=== PATIENT | female | born 1945 | race Caucasian/White ===

== ENCOUNTER 2016-11-16 21:21 | Inpatient (IN) | payer MEDICARE, OTHER ==
[~2016-11-16] VITALS: Ht 162.6 cm; Wt 51.0 kg
[~2016-11-16 21:21] MED LIST: ASPI-676 PO; CLON-379 PO; FLUO10CA17; HUMULIN; HYDR-3671 PO; INSU100C5; LAS20; LEVO100C PO; LOSA25TA2 PO; METO5TAB2 PO; MIN25 PO; NEBI5TAB9 PO; NIFE90TA4 PO; PANT40TA4 PO; SEVE800T10 PO; ZOLP10TA PO
[2016-11-16 21:37] VITALS: Ht 162.6 cm; Wt 51.0 kg
--- NOTE | 2016-11-16 22:25 | ERA ---
ER Documentation Chief Complaint Date/Time DATE: 11/16/16 TIME: 22:23 Chief Complaint BIB BLS EMS FROM SNF C/O GENERALIZED PAIN MAINLY ON THE NECK AND CHEST WALL HPI 71-year-old female who is brought in from the long term complaining of diffuse upper chest pain. Unfortunately she is a very difficult historian. She cannot describe the chest pain. She does not know when the chest pain started. She does not know what causes it to feel better or causes it to feel worse. She says that she thinks she is a little short of breath and that may be the oxygen helps her. She does not think she has been running a fever and she denies a cough. The remainder of the systems are limited. ROS All systems reviewed and are negative except as per history of present illness. Medications Home Meds Reported Medications Sucralfate* (Carafate*) 1 Gm Tab, 2 GM PO BID WITH MEALS, TAB MON,WED,FRI 11/16/16 Sucralfate* (Carafate*) 1 Gm Tab, 1 GM PO AC MEALS AND BEDTIME, TAB SUN,TUE,[place],SAT, 11/16/16 Sennosides* (Senna Lax*) 8.6 Mg Tablet, 1 TAB PO Q12H Y for CONSTIPATION, TAB 11/16/16 Guaifenesin-Dextromethorphan* (Robitussin* DM) 100MG/10MG/5ML Syrup, 10 ML PO Q6H Y for COUGH, ML 11/16/16 Metoclopramide* (Reglan*) 10 Mg Tablet, 10 MG PO Q12 Y for NAUSEA AND/OR VOMITING, TAB 11/16/16 Insulin Aspart* (Novolog Insulin Pen*) 100 Unit/Ml Soln, 0 SC .SLIDING SCALE AC , EA 11/16/16 Hydrocodone/Acetaminophen ([place] 5-325 Tablet) 1 Each Tablet, 1 EACH PO Q12 Y for MODERATE PAIN LEVEL 4-6, TAB 11/16/16 Nifedipine* (Nifedipine ER*) 30 Mg Tablet.sa, 30 MG PO DAILY, TAB.SA 11/16/16 Vit B Complex & C No.13/Fa/D3 (NEPHROCAPS QT TABLET) 1 Each Tab.rapdis, 1 EACH PO DAILY 11/16/16 Minoxidil* (Lonitin*) 10 Mg Tab, 10 MG PO BID, TAB 11/16/16 Sitagliptin* (Januvia*) 50 Mg Tablet, 50 MG PO BID, #30 TAB 11/16/16 Ipratropium-Albuterol (Ipratropium-Albuterol) 0.5-3 Mg/3 Ml Ampul.neb, 3 ML INHALATION Q4 Y for SHORTNESS OF BREATH, #30 VIAL 11/16/16 Dextrose (Glucose Gel) 38 Gm Gel..gram., 38 GM PO PRN 11/16/16 Glucagon,Human Recombinant (Glucagon Emergency Kit) 1 Mg Kit, 1 MG IJ PRN, KIT 11/16/16 Bisacodyl (Dulcolax) 10 Mg Supp.rect, 10 MG RC DAILY Y for CONSTIPATION, SUPP.RECT 11/16/16 Docusate Sodium* (Dok*) 250 Mg Capsule, 250 MG PO DAILY Y for CONSTIPATION, #30 CAP 11/16/16 Duloxetine Hcl* (Cymbalta*) 60 Mg Capsule.dr, 60 MG PO DAILY, CAP 11/16/16 Clonidine Patch (CATAPRES PATCH) 0.3 Mg/24 Hr Patch, 1 EACH TD Q7D, #4 PATCH.WK 11/16/16 Diphenhydramine Hcl* (Diphenhydramine Hcl*) 25 Mg Capsule, 25 MG PO Q8 Y for ITCHING, CAP 11/16/16 Polyvinyl Alcohol (Tears Again) 15 Ml Drops, 1 DRP BOTH EYES Q6, BOTTLE 11/16/16 Acetaminophen* (Acetaminophen*) 650 Mg Tablet, 650 MG PO Q6H Y for PAIN AND OR ELEVATED TEMP, #30 TAB 11/16/16 Hydralazine Hcl* (Apresoline*) 25 Mg Tab, PO QID 07/02/12 Levothyroxine Sodium (Tirosint) 100 Mcg Capsule, PO DAILY 07/02/12 Insulin Glargine,Hum.rec.anlog (Lantus) 100 U/Ml Cartridge 07/02/12 Pantoprazole* (Pantoprazole*) 40 Mg Tablet.dr, PO DAILY 07/02/12 Clonidine Hcl* (Clonidine Hcl*) 0.1 Mg Tab, PO PRN 07/02/12 Clonidine Hcl* (Clonidine Hcl*) 0.1 Mg Tab, 0.2 MG PO TID 07/02/12 Zolpidem Tartrate* (Ambien*) 10 Mg Tablet, PO HS 07/02/12 Discontinued Reported Medications Furosemide (Lasix) 20 Mg Tab, DAILY 10/30/12 Sevelamer Hcl* (Renagel*) 800 Mg Tablet, PO TID 07/02/12 [Humulin] No Conflict Check 07/02/12 Aspirin (Olamide Child) 81 Mg Chew, PO DAILY 07/02/12 Fluoxetine Hcl* (Fluoxetine Hcl*) 10 Mg Capsule, DAILY, 0 Refills 07/02/12 Nifedipine (Nifediac Cc) 90 Mg Tablet.sa, PO BID 07/02/12 Losartan Potassium* (Cozaar*) 25 Mg Tablet, 50 MG PO BID 07/02/12 Minoxidil* (Lonitin*) 2.5 Mg Tab, 4 TAB PO DAILY, 0 Refills 07/02/12 Nebivolol* (Bystolic*) 5 Mg Tab, PO BID, 0 Refills 07/02/12 Metoclopramide Hcl (Reglan) 5 Mg Tab, PO TID, 0 Refills 07/02/12 Allergies Allergies: Coded Allergies: latex (Verified Allergy, Unknown, 11/16/16) PMhx/Soc History of Surgery: Yes (CHOLECYST, HYSTERECT, DISKECT, RUE FISTULA) Anesthesia Reaction: No Hx Neurological Disorder: Yes (cva 3 years ago) Hx Respiratory Disorders: Yes ( c/o sob at times) Hx Cardiac Disorders: Yes (htn,high cholesyerol) Hx Psychiatric Problems: No Hx Miscellaneous Medical Probl: Yes (CKD ON HD, HTN, DM, CVA, HYPERLIPID, HYPOTHYROID) Hx Alcohol Use: No Hx Substance Use: No Hx Tobacco Use: No Physical Exam Vitals Vital Signs Date Time Temp Pulse Resp B/P Pulse Ox O2 Delivery O2 Flow Rate FiO2 11/17/16 00:04 94 24 184/77 97 Nasal Cannula 3.0 11/16/16 23:06 Nasal Cannula 2 11/16/16 21:37 98.9 88 20 130/76 92 Physical Exam Const: [] Well-developed well-nourished -German female sitting on the bed in no acute distress Head: Atraumatic normocephalic Eyes: Normal Conjunctiva ENT: Normal External Ears, Nose and Mouth. Neck: Full range of motion..~ No meningismus. Resp: Clear to auscultation bilaterally Cardio: Regular rate and rhythm, both a systolic and diastolic murmur auscultated across the entire precordium Abd: Soft, non tender, non distended. Normal bowel sounds Skin: No petechiae, patient has a scabbed rash noted on her left upper back which appears to possibly be shingles that is healing Back: No midline or flank tenderness Ext: No cyanosis, or edema Neur: Awake and alert, moves all extremities equally, nonfocal, follows simple commands Psych: Normal Mood and Affect Result Diagram: 11/16/16229911/16/162299 Results 24 hrs Laboratory Tests Test 11/16/16 23:00 White Blood Count 24.610^3/ul Red Blood Count 3.7110^6/ul Hemoglobin 9.2g/dl Hematocrit 30.6% Mean Corpuscular Volume 82.5fl Mean Corpuscular Hemoglobin 24.8pg Mean Corpuscular Hemoglobin Concent 30.1g/dl Red Cell Distribution Width 16.1% Platelet Count 05671^3/UL Mean Platelet Volume 9.7fl Neutrophils % 91.0% Band Neutrophils % 3.0% Lymphocytes % 1.0% Monocytes % 5.0% Neutrophils # 22.410^3/ul Lymphocytes # 0.210^3/ul Monocytes # 1.210^3/ul Platelet Estimate PLT APPEAR INCREASED Prothrombin Time 15.0Sec Prothrombin Time Ratio 1.2 INR International Normalized Ratio 1.17 Activated Partial Thromboplast Time 59.5Sec Sodium Level 133mmol/L Potassium Level 4.1mmol/L Chloride Level 89mmol/L Carbon Dioxide Level 30mmol/L Anion Gap 18 Blood Urea Nitrogen 23mg/dl Creatinine 2.88mg/dl Glucose Level 367mg/dl Calcium Level 9.2mg/dl Total Bilirubin 0.0mg/dl Direct Bilirubin 0.00mg/dl Indirect Bilirubin 0.0mg/dl Aspartate Amino Transf (AST/SGOT) 21IU/L Alanine Aminotransferase (ALT/SGPT) 14IU/L Alkaline Phosphatase 225IU/L Troponin I < 0.012ng/ml B-Type Natriuretic Peptide 397405YM/ML Total Protein 9.4g/dl Albumin 4.3g/dl Globulin 5.10g/dl Albumin/Globulin Ratio 0.84 Current Medications Medications (Trade) Dose Ordered Sig/Esteban Route PRN Reason Start Time Stop Time Status Last Admin Dose Admin Aspirin (Aspirin) 162 mg ONCE STAT PO 11/16/16 22:36 11/16/16 22:37 DC 11/16/16 23:04 Morphine Sulfate (morphine) 2 mg ONCE STAT IV 11/16/16 22:36 11/16/16 22:37 DC 11/16/16 23:04 Ondansetron HCl (Zofran Inj) 4 mg ONCE STAT IV 11/16/16 22:36 11/16/16 22:37 DC 11/16/16 23:04 Furosemide 80 mg 80 mg ONCE ONCE IV 11/17/16 00:30 11/17/16 00:31 DC 11/17/16 00:43 Ceftriaxone Sodium 50 ml @ 100 mls/hr ONCE ONCE IVPB 11/17/16 00:30 11/17/16 00:59 DC 11/17/16 00:41 Azithromycin (Zithromax 500mg/ NS (Pmx)) 250 ml @ 250 mls/hr ONCE ONCE IVPB 11/17/16 00:30 11/17/16 01:29 Morphine Sulfate (morphine) 1 mg ONCE ONCE IV 11/17/16 01:00 11/17/16 01:01 DC Procedures/MDM Differential includes but is not limited to chest pain, angina, chest wall pain , bronchitis, pneumonia EKG: Rate/Rhythm: Normal Sinus Rhythm at 90 beats per minutes with a nonspecific intraventricular block, no evidence for acute ischemia noted, poor R -wave progression across precordium, nonspecific ST-T wave changes, no old EKG available for comparison QRS, ST, T-waves: No changes consistent w/ acute ischemia Impression: No evidence of ischemia or arrhythmia Chest x-ray shows a right middle lobe and right lower lobe pneumonia with a parapneumonic effusion 0100: There has been no change in her exam at this time. I have consulted her primary care physician to admit her to the hospital for further treatment Departure Diagnosis: Primary Impression: Pneumonia Qualified Code: J18.1 - Pneumonia of right middle lobe due to infectious organism Additional Impressions: Pleural effusion Congestive heart failure Qualified Code: I50.9 - Acute congestive heart failure, unspecified congestive heart failure type Chest pain at rest Renal insufficiency Condition: LINDA Elder Nov 16, 2016 22:25
[2016-11-16] MEDS ORDERED: ASPIRIN 81 MG TAB PO STA (22:36)
[2016-11-16] MEDS ORDERED: morphine 2 MG INJ IV STA (22:36)
[2016-11-16] MEDS ORDERED: ONDANSETRON 4 MG INJ IV STA (22:36)
[2016-11-16] MEDS ORDERED: ACET-2047 PO (22:43)
[2016-11-16] MEDS ORDERED: POLY15DR25 BOTH EYES (22:44)
[2016-11-16] MEDS ORDERED: DIPH25CA6 PO (22:45)
[2016-11-16] MEDS ORDERED: DULO60CA6 PO (22:46)
[2016-11-16] MEDS ORDERED: CLON1PAT34 TD (22:46)
[2016-11-16] MEDS ORDERED: DOCU250C68 PO (22:47)
[2016-11-16] MEDS ORDERED: GLUC1KIT IJ (22:48)
[2016-11-16] MEDS ORDERED: BISA10SU55 RC (22:48)
[2016-11-16] MEDS ORDERED: DEXT38GE15 PO (22:49)
[2016-11-16] MEDS ORDERED: IPRA3AMP INHALATION (22:50)
[2016-11-16] MEDS ORDERED: SITA50TA2 PO (22:51)
[2016-11-16] MEDS ORDERED: MIN10 PO (22:52)
[2016-11-16] MEDS ORDERED: VIT1TAB.4 PO (22:53)
[2016-11-16] MEDS ORDERED: HYDR-906 PO (22:54)
[2016-11-16] MEDS ORDERED: NIFE30TA60 PO (22:54)
[2016-11-16] MEDS ORDERED: NOVO3I SC (22:55)
[2016-11-16] MEDS ORDERED: METO10TA92 PO (22:56)
[2016-11-16] MEDS ORDERED: UDROBDM PO (22:56)
[2016-11-16] MEDS ORDERED: SENN-53 PO (22:57)
[2016-11-16] MEDS ORDERED: SUCR1TAB56 PO ×2 (23:00)
[2016-11-16 23:08] LABS: ADD SCAN DIFF NO
[2016-11-16 23:10] LABS: ABNORMAL IP MESSAGE 1; HEMATOCRIT 30.6 % (37.0-47.0); HEMOGLOBIN 9.2 g/dl (12.0-16.0); MEAN CORPUSCULAR HEMOGLOBIN 24.8 pg (29.0-33.0); MEAN CORPUSCULAR HGB CONC 30.1 g/dl (32.0-37.0); MEAN CORPUSCULAR VOLUME 82.5 fl (82.0-101.0); MEAN PLATELET VOLUME 9.7 fl (7.4-10.4); PLATELET COUNT 457 10^3/UL (140-415); RED BLOOD COUNT 3.71 10^6/ul (4.20-5.40); RED CELL DISTRIBUTION WIDTH 16.1 % (11.5-14.5); WHITE BLOOD COUNT 24.6 10^3/ul (4.8-10.8)
--- NOTE | 2016-11-16 23:17 | RADRPT ---
PROCEDURE: XR Chest. CLINICAL INDICATION: Chest pain. TECHNIQUE: Portable AP upright view of the chest was obtained. COMPARISON: 10/10/2013 FINDINGS: The cardiomediastinal silhouette is mildly enlarged. Diffuse right middle and right lower lobe infi ltrate cannot exclude pneumonia with a parapneumonic effusion. The left lung is grossly clear. The re is no evidence of pneumothorax. Demineralization and thoracic spondylosis is again noted without acute osseous abnormality. Calcification of the aorta is visualized. Right upper arm surgical clips are again seen. RPTAT:HJJR IMPRESSION: 1. Right lower and middle lobe infiltrates concerning for pneumonia with a parapneumonic effusion. Correlation with cough, fever and leukocytosis is recommended. 2. Stable cardiac silhouette enlargement. An element of congestive heart failure is difficult to ex clude. 3. Aortic atherosclerosis is present. Physician Shelly Date Time Electronically viewed and signed by Physician Shelly on 11/16/2016 23:17 /
[2016-11-16 23:19] LABS: ALBUMIN 4.3 g/dl (3.3-4.9)
[2016-11-16 23:20] LABS: CHLORIDE 89 mmol/L (97-110); POTASSIUM 4.1 mmol/L (3.5-5.1); SODIUM 133 mmol/L (135-144)
[2016-11-16 23:21] LABS: INR 1.17; PT RATIO 1.2
[2016-11-16 23:22] LABS: CREATININE 2.88 mg/dl (0.44-1.00); PARTIAL THROMBOPLASTIN TIME 59.5 Sec (25.0-35.0)
[2016-11-16 23:23] LABS: ALANINE AMINOTRANSFERASE 14 IU/L (13-69); ALBUMIN/GLOBULIN RATIO 0.84; ALKALINE PHOSPHATASE 225 IU/L (42-121); ANION GAP 18 (8-16); ASPARTATE AMINO TRANSFERASE 21 IU/L (15-46); BLOOD UREA NITROGEN 23 mg/dl (7-20); CALCIUM 9.2 mg/dl (8.4-10.2); CARBON DIOXIDE 30 mmol/L (21-31); GLUCOSE 367 mg/dl (70-220); TOTAL PROTEIN 9.4 g/dl (6.1-8.1)
[2016-11-16 23:52] LABS: B-TYPE NATRIURETIC PEPTIDE 150000 PG/ML (0-125); TROPONIN-I < 0.012 ng/ml (0.00-0.12)
[2016-11-17] VITALS (12 sets, daily range): BP systolic 122–163; BP diastolic 56–67; PULSE 82–91; RESP 16–24
[2016-11-17 00:27] LABS: LYMPHOCYTES # 0.2 10^3/ul (0.8-2.9); MONOCYTE # 1.2 10^3/ul (0.3-0.9); NEUTROPHIL # 22.4 10^3/ul (1.6-7.5); PLATELET ESTIMATE PLT APPEAR INCREASED
[2016-11-17] MEDS ORDERED: AZITHROMYCIN 500MG/NS (PMX) 250 ML IVPB ONE (00:30)
[2016-11-17] MEDS ORDERED: CEFTRIAXONE 1 GM/50 ML (PMX) 50 ML IVPB ONE (00:30)
[2016-11-17] MEDS ORDERED: FUROSEMIDE 40 MG INJ IV ONE (00:30)
[2016-11-17] MEDS ORDERED: morphine 2 MG INJ IV ONE ×2 (01:00→04:10)
[2016-11-17] MEDS ORDERED: ACETAMINOPHEN 325 MG TAB PO PRN (01:30)
[2016-11-17] MEDS ORDERED: ONDANSETRON 4 MG INJ IV PRN (01:30)
[2016-11-17] MEDS ORDERED: morphine 10 MG INJ IM ONE (04:00)
[2016-11-17 08:35] LABS: CK-MB 0.82 ng/ml (0.0-2.4)
[2016-11-17 08:38] LABS: TROPONIN-I 0.017 ng/ml (0.00-0.12)
[2016-11-17] MEDS ORDERED: HYDROCODONE/APAP (5/325) TAB PO PRN (09:00)
[2016-11-17] MEDS ORDERED: BISACODYL 10 MG SUPP PR PRN (09:00)
[2016-11-17] MEDS ORDERED: METOCLOPRAMIDE 10 MG TAB PO PRN (09:00)
[2016-11-17] MEDS ORDERED: GUAIFENESIN/DM 5ML CUP PO PRN (09:00)
[2016-11-17] MEDS ORDERED: DOCUSATE SODIUM 250 MG CAP PO PRN (09:00)
[2016-11-17] MEDS ORDERED: DIPHENHYDRAMINE 25 MG CAP PO PRN (09:00)
[2016-11-17] MEDS ORDERED: GLUCOSE GEL 15 GRAM TUBE PO SCH (09:00)
[2016-11-17] MEDS ORDERED: SENNA TAB PO PRN (09:00)
[2016-11-17] MEDS ORDERED: LEVOTHYROXINE 100 MCG TAB PO ONE (09:42)
[2016-11-17] MEDS ORDERED: CLONIDINE 0.3 MG/24 HR PATCH TRANSDERM SCH (10:00)
[2016-11-17] MEDS ORDERED: DEXTROSE 50% 50 ML SYRINGE IV PRN (10:00)
[2016-11-17] MEDS ORDERED: GLUCOSE GEL 15 GRAM TUBE PO PRN ×2 (10:00)
[2016-11-17] MEDS ORDERED: GLUCAGON 1 MG INJ IM PRN (10:00)
--- NOTE | 2016-11-17 10:09 | HP ---
Date/Time of Note Date/Time of Note DATE: 11/17/16 TIME: 08:47 Assessment/Plan Lines/Catheters IV Catheter Type (from Nrsg): Saline Lock Assessment/Plan Assessment/Plan -Chest pain at rest- on/off at times - Cardiology consult- Dr Magana notified - Tele monitoring - 12 - Leas EKG- fu - 2-D Echo ordered - Troponin x 3- fu - Low Cholesterol diet, renal diet - Lipid panel - Rash- upper back- possibly healing Shingles - ID consult- Dr Mello notified - Contact isolation - Acyclovoer 800 mg po TID - Neurontin 100 mg po TID - Post Herpatic Neuralgia - Andrews for pain -Pneumonia of right middle lobe due to infectious organism - Pulmonary consult- Dr Whitley notified -Pleural effusion -Congestive heart failure -Renal insufficiency-CKD ON HD - Nephrolgy consult- Dr Vita Marsh notified - HD am - SP RUE FISTULA for HD - Hypertension- Clonidine - Diabetes Mellitus- Glycemic control - Novolog insulin- mild algorithm, at meals, Lantus - Endocrinology consult- Dr Mensah notified - log chain worker consult - Hoop Bending Machine Operator consult - Hx CVA- no acute issues - HYPERLIPIDEMIAS- Atorvastatin 10 mg po QHs - HYPOTHYROID- On Synthroid 100mcg po daily, TSH- - Hx CHOLECYSTECTOMY - SCD svenous thrombosis prophylaxis - Protonix for peptic ulcer disease prophylaxis. Further recommendations based on clinical course. Total patient care time spent is 40 mins. Plan of care discussed with Dr. Porter/ staff. HPI/ROS Admit Date/Time Admit Date/Time Nov 17, 2016 at 01:09 Hx of Present Illness Chief Complaint BIB BLS EMS FROM SNF C/O GENERALIZED PAIN MAINLY ON THE NECK AND CHEST WALL HPI 71-year-old female, w/o CKD, HTN, SNF resident who is brought in from the care home complaining of diffuse upper chest pain. Patient is not able to describe the chest pain, neck pain, rashes. Denies any nausea/vomitting.The remainder of the systems are limited. Patient is admitted under Dr Garsia with differential diagnoses of chest pain , angina, chest wall pain, bronchitis, pneumonia ROS All systems reviewed and are negative except as per history of present illness. Medications Home Meds Reported Medications Sucralfate* (Carafate*) 1 Gm Tab, 2 GM PO BID WITH MEALS, TAB MON,WED,FRI 11/16/16 Sucralfate* (Carafate*) 1 Gm Tab, 1 GM PO AC MEALS AND BEDTIME, TAB SUN,TUE,[place],SAT, 11/16/16 Sennosides* (Senna Lax*) 8.6 Mg Tablet, 1 TAB PO Q12H Y for CONSTIPATION, TAB 11/16/16 Guaifenesin-Dextromethorphan* (Robitussin* DM) 100MG/10MG/5ML Syrup, 10 ML PO Q6H Y for COUGH, ML 11/16/16 Metoclopramide* (Reglan*) 10 Mg Tablet, 10 MG PO Q12 Y for NAUSEA AND/OR VOMITING, TAB 11/16/16 Insulin Aspart* (Novolog Insulin Pen*) 100 Unit/Ml Soln, 0 SC .SLIDING SCALE AC , EA 11/16/16 Hydrocodone/Acetaminophen ([place] 5-325 Tablet) 1 Each Tablet, 1 EACH PO Q12 Y for MODERATE PAIN LEVEL 4-6, TAB 11/16/16 Nifedipine* (Nifedipine ER*) 30 Mg Tablet.sa, 30 MG PO DAILY, TAB.SA 11/16/16 Vit B Complex & C No.13/Fa/D3 (NEPHROCAPS QT TABLET) 1 Each Tab.rapdis, 1 EACH PO DAILY 11/16/16 Minoxidil* (Lonitin*) 10 Mg Tab, 10 MG PO BID, TAB 11/16/16 Sitagliptin* (Januvia*) 50 Mg Tablet, 50 MG PO BID, #30 TAB 11/16/16 Ipratropium-Albuterol (Ipratropium-Albuterol) 0.5-3 Mg/3 Ml Ampul.neb, 3 ML INHALATION Q4 Y for SHORTNESS OF BREATH, #30 VIAL 11/16/16 Dextrose (Glucose Gel) 38 Gm Gel..gram., 38 GM PO PRN 11/16/16 Glucagon,Human Recombinant (Glucagon Emergency Kit) 1 Mg Kit, 1 MG IJ PRN, KIT 11/16/16 Bisacodyl (Dulcolax) 10 Mg Supp.rect, 10 MG RC DAILY Y for CONSTIPATION, SUPP.RECT 11/16/16 Docusate Sodium* (Dok*) 250 Mg Capsule, 250 MG PO DAILY Y for CONSTIPATION, #30 CAP 11/16/16 Duloxetine Hcl* (Cymbalta*) 60 Mg Capsule.dr, 60 MG PO DAILY, CAP 11/16/16 Clonidine Patch (CATAPRES PATCH) 0.3 Mg/24 Hr Patch, 1 EACH TD Q7D, #4 PATCH.WK 11/16/16 Diphenhydramine Hcl* (Diphenhydramine Hcl*) 25 Mg Capsule, 25 MG PO Q8 Y for ITCHING, CAP 11/16/16 Polyvinyl Alcohol (Tears Again) 15 Ml Drops, 1 DRP BOTH EYES Q6, BOTTLE 11/16/16 Acetaminophen* (Acetaminophen*) 650 Mg Tablet, 650 MG PO Q6H Y for PAIN AND OR ELEVATED TEMP, #30 TAB 11/16/16 Hydralazine Hcl* (Apresoline*) 25 Mg Tab, PO QID 07/02/12 Levothyroxine Sodium (Tirosint) 100 Mcg Capsule, PO DAILY 07/02/12 Insulin Glargine,Hum.rec.anlog (Lantus) 100 U/Ml Cartridge 07/02/12 Pantoprazole* (Pantoprazole*) 40 Mg Tablet.dr, PO DAILY 07/02/12 Clonidine Hcl* (Clonidine Hcl*) 0.1 Mg Tab, PO PRN 07/02/12 Clonidine Hcl* (Clonidine Hcl*) 0.1 Mg Tab, 0.2 MG PO TID 07/02/12 Zolpidem Tartrate* (Ambien*) 10 Mg Tablet, PO HS 07/02/12 Discontinued Reported Medications Furosemide (Lasix) 20 Mg Tab, DAILY 10/30/12 Sevelamer Hcl* (Renagel*) 800 Mg Tablet, PO TID 07/02/12 [Humulin] No Conflict Check 07/02/12 Aspirin (Olamide Child) 81 Mg Chew, PO DAILY 07/02/12 Fluoxetine Hcl* (Fluoxetine Hcl*) 10 Mg Capsule, DAILY, 0 Refills 07/02/12 Nifedipine (Nifediac Cc) 90 Mg Tablet.sa, PO BID 07/02/12 Losartan Potassium* (Cozaar*) 25 Mg Tablet, 50 MG PO BID 07/02/12 Minoxidil* (Lonitin*) 2.5 Mg Tab, 4 TAB PO DAILY, 0 Refills 07/02/12 Nebivolol* (Bystolic*) 5 Mg Tab, PO BID, 0 Refills 07/02/12 Metoclopramide Hcl (Reglan) 5 Mg Tab, PO TID, 0 Refills 07/02/12 Allergies Allergies: Coded Allergies: latex (Verified Allergy, Unknown, 11/16/16) PMH/Family/Social Past Medical History PMhx/Soc History of Surgery: Yes (CHOLECYST, HYSTERECT, DISKECT, RUE FISTULA) Anesthesia Reaction: No Hx Neurological Disorder: Yes (cva 3 years ago) Hx Respiratory Disorders: Yes ( c/o sob at times) Hx Cardiac Disorders: Yes (htn,high cholesyerol) Hx Psychiatric Problems: No Hx Miscellaneous Medical Probl: Yes (CKD ON HD, HTN, DM, CVA, HYPERLIPID, HYPOTHYROID) Hx Alcohol Use: No Hx Substance Use: No Hx Tobacco Use: No Social History Alcohol Use: none Smoking Status: Never smoker Drug Use: none Exam/Review of Systems Vital Signs Vitals Vital Signs Date Time Temp Pulse Resp B/P Pulse Ox O2 Delivery O2 Flow Rate FiO2 11/17/16 08:38 84 11/17/16 08:24 98.0 18 151/67 98 11/17/16 03:00 Nasal Cannula 2.0 Exam Constitutional: alert, well developed Psych: no complaints Eyes: EOMI, PERRL, nl sclera ENMT: nl external ears & nose Neck: non-tender Respiratory: clear to auscultation Cardiovascular: nl pulses Gastrointestinal: non-tender, soft Musculoskeletal: nl extremities to inspection Extremities: normal pulses Neurological: nl speech Skin: rash or lesions (No petechiae, patient has a scabbed rash noted on her left upper back which appears to possibly be shingles that is healing) Labs Result Diagram: 11/16/16 2300 11/16/16 2300 Procedures Procedures 1. EKG: Rate/Rhythm: Normal Sinus Rhythm at 90 beats per minutes with a nonspecific intraventricular block, no evidence for acute ischemia noted, poor R-wave progression across precordium, nonspecific ST-T wave changes, no old EKG available for comparison QRS, ST, T-waves: No changes consistent w/ acute ischemia Impression: No evidence of ischemia or arrhythmia 2.Chest x-ray shows a right middle lobe and right lower lobe pneumonia with a parapneumonic effusion CANDELARIA TURCIOS Nov 17, 2016 08:59
[2016-11-17 10:29] LABS: CHOL/HDL RATIO 1.5 RATIO; PHOSPHORUS 3.7 mg/dl (2.5-4.9)
[2016-11-17] MEDS ORDERED: INSULIN GLARGINE [LANtus] 3 ML PEN SC SCH ×2 (11:00→20:00)
[2016-11-17] MEDS: INSULIN ASPART [NOVOLOG] 3 ML PEN SC SCH ×5 (11:21→21:00)
[2016-11-17] MEDS: MULTIVIT/CA CARB/B CMPLX/FA TAB PO SCH (11:32)
[2016-11-17] MEDS: DULOXETINE 30 MG CAP DR PO SCH (11:32)
[2016-11-17] MEDS: PANTOPRAZOLE (EC) 40 MG TAB PO SCH (11:32)
[2016-11-17] MEDS: SUCRALFATE 1 GM TAB PO SCH ×4 (11:35→22:20)
[2016-11-17] MEDS: MINOXIDIL 10 MG TAB PO SCH ×2 (11:36→21:00)
[2016-11-17] MEDS: ARTIFICIAL TEARS 15 ML OPH BOTH EYES SCH ×3 (11:41→22:20)
[2016-11-17] MEDS: NIFEdipine (XL) 30 MG TAB PO SCH (11:44)
[2016-11-17] MEDS ORDERED: VANCOMYCIN IV PER PHARMACY XX SCH (12:00)
[2016-11-17] MEDS ORDERED: INSULIN ASPART [NOVOLOG] 3 ML PEN SC ONE (12:00)
--- NOTE | 2016-11-17 12:05 | CONS ---
Date/Time of Note Date/Time of Note DATE: 11/17/16 TIME: 12:00 Assessment/Plan Assessment/Plan Additional Assessment/Plan Chest x-ray was reviewed from yesterday which is showing bilateral pneumonia as well as mild congestive heart failure pattern. Assessment recommendations; 1. Patient admitted with bilateral pneumonia with significant leukocytosis. 2. End-stage renal disease on hemodialysis. 3. CHF. 4. Diabetes. 5. Hypertension. 6. History of prior cholecystectomy, neuropathy, hypothyroidism. 7. Chronic pain. Continue current treatment. Add vancomycin to be adjusted by pharmacy. Continue Zithromax and cefepime. Obtain follow-up chest x-ray in 48 hours. Consultation Date/Type/Reason Admit Date/Time Nov 17, 2016 at 01:09 Date of Consultation: Nov 17, 2016 Type of Consultation: Pulmonary Reason for Consultation Pulmonary consultation requested for evaluation of pneumonia and CHF. History presenting; patient is a 71-year-old lady who came into the emergency room yesterday with history of chest pain which were described as dull. Patient is a care home resident. Upon evaluation here further workup was done including a chest x-ray which is showing bilateral pneumonia as well as changes of congestive heart failure. Patient has a significant leukocytosis. She denies any further chest pain. According to her shortness of breath is still there but is improved. Denies any recent nausea vomiting. Any fever or chills. Patient is a fair historian however detailed history was obtained from medical records. By the time I saw the patient the patient is completely awake alert and did not appear to be in any distress. Past medical history; 1. Patient with a history of end-stage renal disease on hemodialysis. 2. Hypothyroidism. 3. Hypertension. 4. Neuropathy. 5. Diabetes. 6. Status post cholecystectomy. 7. History of right cataract surgery Medications; were reviewed. Allergies; are to latex. Social history; patient never smoked. No swelling or drug abuse. Family history; she is single she has 2 children. Various family members have hypertension diabetes coronary artery disease. Occupational history; patient currently on disability. 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 Review of systems; denies any headache, visual changes. Sinus symptoms. Post nasal drip. Any hearing loss. Any seizures. Denies any further chest pain. Any nausea, vomiting. Any abdominal pain. Planes of mild orthopnea. Denies any skin changes any weight change. Has a fair appetite. General exam; elderly lady, currently in no distress awake and alert. Psychological: no complaints Social History Alcohol Use: none Smoking Status: Never smoker Drug Use: none Exam/Review of Systems Vital Signs Vitals Vital Signs Date Time Temp Pulse Resp B/P Pulse Ox O2 Delivery O2 Flow Rate FiO2 11/17/16 08:38 84 11/17/16 08:24 98.0 18 151/67 98 11/17/16 03:00 Nasal Cannula 2.0 Exam HEENT exam is; supple neck, positive JVD. No lymphadenopathy. Midline trachea. No thyromegaly. Pharynx is clear. Patient does have multiple carious teeth. There is a left intraocular lens implant. Chest examination; diminished but clear breath sounds. S1-S2 audible, no murmurs. Regular rhythm. Abdomen examination; soft, nontender. No organomegaly. Bowel sounds audible. Extremity exam is; no peripheral edema. Pulses 1+ bilaterally. There is no clubbing. WET TRIMMER examination; cranial nerves are intact. No focal motor deficit. Results Result Diagram: 11/16/16 2300 11/17/16 0716 Results 24 hrs Laboratory Tests Test 11/16/16 23:00 11/17/16 07:16 11/17/16 08:20 11/17/16 11:09 White Blood Count 24.6 H Red Blood Count 3.71 L Hemoglobin 9.2 L Hematocrit 30.6 L Mean Corpuscular Volume 82.5 Mean Corpuscular Hemoglobin 24.8 L Mean Corpuscular Hemoglobin Concent 30.1 L Red Cell Distribution Width 16.1 H Platelet Count 457 H Mean Platelet Volume 9.7 Neutrophils % 91.0 H Band Neutrophils % 3.0 Lymphocytes % 1.0 L Monocytes % 5.0 Neutrophils # 22.4 H Lymphocytes # 0.2 L Monocytes # 1.2 H Platelet Estimate PLT APPEAR INCREASED Prothrombin Time 15.0 H Prothrombin Time Ratio 1.2 INR International Normalized Ratio 1.17 Activated Partial Thromboplast Time 59.5 H Sodium Level 133 L Potassium Level 4.1 Chloride Level 89 L Carbon Dioxide Level 30 Anion Gap 18 H Blood Urea Nitrogen 23 H Creatinine 2.88 H Glucose Level 367 H 467 *H Calcium Level 9.2 Total Bilirubin 0.0 L Direct Bilirubin 0.00 Indirect Bilirubin 0.0 Aspartate Amino Transf (AST/SGOT) 21 Alanine Aminotransferase (ALT/SGPT) 14 Alkaline Phosphatase 225 H Troponin I < 0.012 0.017 B-Type Natriuretic Peptide 998162 H Total Protein 9.4 H Albumin 4.3 Globulin 5.10 H Albumin/Globulin Ratio 0.84 Phosphorus Level 3.7 Creatine Kinase 28 Creatine Kinase Index 2.9 Creatinine Kinase MB (Mass) 0.82 Triglycerides Level 85 Cholesterol Level 155 LDL Cholesterol, Calculated 41 HDL Cholesterol 97 H Cholesterol/HDL Ratio 1.5 Bedside Glucose 420 *H 401 *H Medications Medications Current Medications Acetaminophen (Tylenol Tab) 650 mg Q6H PRN PO PAIN AND OR ELEVATED TEMP; Start 11/17/16 at 09:00 Bisacodyl (Dulcolax Supp) 10 mg DAILY PRN [place] CONSTIPATION; Start 11/17/16 at 09 :00 Clonidine (Catapres) 1 mg PRN PO ; Start 11/17/16 at 09:00; Status UNV Clonidine (Catapres) 0.2 mg TID PO Last administered on 11/17/16 11:31; Admin Dose 0.2 MG; Start 11/17/16 at 09:00 Clonidine HCl (Catapres-Tts 3 Patch) 0.3 patch Q7D TRANSDERM Last administered on 11/17/16 11:36; Admin Dose 0.3 PATCH; Start 11/17/16 at 10:00 Glucose (Glutose) 38 gm PRN PO ; Start 11/17/16 at 09:00 Diphenhydramine HCl (Benadryl) 25 mg Q8 PRN PO ITCHING; Start 11/17/16 at 09:00 Docusate Sodium (Colace) 250 mg DAILY PRN PO CONSTIPATION; Start 11/17/16 at 09 :00 Duloxetine HCl (Cymbalta) 60 mg DAILY PO Last administered on 11/17/16 11:32; Admin Dose 60 MG; Start 11/17/16 at 09:00 Guaifenesin/ Dextromethorphan (Robitussin Dm Liquid Cup) 10 ml Q6H PRN PO COUGH ; Start 11/17/16 at 09:00 Hydralazine HCl (Apresoline) 25 mg QID PO Last administered on 11/17/16 11:35 ; Admin Dose 25 MG; Start 11/17/16 at 09:00 Acetaminophen/ Hydrocodone Bitart ([place] (5/325)) 1 tab Q12 PRN PO MODERATE PAIN LEVEL 4-6; Start 11/17/16 at 09:00 Metoclopramide HCl (Reglan) 10 mg Q12 PRN PO NAUSEA AND/OR VOMITING; Start at 09:00 Minoxidil (Loniten) 10 mg BID PO Last administered on 11/17/16 11:36; Admin Dose 10 MG; Start 11/17/16 at 10:30 Nifedipine (Procardia Xl) 30 mg DAILY PO Last administered on 11/17/16 11:44; Admin Dose 30 MG; Start 11/17/16 at 10:00 Pantoprazole (Protonix Tab) 20 mg DAILY PO Last administered on 11/17/16 11:32 ; Admin Dose 20 MG; Start 11/17/16 at 09:00 Eye Lubricant (Artificial Tears Oph) 1 drop Q6 BOTH EYES Last administered on 11:41; Admin Dose 1 DROP; Start 11/17/16 at 12:00 Senna (Senokot) 1 tab Q12H PRN PO CONSTIPATION; Start 11/17/16 at 09:00 Zolpidem Tartrate (Ambien) 1 mg HS PO ; Start 11/17/16 at 21:00 Multivit/Ca Carb/ B Cmplx/FA/Prenat (Peyton-Ludwin) 1 tab DAILY PO Last administered on 11/17/16 11:32; Admin Dose 1 TAB; Start 11/17/16 at 09:00 Diagnostic Test (Pha) (Accu-Chek) 1 ea 02 XX ; Start 11/18/16 at 02:00 Acyclovir (Zovirax) 800 mg TID PO Last administered on 11/17/16 11:41; Admin Dose 800 MG; Start 11/17/16 at 13:00 Gabapentin (Neurontin) 100 mg TID PO ; Start 11/17/16 at 13:00 Miscellaneous Information 1 ea NOTE XX ; Start 11/17/16 at 10:00 Glucose (Glutose) 15 gm Q15M PRN PO DECREASED GLUCOSE; Start 11/17/16 at 10:00 Glucose (Glutose) 22.5 gm Q15M PRN PO DECREASED GLUCOSE; Start 11/17/16 at 10: 00 Dextrose (D50w Syringe) 25 ml Q15M PRN IV DECREASED GLUCOSE; Start 11/17/16 at 10:00 Dextrose (D50w Syringe) 50 ml Q15M PRN IV DECREASED GLUCOSE; Start 11/17/16 at 10:00 Glucagon (Glucagen) 1 mg Q15M PRN IM DECREASED GLUCOSE; Start 11/17/16 at 10:00 Glucose (Glutose) 15 gm Q15M PRN BUCCAL DECREASED GLUCOSE; Start 11/17/16 at 10 :00 Atorvastatin Calcium (Lipitor) 10 mg HS PO ; Start 11/17/16 at 21:00 Insulin Glargine (Lantus) 15 unit AM SC Last administered on 11/17/16t 11:22; Admin Dose 15 UNIT; Start 11/17/16 at 11:00 Insulin Aspart 10 unit 10 unit ONCE ONCE SC ; Start 11/17/16 at 12:00; Stop at 12:01 Sodium Chloride (1/2 NS) 1,000 ml @ 30 mls/hr Q24H IV ; Start 11/17/16 at 12:00 URIEL CURIEL Nov 17, 2016 12:05
[2016-11-17] MEDS: ALBUTEROL/IPRATROPIUM (NEB) 3 ML AMP NEB PRN (12:09)
[2016-11-17 12:50] LABS: CREATINE KINASE 27 IU/L (23-200)
[2016-11-17 12:59] LABS: CK-MB 0.71 ng/ml (0.0-2.4)
[2016-11-17] MEDS ORDERED: ACYCLOVIR 800 MG TAB PO SCH (13:00)
[2016-11-17 13:02] LABS: TROPONIN-I < 0.012 ng/ml (0.00-0.12)
[2016-11-17] MEDS: SOD CHLORIDE 0.45% 1,000 ML IV SCH (14:11)
[2016-11-17] MEDS: GABAPENTIN 100 MG CAP PO SCH ×2 (14:11→22:20)
[2016-11-17] MEDS: HEPARIN 5,000 UNIT/0.5 ML VIAL SC SCH ×2 (14:14→22:27)
[2016-11-17] MEDS ORDERED: VANCOMYCIN 1.75 GM in NS 500 ML IVPB SCH (15:00)
[2016-11-17] MEDS ORDERED: VANCOMYCIN 1.25 GM in SOD CHLORIDE 0.9% 250 ML IVPB SCH (15:00)
[2016-11-17] MEDS ORDERED: CEFTRIAXONE 1 GM/50 ML (PMX) 50 ML IVPB SCH (15:00)
[2016-11-17] MEDS: AZITHROMYCIN 500MG/NS (PMX) 250 ML IVPB SCH (15:54)
--- NOTE | 2016-11-17 16:01 | RADRPT ---
Vent Rate: 81 bpm RR Interval: 0 msec TN Interval: 154 msec QRS Duration: 146 msec QT Interval: 422 msec QTC Interval: 490 msec P-R-T Stendal: 39 - -84 - 93 degrees Normal sinus rhythm Left axis deviation Left bundle branch block Abnormal ECG Electronically Signed By: Omer Macias [id number]
[2016-11-17] MEDS ORDERED: NITROGLYCERIN (SL) 0.4 MG TAB SL PRN (18:30)
[2016-11-17] MEDS: HYDROCODONE/APAP (5/325) TAB PO PRN (18:39)
--- NOTE | 2016-11-17 19:00 | CONS ---
DATE OF ADMISSION: 11/17/2016 DATE OF CONSULTATION: 11/17/2016 REASON FOR CONSULTATION: Chest pain, assess for acute coronary syndrome. REQUESTING PHYSICIAN: Shilo Izaguirre MD HISTORY OF PRESENT ILLNESS: Ms. Elias is a 71-year-old female with a history of recent rash to the back, thought to be due to zoster shingles, diabetes mellitus, hypertension, dyslipidemia, hypothyr oidism, prior cholecystectomy, who initially presented with chest pain radiating up to her throat an d left arm, poorly describes at rest, ongoing for approximately 1 day. Upon arrival, temperature 98 .9, blood pressure 130/76, pulse 88, respiratory 20, saturating 92%. The patient's labs revealed wh ite blood count 24.6, hemoglobin 9.2, platelet count 457. Sodium 133, potassium 4.1, creatinine 2.8 8, BUN 23, AST 21, ALT of 14. Troponin negative. BNP of 150,000. LDL 41, HDL 97. INR of 1.1. patient underwent a chest x-ray revealing right lower and middle lobe infiltrates concerning for p neumonia and parapneumonic effusion. The patient's electrocardiogram revealed normal sinus rhythm, rate of 91 with a nonspecific IVCD and secondary repolarization abnormalities. The patient was subs equently admitted to the floor and since admit to the floor, continued to have chest pain and has cartwright d a negative troponin x2. Patient at this time continues to complain of chest pain. PAST MEDICAL HISTORY: As above in HPI. MEDICATIONS CURRENTLY IN HOSPITAL: 1. Lantus. 2. Ambien 3. Lipitor 10 mg at bedtime. 4. Acyclovir 800 mg p.o. b.i.d. 5. Sulfate 2 grams b.i.d. 6. Brandon. 7. Morphine. 8. Ceftriaxone. 9. Azithromycin. 10. Gabapentin. 11. Heparin 5000 subq b.i.d. 12. Insulin. 13. Vancomycin. 14. Minoxidil 10 mg p.o. b.i.d. 15. Clonidine patch 0.3 q. week. 16. Procardia 30 mg daily. 17. Tylenol p.r.n. 18. Clonidine p.r.n. 19. Hydralazine 25 mg p.o. t.i.d. 20. Reglan p.r.n. 21. Protonix 20 mg daily. 22. Senna 23. Renavite. ALLERGIES: LATEX. SOCIAL HISTORY: No tobacco, ETOH or illicit drug use. FAMILY HISTORY: No history of sudden cardiac or early CAD. REVIEW OF SYSTEMS: As above in HPI. CONSTITUTIONAL: No fevers, chills. PULMONARY: Shortness of breath. CARDIOVASCULAR: Chest pain. GASTROINTESTINAL: No vomiting. GENITOURINARY: No hematuria. MUSCULOSKELETAL: Degenerative joint disease. PSYCHIATRIC: No documented psych history. NEUROLOGIC: No documented history of CVA. ENDOCRINE: Diabetes mellitus. PHYSICAL EXAMINATION: VITAL SIGNS: Temperature of 97, blood pressure 130/63, pulse 98, respiratory rate 18, saturating 98 %. GENERAL: The patient is alert, awake, complaining of chest pain radiating to her throat and shoulde r and arm. NECK: JVP approximately 9 cm of water. CHEST: Fair air movement throughout. HEART: Regular rate and rhythm. Normal S1, S2, I/ systolic murmur, nondisplaced PMI. ABDOMEN: Positive bowel sounds, soft. EXTREMITIES: No pitting edema, 1+ pulses bilaterally posterior tibial. LABORATORIES: As above in HPI, with most recent LDL from today LDL 47, HDL 97. Troponin negative x 3. Glucose of 401. IMAGING STUDIES: As above in HPI. No further imaging studies for my review at this time. ECG: As above in HPI. No further electrocardiograms for my review at this time. IMPRESSION: 1. Chest pain, assess for acute coronary syndrome with negative troponins x3, but ongoing complaint s of chest pain. 2. Abnormal electrocardiogram with intraventricular conduction delay. Assess for acute coronary sy ndrome. 3. Hypertension. 4. Diabetes mellitus. 5. Possible zoster infection. 6. Dyslipidemia. 7. Pneumonia with parapneumonic effusion. 8. Renal failure. 9. Anemia. 10. Leukocytosis. RECOMMENDATIONS: 1. At this time, would maintain the patient on telemetry monitoring to follow rhythm and rate close ly. 2. Continue the patient's current antihypertensives with clonidine, clonidine patch, Procardia-XL a nd Minoxidil. 3. We will continue patient's antibiotics and follow up all culture data. 4. We will check a 2D echocardiogram to further assess the patient's ejection fraction, wall motion and any major valve abnormalities. 5. Will start the patient on oral nitrates and follow symptomatology. 6. We will place the patient in for a Lexiscan stress test to take place first thing in the morning to assess for the possibility of significant obstructive coronary artery disease based on her sympt oms of subsequent chest pain and admit to the hospital. Thank you for allowing me to take part in the care of this patient. I will continue to follow along very closely with you. Further recommendations will be made as the patient progresses through her inpatient hospital clinical course. Dictated By: MANUELA DIXON/JEANINE Conf#: [id number] DID#: [id number] CC: SHILO IZAGUIRRE MD;*EndCC*
[2016-11-17] MEDS: morphine 2 MG INJ IV PRN (19:42)
--- NOTE | 2016-11-17 20:14 | CONS ---
Date/Time of Note Date/Time of Note DATE: 11/17/16 TIME: 19:57 Assessment/Plan Assessment/Plan Chief Complaint/Hosp Course - sepsis due to pneumonia/bronchitis - pneumonia/bronchitis with possible parapneumonic effusion - pleuritic chest pain/myalgia of the chest - productive cough - poor dentition - scaly rash, possible VZV infection - CHF - ESRD, on HD - DM - h/o CVA - s/p CCY - hypothyroidism recommendations - for pneumonia, I ordered: procalcitonin, nasopharyngeal swab for influenza and respiratory virus PCR panel, (send out to [facility]) sputum culture (if Pt can expectorate), mycoplasma pneumoniae NAAT, legionella antibody, cocci serology, Q TB gold - I ordered ultrasound of the chest to evaluate the size of R sided pleural effusion. If sufficient, I recommend diagnostic thoracentesis - I recommend coverage for healthcare associated pathogens, oropharyngeal mary (because Pt has poor dentition) and atypical pathogens: IV vancomycin, azithromycin, pip/tazo (to enhance anaerobic coverage). - for skin lesions: I instructed Pt's RN to swab the skin lesion for varicella zoster virus PCR test. While the result is pending, place Pt on airborne precautions per CDC recommendations. - continue empiric renally dosed acyclovir until varicella is ruled out management d/w Pt, her RN and charge nurse Problems: Consultation Date/Type/Reason Admit Date/Time Nov 17, 2016 at 01:09 Date of Consultation: Nov 17, 2016 Type of Consultation: ID Reason for Consultation pneumonia Referring Provider: CANDELARIA TURCIOS Hx of Present Illness This is a 71 yo female with CAD, ESRD on HD, h/o CVA who was transferred from SNF today due to chest pain. Troponin was negative. Her initial workup is significant for maximal temp 99.7F, leukocytosis, CXR showing R sided pneumonia with possible parapneumonic effusion. She was started on empiric antibacterial treatment. She was also found out to have scaly skin lesions on L scapula. Pt was started on empiric acyclovir for this. Pt c/o congested cough (but cannot expectorate), chest pain upon deep inspiration. GROUP SALES COORDINATOR Kandis requested ID consultation on this Pt. Constitutional: other (not feeling well), No chills, No febrile Eyes: No no complaints ENT: No no complaints Respiratory: cough, pleuritic pain, sputum Cardiovascular: no complaints Gastrointestinal: no complaints Genitourinary: other (on HD) Musculoskeletal: no complaints Skin: skin lesions (L scapula) Neurologic: no complaints Lymphatic: no complaints Psychological: no complaints Past Medical History Medical History: congestive heart failure, coronary artery disease, diabetes, gallstones, high cholesterol, hypertension, hypothyroid, renal disease, other ( CVA) Past Surgical History Past Surgical Hx: cholecystectomy Social History Alcohol Use: none Smoking Status: Never smoker Drug Use: none Exam/Review of Systems Vital Signs Vitals Vital Signs Date Time Temp Pulse Resp B/P Pulse Ox O2 Delivery O2 Flow Rate FiO2 11/17/16 17:10 97.0 98 18 130/63 98 11/17/16 12:09 Nasal Cannula 2.0 Exam Constitutional: frail Psych: nl mood/affect, no complaints Head: atraumatic, normocephalic Eyes: nl conjunctiva, nl lids ENMT: mucosa pink and moist, nl external ears & nose, other (poor dentition, broken teeth) Neck: supple Respiratory: diminished breath sounds Cardiovascular: nl pulses, regular rate and rhythm Gastrointestinal: non-tender, soft, No distended, No tender Musculoskeletal: other (muscular atrophy) Neurological: nl mental status Skin: rash or lesions (scaly lesions on L scapula, non-TTP) Results Result Diagram: 11/16/16 2300 11/17/16 0716 Results 24 hrs Laboratory Tests Test 11/16/16 23:00 11/17/16 07:16 11/17/16 08:20 11/17/16 11:09 White Blood Count 24.6 H Red Blood Count 3.71 L Hemoglobin 9.2 L Hematocrit 30.6 L Mean Corpuscular Volume 82.5 Mean Corpuscular Hemoglobin 24.8 L Mean Corpuscular Hemoglobin Concent 30.1 L Red Cell Distribution Width 16.1 H Platelet Count 457 H Mean Platelet Volume 9.7 Neutrophils % 91.0 H Band Neutrophils % 3.0 Lymphocytes % 1.0 L Monocytes % 5.0 Neutrophils # 22.4 H Lymphocytes # 0.2 L Monocytes # 1.2 H Platelet Estimate PLT APPEAR INCREASED Prothrombin Time 15.0 H Prothrombin Time Ratio 1.2 INR International Normalized Ratio 1.17 Activated Partial Thromboplast Time 59.5 H Sodium Level 133 L Potassium Level 4.1 Chloride Level 89 L Carbon Dioxide Level 30 Anion Gap 18 H Blood Urea Nitrogen 23 H Creatinine 2.88 H Glucose Level 367 H 467 *H Calcium Level 9.2 Total Bilirubin 0.0 L Direct Bilirubin 0.00 Indirect Bilirubin 0.0 Aspartate Amino Transf (AST/SGOT) 21 Alanine Aminotransferase (ALT/SGPT) 14 Alkaline Phosphatase 225 H Troponin I < 0.012 0.017 B-Type Natriuretic Peptide 762132 H Total Protein 9.4 H Albumin 4.3 Globulin 5.10 H Albumin/Globulin Ratio 0.84 Phosphorus Level 3.7 Creatine Kinase 28 Creatine Kinase Index 2.9 Creatinine Kinase MB (Mass) 0.82 Triglycerides Level 85 Cholesterol Level 155 LDL Cholesterol, Calculated 41 HDL Cholesterol 97 H Cholesterol/HDL Ratio 1.5 Bedside Glucose 420 *H 401 *H Test 11/17/16 12:20 11/17/16 16:55 Hemoglobin A1c 7.8 H Creatine Kinase 27 Creatine Kinase Index 2.6 Creatinine Kinase MB (Mass) 0.71 Troponin I < 0.012 Bedside Glucose 270 H Medications Medications Current Medications Acetaminophen (Tylenol Tab) 650 mg Q6H PRN PO PAIN AND OR ELEVATED TEMP; Start 11/17/16 at 09:00 Bisacodyl (Dulcolax Supp) 10 mg DAILY PRN [place] CONSTIPATION; Start 11/17/16 at 09 :00 Clonidine (Catapres) 0.1 mg Q6H PRN PO ELEVATED BLOOD PRESSURE; Start 11/17/16 at 09:00 Clonidine (Catapres) 0.2 mg TID PO Last administered on 11/17/16 11:31; Admin Dose 0.2 MG; Start 11/17/16 at 09:00 Clonidine HCl (Catapres-Tts 3 Patch) 0.3 patch Q7D TRANSDERM Last administered on 11/17/16 11:36; Admin Dose 0.3 PATCH; Start 11/17/16 at 10:00 Glucose (Glutose) 38 gm PRN PO ; Start 11/17/16 at 09:00 Diphenhydramine HCl (Benadryl) 25 mg Q8 PRN PO ITCHING; Start 11/17/16 at 09:00 Docusate Sodium (Colace) 250 mg DAILY PRN PO CONSTIPATION; Start 11/17/16 at 09 :00 Duloxetine HCl (Cymbalta) 60 mg DAILY PO Last administered on 11/17/16 11:32; Admin Dose 60 MG; Start 11/17/16 at 09:00 Guaifenesin/ Dextromethorphan (Robitussin Dm Liquid Cup) 10 ml Q6H PRN PO COUGH ; Start 11/17/16 at 09:00 Hydralazine HCl (Apresoline) 25 mg QID PO Last administered on 11/17/16 18:19 ; Admin Dose 25 MG; Start 11/17/16 at 09:00 Metoclopramide HCl (Reglan) 10 mg Q12 PRN PO NAUSEA AND/OR VOMITING; Start at 09:00 Minoxidil (Loniten) 10 mg BID PO Last administered on 11/17/16 11:36; Admin Dose 10 MG; Start 11/17/16 at 10:30 Nifedipine (Procardia Xl) 30 mg DAILY PO Last administered on 11/17/16 11:44; Admin Dose 30 MG; Start 11/17/16 at 10:00 Pantoprazole (Protonix Tab) 20 mg DAILY PO Last administered on 11/17/16 11:32 ; Admin Dose 20 MG; Start 11/17/16 at 09:00 Eye Lubricant (Artificial Tears Oph) 1 drop Q6 BOTH EYES Last administered on 18:19; Admin Dose 1 DROP; Start 11/17/16 at 12:00 Senna (Senokot) 1 tab Q12H PRN PO CONSTIPATION; Start 11/17/16 at 09:00 Zolpidem Tartrate (Ambien) 1 mg HS PO ; Start 11/17/16 at 21:00 Multivit/Ca Carb/ B Cmplx/FA/Prenat (Peyton-Ludwin) 1 tab DAILY PO Last administered on 11/17/16 11:32; Admin Dose 1 TAB; Start 11/17/16 at 09:00 Diagnostic Test (Pha) (Accu-Chek) 1 ea 02 XX ; Start 11/18/16 at 02:00 Gabapentin (Neurontin) 100 mg TID PO Last administered on 11/17/16 14:11; Admin Dose 100 MG; Start 11/17/16 at 13:00 Miscellaneous Information 1 ea NOTE XX ; Start 11/17/16 at 10:00 Glucose (Glutose) 15 gm Q15M PRN PO DECREASED GLUCOSE; Start 11/17/16 at 10:00 Glucose (Glutose) 22.5 gm Q15M PRN PO DECREASED GLUCOSE; Start 11/17/16 at 10: 00 Dextrose (D50w Syringe) 25 ml Q15M PRN IV DECREASED GLUCOSE; Start 11/17/16 at 10:00 Dextrose (D50w Syringe) 50 ml Q15M PRN IV DECREASED GLUCOSE; Start 11/17/16 at 10:00 Glucagon (Glucagen) 1 mg Q15M PRN IM DECREASED GLUCOSE; Start 11/17/16 at 10:00 Glucose (Glutose) 15 gm Q15M PRN BUCCAL DECREASED GLUCOSE; Start 11/17/16 at 10 :00 Atorvastatin Calcium 10 mg 10 mg HS PO ; Start 11/17/16 at 21:00 Sodium Chloride 1,000 ml @ 30 mls/hr Q24H IV Last administered on 11/17/16 14 :11; Admin Dose 30 MLS/HR; Start 11/17/16 at 12:00 Ceftriaxone Sodium 50 ml @ 100 mls/hr Q24H IVPB ; Start 11/17/16 at 15:00 Azithromycin (Zithromax 500mg/ NS (Pmx)) 250 ml @ 250 mls/hr Q24H IVPB Last administered on 11/17/16 15:54; Admin Dose 250 MLS/HR; Start 11/17/16 at 15:00 Heparin Sodium (Porcine) (Heparin (5000 Units/0.5 ml)) 5,000 unit BID SC Last administered on 11/17/16 14:14; Admin Dose 5,000 UNIT; Start 11/17/16 at 13:00 Insulin Glargine 30 unit 30 unit AM SC ; Start 11/18/16 at 09:00 Vancomycin HCl/ Sodium Chloride (Vancocin/NS) 250 ml @ 83.333 mls/ hr ONCE IVPB ; Start 11/17/16 at 15:00; Stop 11/17/16 at 23:59 Acyclovir (Zovirax) 800 mg BID PO ; Start 11/17/16 at 21:00 Acetaminophen/ Hydrocodone Bitart ([place] (5/325)) 1 tab Q6 PRN PO MODERATE PAIN LEVEL 4-6 Last administered on 11/17/16 18:39; Admin Dose 1 TAB; Start at 18:00 Morphine Sulfate (morphine) 2 mg Q4H PRN IV PAIN LEVEL 6-10 Last administered on 11/17/16t 19:42; Admin Dose 2 MG; Start 11/17/16 at 17:30 Isosorbide Dinitrate (Isordil) 10 mg TID PO ; Start 11/17/16 at 21:00 Nitroglycerin (Nitroglycerin (Sl Tab) 0.4 Mg) 1 tab Q5M PRN SL ANGINA; Start at 18:30 VITALY WADDELL M.D. Nov 17, 2016 20:13
[2016-11-17] MEDS: ISOSORBIDE DINITRATE 10 MG TAB PO SCH (21:00)
--- NOTE | 2016-11-17 21:42 | RADRPT ---
Echocardiogram Report Patient Name: YANG MAGALLANES Gender: Female Date: 1945 Study Date: 17-Nov-2016 Radiology Assistant: DANO [facility] Location: 5550 Ref. Physician: CANDELARIA TURCIOS Quality: Adequate Procedures: Transthoracic echocardiogram with complete 2D, M-Mode, and doppler examination. Indications: Chest Pain. 2D/M Mode Doppler Measurement Value Normal Ranges Measurement Value Normal Ranges LVIDd 2D 4.1 3.5 - 5.6 cm AV Peak Edgardo 1.5 m/sec LVIDs 2D 3.1 2.1 - 4.1 cm AV Peak PG 10.0 mmHg FS 2D 25.4 % LVOT Peak Edgardo 1.0 m/sec LVPWd 2D 1.0 0.6 - 1.1 cm LVOT Peak PG 4.0 mmHg IVSd 2D 1.2 0.6 - 1.1 cm MV E Peak Edgardo 0.9 m/sec IVS/LVPW 2D 1.2 MV A Peak Edgardo 1.0 m/sec AoR Diam 2D 2.2 2.0 - 3.7 cm MV E/A 0.9 LA/Ao 2D 2 0 - 1 MV Decel Time 218 msec EDV 2D 71.0 cm3 MV E/A 0.9 ESV 2D 29.5 cm3 MR Peak PG 67.0 mmHg LA Dimen 2D 4.6 2.3 - 4.0 cm MR Peak Edgardo 4.1 m/sec TR Peak Edgardo 2.9 m/sec TR Peak PG 33.0 mmHg Findings Left Ventricle: Lower limits of normal systolic function. Reduced left ventricular cavity size. Ejection fraction is visually estimated at 50 %. Tissue Doppler/Mitral Doppler indices are consistent with impaired relaxation (Stage I diastolic dysfunction). Right Ventricle: Normal right ventricular size. Normal right ventricular systolic function. Left Atrium: There is mild enlargement of left atrium. Right Atrium: The right atrium is normal in size. Mitral Valve: Mild mitral leaflet calcification. Mild mitral annular calcification. Mild mitral valve regurgitation. Aortic Valve: Trileaflet aortic valve. Tricuspid Valve: Normal appearance of the tricuspid valve. Estimated peak PA systolic pressure 58 mmHg. There is moderate tricuspid regurgitation. Pulmonic Valve: There is trace to mild pulmonic regurgitation. Pericardium: Trivial pericardial effusion. Right pleural effusion seen. Aorta: Normal aortic root. IVC: Dilated inferior vena cava with poor inspiratory collapse consistent with elevated right atrial pressures. Conclusions Lower limits of normal systolic function. Reduced left ventricular cavity size. Ejection fraction is visually estimated at 50 %. Tissue Doppler/Mitral Doppler indices are consistent with impaired relaxation (Stage I diastolic dysfunction). There is mild enlargement of left atrium. Mild mitral valve regurgitation. Estimated peak PA systolic pressure 58 mmHg. There is moderate tricuspid regurgitation. There is trace to mild pulmonic regurgitation. Electronically Signed By: Raul Magana 17-Nov-2016 21:41:56 -0700 Patient Name: YANG MAGALLANES Study Date: 17-Nov-2016 [id number]
[2016-11-17] MEDS: ACYCLOVIR 800 MG TAB PO SCH (22:21)
[2016-11-17] MEDS: ATORVASTATIN 10 MG TAB PO SCH (22:21)
[2016-11-17] MEDS: ZOLPIDEM 5 MG TAB PO SCH (22:22)
[2016-11-17] MEDS: PIPER-TAZO 2.25 GM (PMX) 50 ML IVPB SCH (23:00)
[2016-11-18] VITALS (20 sets, daily range): BP systolic 98–141; BP diastolic 49–64; PULSE 65–83; RESP 16–20
[2016-11-18] MEDS: ACCU-CHEK XX SCH (02:51)
--- NOTE | 2016-11-18 03:27 | CONS ---
DATE OF ADMISSION: 11/17/2016 DATE OF CONSULTATION: Dear Gonzalo and Dr. Porter, Thank you for asking me to participate in the care of this unfortunate 71-year- old female who has been known to me for several years. Please note that the patient has been known to have diabetes, hypertension, chronic renal failure, mild dementia, and arteriosclerotic congestive heart failure. She has been stable on hemodialysis 3 times a week. Please refer to the dialysis treatment records for further details. In summary, the patient has been maintained on multiple medications includin. Sucralfate. 2. Reglan. 3. Hydrocodone. 4. Nifedipine. 5. Minoxidil. 6. Sitagliptin. 7. Albuterol. 8. Hydralazine. 9. Insulin. 10. Clonidine. 11. Ambien. 12. Lasix. 13. Renagel. [facility] complaining of pain in the neck and chest wall. There was some question of a rash also complained o by the nursing staff from the SNF. Workup in the emergency showed white count is 24.6, hematocrit 30.6. The patient had a BUN and creatinine not much elevated because she was dialyzed yesterday. Sugar is high at 367. The patient has already been seen by the ID physician. Refer to the consultation record for further detail. The possibility of pneumonia is being considered. Several studies have been recommended. Empirical antibiotic therapy with acyclovir and ceftriaxone has been instituted. The patient is also getting IV at 30 mL an hour and vancomycin along with respiratory therapy. PAST MEDICAL HISTORY: The rest of the past history includes multiple admissions elsewhere. PERSONAL HISTORY: She is and has been living in the nursing facility. SOCIAL HISTORY: She does not smoke or drink. ALLERGIES: HAS NO KNOWN ALLERGIES. REVIEW OF SYSTEMS: The patient has not had any acute gout, joint pain, seizures , syncope, or other metabolic problem. PHYSICAL EXAMINATION: GENERAL: The patient to be elderly female who looks chronically ill and not 100 % communicative. VITAL SIGNS: Blood pressure is 130/60, heart rate is 90, temperature 98.4, respiration is 16. HEAD, EAR, NOSE, AND THROAT: Unremarkable. EYES: Pale conjunctivae. Sclerae are anicteric. NOSE: Normal mucosa. THROAT: Tongue is pale. No pharyngeal congestion. NECK: Supple. No jugular venous distention. CHEST: Symmetrical. LUNGS: Clear. HEART: Regular rhythm, S1, S2 unremarkable. ABDOMEN: Flat, soft, no masses. GENITALIA: Not examined. EXTREMITIES: Left arm AV fistula bruit is present. SKIN: Shows changes of chronic illness. IMPRESSION: 1. History of diabetes, hypertension, end-stage kidney disease on HD. 2. Episode of chest pain and neck pain, ? cardiac etiology. 3. Anemia, chronic in nature. PLAN: The patient has already been seen by cardiology. Please refer to the respective notes. Acute coronary syndrome cannot be ruled out. Serial enzymes are being ordered. A 2-D echocardiogram has been done. She has also been started on nitrate, and Lexiscan is pending. Her hemodialysis is scheduled for tomorrow. I will follow clinical course closely and awaiat further cardio plans. Please note she is also on Fibrogen Study & takes epogen for Anemia assoc with renal dis. Dictated By: BEVERLEY LUI/JEANINE Conf#: [id number] DID#: [id number] MTDD
[2016-11-18] MEDS: ARTIFICIAL TEARS 15 ML OPH BOTH EYES SCH ×3 (05:45→17:21)
[2016-11-18] MEDS: morphine 2 MG INJ IV PRN (05:45)
--- NOTE | 2016-11-18 07:02 | CONS ---
Date/Time of Note Date/Time of Note DATE: 11/18/16 TIME: 07:00 Assessment/Plan Assessment/Plan Additional Assessment/Plan Assessment recommendations; 1. Patient admitted with bilateral pneumonia more pronounced in the right lower lobe. Currently on appropriate antibiotic regimen. 2. Possibly herpes zoster involving the left shoulder. 3. History of end-stage renal disease, on hemodialysis. 4. History of hypertension, diabetes, chronic pain syndrome. Continue current treatment. Obtain a follow-up chest x-ray tomorrow morning. Consultation Date/Type/Reason Admit Date/Time Nov 17, 2016 at 01:09 Initial Consult Date 11/17/16 Type of Consultation: Pulmonary Referring Provider: CANDELARIA TURCIOS 24 HR Interval Summary Free Text/Dictation Patient condition is stable. Patient reports decreased chest pain on the right side associated with deep breathing. Denies any wheezing, sputum production fever chills. General examination; elderly lady, currently in no distress. Awake and alert. Exam/Review of Systems Vital Signs Vitals Vital Signs Date Time Temp Pulse Resp B/P Pulse Ox O2 Delivery O2 Flow Rate FiO2 11/18/16 04:30 77 11/18/16 04:00 99.0 16 133/63 98 11/18/16 01:17 2.0 11/18/16 00:00 Nasal Cannula Intake and Output 11/17/16 11/17/16 11/18/16 15:00 23:00 07:00 Intake Total 800 ml Balance 800 ml Exam HEENT exam is; supple neck, no JVD. No lymphadenopathy. Midline trachea. No thyromegaly. Pupils are small bilaterally. No neck masses. Chest examination; diminished breath sounds right upper lobe. S1-S2 audible, no murmurs. Regular rhythm. Abdomen examination; soft, nontender. No organomegaly. Bowel sounds. Extremity exam is; no peripheral edema. There is a faint rash involving the left shoulder. ANESTHESIOLOGY PHYSICIAN ASSISTANT examination; no focal deficit. Results Result Diagram: 11/16/16 2300 11/17/16 0716 Results 24 hrs Laboratory Tests Test 11/17/16 07:16 11/17/16 08:20 11/17/16 11:09 11/17/16 12:20 Glucose Level 467 *H Phosphorus Level 3.7 Creatine Kinase 28 27 Creatine Kinase Index 2.9 2.6 Creatinine Kinase MB (Mass) 0.82 0.71 Troponin I 0.017 < 0.012 Triglycerides Level 85 Cholesterol Level 155 LDL Cholesterol, Calculated 41 HDL Cholesterol 97 H Cholesterol/HDL Ratio 1.5 Bedside Glucose 420 *H 401 *H Hemoglobin A1c 7.8 H Test 11/17/16 16:55 11/17/16 22:32 11/17/16 23:04 11/18/16 02:34 Bedside Glucose 270 H 56 L 83 84 Medications Medications Current Medications Acetaminophen (Tylenol Tab) 650 mg Q6H PRN PO PAIN AND OR ELEVATED TEMP; Start 11/17/16 at 09:00 Bisacodyl (Dulcolax Supp) 10 mg DAILY PRN [place] CONSTIPATION; Start 11/17/16 at 09 :00 Clonidine (Catapres) 0.1 mg Q6H PRN PO ELEVATED BLOOD PRESSURE; Start 11/17/16 at 09:00 Clonidine (Catapres) 0.2 mg TID PO Last administered on 11/17/16 22:22; Admin Dose 0.2 MG; Start 11/17/16 at 09:00 Clonidine HCl (Catapres-Tts 3 Patch) 0.3 patch Q7D TRANSDERM Last administered on 11/17/16 11:36; Admin Dose 0.3 PATCH; Start 11/17/16 at 10:00 Glucose (Glutose) 38 gm PRN PO Last administered on 11/17/16 22:36; Admin Dose 38 GM; Start 11/17/16 at 09:00 Diphenhydramine HCl (Benadryl) 25 mg Q8 PRN PO ITCHING; Start 11/17/16 at 09:00 Docusate Sodium (Colace) 250 mg DAILY PRN PO CONSTIPATION; Start 11/17/16 at 09 :00 Duloxetine HCl (Cymbalta) 60 mg DAILY PO Last administered on 11/17/16 11:32; Admin Dose 60 MG; Start 11/17/16 at 09:00 Guaifenesin/ Dextromethorphan (Robitussin Dm Liquid Cup) 10 ml Q6H PRN PO COUGH ; Start 11/17/16 at 09:00 Hydralazine HCl (Apresoline) 25 mg QID PO Last administered on 11/17/16 22:21 ; Admin Dose 25 MG; Start 11/17/16 at 09:00 Metoclopramide HCl (Reglan) 10 mg Q12 PRN PO NAUSEA AND/OR VOMITING; Start at 09:00 Minoxidil (Loniten) 10 mg BID PO Last administered on 11/17/16 11:36; Admin Dose 10 MG; Start 11/17/16 at 10:30 Nifedipine (Procardia Xl) 30 mg DAILY PO Last administered on 11/17/16 11:44; Admin Dose 30 MG; Start 11/17/16 at 10:00 Pantoprazole (Protonix Tab) 20 mg DAILY PO Last administered on 11/17/16 11:32 ; Admin Dose 20 MG; Start 11/17/16 at 09:00 Eye Lubricant (Artificial Tears Oph) 1 drop Q6 BOTH EYES Last administered on 05:45; Admin Dose 1 DROP; Start 11/17/16 at 12:00 Senna (Senokot) 1 tab Q12H PRN PO CONSTIPATION; Start 11/17/16 at 09:00 Zolpidem Tartrate (Ambien) 1 mg HS PO Last administered on 11/17/16 22:22; Admin Dose 1 MG; Start 11/17/16 at 21:00 Multivit/Ca Carb/ B Cmplx/FA/Prenat (Peyton-Ludwin) 1 tab DAILY PO Last administered on 11/17/16 11:32; Admin Dose 1 TAB; Start 11/17/16 at 09:00 Diagnostic Test (Pha) (Accu-Chek) 1 ea 02 XX Last administered on 11/18/16 02: 51; Admin Dose 1 EA; Start 11/18/16 at 02:00 Gabapentin (Neurontin) 100 mg TID PO Last administered on 11/17/16 22:20; Admin Dose 100 MG; Start 11/17/16 at 13:00 Miscellaneous Information 1 ea NOTE XX ; Start 11/17/16 at 10:00 Glucose (Glutose) 15 gm Q15M PRN PO DECREASED GLUCOSE; Start 11/17/16 at 10:00 Glucose (Glutose) 22.5 gm Q15M PRN PO DECREASED GLUCOSE; Start 11/17/16 at 10: 00 Dextrose (D50w Syringe) 25 ml Q15M PRN IV DECREASED GLUCOSE; Start 11/17/16 at 10:00 Dextrose (D50w Syringe) 50 ml Q15M PRN IV DECREASED GLUCOSE; Start 11/17/16 at 10:00 Glucagon (Glucagen) 1 mg Q15M PRN IM DECREASED GLUCOSE; Start 11/17/16 at 10:00 Glucose (Glutose) 15 gm Q15M PRN BUCCAL DECREASED GLUCOSE; Start 11/17/16 at 10 :00 Atorvastatin Calcium 10 mg 10 mg HS PO Last administered on 11/17/16 22:21; Admin Dose 10 MG; Start 11/17/16 at 21:00 Sodium Chloride 1,000 ml @ 30 mls/hr Q24H IV Last administered on 11/17/16 14 :11; Admin Dose 30 MLS/HR; Start 11/17/16 at 12:00 Azithromycin (Zithromax 500mg/ NS (Pmx)) 250 ml @ 250 mls/hr Q24H IVPB Last administered on 11/17/16 15:54; Admin Dose 250 MLS/HR; Start 11/17/16 at 15:00 Heparin Sodium (Porcine) (Heparin (5000 Units/0.5 ml)) 5,000 unit BID SC Last administered on 11/17/16 22:27; Admin Dose 5,000 UNIT; Start 11/17/16 at 13:00 Insulin Glargine (Lantus) 30 unit AM SC ; Start 11/18/16 at 09:00 Acyclovir (Zovirax) 800 mg BID PO Last administered on 11/17/16 22:21; Admin Dose 800 MG; Start 11/17/16 at 21:00 Acetaminophen/ Hydrocodone Bitart ([place] (5/325)) 1 tab Q6 PRN PO MODERATE PAIN LEVEL 4-6 Last administered on 11/17/16 18:39; Admin Dose 1 TAB; Start at 18:00 Morphine Sulfate (morphine) 2 mg Q4H PRN IV PAIN LEVEL 6-10 Last administered on 11/18/16 05:45; Admin Dose 2 MG; Start 11/17/16 at 17:30 Isosorbide Dinitrate (Isordil) 10 mg TID PO Last administered on 11/17/16 21: 00; Admin Dose 10 MG; Start 11/17/16 at 21:00 Nitroglycerin 1 tab 1 tab Q5M PRN SL ANGINA; Start 11/17/16 at 18:30 Piperacillin Sod/ Tazobactam Sod (Zosyn 2.25gm/ 50ml (Pmx)) 50 ml @ 100 mls/hr Q12 IVPB Last administered on 11/17/16t 23:00; Admin Dose 100 MLS/HR; Start at 21:00 URIEL CURIEL Nov 18, 2016 07:02
[2016-11-18 07:20] LABS: ADD SCAN DIFF NO
[2016-11-18 07:23] LABS: ABNORMAL IP MESSAGE 1; BASOPHIL # 0.1 10^3/ul (0.0-0.1); BASOPHILS % 0.3 % (0.0-2.0); EOSINOPHILS % 0.2 % (0.0-7.0); HEMATOCRIT 26.8 % (37.0-47.0); LYMPHOCYTES % 6.5 % (15.0-51.0); MEAN CORPUSCULAR HEMOGLOBIN 24.6 pg (29.0-33.0); MEAN CORPUSCULAR HGB CONC 29.9 g/dl (32.0-37.0); MEAN CORPUSCULAR VOLUME 82.5 fl (82.0-101.0); MEAN PLATELET VOLUME 10.4 fl (7.4-10.4); MONOCYTE # 1.7 10^3/ul (0.3-0.9); MONOCYTES % 10.4 % (0.0-11.0); NEUTROPHIL # 13.2 10^3/ul (1.6-7.5); NEUTROPHILS % 81.9 % (39.0-77.0); PLATELET COUNT 335 10^3/UL (140-415); RED BLOOD COUNT 3.25 10^6/ul (4.20-5.40); RED CELL DISTRIBUTION WIDTH 16.1 % (11.5-14.5); WHITE BLOOD COUNT 16.1 10^3/ul (4.8-10.8)
[2016-11-18 07:37] LABS: POTASSIUM 5.3 mmol/L (3.5-5.1)
[2016-11-18 07:39] LABS: CREATININE 4.88 mg/dl (0.44-1.00)
[2016-11-18] MEDS: SUCRALFATE 1 GM TAB PO SCH ×3 (07:39→17:20)
[2016-11-18 07:40] LABS: CALCIUM 8.9 mg/dl (8.4-10.2); MAGNESIUM 2.5 mg/dl (1.7-2.5)
--- NOTE | 2016-11-18 07:43 | RADRPT ---
PROCEDURE: US right chest. CLINICAL INDICATION: Pleural effusion TECHNIQUE: Multiple real-time images were acquired of the patient's chest utilizing a high resolut ion transducer. COMPARISON: Recent x-ray FINDINGS: There is a [id number] right pleural effusion with atelectasis of the lung parenchyma. IMPRESSION: Moderate to large right pleural effusion. RPTAT: AA Physician Markos Date Time Electronically viewed and signed by Ruy Aragon Physician on 11/18/2016 07:43 /
[2016-11-18] MEDS: INSULIN ASPART [NOVOLOG] 3 ML PEN SC SCH ×7 (08:00→22:01)
[2016-11-18] MEDS ORDERED: INSULIN GLARGINE [LANtus] 3 ML PEN SC SCH (09:00)
--- NOTE | 2016-11-18 09:52 | CONS ---
Date/Time of Note Date/Time of Note DATE: 11/18/16 TIME: 09:47 Assessment/Plan Assessment/Plan Additional Assessment/Plan 71 Female with 1) PNA 2) Pleural Effusion 3) ESRD on HD 4) Hyperkalemia 5) Anemia, Chronic Disease 6) Mineral bone disease, ESRD 7) DM with Renal Complication 8) Chronic HTN HD ordered for today will order ED with HD Oral Iron Only, ordered bid Colace for constipation Dose Abx Rx to ESRD HD MWF schedule Consultation Date/Type/Reason Admit Date/Time Nov 17, 2016 at 01:09 Initial Consult Date 11/17/16 Type of Consultation: Renal Reason for Consultation ESRD Referring Provider: CANDELARIA TURCIOS 24 HR Interval Summary Free Text/Dictation Pt states SOB improved, NO new complaints. Awaiting HD Exam/Review of Systems Vital Signs Vitals Vital Signs Date Time Temp Pulse Resp B/P Pulse Ox O2 Delivery O2 Flow Rate FiO2 11/18/16 08:41 72 11/18/16 08:00 98.7 17 134/61 99 11/18/16 01:17 2.0 11/18/16 00:00 Nasal Cannula Intake and Output 11/17/16 11/17/16 11/18/16 14:59 22:59 06:59 Intake Total 800 ml Balance 800 ml Exam Constitutional: No distress ENMT: mucosa pink and moist Neck: No jvd Respiratory: crackles/rales, No diminished breath sounds, No labored breathing Cardiovascular: regular rate and rhythm, No edema Gastrointestinal: non-tender, soft, No rebound or guarding Extremities: No pitting pedal edema Neurological: lethargic Skin: No diaphoresis Results Result Diagram: 11/18/16 0650 11/18/16 0650 Results 24 hrs Laboratory Tests Test 11/17/16 11:09 11/17/16 12:20 11/17/16 16:55 11/17/16 22:32 Bedside Glucose 401 *H 270 H 56 L Hemoglobin A1c 7.8 H Creatine Kinase 27 Creatine Kinase Index 2.6 Creatinine Kinase MB (Mass) 0.71 Troponin I < 0.012 Test 11/17/16 23:04 11/18/16 02:34 11/18/16 06:50 11/18/16 07:56 Bedside Glucose 83 84 127 White Blood Count 16.1 #H Red Blood Count 3.25 L Hemoglobin 8.0 L Hematocrit 26.8 L Mean Corpuscular Volume 82.5 Mean Corpuscular Hemoglobin 24.6 L Mean Corpuscular Hemoglobin Concent 29.9 L Red Cell Distribution Width 16.1 H Platelet Count 335 # Mean Platelet Volume 10.4 Neutrophils % 81.9 H Lymphocytes % 6.5 L Monocytes % 10.4 Eosinophils % 0.2 Basophils % 0.3 Nucleated Red Blood Cells % 0.0 Neutrophils # 13.2 H Lymphocytes # 1.0 Monocytes # 1.7 H Eosinophils # 0.0 Basophils # 0.1 Nucleated Red Blood Cells # 0.0 Sodium Level 132 L Potassium Level 5.3 H Chloride Level 90 L Carbon Dioxide Level 29 Anion Gap 18 H Blood Urea Nitrogen 50 H Creatinine 4.88 #H Glucose Level 115 # Hemoglobin A1c 7.6 H Calcium Level 8.9 Magnesium Level 2.5 Thyroid Stimulating Hormone (TSH) 2.910 Free Thyroxine 1.86 Medications Medications Current Medications Acetaminophen (Tylenol Tab) 650 mg Q6H PRN PO PAIN AND OR ELEVATED TEMP; Start 11/17/16 at 09:00 Bisacodyl (Dulcolax Supp) 10 mg DAILY PRN [place] CONSTIPATION; Start 11/17/16 at 09 :00 Clonidine (Catapres) 0.1 mg Q6H PRN PO ELEVATED BLOOD PRESSURE; Start 11/17/16 at 09:00 Clonidine (Catapres) 0.2 mg TID PO Last administered on 11/17/16 22:22; Admin Dose 0.2 MG; Start 11/17/16 at 09:00 Clonidine HCl (Catapres-Tts 3 Patch) 0.3 patch Q7D TRANSDERM Last administered on 11/17/16 11:36; Admin Dose 0.3 PATCH; Start 11/17/16 at 10:00 Glucose (Glutose) 38 gm PRN PO Last administered on 11/17/16 22:36; Admin Dose 38 GM; Start 11/17/16 at 09:00 Diphenhydramine HCl (Benadryl) 25 mg Q8 PRN PO ITCHING; Start 11/17/16 at 09:00 Docusate Sodium (Colace) 250 mg DAILY PRN PO CONSTIPATION; Start 11/17/16 at 09 :00 Duloxetine HCl (Cymbalta) 60 mg DAILY PO Last administered on 11/17/16 11:32; Admin Dose 60 MG; Start 11/17/16 at 09:00 Guaifenesin/ Dextromethorphan (Robitussin Dm Liquid Cup) 10 ml Q6H PRN PO COUGH ; Start 11/17/16 at 09:00 Hydralazine HCl (Apresoline) 25 mg QID PO Last administered on 11/17/16 22:21 ; Admin Dose 25 MG; Start 11/17/16 at 09:00 Metoclopramide HCl (Reglan) 10 mg Q12 PRN PO NAUSEA AND/OR VOMITING; Start at 09:00 Minoxidil (Loniten) 10 mg BID PO Last administered on 11/17/16 11:36; Admin Dose 10 MG; Start 11/17/16 at 10:30 Nifedipine (Procardia Xl) 30 mg DAILY PO Last administered on 11/17/16 11:44; Admin Dose 30 MG; Start 11/17/16 at 10:00 Pantoprazole (Protonix Tab) 20 mg DAILY PO Last administered on 11/17/16 11:32 ; Admin Dose 20 MG; Start 11/17/16 at 09:00 Eye Lubricant (Artificial Tears Oph) 1 drop Q6 BOTH EYES Last administered on 05:45; Admin Dose 1 DROP; Start 11/17/16 at 12:00 Senna (Senokot) 1 tab Q12H PRN PO CONSTIPATION; Start 11/17/16 at 09:00 Zolpidem Tartrate (Ambien) 1 mg HS PO Last administered on 11/17/16 22:22; Admin Dose 1 MG; Start 11/17/16 at 21:00 Multivit/Ca Carb/ B Cmplx/FA/Prenat (Peyton-Ludwin) 1 tab DAILY PO Last administered on 11/17/16 11:32; Admin Dose 1 TAB; Start 11/17/16 at 09:00 Diagnostic Test (Pha) (Accu-Chek) 1 ea 02 XX Last administered on 11/18/16 02: 51; Admin Dose 1 EA; Start 11/18/16 at 02:00 Gabapentin (Neurontin) 100 mg TID PO Last administered on 11/17/16 22:20; Admin Dose 100 MG; Start 11/17/16 at 13:00 Miscellaneous Information 1 ea NOTE XX ; Start 11/17/16 at 10:00 Glucose (Glutose) 15 gm Q15M PRN PO DECREASED GLUCOSE; Start 11/17/16 at 10:00 Glucose (Glutose) 22.5 gm Q15M PRN PO DECREASED GLUCOSE; Start 11/17/16 at 10: 00 Dextrose (D50w Syringe) 25 ml Q15M PRN IV DECREASED GLUCOSE; Start 11/17/16 at 10:00 Dextrose (D50w Syringe) 50 ml Q15M PRN IV DECREASED GLUCOSE; Start 11/17/16 at 10:00 Glucagon (Glucagen) 1 mg Q15M PRN IM DECREASED GLUCOSE; Start 11/17/16 at 10:00 Glucose (Glutose) 15 gm Q15M PRN BUCCAL DECREASED GLUCOSE; Start 11/17/16 at 10 :00 Atorvastatin Calcium 10 mg 10 mg HS PO Last administered on 11/17/16 22:21; Admin Dose 10 MG; Start 11/17/16 at 21:00 Sodium Chloride 1,000 ml @ 30 mls/hr Q24H IV Last administered on 11/17/16 14 :11; Admin Dose 30 MLS/HR; Start 11/17/16 at 12:00 Azithromycin (Zithromax 500mg/ NS (Pmx)) 250 ml @ 250 mls/hr Q24H IVPB Last administered on 11/17/16 15:54; Admin Dose 250 MLS/HR; Start 11/17/16 at 15:00 Heparin Sodium (Porcine) (Heparin (5000 Units/0.5 ml)) 5,000 unit BID SC Last administered on 11/17/16 22:27; Admin Dose 5,000 UNIT; Start 11/17/16 at 13:00 Insulin Glargine (Lantus) 30 unit AM SC ; Start 11/18/16 at 09:00 Acyclovir (Zovirax) 800 mg BID PO Last administered on 11/17/16 22:21; Admin Dose 800 MG; Start 11/17/16 at 21:00 Acetaminophen/ Hydrocodone Bitart ([place] (5/325)) 1 tab Q6 PRN PO MODERATE PAIN LEVEL 4-6 Last administered on 11/17/16 18:39; Admin Dose 1 TAB; Start at 18:00 Morphine Sulfate (morphine) 2 mg Q4H PRN IV PAIN LEVEL 6-10 Last administered on 11/18/16 05:45; Admin Dose 2 MG; Start 11/17/16 at 17:30 Isosorbide Dinitrate (Isordil) 10 mg TID PO Last administered on 11/17/16 21: 00; Admin Dose 10 MG; Start 11/17/16 at 21:00 Nitroglycerin 1 tab 1 tab Q5M PRN SL ANGINA; Start 11/17/16 at 18:30 Piperacillin Sod/ Tazobactam Sod (Zosyn 2.25gm/ 50ml (Pmx)) 50 ml @ 100 mls/hr Q12 IVPB Last administered on 11/17/16 23:00; Admin Dose 100 MLS/HR; Start at 21:00 Procedures Procedures PROCEDURE: XR Chest. CLINICAL INDICATION: Chest pain. TECHNIQUE: Portable AP upright view of the chest was obtained. COMPARISON: 10/10/2013 FINDINGS: The cardiomediastinal silhouette is mildly enlarged. Diffuse right middle and right lower lobe infiltrate cannot exclude pneumonia with a parapneumonic effusion. The left lung is grossly clear. There is no evidence of pneumothorax. Demineralization and thoracic spondylosis is again noted without acute osseous abnormality. Calcification of the aorta is visualized. Right upper arm surgical clips are again seen. RPTAT:HJJR IMPRESSION: 1. Right lower and middle lobe infiltrates concerning for pneumonia with a parapneumonic effusion. Correlation with cough, fever and leukocytosis is recommended. 2. Stable cardiac silhouette enlargement. An element of congestive heart failure is difficult to exclude. 3. Aortic atherosclerosis is present. Physician Shelly Date Time Electronically viewed and signed by Raghav Rubio Physician on 11/16/2016 23:17 LYNN SEBASTIAN MD Nov 18, 2016 09:52
[2016-11-18] MEDS ORDERED: DOCUSATE SODIUM 100 MG CAP PO PRN (10:00)
[2016-11-18] MEDS: PIPER-TAZO 2.25 GM (PMX) 50 ML IVPB SCH ×2 (10:18→21:12)
[2016-11-18] MEDS: DULOXETINE 30 MG CAP DR PO SCH (10:19)
[2016-11-18] MEDS: NIFEdipine (XL) 30 MG TAB PO SCH (10:19)
[2016-11-18] MEDS: MINOXIDIL 10 MG TAB PO SCH ×2 (10:20→21:15)
[2016-11-18] MEDS: MULTIVIT/CA CARB/B CMPLX/FA TAB PO SCH (10:20)
[2016-11-18] MEDS: ISOSORBIDE DINITRATE 10 MG TAB PO SCH ×3 (10:20→21:00)
[2016-11-18] MEDS: GABAPENTIN 100 MG CAP PO SCH ×3 (10:21→21:15)
[2016-11-18] MEDS: ACYCLOVIR 800 MG TAB PO SCH ×2 (10:21→21:15)
[2016-11-18] MEDS: PANTOPRAZOLE (EC) 40 MG TAB PO SCH (10:21)
[2016-11-18] MEDS: HEPARIN 5,000 UNIT/0.5 ML VIAL SC SCH ×2 (10:22→22:05)
[2016-11-18] MEDS: SOD CHLORIDE 0.45% 1,000 ML IV SCH (12:00)
--- NOTE | 2016-11-18 13:11 | CONS ---
Date/Time of Note Date/Time of Note DATE: 11/18/16 TIME: 13:06 Assessment/Plan Assessment/Plan Chief Complaint/Hosp Course - sepsis due to pneumonia/bronchitis - pneumonia/bronchitis with possible parapneumonic effusion - pleuritic chest pain/myalgia of the chest - productive cough - moderate-large R sided pleural effusion - poor dentition - scaly rash, possible VZV infection - CHF - ESRD, on HD - DM - h/o CVA - s/p CCY - hypothyroidism recommendations - pending: procalcitonin, nasopharyngeal swab for influenza and respiratory virus PCR panel, (send out to [facility]), mycoplasma pneumoniae NAAT, legionella antibody, cocci serology, Q TB gold, skin swab for varicella zoster virus PCR - I recommend diagnostic thoracentesis of R sided effusion - continue IV vancomycin, azithromycin, pip/tazo (11/17/2016-) test. While the result is pending, place Pt on airborne precautions per CDC recommendations. - continue empiric renally dosed acyclovir (11/17/2016-) until varicella is ruled out - airborne precautions until varicella is ruled out (test was performed on 2016), and droplet precautions until respiratory viruses are ruled out (tests were performed on 11/17/2016) management d/w Pt Problems: Consultation Date/Type/Reason Admit Date/Time Nov 17, 2016 at 01:09 Initial Consult Date 11/17/16 Type of Consultation: ID Referring Provider: CANDELARIA TURCIOS 24 HR Interval Summary Constitutional: other (c/d pain in the chest) Detailed Summary ENT: no complaints Respiratory: pleuritic pain, No cough, No shortness of breath, No sputum Cardiovascular: no complaints Gastrointestinal: no complaints Genitourinary: other (HD) Skin: other (pain in L scapula (where the rash is)) Exam/Review of Systems Vital Signs Vitals Vital Signs Date Time Temp Pulse Resp B/P Pulse Ox O2 Delivery O2 Flow Rate FiO2 11/18/16 12:27 98.7 73 16 128/62 97 11/18/16 08:00 4.0 11/18/16 00:00 Nasal Cannula Intake and Output 11/17/16 11/17/16 11/18/16 15:00 23:00 07:00 Intake Total 800 ml Balance 800 ml Exam Constitutional: frail Psych: no complaints Head: normocephalic Eyes: nl conjunctiva, nl lids ENMT: nl external ears & nose, nl nasal mucosa & septum Neck: supple Respiratory: diminished breath sounds Cardiovascular: nl pulses, regular rate and rhythm Gastrointestinal: soft Extremities: No edema Skin: other (Pt refused to turn to show the skin lesions on L scapula) Results Result Diagram: 11/18/16 0650 11/18/16 0650 Results 24 hrs Laboratory Tests Test 11/17/16 16:55 11/17/16 22:32 11/17/16 23:04 11/18/16 02:34 Bedside Glucose 270 H 56 L 83 84 Test 11/18/16 06:50 11/18/16 07:56 11/18/16 10:16 11/18/16 12:12 White Blood Count 16.1 #H Red Blood Count 3.25 L Hemoglobin 8.0 L Hematocrit 26.8 L Mean Corpuscular Volume 82.5 Mean Corpuscular Hemoglobin 24.6 L Mean Corpuscular Hemoglobin Concent 29.9 L Red Cell Distribution Width 16.1 H Platelet Count 335 # Mean Platelet Volume 10.4 Neutrophils % 81.9 H Lymphocytes % 6.5 L Monocytes % 10.4 Eosinophils % 0.2 Basophils % 0.3 Nucleated Red Blood Cells % 0.0 Neutrophils # 13.2 H Lymphocytes # 1.0 Monocytes # 1.7 H Eosinophils # 0.0 Basophils # 0.1 Nucleated Red Blood Cells # 0.0 Sodium Level 132 L Potassium Level 5.3 H Chloride Level 90 L Carbon Dioxide Level 29 Anion Gap 18 H Blood Urea Nitrogen 50 H Creatinine 4.88 #H Glucose Level 115 # Hemoglobin A1c 7.6 H Calcium Level 8.9 Magnesium Level 2.5 Thyroid Stimulating Hormone (TSH) 2.910 Free Thyroxine 1.86 Bedside Glucose 127 142 230 H Medications Medications Current Medications Acetaminophen (Tylenol Tab) 650 mg Q6H PRN PO PAIN AND OR ELEVATED TEMP; Start 11/17/16 at 09:00 Bisacodyl (Dulcolax Supp) 10 mg DAILY PRN DC CONSTIPATION; Start 11/17/16 at 09 :00 Clonidine (Catapres) 0.1 mg Q6H PRN PO ELEVATED BLOOD PRESSURE; Start 11/17/16 at 09:00 Clonidine (Catapres) 0.2 mg TID PO Last administered on 11/18/16t 10:19; Admin Dose 0.2 MG; Start 11/17/16 at 09:00 Clonidine HCl (Catapres-Tts 3 Patch) 0.3 patch Q7D TRANSDERM Last administered on 11/17/16 11:36; Admin Dose 0.3 PATCH; Start 11/17/16 at 10:00 Glucose (Glutose) 38 gm PRN PO Last administered on 11/17/16 22:36; Admin Dose 38 GM; Start 11/17/16 at 09:00 Diphenhydramine HCl (Benadryl) 25 mg Q8 PRN PO ITCHING; Start 11/17/16 at 09:00 Docusate Sodium (Colace) 250 mg DAILY PRN PO CONSTIPATION; Start 11/17/16 at 09 :00 Duloxetine HCl (Cymbalta) 60 mg DAILY PO Last administered on 11/18/16 10:19; Admin Dose 60 MG; Start 11/17/16 at 09:00 Guaifenesin/ Dextromethorphan (Robitussin Dm Liquid Cup) 10 ml Q6H PRN PO COUGH ; Start 11/17/16 at 09:00 Hydralazine HCl (Apresoline) 25 mg QID PO Last administered on 11/18/16 10:20 ; Admin Dose 25 MG; Start 11/17/16 at 09:00 Metoclopramide HCl (Reglan) 10 mg Q12 PRN PO NAUSEA AND/OR VOMITING; Start at 09:00 Minoxidil (Loniten) 10 mg BID PO Last administered on 11/18/16 10:20; Admin Dose 10 MG; Start 11/17/16 at 10:30 Nifedipine (Procardia Xl) 30 mg DAILY PO Last administered on 11/18/16 10:19; Admin Dose 30 MG; Start 11/17/16 at 10:00 Pantoprazole (Protonix Tab) 20 mg DAILY PO Last administered on 11/18/16 10:21 ; Admin Dose 20 MG; Start 11/17/16 at 09:00 Eye Lubricant (Artificial Tears Oph) 1 drop Q6 BOTH EYES Last administered on 12:22; Admin Dose 1 DROP; Start 11/17/16 at 12:00 Senna (Senokot) 1 tab Q12H PRN PO CONSTIPATION; Start 11/17/16 at 09:00 Zolpidem Tartrate (Ambien) 1 mg HS PO Last administered on 11/17/16 22:22; Admin Dose 1 MG; Start 11/17/16 at 21:00 Multivit/Ca Carb/ B Cmplx/FA/Prenat (Peyton-Ludwin) 1 tab DAILY PO Last administered on 11/18/16 10:20; Admin Dose 1 TAB; Start 11/17/16 at 09:00 Diagnostic Test (Pha) (Accu-Chek) 1 ea 02 XX Last administered on 11/18/16 02: 51; Admin Dose 1 EA; Start 11/18/16 at 02:00 Gabapentin (Neurontin) 100 mg TID PO Last administered on 11/18/16 10:21; Admin Dose 100 MG; Start 11/17/16 at 13:00 Miscellaneous Information 1 ea NOTE XX ; Start 11/17/16 at 10:00 Glucose (Glutose) 15 gm Q15M PRN PO DECREASED GLUCOSE; Start 11/17/16 at 10:00 Glucose (Glutose) 22.5 gm Q15M PRN PO DECREASED GLUCOSE; Start 11/17/16 at 10: 00 Dextrose (D50w Syringe) 25 ml Q15M PRN IV DECREASED GLUCOSE; Start 11/17/16 at 10:00 Dextrose (D50w Syringe) 50 ml Q15M PRN IV DECREASED GLUCOSE; Start 11/17/16 at 10:00 Glucagon (Glucagen) 1 mg Q15M PRN IM DECREASED GLUCOSE; Start 11/17/16 at 10:00 Glucose (Glutose) 15 gm Q15M PRN BUCCAL DECREASED GLUCOSE; Start 11/17/16 at 10 :00 Atorvastatin Calcium 10 mg 10 mg HS PO Last administered on 11/17/16 22:21; Admin Dose 10 MG; Start 11/17/16 at 21:00 Sodium Chloride 1,000 ml @ 30 mls/hr Q24H IV Last administered on 11/17/16 14 :11; Admin Dose 30 MLS/HR; Start 11/17/16 at 12:00 Azithromycin (Zithromax 500mg/ NS (Pmx)) 250 ml @ 250 mls/hr Q24H IVPB Last administered on 11/17/16 15:54; Admin Dose 250 MLS/HR; Start 11/17/16 at 15:00 Heparin Sodium (Porcine) (Heparin (5000 Units/0.5 ml)) 5,000 unit BID SC Last administered on 11/18/16 10:22; Admin Dose 5,000 UNIT; Start 11/17/16 at 13:00 Acyclovir (Zovirax) 800 mg BID PO Last administered on 11/18/16 10:21; Admin Dose 800 MG; Start 11/17/16 at 21:00 Acetaminophen/ Hydrocodone Bitart ([place] (5/325)) 1 tab Q6 PRN PO MODERATE PAIN LEVEL 4-6 Last administered on 11/17/16 18:39; Admin Dose 1 TAB; Start at 18:00 Morphine Sulfate (morphine) 2 mg Q4H PRN IV PAIN LEVEL 6-10 Last administered on 11/18/16 05:45; Admin Dose 2 MG; Start 11/17/16 at 17:30 Isosorbide Dinitrate (Isordil) 10 mg TID PO Last administered on 11/18/16 10: 20; Admin Dose 10 MG; Start 11/17/16 at 21:00 Nitroglycerin 1 tab 1 tab Q5M PRN SL ANGINA; Start 11/17/16 at 18:30 Piperacillin Sod/ Tazobactam Sod (Zosyn 2.25gm/ 50ml (Pmx)) 50 ml @ 100 mls/hr Q12 IVPB Last administered on 11/18/16 10:18; Admin Dose 100 MLS/HR; Start at 21:00 Epoetin Luis (Epogen (Esrd)) 6,000 units MoWeFr@17 IV ; Start 11/18/16 at 17:00 Ferrous Sulfate (Ferrous Sulfate (Ec)) 325 mg BID PO ; Start 11/18/16 at 21:00 Docusate Sodium (Colace) 100 mg DAILY PRN PO CONSTIPATION; Start 11/18/16 at 10 :00 Insulin Glargine (Lantus) 10 unit AM SC ; Start 11/19/16 at 09:00 VITALY WADDELL M.D. Nov 18, 2016 13:11
--- NOTE | 2016-11-18 14:03 | RADRPT ---
Vent Rate: 73 bpm RR Interval: 0 msec PA Interval: 164 msec QRS Duration: 148 msec QT Interval: 428 msec QTC Interval: 471 msec P-R-T [place]: 35 - -78 - 71 degrees Normal sinus rhythm Left axis deviation Left bundle branch block Abnormal ECG Electronically Signed By: Omer Macias [id number]
[2016-11-18] MEDS: AZITHROMYCIN 500MG/NS (PMX) 250 ML IVPB SCH (15:25)
[2016-11-18] MEDS: LINAGLIPTIN 5 MG TABLET PO SCH (15:26)
--- NOTE | 2016-11-18 16:00 | PN ---
Date/Time of Note Date/Time of Note DATE: 11/18/16 TIME: 15:47 Assessment/Plan VTE Prophylaxis VTE Prophylaxis Intervention: SCD's Lines/Catheters IV Catheter Type (from [facility]): [facility]ine [facility] Assessment/Plan Chief Complaint/Hosp Course Assessment and plan: -Pneumonia with parapneumonic effusion, continue antibiotics. Dr. Leal is following from infectious disease standpoint. -Sepsis secondary to pneumonia. -End-stage renal disease hemodialysis dependent. Dr. Gorman is following in nephrology consultation -Posterior shoulder lesion, possible VZV infection. Continue acyclovir. -Chest pain on admission, rule out acute coronary syndrome. -CHF, continue to remove fluids with hemodialysis. -Hypertension. Dr. Magana is following in cardiology consultation. -Diabetes mellitus type 2. Dr[address] Freitas is following in endocrinology consultation. Continue Levemir and pre-meal NovoLog as well as NovoLog per mild algorithm sliding scale. Continue Tradjenta. -Hypothyroidism. Continue levothyroxine. -Anemia of chronic disease, continue Epogen. Further recommendations based on clinical course. Plan of care discussed with Dr. Porter. Problems: Subjective 24 Hr Interval Summary Free Text/Dictation Patient's is currently undergoing hemodialysis, no acute events, patient looks comfortable, denies any shortness of breath denies chest pain. Exam/Review of Systems Vital Signs Vitals Vital Signs Date Time Temp Pulse Resp B/P Pulse Ox O2 Delivery O2 Flow Rate FiO2 11/18/16 14:30 67 11/18/16 12:27 98.7 16 128/62 97 11/18/16 08:00 4.0 11/18/16 00:00 Nasal Cannula Intake and Output 11/17/16 11/17/16 11/18/16 15:00 23:00 07:00 Intake Total 800 ml Balance 800 ml Exam Constitutional: alert, well developed Psych: nl mood/affect, no complaints Head: atraumatic, normocephalic Eyes: nl conjunctiva ENMT: nl external ears & nose Neck: non-tender, supple Respiratory: clear to auscultation, normal air movement Cardiovascular: nl pulses, regular rate and rhythm Gastrointestinal: non-tender, soft Genitourinary - Female: nl adnexae Musculoskeletal: nl extremities to inspection Extremities: normal pulses Neurological: [employer] II-XII intact Skin: other (Posterior shoulder rash) Results Result Diagram: 11/18/16 0650 11/18/16 0650 Results 24 hrs Laboratory Tests Test 11/17/16 16:55 11/17/16 22:32 11/17/16 23:04 11/18/16 02:34 Bedside Glucose 270 H 56 L 83 84 Test 11/18/16 06:50 11/18/16 07:56 11/18/16 10:16 11/18/16 12:12 White Blood Count 16.1 #H Red Blood Count 3.25 L Hemoglobin 8.0 L Hematocrit 26.8 L Mean Corpuscular Volume 82.5 Mean Corpuscular Hemoglobin 24.6 L Mean Corpuscular Hemoglobin Concent 29.9 L Red Cell Distribution Width 16.1 H Platelet Count 335 # Mean Platelet Volume 10.4 Neutrophils % 81.9 H Lymphocytes % 6.5 L Monocytes % 10.4 Eosinophils % 0.2 Basophils % 0.3 Nucleated Red Blood Cells % 0.0 Neutrophils # 13.2 H Lymphocytes # 1.0 Monocytes # 1.7 H Eosinophils # 0.0 Basophils # 0.1 Nucleated Red Blood Cells # 0.0 Sodium Level 132 L Potassium Level 5.3 H Chloride Level 90 L Carbon Dioxide Level 29 Anion Gap 18 H Blood Urea Nitrogen 50 H Creatinine 4.88 #H Glucose Level 115 # Hemoglobin A1c 7.6 H Calcium Level 8.9 Magnesium Level 2.5 Thyroid Stimulating Hormone (TSH) 2.910 Free Thyroxine 1.86 Bedside Glucose 127 142 230 H Medications Medications Current Medications Acetaminophen (Tylenol Tab) 650 mg Q6H PRN PO PAIN AND OR ELEVATED TEMP; Start 11/17/16 at 09:00 Bisacodyl (Dulcolax Supp) 10 mg DAILY PRN DC CONSTIPATION; Start 11/17/16 at 09 :00 Clonidine (Catapres) 0.1 mg Q6H PRN PO ELEVATED BLOOD PRESSURE; Start 11/17/16 at 09:00 Clonidine (Catapres) 0.2 mg TID PO Last administered on 11/18/16 15:25; Admin Dose 0.2 MG; Start 11/17/16 at 09:00 Clonidine HCl (Catapres-Tts 3 Patch) 0.3 patch Q7D TRANSDERM Last administered on 11/17/16 11:36; Admin Dose 0.3 PATCH; Start 11/17/16 at 10:00 Glucose (Glutose) 38 gm PRN PO Last administered on 11/17/16 22:36; Admin Dose 38 GM; Start 11/17/16 at 09:00 Diphenhydramine HCl (Benadryl) 25 mg Q8 PRN PO ITCHING; Start 11/17/16 at 09:00 Docusate Sodium (Colace) 250 mg DAILY PRN PO CONSTIPATION; Start 11/17/16 at 09 :00 Duloxetine HCl (Cymbalta) 60 mg DAILY PO Last administered on 11/18/16 10:19; Admin Dose 60 MG; Start 11/17/16 at 09:00 Guaifenesin/ Dextromethorphan (Robitussin Dm Liquid Cup) 10 ml Q6H PRN PO COUGH ; Start 11/17/16 at 09:00 Hydralazine HCl (Apresoline) 25 mg QID PO Last administered on 11/18/16 15:25 ; Admin Dose 25 MG; Start 11/17/16 at 09:00 Metoclopramide HCl (Reglan) 10 mg Q12 PRN PO NAUSEA AND/OR VOMITING; Start at 09:00 Minoxidil (Loniten) 10 mg BID PO Last administered on 11/18/16 10:20; Admin Dose 10 MG; Start 11/17/16 at 10:30 Nifedipine (Procardia Xl) 30 mg DAILY PO Last administered on 11/18/16 10:19; Admin Dose 30 MG; Start 11/17/16 at 10:00 Pantoprazole (Protonix Tab) 20 mg DAILY PO Last administered on 11/18/16 10:21 ; Admin Dose 20 MG; Start 11/17/16 at 09:00 Eye Lubricant (Artificial Tears Oph) 1 drop Q6 BOTH EYES Last administered on 12:22; Admin Dose 1 DROP; Start 11/17/16 at 12:00 Senna (Senokot) 1 tab Q12H PRN PO CONSTIPATION; Start 11/17/16 at 09:00 Zolpidem Tartrate (Ambien) 1 mg HS PO Last administered on 11/17/16 22:22; Admin Dose 1 MG; Start 11/17/16 at 21:00 Multivit/Ca Carb/ B Cmplx/FA/Prenat (Peyton-Ludwin) 1 tab DAILY PO Last administered on 11/18/16 10:20; Admin Dose 1 TAB; Start 11/17/16 at 09:00 Diagnostic Test (Pha) (Accu-Chek) 1 ea 02 XX Last administered on 11/18/16 02: 51; Admin Dose 1 EA; Start 11/18/16 at 02:00 Gabapentin (Neurontin) 100 mg TID PO Last administered on 11/18/16 15:26; Admin Dose 100 MG; Start 11/17/16 at 13:00 Miscellaneous Information 1 ea NOTE XX ; Start 11/17/16 at 10:00 Glucose (Glutose) 15 gm Q15M PRN PO DECREASED GLUCOSE; Start 11/17/16 at 10:00 Glucose (Glutose) 22.5 gm Q15M PRN PO DECREASED GLUCOSE; Start 11/17/16 at 10: 00 Dextrose (D50w Syringe) 25 ml Q15M PRN IV DECREASED GLUCOSE; Start 11/17/16 at 10:00 Dextrose (D50w Syringe) 50 ml Q15M PRN IV DECREASED GLUCOSE; Start 11/17/16 at 10:00 Glucagon (Glucagen) 1 mg Q15M PRN IM DECREASED GLUCOSE; Start 11/17/16 at 10:00 Glucose (Glutose) 15 gm Q15M PRN BUCCAL DECREASED GLUCOSE; Start 11/17/16 at 10 :00 Atorvastatin Calcium 10 mg 10 mg HS PO Last administered on 11/17/16 22:21; Admin Dose 10 MG; Start 11/17/16 at 21:00 Sodium Chloride 1,000 ml @ 30 mls/hr Q24H IV Last administered on 11/17/16 14 :11; Admin Dose 30 MLS/HR; Start 11/17/16 at 12:00 Azithromycin (Zithromax 500mg/ NS (Pmx)) 250 ml @ 250 mls/hr Q24H IVPB Last administered on 11/18/16 15:25; Admin Dose 250 MLS/HR; Start 11/17/16 at 15:00 Heparin Sodium (Porcine) (Heparin (5000 Units/0.5 ml)) 5,000 unit BID SC Last administered on 11/18/16 10:22; Admin Dose 5,000 UNIT; Start 11/17/16 at 13:00 Acyclovir (Zovirax) 800 mg BID PO Last administered on 11/18/16 10:21; Admin Dose 800 MG; Start 11/17/16 at 21:00 Acetaminophen/ Hydrocodone Bitart ([place] (5/325)) 1 tab Q6 PRN PO MODERATE PAIN LEVEL 4-6 Last administered on 11/17/16 18:39; Admin Dose 1 TAB; Start at 18:00 Morphine Sulfate (morphine) 2 mg Q4H PRN IV PAIN LEVEL 6-10 Last administered on 11/18/16 05:45; Admin Dose 2 MG; Start 11/17/16 at 17:30 Isosorbide Dinitrate (Isordil) 10 mg TID PO Last administered on 11/18/16 10: 20; Admin Dose 10 MG; Start 11/17/16 at 21:00 Nitroglycerin 1 tab 1 tab Q5M PRN SL ANGINA; Start 11/17/16 at 18:30 Piperacillin Sod/ Tazobactam Sod (Zosyn 2.25gm/ 50ml (Pmx)) 50 ml @ 100 mls/hr Q12 IVPB Last administered on 11/18/16 10:18; Admin Dose 100 MLS/HR; Start at 21:00 Epoetin Luis (Epogen (Esrd)) 6,000 units MoWeFr@17 IV ; Start 11/18/16 at 17:00 Ferrous Sulfate (Ferrous Sulfate (Ec)) 325 mg BID PO ; Start 11/18/16 at 21:00 Docusate Sodium (Colace) 100 mg DAILY PRN PO CONSTIPATION; Start 11/18/16 at 10 :00 Linagliptin (Tradjenta) 5 mg DAILY PO Last administered on 11/18/16 15:26; Admin Dose 5 MG; Start 11/18/16 at 14:00 Insulin Detemir (Levemir) 10 unit DAILY@20 SC ; Start 11/18/16 at 20:00 Miscellaneous Information (*Rx Drug Level Order Reminder*) VANCO RANDOM LEVEL... ONCE ONCE XX ; Start 11/19/16 at 05:00; Stop 11/19/16 at 05:01 LINDA SCHWARTZ Nov 18, 2016 15:58
[2016-11-18] MEDS: EPOETIN 3000 UNITS/1 ML INJ (ESRD) IV SCH (17:00)
[2016-11-18] MEDS ORDERED: EPOETIN 3000 UNITS/1 ML INJ (ESRD) SC ONE (18:00)
[2016-11-18 18:13] LABS: POTASSIUM 3.2 mmol/L (3.5-5.1)
[2016-11-18 18:15] LABS: CREATININE 2.79 mg/dl (0.44-1.00)
[2016-11-18 18:16] LABS: CALCIUM 8.4 mg/dl (8.4-10.2)
--- NOTE | 2016-11-18 18:35 | CONS ---
Date/Time of Note Date/Time of Note DATE: 11/18/16 TIME: 18:28 Assessment/Plan Assessment/Plan Chief Complaint/Hosp Course IMPRESSION: 1. Chest pain, assess for acute coronary syndrome with negative troponins x3, but ongoing complaints of chest pain. EF 50% by echo this admit 2. Abnormal electrocardiogram with intraventricular conduction delay. Assess for acute coronary syndrome. 3. Hypertension. 4. Diabetes mellitus. 5. Possible zoster infection. 6. Dyslipidemia. 7. Pneumonia with parapneumonic effusion. 8. Renal failure. 9. Anemia. 10. Leukocytosis. Recc: -Tele -serial ecg's -Continue current anti-hypertensives minoxidil/isordil/conidine TTS/procardia -Continue acyclovir -Continue statin -Lexiscan when off resp precautions -Continue abx's and f/u cx data Problems: Consultation Date/Type/Reason Admit Date/Time Nov 17, 2016 at 01:09 Initial Consult Date 11/17/16 Type of Consultation: Cardiology Reason for Consultation Chest pain Referring Provider: CANDELARIA TURCIOS Exam/Review of Systems Vital Signs Vitals Vital Signs Date Time Temp Pulse Resp B/P Pulse Ox O2 Delivery O2 Flow Rate FiO2 11/18/16 17:11 76 11/18/16 15:54 98.4 16 131/59 95 11/18/16 08:00 4.0 11/18/16 00:00 Nasal Cannula Intake and Output 11/17/16 11/17/16 11/18/16 15:00 23:00 07:00 Intake Total 800 ml Balance 800 ml Exam Review of Systems: CONSTITUTIONAL: No fevers, chills. PULMONARY: No sob CARDIOVASCULAR: No chest pain/palpitations GASTROINTESTINAL: No nausea/vomiting. GENITOURINARY: No hematuria/dysuria. MUSCULOSKELETAL: No myagias/arthalgias. PSYCHIATRIC: The patient denies depression. NEUROLOGIC: No weakness Constitutional: alert Psych: no complaints Head: normocephalic ENMT: mucosa pink and moist Neck: jvd, supple Respiratory: diminished breath sounds (at bases/B) Cardiovascular: regular rate and rhythm Gastrointestinal: non-tender, soft Musculoskeletal: muscle tone (normal) Extremities: edema (none) Neurological: other (No focal deficits) Results Result Diagram: 11/18/16 0650 11/18/16 4444 Results 24 hrs Laboratory Tests Test 11/17/16 22:32 11/17/16 23:04 11/18/16 02:34 11/18/16 06:50 Bedside Glucose 56 L 83 84 White Blood Count 16.1 #H Red Blood Count 3.25 L Hemoglobin 8.0 L Hematocrit 26.8 L Mean Corpuscular Volume 82.5 Mean Corpuscular Hemoglobin 24.6 L Mean Corpuscular Hemoglobin Concent 29.9 L Red Cell Distribution Width 16.1 H Platelet Count 335 # Mean Platelet Volume 10.4 Neutrophils % 81.9 H Lymphocytes % 6.5 L Monocytes % 10.4 Eosinophils % 0.2 Basophils % 0.3 Nucleated Red Blood Cells % 0.0 Neutrophils # 13.2 H Lymphocytes # 1.0 Monocytes # 1.7 H Eosinophils # 0.0 Basophils # 0.1 Nucleated Red Blood Cells # 0.0 Sodium Level 132 L Potassium Level 5.3 H Chloride Level 90 L Carbon Dioxide Level 29 Anion Gap 18 H Blood Urea Nitrogen 50 H Creatinine 4.88 #H Glucose Level 115 # Hemoglobin A1c 7.6 H Calcium Level 8.9 Magnesium Level 2.5 Thyroid Stimulating Hormone (TSH) 2.910 Free Thyroxine 1.86 Test 11/18/16 07:56 11/18/16 10:16 11/18/16 12:12 11/18/16 17:17 Bedside Glucose 127 142 230 H 275 H Test 11/18/16 17:35 Sodium Level 132 L Potassium Level 3.2 #L Chloride Level 91 L Carbon Dioxide Level 29 Anion Gap 15 Blood Urea Nitrogen 22 #H Creatinine 2.79 #H Glucose Level 291 #H Calcium Level 8.4 Medications Medications Current Medications Acetaminophen (Tylenol Tab) 650 mg Q6H PRN PO PAIN AND OR ELEVATED TEMP; Start 11/17/16 at 09:00 Bisacodyl (Dulcolax Supp) 10 mg DAILY PRN [place] CONSTIPATION; Start 11/17/16 at 09 :00 Clonidine (Catapres) 0.1 mg Q6H PRN PO ELEVATED BLOOD PRESSURE; Start 11/17/16 at 09:00 Clonidine (Catapres) 0.2 mg TID PO Last administered on 11/18/16t 15:25; Admin Dose 0.2 MG; Start 11/17/16 at 09:00 Clonidine HCl (Catapres-Tts 3 Patch) 0.3 patch Q7D TRANSDERM Last administered on 11/17/16 11:36; Admin Dose 0.3 PATCH; Start 11/17/16 at 10:00 Glucose (Glutose) 38 gm PRN PO Last administered on 11/17/16 22:36; Admin Dose 38 GM; Start 11/17/16 at 09:00 Diphenhydramine HCl (Benadryl) 25 mg Q8 PRN PO ITCHING; Start 11/17/16 at 09:00 Docusate Sodium (Colace) 250 mg DAILY PRN PO CONSTIPATION; Start 11/17/16 at 09 :00 Duloxetine HCl (Cymbalta) 60 mg DAILY PO Last administered on 11/18/16 10:19; Admin Dose 60 MG; Start 11/17/16 at 09:00 Guaifenesin/ Dextromethorphan (Robitussin Dm Liquid Cup) 10 ml Q6H PRN PO COUGH ; Start 11/17/16 at 09:00 Hydralazine HCl (Apresoline) 25 mg QID PO Last administered on 11/18/16 17:21 ; Admin Dose 25 MG; Start 11/17/16 at 09:00 Metoclopramide HCl (Reglan) 10 mg Q12 PRN PO NAUSEA AND/OR VOMITING; Start at 09:00 Minoxidil (Loniten) 10 mg BID PO Last administered on 11/18/16 10:20; Admin Dose 10 MG; Start 11/17/16 at 10:30 Nifedipine (Procardia Xl) 30 mg DAILY PO Last administered on 11/18/16 10:19; Admin Dose 30 MG; Start 11/17/16 at 10:00 Pantoprazole (Protonix Tab) 20 mg DAILY PO Last administered on 11/18/16 10:21 ; Admin Dose 20 MG; Start 11/17/16 at 09:00 Eye Lubricant (Artificial Tears Oph) 1 drop Q6 BOTH EYES Last administered on 17:21; Admin Dose 1 DROP; Start 11/17/16 at 12:00 Senna (Senokot) 1 tab Q12H PRN PO CONSTIPATION; Start 11/17/16 at 09:00 Zolpidem Tartrate (Ambien) 1 mg HS PO Last administered on 11/17/16 22:22; Admin Dose 1 MG; Start 11/17/16 at 21:00 Multivit/Ca Carb/ B Cmplx/FA/Prenat (Peyton-Ludwin) 1 tab DAILY PO Last administered on 11/18/16 10:20; Admin Dose 1 TAB; Start 11/17/16 at 09:00 Diagnostic Test (Pha) (Accu-Chek) 1 ea 02 XX Last administered on 11/18/16 02: 51; Admin Dose 1 EA; Start 11/18/16 at 02:00 Gabapentin (Neurontin) 100 mg TID PO Last administered on 11/18/16 15:26; Admin Dose 100 MG; Start 11/17/16 at 13:00 Miscellaneous Information 1 ea NOTE XX ; Start 11/17/16 at 10:00 Glucose (Glutose) 15 gm Q15M PRN PO DECREASED GLUCOSE; Start 11/17/16 at 10:00 Glucose (Glutose) 22.5 gm Q15M PRN PO DECREASED GLUCOSE; Start 11/17/16 at 10: 00 Dextrose (D50w Syringe) 25 ml Q15M PRN IV DECREASED GLUCOSE; Start 11/17/16 at 10:00 Dextrose (D50w Syringe) 50 ml Q15M PRN IV DECREASED GLUCOSE; Start 11/17/16 at 10:00 Glucagon (Glucagen) 1 mg Q15M PRN IM DECREASED GLUCOSE; Start 11/17/16 at 10:00 Glucose (Glutose) 15 gm Q15M PRN BUCCAL DECREASED GLUCOSE; Start 11/17/16 at 10 :00 Atorvastatin Calcium 10 mg 10 mg HS PO Last administered on 11/17/16 22:21; Admin Dose 10 MG; Start 11/17/16 at 21:00 Sodium Chloride 1,000 ml @ 30 mls/hr Q24H IV Last administered on 11/17/16 14 :11; Admin Dose 30 MLS/HR; Start 11/17/16 at 12:00 Azithromycin (Zithromax 500mg/ NS (Pmx)) 250 ml @ 250 mls/hr Q24H IVPB Last administered on 11/18/16 15:25; Admin Dose 250 MLS/HR; Start 11/17/16 at 15:00 Heparin Sodium (Porcine) (Heparin (5000 Units/0.5 ml)) 5,000 unit BID SC Last administered on 11/18/16 10:22; Admin Dose 5,000 UNIT; Start 11/17/16 at 13:00 Acyclovir (Zovirax) 800 mg BID PO Last administered on 11/18/16 10:21; Admin Dose 800 MG; Start 11/17/16 at 21:00 Acetaminophen/ Hydrocodone Bitart (Cl[place] (5/325)) 1 tab Q6 PRN PO MODERATE PAIN LEVEL 4-6 Last administered on 11/17/16 18:39; Admin Dose 1 TAB; Start at 18:00 Morphine Sulfate (morphine) 2 mg Q4H PRN IV PAIN LEVEL 6-10 Last administered on 11/18/16 05:45; Admin Dose 2 MG; Start 11/17/16 at 17:30 Isosorbide Dinitrate (Isordil) 10 mg TID PO Last administered on 11/18/16 10: 20; Admin Dose 10 MG; Start 11/17/16 at 21:00 Nitroglycerin 1 tab 1 tab Q5M PRN SL ANGINA; Start 11/17/16 at 18:30 Piperacillin Sod/ Tazobactam Sod (Zosyn 2.25gm/ 50ml (Pmx)) 50 ml @ 100 mls/hr Q12 IVPB Last administered on 11/18/16 10:18; Admin Dose 100 MLS/HR; Start at 21:00 Epoetin Luis (Epogen (Esrd)) 6,000 units MoWeFr@17 IV ; Start 11/18/16 at 17:00 Ferrous Sulfate (Ferrous Sulfate (Ec)) 325 mg BID PO ; Start 11/18/16 at 21:00 Docusate Sodium (Colace) 100 mg DAILY PRN PO CONSTIPATION; Start 11/18/16 at 10 :00 Linagliptin (Tradjenta) 5 mg DAILY PO Last administered on 11/18/16 15:26; Admin Dose 5 MG; Start 11/18/16 at 14:00 Insulin Detemir (Levemir) 10 unit DAILY@20 SC ; Start 11/18/16 at 20:00 Miscellaneous Information (*Rx Drug Level Order Reminder*) VANCO RANDOM LEVEL... ONCE ONCE XX ; Start 11/19/16 at 05:00; Stop 11/19/16 at 05:01 MANUELA SHARMA Nov 18, 2016 18:35
[2016-11-18] MEDS ORDERED: INSULIN DETEMIR [LEVEMIR] 3ML CART SC SCH (20:00)
--- NOTE | 2016-11-18 20:18 | CONS ---
Date/Time of Note Date/Time of Note DATE: 11/18/16 TIME: 20:12 Assessment/Plan Assessment/Plan Problems: (1) Type 2 diabetes mellitus with hyperglycemia Status: Acute Comment: Last night pt. hypoglycemic and today received no insulin. BG has been increasing. Will resume basal insulin tonight w/ levemir 10 units. Will also start tradjenta 5 mg/d. Cont. Novolog 5 units qac plus ISS. Hopefully this will correct hyperglycemia which is detrimental to this pt. improving from her pneumonia. Consultation Date/Type/Reason Admit Date/Time Nov 17, 2016 at 01:09 Initial Consult Date 11/17/16 Type of Consultation: Endocrinology Reason for Consultation [id number] Referring Provider: CANDELARIA TURCIOS 24 HR Interval Summary Constitutional: other (weak), requiring O2 Detailed Summary Respiratory: pain, shortness of breath Cardiovascular: no complaints Gastrointestinal: no complaints Genitourinary: no complaints Musculoskeletal: no complaints Neurologic: no complaints Exam/Review of Systems Vital Signs Vitals VS - Last 72 Hours, by Label Date Time Temp Pulse Resp B/P Pulse Ox O2 Delivery O2 Flow Rate FiO2 11/18/16 19:57 98.5 67 20 106/53 98 11/18/16 17:11 76 11/18/16 15:54 98.4 71 16 131/59 95 11/18/16 14:30 67 11/18/16 14:15 72 11/18/16 13:45 72 11/18/16 13:15 68 11/18/16 12:45 68 11/18/16 12:27 98.7 73 16 128/62 97 11/18/16 12:24 71 11/18/16 12:15 70 11/18/16 11:45 70 11/18/16 11:15 65 14 11/18/16 11:15 67 11/18/16 08:41 72 11/18/16 08:00 98.7 73 17 134/61 99 11/18/16 08:00 4.0 11/18/16 04:30 77 11/18/16 04:00 99.0 78 16 133/63 98 11/18/16 01:17 2.0 11/18/16 00:46 83 11/18/16 00:00 99.1 84 16 141/64 96 11/18/16 00:00 Nasal Cannula 3.5 11/17/16 20:27 2.0 11/17/16 20:21 98.4 90 16 122/56 90 11/17/16 20:15 87 11/17/16 17:10 97.0 98 18 130/63 98 11/17/16 16:24 89 11/17/16 12:25 98.0 73 18 163/66 98 11/17/16 12:21 82 11/17/16 12:09 84 24 98 Nasal Cannula 2.0 11/17/16 08:38 84 11/17/16 08:24 98.0 85 18 151/67 98 11/17/16 05:00 99.7 92 18 141/67 94 11/17/16 04:38 87 11/17/16 03:00 Nasal Cannula 2.0 11/17/16 02:03 99.7 91 24 130/62 93 Nasal Cannula 4.0 11/17/16 02:02 91 11/17/16 01:20 90 25 179/51 96 Nasal Cannula 3.0 11/17/16 00:04 94 24 184/77 97 Nasal Cannula 3.0 11/16/16 23:06 Nasal Cannula 2 11/16/16 21:37 98.9 88 20 130/76 92 Vital Signs Date Time Temp Pulse Resp B/P Pulse Ox O2 Delivery O2 Flow Rate FiO2 11/18/16 19:57 98.5 67 20 106/53 98 11/18/16 08:00 4.0 11/18/16 00:00 Nasal Cannula Intake and Output 11/17/16 11/17/16 11/18/16 15:00 23:00 07:00 Intake Total 800 ml Balance 800 ml Exam Constitutional: alert, frail Respiratory: clear to auscultation, normal air movement Cardiovascular: regular rate and rhythm, systolic murmur, No edema, No rub Gastrointestinal: bowel sounds, nl liver, spleen, non-tender, soft, No mass, No rebound or guarding Musculoskeletal: nl extremities to inspection Extremities: normal pulses, No clubbing, No cyanosis, No edema Neurological: MATCHER II-XII intact, nl mental status, nl speech, nl strength Additional Comments Bedside Glucose - 72 Hours Test 11/17/16 08:20 11/17/16 11:09 11/17/16 16:55 11/17/16 22:32 Bedside Glucose 420mg/dL (70-220) *H 401mg/dL (70-220) *H 270mg/dL (70-220) H 56mg/dL (70-220) L Test 11/17/16 23:04 11/18/16 02:34 11/18/16 07:56 11/18/16 10:16 Bedside Glucose 83mg/dL (70-220) 84mg/dL (70-220) 127mg/dL (70-220) 142mg/dL (70-220) Test 11/18/16 12:12 11/18/16 17:17 Bedside Glucose 230mg/dL (70-220) H 275mg/dL (70-220) H Results Result Diagram: 11/18/16 0650 11/18/16 1735 Results 24 hrs Laboratory Tests Test 11/17/16 22:32 11/17/16 23:04 11/18/16 02:34 11/18/16 06:50 Bedside Glucose 56 L 83 84 White Blood Count 16.1 #H Red Blood Count 3.25 L Hemoglobin 8.0 L Hematocrit 26.8 L Mean Corpuscular Volume 82.5 Mean Corpuscular Hemoglobin 24.6 L Mean Corpuscular Hemoglobin Concent 29.9 L Red Cell Distribution Width 16.1 H Platelet Count 335 # Mean Platelet Volume 10.4 Neutrophils % 81.9 H Lymphocytes % 6.5 L Monocytes % 10.4 Eosinophils % 0.2 Basophils % 0.3 Nucleated Red Blood Cells % 0.0 Neutrophils # 13.2 H Lymphocytes # 1.0 Monocytes # 1.7 H Eosinophils # 0.0 Basophils # 0.1 Nucleated Red Blood Cells # 0.0 Sodium Level 132 L Potassium Level 5.3 H Chloride Level 90 L Carbon Dioxide Level 29 Anion Gap 18 H Blood Urea Nitrogen 50 H Creatinine 4.88 #H Glucose Level 115 # Hemoglobin A1c 7.6 H Calcium Level 8.9 Magnesium Level 2.5 Thyroid Stimulating Hormone (TSH) 2.910 Free Thyroxine 1.86 Test 11/18/16 07:56 11/18/16 10:16 11/18/16 12:12 11/18/16 17:17 Bedside Glucose 127 142 230 H 275 H Test 11/18/16 17:35 Sodium Level 132 L Potassium Level 3.2 #L Chloride Level 91 L Carbon Dioxide Level 29 Anion Gap 15 Blood Urea Nitrogen 22 #H Creatinine 2.79 #H Glucose Level 291 #H Calcium Level 8.4 Medications Medications Current Medications Acetaminophen (Tylenol Tab) 650 mg Q6H PRN PO PAIN AND OR ELEVATED TEMP; Start 11/17/16 at 09:00 Bisacodyl (Dulcolax Supp) 10 mg DAILY PRN [place] CONSTIPATION; Start 11/17/16 at 09 :00 Clonidine (Catapres) 0.1 mg Q6H PRN PO ELEVATED BLOOD PRESSURE; Start 11/17/16 at 09:00 Clonidine (Catapres) 0.2 mg TID PO Last administered on 11/18/16 15:25; Admin Dose 0.2 MG; Start 11/17/16 at 09:00 Clonidine HCl (Catapres-Tts 3 Patch) 0.3 patch Q7D TRANSDERM Last administered on 11/17/16 11:36; Admin Dose 0.3 PATCH; Start 11/17/16 at 10:00 Glucose (Glutose) 38 gm PRN PO Last administered on 11/17/16 22:36; Admin Dose 38 GM; Start 11/17/16 at 09:00 Diphenhydramine HCl (Benadryl) 25 mg Q8 PRN PO ITCHING; Start 11/17/16 at 09:00 Docusate Sodium (Colace) 250 mg DAILY PRN PO CONSTIPATION; Start 11/17/16 at 09 :00 Duloxetine HCl (Cymbalta) 60 mg DAILY PO Last administered on 11/18/16 10:19; Admin Dose 60 MG; Start 11/17/16 at 09:00 Guaifenesin/ Dextromethorphan (Robitussin Dm Liquid Cup) 10 ml Q6H PRN PO COUGH ; Start 11/17/16 at 09:00 Hydralazine HCl (Apresoline) 25 mg QID PO Last administered on 11/18/16 17:21 ; Admin Dose 25 MG; Start 11/17/16 at 09:00 Metoclopramide HCl (Reglan) 10 mg Q12 PRN PO NAUSEA AND/OR VOMITING; Start at 09:00 Minoxidil (Loniten) 10 mg BID PO Last administered on 11/18/16 10:20; Admin Dose 10 MG; Start 11/17/16 at 10:30 Nifedipine (Procardia Xl) 30 mg DAILY PO Last administered on 11/18/16 10:19; Admin Dose 30 MG; Start 11/17/16 at 10:00 Pantoprazole (Protonix Tab) 20 mg DAILY PO Last administered on 11/18/16 10:21 ; Admin Dose 20 MG; Start 11/17/16 at 09:00 Eye Lubricant (Artificial Tears Oph) 1 drop Q6 BOTH EYES Last administered on 17:21; Admin Dose 1 DROP; Start 11/17/16 at 12:00 Senna (Senokot) 1 tab Q12H PRN PO CONSTIPATION; Start 11/17/16 at 09:00 Zolpidem Tartrate (Ambien) 1 mg HS PO Last administered on 11/17/16 22:22; Admin Dose 1 MG; Start 11/17/16 at 21:00 Multivit/Ca Carb/ B Cmplx/FA/Prenat (Peyton-Ludwin) 1 tab DAILY PO Last administered on 11/18/16 10:20; Admin Dose 1 TAB; Start 11/17/16 at 09:00 Diagnostic Test (Pha) (Accu-Chek) 1 ea 02 XX Last administered on 11/18/16 02: 51; Admin Dose 1 EA; Start 11/18/16 at 02:00 Gabapentin (Neurontin) 100 mg TID PO Last administered on 11/18/16 15:26; Admin Dose 100 MG; Start 11/17/16 at 13:00 Miscellaneous Information 1 ea NOTE XX ; Start 11/17/16 at 10:00 Glucose (Glutose) 15 gm Q15M PRN PO DECREASED GLUCOSE; Start 11/17/16 at 10:00 Glucose (Glutose) 22.5 gm Q15M PRN PO DECREASED GLUCOSE; Start 11/17/16 at 10: 00 Dextrose (D50w Syringe) 25 ml Q15M PRN IV DECREASED GLUCOSE; Start 11/17/16 at 10:00 Dextrose (D50w Syringe) 50 ml Q15M PRN IV DECREASED GLUCOSE; Start 11/17/16 at 10:00 Glucagon (Glucagen) 1 mg Q15M PRN IM DECREASED GLUCOSE; Start 11/17/16 at 10:00 Glucose (Glutose) 15 gm Q15M PRN BUCCAL DECREASED GLUCOSE; Start 11/17/16 at 10 :00 Atorvastatin Calcium 10 mg 10 mg HS PO Last administered on 11/17/16 22:21; Admin Dose 10 MG; Start 11/17/16 at 21:00 Sodium Chloride 1,000 ml @ 30 mls/hr Q24H IV Last administered on 11/17/16 14 :11; Admin Dose 30 MLS/HR; Start 11/17/16 at 12:00 Azithromycin (Zithromax 500mg/ NS (Pmx)) 250 ml @ 250 mls/hr Q24H IVPB Last administered on 11/18/16 15:25; Admin Dose 250 MLS/HR; Start 11/17/16 at 15:00 Heparin Sodium (Porcine) (Heparin (5000 Units/0.5 ml)) 5,000 unit BID SC Last administered on 11/18/16 10:22; Admin Dose 5,000 UNIT; Start 11/17/16 at 13:00 Acyclovir (Zovirax) 800 mg BID PO Last administered on 11/18/16 10:21; Admin Dose 800 MG; Start 11/17/16 at 21:00 Acetaminophen/ Hydrocodone Bitart ([place] (5/325)) 1 tab Q6 PRN PO MODERATE PAIN LEVEL 4-6 Last administered on 11/17/16 18:39; Admin Dose 1 TAB; Start at 18:00 Morphine Sulfate (morphine) 2 mg Q4H PRN IV PAIN LEVEL 6-10 Last administered on 11/18/16 05:45; Admin Dose 2 MG; Start 11/17/16 at 17:30 Isosorbide Dinitrate (Isordil) 10 mg TID PO Last administered on 11/18/16 10: 20; Admin Dose 10 MG; Start 11/17/16 at 21:00 Nitroglycerin 1 tab 1 tab Q5M PRN SL ANGINA; Start 11/17/16 at 18:30 Piperacillin Sod/ Tazobactam Sod (Zosyn 2.25gm/ 50ml (Pmx)) 50 ml @ 100 mls/hr Q12 IVPB Last administered on 11/18/16 10:18; Admin Dose 100 MLS/HR; Start at 21:00 Epoetin Luis (Epogen (Esrd)) 6,000 units MoWeFr@17 IV ; Start 11/18/16 at 17:00 Ferrous Sulfate (Ferrous Sulfate (Ec)) 325 mg BID PO ; Start 11/18/16 at 21:00 Docusate Sodium (Colace) 100 mg DAILY PRN PO CONSTIPATION; Start 11/18/16 at 10 :00 Linagliptin (Tradjenta) 5 mg DAILY PO Last administered on 11/18/16t 15:26; Admin Dose 5 MG; Start 11/18/16 at 14:00 Insulin Detemir (Levemir) 10 unit DAILY@20 SC ; Start 11/18/16 at 20:00 Miscellaneous Information (*Rx Drug Level Order Reminder*) VANCO RANDOM LEVEL... ONCE ONCE XX ; Start 11/19/16 at 05:00; Stop 11/19/16 at 05:01 SOL BOSCH MD Nov 18, 2016 20:17
[2016-11-18] MEDS: ZOLPIDEM 5 MG TAB PO SCH (21:00)
[2016-11-18] MEDS: FERROUS SULFATE (EC) 325 MG TAB PO SCH (21:15)
[2016-11-18] MEDS: ATORVASTATIN 10 MG TAB PO SCH (21:15)
--- NOTE | 2016-11-18 23:59 | CONS ---
Date/Time of Note Date/Time of Note DATE: 11/18/16 TIME: 23:36 Assessment/Plan Assessment/Plan Problems: (1) Type 2 diabetes mellitus with diabetic chronic kidney disease Status: Chronic (2) Type 2 diabetes mellitus with hyperglycemia Status: Acute (3) Pneumonia Status: Acute Qualifiers: Qualified Code: J18.1 - Pneumonia of right middle lobe due to infectious organism (4) Renal insufficiency Status: Acute Additional Assessment/Plan Patient with Diabetes Mellitus Type 2 with suboptimal glycemic control and evidence of acute on chronic kidney involvement. Glucose readings in the 400 range. HbA1c pending. So far patient has received 15 units glargine for basal plus 17 units aspart insulin correction plus 5 units aspart for prandial dose. Will increase basal insulin from 15 to 30 units daily. Continue current prandial and correction scale. Will hold Tradjenta at this time given renal function, and make further adjustments with insulin to obtain glycemic target of 100-180 mg/dl. Thank you for asking me to participate in this patients care. 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 She was diagnosed with bilateral lobe pneumonia. During admission she was noted to have elevated blood glucose readings. Constitutional: other (weak), requiring O2 Eyes: No no complaints ENT: no complaints Respiratory: pain (bilateral shoulders, back and throat), shortness of breath Cardiovascular: no complaints Gastrointestinal: no complaints Genitourinary: no complaints Musculoskeletal: no complaints Skin: other (pain in L scapula (where the rash is)) Neurologic: no complaints Lymphatic: no complaints Psychological: no complaints Past Medical History Medical History: congestive heart failure, coronary artery disease, diabetes, gallstones, high cholesterol, hypertension, hypothyroid, renal disease, other ( CVA) Past Surgical History Past Surgical Hx: cholecystectomy Social History Alcohol Use: none Smoking Status: Never smoker Drug Use: none Exam/Review of Systems Vital Signs Vitals Vital Signs Date Time Temp Pulse Resp B/P Pulse Ox O2 Delivery O2 Flow Rate FiO2 11/18/16 20:15 70 11/18/16 19:57 98.5 20 106/53 98 11/18/16 08:00 4.0 11/18/16 00:00 Nasal Cannula Intake and Output 11/17/16 11/17/16 11/18/16 15:00 23:00 07:00 Intake Total 800 ml Balance 800 ml Exam Constitutional: alert, frail, oriented, other (thin) Head: normocephalic Eyes: EOMI, PERRL, nl conjunctiva ENMT: mucosa pink and moist, other (poor dentition) Neck: non-tender, supple, thyromegaly (no) Respiratory: crackles/rales (bilaterally and throughout lung figueroa) Cardiovascular: nl pulses, regular rate and rhythm Gastrointestinal: soft Musculoskeletal: nl extremities to inspection Extremities: edema (none), normal pulses Results POC glucose and labs reviewed Result Diagram: 11/18/16 0650 11/18/16 1735 Results 24 hrs Laboratory Tests Test 11/18/16 02:34 11/18/16 06:50 11/18/16 07:56 11/18/16 10:16 Bedside Glucose 84 127 142 White Blood Count 16.1 #H Red Blood Count 3.25 L Hemoglobin 8.0 L Hematocrit 26.8 L Mean Corpuscular Volume 82.5 Mean Corpuscular Hemoglobin 24.6 L Mean Corpuscular Hemoglobin Concent 29.9 L Red Cell Distribution Width 16.1 H Platelet Count 335 # Mean Platelet Volume 10.4 Neutrophils % 81.9 H Lymphocytes % 6.5 L Monocytes % 10.4 Eosinophils % 0.2 Basophils % 0.3 Nucleated Red Blood Cells % 0.0 Neutrophils # 13.2 H Lymphocytes # 1.0 Monocytes # 1.7 H Eosinophils # 0.0 Basophils # 0.1 Nucleated Red Blood Cells # 0.0 Sodium Level 132 L Potassium Level 5.3 H Chloride Level 90 L Carbon Dioxide Level 29 Anion Gap 18 H Blood Urea Nitrogen 50 H Creatinine 4.88 #H Glucose Level 115 # Hemoglobin A1c 7.6 H Calcium Level 8.9 Magnesium Level 2.5 Thyroid Stimulating Hormone (TSH) 2.910 Free Thyroxine 1.86 Test 11/18/16 12:12 11/18/16 17:17 11/18/16 17:35 11/18/16 20:15 Bedside Glucose 230 H 275 H 216 Sodium Level 132 L Potassium Level 3.2 #L Chloride Level 91 L Carbon Dioxide Level 29 Anion Gap 15 Blood Urea Nitrogen 22 #H Creatinine 2.79 #H Glucose Level 291 #H Calcium Level 8.4 Medications Medications Current Medications Acetaminophen (Tylenol Tab) 650 mg Q6H PRN PO PAIN AND OR ELEVATED TEMP; Start 11/17/16 at 09:00 Bisacodyl (Dulcolax Supp) 10 mg DAILY PRN [place] CONSTIPATION; Start 11/17/16 at 09 :00 Clonidine (Catapres) 0.1 mg Q6H PRN PO ELEVATED BLOOD PRESSURE; Start 11/17/16 at 09:00 Clonidine (Catapres) 0.2 mg TID PO Last administered on 11/18/16 15:25; Admin Dose 0.2 MG; Start 11/17/16 at 09:00 Clonidine HCl (Catapres-Tts 3 Patch) 0.3 patch Q7D TRANSDERM Last administered on 11/17/16 11:36; Admin Dose 0.3 PATCH; Start 11/17/16 at 10:00 Glucose (Glutose) 38 gm PRN PO Last administered on 11/17/16 22:36; Admin Dose 38 GM; Start 11/17/16 at 09:00 Diphenhydramine HCl (Benadryl) 25 mg Q8 PRN PO ITCHING; Start 11/17/16 at 09:00 Docusate Sodium (Colace) 250 mg DAILY PRN PO CONSTIPATION; Start 11/17/16 at 09 :00 Duloxetine HCl (Cymbalta) 60 mg DAILY PO Last administered on 11/18/16 10:19; Admin Dose 60 MG; Start 11/17/16 at 09:00 Guaifenesin/ Dextromethorphan (Robitussin Dm Liquid Cup) 10 ml Q6H PRN PO COUGH ; Start 11/17/16 at 09:00 Hydralazine HCl (Apresoline) 25 mg QID PO Last administered on 11/18/16 17:21 ; Admin Dose 25 MG; Start 11/17/16 at 09:00 Metoclopramide HCl (Reglan) 10 mg Q12 PRN PO NAUSEA AND/OR VOMITING; Start at 09:00 Minoxidil (Loniten) 10 mg BID PO Last administered on 11/18/16 21:15; Admin Dose 10 MG; Start 3/30/17 at 10:30 Nifedipine (Procardia Xl) 30 mg DAILY PO Last administered on 11/18/16 10:19; Admin Dose 30 MG; Start 11/17/16 at 10:00 Pantoprazole (Protonix Tab) 20 mg DAILY PO Last administered on 11/18/16 10:21 ; Admin Dose 20 MG; Start 11/17/16 at 09:00 Eye Lubricant (Artificial Tears Oph) 1 drop Q6 BOTH EYES Last administered on 17:21; Admin Dose 1 DROP; Start 11/17/16 at 12:00 Senna (Senokot) 1 tab Q12H PRN PO CONSTIPATION; Start 11/17/16 at 09:00 Zolpidem Tartrate (Ambien) 1 mg HS PO Last administered on 11/17/16 22:22; Admin Dose 1 MG; Start 11/17/16 at 21:00 Multivit/Ca Carb/ B Cmplx/FA/Prenat (Peyton-Ludwin) 1 tab DAILY PO Last administered on 11/18/16 10:20; Admin Dose 1 TAB; Start 11/17/16 at 09:00 Diagnostic Test (Pha) (Accu-Chek) 1 ea 02 XX Last administered on 11/18/16 02: 51; Admin Dose 1 EA; Start 11/18/16 at 02:00 Gabapentin (Neurontin) 100 mg TID PO Last administered on 11/18/16 21:15; Admin Dose 100 MG; Start 11/17/16 at 13:00 Miscellaneous Information 1 ea NOTE XX ; Start 11/17/16 at 10:00 Glucose (Glutose) 15 gm Q15M PRN PO DECREASED GLUCOSE; Start 11/17/16 at 10:00 Glucose (Glutose) 22.5 gm Q15M PRN PO DECREASED GLUCOSE; Start 11/17/16 at 10: 00 Dextrose (D50w Syringe) 25 ml Q15M PRN IV DECREASED GLUCOSE; Start 11/17/16 at 10:00 Dextrose (D50w Syringe) 50 ml Q15M PRN IV DECREASED GLUCOSE; Start 11/17/16 at 10:00 Glucagon (Glucagen) 1 mg Q15M PRN IM DECREASED GLUCOSE; Start 11/17/16 at 10:00 Glucose (Glutose) 15 gm Q15M PRN BUCCAL DECREASED GLUCOSE; Start 11/17/16 at 10 :00 Atorvastatin Calcium 10 mg 10 mg HS PO Last administered on 11/18/16 21:15; Admin Dose 10 MG; Start 11/17/16 at 21:00 Sodium Chloride 1,000 ml @ 30 mls/hr Q24H IV Last administered on 11/17/16 14 :11; Admin Dose 30 MLS/HR; Start 11/17/16 at 12:00 Azithromycin (Zithromax 500mg/ NS (Pmx)) 250 ml @ 250 mls/hr Q24H IVPB Last administered on 11/18/16 15:25; Admin Dose 250 MLS/HR; Start 11/17/16 at 15:00 Heparin Sodium (Porcine) (Heparin (5000 Units/0.5 ml)) 5,000 unit BID SC Last administered on 11/18/16 22:05; Admin Dose 5,000 UNIT; Start 11/17/16 at 13:00 Acyclovir (Zovirax) 800 mg BID PO Last administered on 11/18/16 21:15; Admin Dose 800 MG; Start 11/17/16 at 21:00 Acetaminophen/ Hydrocodone Bitart ([place] (5/325)) 1 tab Q6 PRN PO MODERATE PAIN LEVEL 4-6 Last administered on 11/17/16 18:39; Admin Dose 1 TAB; Start at 18:00 Morphine Sulfate (morphine) 2 mg Q4H PRN IV PAIN LEVEL 6-10 Last administered on 11/18/16 05:45; Admin Dose 2 MG; Start 11/17/16 at 17:30 Isosorbide Dinitrate (Isordil) 10 mg TID PO Last administered on 11/18/16 10: 20; Admin Dose 10 MG; Start 11/17/16 at 21:00 Nitroglycerin 1 tab 1 tab Q5M PRN SL ANGINA; Start 11/17/16 at 18:30 Piperacillin Sod/ Tazobactam Sod (Zosyn 2.25gm/ 50ml (Pmx)) 50 ml @ 100 mls/hr Q12 IVPB Last administered on 11/18/16 21:12; Admin Dose 100 MLS/HR; Start at 21:00 Epoetin Luis (Epogen (Esrd)) 6,000 units MoWeFr@17 IV ; Start 11/18/16 at 17:00 Ferrous Sulfate (Ferrous Sulfate (Ec)) 325 mg BID PO Last administered on 21:15; Admin Dose 325 MG; Start 11/18/16 at 21:00 Docusate Sodium (Colace) 100 mg DAILY PRN PO CONSTIPATION; Start 11/18/16 at 10 :00 Linagliptin (Tradjenta) 5 mg DAILY PO Last administered on 11/18/16 15:26; Admin Dose 5 MG; Start 11/18/16 at 14:00 Insulin Detemir (Levemir) 10 unit DAILY@20 SC Last administered on 11/18/16 22 :02; Admin Dose 10 UNIT; Start 11/18/16 at 20:00 Miscellaneous Information (*Rx Drug Level Order Reminder*) VANCO RANDOM LEVEL... ONCE ONCE XX ; Start 11/19/16 at 05:00; Stop 11/19/16 at 05:01 CAITLYN PÉREZ MD Nov 18, 2016 23:49
[2016-11-19] VITALS (12 sets, daily range): BP systolic 103–163; BP diastolic 51–65; PULSE 64–66; RESP 16–20
[2016-11-19] MEDS: ACCU-CHEK XX SCH (02:00)
[2016-11-19] MEDS: ARTIFICIAL TEARS 15 ML OPH BOTH EYES SCH ×4 (06:31→17:19)
[2016-11-19 07:38] LABS: ADD SCAN DIFF NO
[2016-11-19 07:42] LABS: ABNORMAL IP MESSAGE 1; BASOPHILS % 0.3 % (0.0-2.0); EOSINOPHILS # 0.2 10^3/ul (0.0-0.5); EOSINOPHILS % 1.6 % (0.0-7.0); HEMOGLOBIN 7.8 g/dl (12.0-16.0); LYMPHOCYTES % 9.3 % (15.0-51.0); MEAN CORPUSCULAR HEMOGLOBIN 24.1 pg (29.0-33.0); MEAN CORPUSCULAR HGB CONC 28.9 g/dl (32.0-37.0); MEAN CORPUSCULAR VOLUME 83.3 fl (82.0-101.0); MEAN PLATELET VOLUME 10.6 fl (7.4-10.4); MONOCYTE # 1.3 10^3/ul (0.3-0.9); MONOCYTES % 12.4 % (0.0-11.0); NEUTROPHIL # 8.1 10^3/ul (1.6-7.5); NEUTROPHILS % 76.1 % (39.0-77.0); PLATELET COUNT 393 10^3/UL (140-415); RED BLOOD COUNT 3.24 10^6/ul (4.20-5.40); RED CELL DISTRIBUTION WIDTH 16.1 % (11.5-14.5); WHITE BLOOD COUNT 10.6 10^3/ul (4.8-10.8)
[2016-11-19] MEDS: INSULIN ASPART [NOVOLOG] 3 ML PEN SC SCH ×7 (08:00→21:00)
[2016-11-19] MEDS: GLUCOSE GEL 15 GRAM TUBE BUCCAL PRN ×2 (08:24→08:58)
[2016-11-19] MEDS: SUCRALFATE 1 GM TAB PO SCH ×2 (08:25→17:18)
[2016-11-19] MEDS: PIPER-TAZO 2.25 GM (PMX) 50 ML IVPB SCH ×2 (08:26→20:36)
[2016-11-19] MEDS: DULOXETINE 30 MG CAP DR PO SCH (08:29)
[2016-11-19] MEDS: FERROUS SULFATE (EC) 325 MG TAB PO SCH ×2 (08:29→21:25)
[2016-11-19] MEDS: MINOXIDIL 10 MG TAB PO SCH ×2 (08:30→21:26)
[2016-11-19] MEDS: ISOSORBIDE DINITRATE 10 MG TAB PO SCH ×3 (08:30→21:25)
[2016-11-19] MEDS: PANTOPRAZOLE (EC) 40 MG TAB PO SCH (08:31)
[2016-11-19] MEDS: GABAPENTIN 100 MG CAP PO SCH ×3 (08:31→21:26)
[2016-11-19] MEDS: MULTIVIT/CA CARB/B CMPLX/FA TAB PO SCH (08:31)
[2016-11-19] MEDS: NIFEdipine (XL) 30 MG TAB PO SCH (08:31)
[2016-11-19] MEDS: ACYCLOVIR 800 MG TAB PO SCH ×2 (08:31→21:26)
[2016-11-19] MEDS: HEPARIN 5,000 UNIT/0.5 ML VIAL SC SCH ×2 (08:42→21:28)
[2016-11-19] MEDS ORDERED: INSULIN GLARGINE [LANtus] 3 ML PEN SC SCH (09:00)
[2016-11-19] MEDS: LINAGLIPTIN 5 MG TABLET PO SCH (09:00)
--- NOTE | 2016-11-19 11:04 | RADRPT ---
PROCEDURE: XR Chest. CLINICAL INDICATION: CHF TECHNIQUE: Single frontal chest x-ray. COMPARISON: 11/16/2016 FINDINGS: Bibasilar pulmonary opacities are again noted, mildly increased. There is no pneumothorax. Cardiom ediastinal silhouette is grossly stable. Aortic atherosclerotic calcification is noted. The osseou s structures are unremarkable. IMPRESSION: 1. Bibasilar pulmonary opacities are mildly increased, suggestive of worsening bibasilar atelectasi s and/or moderate to large pleural effusions. 2. Cardiomediastinal silhouette is grossly stable. RPTAT: QQ .Davi Echavarria MD, MD Date Time Electronically viewed and signed by .Davi Echavarria MD, on 11/19/2016 11:03 .R/
[2016-11-19] MEDS: SOD CHLORIDE 0.45% 1,000 ML IV SCH (11:55)
[2016-11-19] MEDS ORDERED: VANCOMYCIN 1 GM in NS 250 ML IVPB SCH (12:00)
--- NOTE | 2016-11-19 12:54 | CONS ---
Date/Time of Note Date/Time of Note DATE: 11/19/16 TIME: 12:48 Assessment/Plan Assessment/Plan Additional Assessment/Plan Atypical chest pain Acute exacerbation of congestive heart failure Pulmonary Hypertension Tricuspid Regurgitation Hypertension Diabetes Dyslipidemia. Pneumonia with parapneumonic effusion. Renal failure. Anemia. Zoster Patient has been ruled out for ACS with serial negative troponin's Heart failure is clinically compensated BP controlled Continue Nifedipine Continue Minoxidil Continue acyclovir Continue Insulin Continue Lipitor Continue antibiotics Avoid Over diuresis Consultation Date/Type/Reason Admit Date/Time Nov 17, 2016 at 01:09 Constitutional: other (weak), requiring O2 Eyes: No no complaints ENT: no complaints Respiratory: pain (bilateral shoulders, back and throat), shortness of breath Cardiovascular: no complaints Gastrointestinal: no complaints Genitourinary: no complaints Musculoskeletal: no complaints Skin: other (pain in L scapula (where the rash is)) Neurologic: no complaints Lymphatic: no complaints Psychological: no complaints Past Medical History Medical History: congestive heart failure, coronary artery disease, diabetes, gallstones, high cholesterol, hypertension, hypothyroid, renal disease, other ( CVA) Past Surgical History Past Surgical Hx: cholecystectomy Social History Alcohol Use: none Smoking Status: Never smoker Drug Use: none Exam/Review of Systems Vital Signs Vitals Vital Signs Date Time Temp Pulse Resp B/P Pulse Ox O2 Delivery O2 Flow Rate FiO2 11/19/16 12:29 98.4 65 20 122/60 99 11/19/16 08:27 Nasal Cannula 2.0 Intake and Output 11/18/16 11/18/16 11/19/16 15:00 23:00 07:00 Intake Total 500 ml 200 ml Output Total 2000 ml Balance -1500 ml 200 ml Exam Head: atraumatic, normocephalic Neck: non-tender, supple Respiratory: clear to auscultation Cardiovascular: regular rate and rhythm Gastrointestinal: nl liver, spleen, non-tender, soft Extremities: normal pulses Results Result Diagram: 11/19/16 0600 11/18/16 1735 Results 24 hrs Laboratory Tests Test 11/18/16 17:17 11/18/16 17:35 11/18/16 20:15 11/19/16 03:38 Bedside Glucose 275 H 216 108 Sodium Level 132 L Potassium Level 3.2 #L Chloride Level 91 L Carbon Dioxide Level 29 Anion Gap 15 Blood Urea Nitrogen 22 #H Creatinine 2.79 #H Glucose Level 291 #H Calcium Level 8.4 Test 11/19/16 06:00 11/19/16 07:45 11/19/16 08:09 11/19/16 08:47 White Blood Count 10.6 # Red Blood Count 3.24 L Hemoglobin 7.8 L Hematocrit 27.0 L Mean Corpuscular Volume 83.3 Mean Corpuscular Hemoglobin 24.1 L Mean Corpuscular Hemoglobin Concent 28.9 L Red Cell Distribution Width 16.1 H Platelet Count 393 Mean Platelet Volume 10.6 H Neutrophils % 76.1 Lymphocytes % 9.3 L Monocytes % 12.4 H Eosinophils % 1.6 Basophils % 0.3 Nucleated Red Blood Cells % 0.0 Neutrophils # 8.1 H Lymphocytes # 1.0 Monocytes # 1.3 H Eosinophils # 0.2 Basophils # 0.0 Nucleated Red Blood Cells # 0.0 Random Vancomycin Level 10.2 Bedside Glucose 57 L 56 L 69 L Test 11/19/16 09:38 11/19/16 11:53 Bedside Glucose 142 253 H Medications Medications Current Medications Acetaminophen (Tylenol Tab) 650 mg Q6H PRN PO PAIN AND OR ELEVATED TEMP; Start 11/17/16 at 09:00 Bisacodyl (Dulcolax Supp) 10 mg DAILY PRN [place] CONSTIPATION; Start 11/17/16 at 09 :00 Clonidine (Catapres) 0.1 mg Q6H PRN PO ELEVATED BLOOD PRESSURE; Start 11/17/16 at 09:00 Clonidine (Catapres) 0.2 mg TID PO Last administered on 11/19/16 08:29; Admin Dose 0.2 MG; Start 11/17/16 at 09:00 Clonidine HCl (Catapres-Tts 3 Patch) 0.3 patch Q7D TRANSDERM Last administered on 11/17/16 11:36; Admin Dose 0.3 PATCH; Start 11/17/16 at 10:00 Glucose (Glutose) 38 gm PRN PO Last administered on 11/17/16 22:36; Admin Dose 38 GM; Start 11/17/16 at 09:00 Diphenhydramine HCl (Benadryl) 25 mg Q8 PRN PO ITCHING; Start 11/17/16 at 09:00 Docusate Sodium (Colace) 250 mg DAILY PRN PO CONSTIPATION; Start 11/17/16 at 09 :00 Duloxetine HCl (Cymbalta) 60 mg DAILY PO Last administered on 11/19/16 08:29; Admin Dose 60 MG; Start 11/17/16 at 09:00 Guaifenesin/ Dextromethorphan (Robitussin Dm Liquid Cup) 10 ml Q6H PRN PO COUGH ; Start 11/17/16 at 09:00 Hydralazine HCl (Apresoline) 25 mg QID PO Last administered on 11/19/16 08:27; Admin Dose 25 MG; Start 11/17/16 at 09:00 Metoclopramide HCl (Reglan) 10 mg Q12 PRN PO NAUSEA AND/OR VOMITING; Start at 09:00 Minoxidil (Loniten) 10 mg BID PO Last administered on 11/19/16 08:30; Admin Dose 10 MG; Start 11/17/16 at 10:30 Nifedipine (Procardia Xl) 30 mg DAILY PO Last administered on 11/19/16 08:31; Admin Dose 30 MG; Start 11/17/16 at 10:00 Pantoprazole (Protonix Tab) 20 mg DAILY PO Last administered on 11/19/16 08:31 ; Admin Dose 20 MG; Start 11/17/16 at 09:00 Eye Lubricant (Artificial Tears Oph) 1 drop Q6 BOTH EYES Last administered on 12:15; Admin Dose 1 DROP; Start 11/17/16 at 12:00 Senna (Senokot) 1 tab Q12H PRN PO CONSTIPATION; Start 11/17/16 at 09:00 Zolpidem Tartrate (Ambien) 1 mg HS PO Last administered on 11/17/16 22:22; Admin Dose 1 MG; Start 11/17/16 at 21:00 Multivit/Ca Carb/ B Cmplx/FA/Prenat (Pey[place]-Ludwin) 1 tab DAILY PO Last administered on 11/19/16 08:31; Admin Dose 1 TAB; Start 11/17/16 at 09:00 Diagnostic Test (Pha) (Accu-Chek) 1 ea 02 XX Last administered on 11/19/16 02: 00; Admin Dose 1 EA; Start 11/18/16 at 02:00 Gabapentin (Neurontin) 100 mg TID PO Last administered on 11/19/16 08:31; Admin Dose 100 MG; Start 11/17/16 at 13:00 Miscellaneous Information 1 ea NOTE XX ; Start 11/17/16 at 10:00 Glucose (Glutose) 15 gm Q15M PRN PO DECREASED GLUCOSE; Start 11/17/16 at 10:00 Glucose (Glutose) 22.5 gm Q15M PRN PO DECREASED GLUCOSE; Start 11/17/16 at 10: 00 Dextrose (D50w Syringe) 25 ml Q15M PRN IV DECREASED GLUCOSE; Start 11/17/16 at 10:00 Dextrose (D50w Syringe) 50 ml Q15M PRN IV DECREASED GLUCOSE; Start 11/17/16 at 10:00 Glucagon (Glucagen) 1 mg Q15M PRN IM DECREASED GLUCOSE; Start 11/17/16 at 10:00 Glucose (Glutose) 15 gm Q15M PRN BUCCAL DECREASED GLUCOSE Last administered on 11/19/16 08:58; Admin Dose 15 GM; Start 11/17/16 at 10:00 Atorvastatin Calcium 10 mg 10 mg HS PO Last administered on 11/18/16 21:15; Admin Dose 10 MG; Start 11/17/16 at 21:00 Sodium Chloride 1,000 ml @ 30 mls/hr Q24H IV Last administered on 11/17/16 14 :11; Admin Dose 30 MLS/HR; Start 11/17/16 at 12:00 Azithromycin (Zithromax 500mg/ NS (Pmx)) 250 ml @ 250 mls/hr Q24H IVPB Last administered on 11/18/16 15:25; Admin Dose 250 MLS/HR; Start 11/17/16 at 15:00 Heparin Sodium (Porcine) (Heparin (5000 Units/0.5 ml)) 5,000 unit BID SC Last administered on 11/19/16 08:42; Admin Dose 5,000 UNIT; Start 11/17/16 at 13:00 Acyclovir (Zovirax) 800 mg BID PO Last administered on 11/19/16 08:31; Admin Dose 800 MG; Start 11/17/16 at 21:00 Acetaminophen/ Hydrocodone Bitart ([place] (5/325)) 1 tab Q6 PRN PO MODERATE PAIN LEVEL 4-6 Last administered on 11/17/16 18:39; Admin Dose 1 TAB; Start at 18:00 Morphine Sulfate (morphine) 2 mg Q4H PRN IV PAIN LEVEL 6-10 Last administered on 11/18/16 05:45; Admin Dose 2 MG; Start 11/17/16 at 17:30 Isosorbide Dinitrate (Isordil) 10 mg TID PO Last administered on 11/19/16 08:30 ; Admin Dose 10 MG; Start 11/17/16 at 21:00 Nitroglycerin 1 tab 1 tab Q5M PRN SL ANGINA; Start 11/17/16 at 18:30 Piperacillin Sod/ Tazobactam Sod (Zosyn 2.25gm/ 50ml (Pmx)) 50 ml @ 100 mls/hr Q12 IVPB Last administered on 11/19/16 08:26; Admin Dose 100 MLS/HR; Start at 21:00 Epoetin Luis (Epogen (Esrd)) 6,000 units MoWeFr@17 IV ; Start 11/18/16 at 17:00 Ferrous Sulfate (Ferrous Sulfate (Ec)) 325 mg BID PO Last administered on 08:29; Admin Dose 325 MG; Start 11/18/16 at 21:00 Docusate Sodium (Colace) 100 mg DAILY PRN PO CONSTIPATION; Start 11/18/16 at 10 :00 Linagliptin (Tradjenta) 5 mg DAILY PO Last administered on 11/18/16 15:26; Admin Dose 5 MG; Start 11/18/16 at 14:00 Insulin Detemir 10 unit 10 unit DAILY@20 SC Last administered on 11/18/16 22: 02; Admin Dose 10 UNIT; Start 11/18/16 at 20:00 Vancomycin HCl (Vancocin) 250 ml @ 125 mls/hr 12 IVPB Last administered on 11/19 11:56; Admin Dose 125 MLS/HR; Start 11/19/16 at 12:00; Stop 11/19/16 at 23: 00 HECTOR ROBLES M.D. Nov 19, 2016 12:54
[2016-11-19] MEDS: ACETAMINOPHEN 325 MG TAB PO PRN (13:10)
--- NOTE | 2016-11-19 13:18 | CONS ---
Date/Time of Note Date/Time of Note DATE: 11/19/16 TIME: 13:16 Assessment/Plan Assessment/Plan Problems: (1) Type 2 diabetes mellitus with hyperglycemia Status: Acute Comment: Patient somewhat sensitive to the actually insulin since on antibiotic therapy. Adjust medications to avoid hypoglycemia Qualifiers: Diabetes mellitus rn long term care insulin use: with half-way use Qualified Code : E11.65 - Type 2 diabetes mellitus with hyperglycemia, with long-term current use of insulin (2) Type 2 diabetes mellitus with diabetic chronic kidney disease Status: Chronic Comment: Baseline renal function demonstrates that were in the chart there is a serum creatinine of 2.8 from the year 2008. Patient is stable over the long- term Qualifiers: Diabetes mellitus half-way insulin use: with rn long term care use Chronic kidney disease stage: stage 3 (moderate) Qualified Code: E11.22 - Type 2 diabetes mellitus with stage 3 chronic kidney disease, with long-term current use of insulin (3) Pleural effusion Status: Acute Comment: As per primary team consider elective radiology ultrasound-guided thoracentesis Consultation Date/Type/Reason Admit Date/Time Nov 17, 2016 at 01:09 Initial Consult Date 11/17/16 Type of Consultation: Endocrine Referring Provider: BING IZAGUIRRE MD 24 HR Interval Summary Constitutional: no complaints Exam/Review of Systems Vital Signs Vitals Vital Signs Date Time Temp Pulse Resp B/P Pulse Ox O2 Delivery O2 Flow Rate FiO2 11/19/16 12:29 98.4 65 20 122/60 99 11/19/16 08:27 Nasal Cannula 2.0 Intake and Output 11/18/16 11/18/16 11/19/16 15:00 23:00 07:00 Intake Total 500 ml 200 ml Output Total 2000 ml Balance -1500 ml 200 ml Exam Constitutional: alert, oriented Neck: non-tender, supple Cardiovascular: nl pulses, regular rate and rhythm Gastrointestinal: nl liver, spleen, non-tender, soft Results Result Diagram: 11/19/16 0600 11/18/16 4505 Results 24 hrs Laboratory Tests Test 11/18/16 17:17 11/18/16 17:35 11/18/16 20:15 11/19/16 03:38 Bedside Glucose 275 H 216 108 Sodium Level 132 L Potassium Level 3.2 #L Chloride Level 91 L Carbon Dioxide Level 29 Anion Gap 15 Blood Urea Nitrogen 22 #H Creatinine 2.79 #H Glucose Level 291 #H Calcium Level 8.4 Test 11/19/16 06:00 11/19/16 07:45 11/19/16 08:09 11/19/16 08:47 White Blood Count 10.6 # Red Blood Count 3.24 L Hemoglobin 7.8 L Hematocrit 27.0 L Mean Corpuscular Volume 83.3 Mean Corpuscular Hemoglobin 24.1 L Mean Corpuscular Hemoglobin Concent 28.9 L Red Cell Distribution Width 16.1 H Platelet Count 393 Mean Platelet Volume 10.6 H Neutrophils % 76.1 Lymphocytes % 9.3 L Monocytes % 12.4 H Eosinophils % 1.6 Basophils % 0.3 Nucleated Red Blood Cells % 0.0 Neutrophils # 8.1 H Lymphocytes # 1.0 Monocytes # 1.3 H Eosinophils # 0.2 Basophils # 0.0 Nucleated Red Blood Cells # 0.0 Random Vancomycin Level 10.2 Bedside Glucose 57 L 56 L 69 L Test 11/19/16 09:38 11/19/16 11:53 Bedside Glucose 142 253 H Medications Medications Current Medications Acetaminophen (Tylenol Tab) 650 mg Q6H PRN PO PAIN AND OR ELEVATED TEMP Last administered on 11/19/16 13:10; Admin Dose 650 MG; Start 11/17/16 at 09:00 Bisacodyl (Dulcolax Supp) 10 mg DAILY PRN [place] CONSTIPATION; Start 11/17/16 at 09 :00 Clonidine (Catapres) 0.1 mg Q6H PRN PO ELEVATED BLOOD PRESSURE; Start 11/17/16 at 09:00 Clonidine (Catapres) 0.2 mg TID PO Last administered on 11/19/16 13:12; Admin Dose 0.2 MG; Start 11/17/16 at 09:00 Clonidine HCl (Catapres-Tts 3 Patch) 0.3 patch Q7D TRANSDERM Last administered on 11/17/16 11:36; Admin Dose 0.3 PATCH; Start 11/17/16 at 10:00 Glucose (Glutose) 38 gm PRN PO Last administered on 11/17/16 22:36; Admin Dose 38 GM; Start 11/17/16 at 09:00 Diphenhydramine HCl (Benadryl) 25 mg Q8 PRN PO ITCHING; Start 11/17/16 at 09:00 Docusate Sodium (Colace) 250 mg DAILY PRN PO CONSTIPATION; Start 11/17/16 at 09 :00 Duloxetine HCl (Cymbalta) 60 mg DAILY PO Last administered on 11/19/16 08:29; Admin Dose 60 MG; Start 11/17/16 at 09:00 Guaifenesin/ Dextromethorphan (Robitussin Dm Liquid Cup) 10 ml Q6H PRN PO COUGH ; Start 11/17/16 at 09:00 Hydralazine HCl (Apresoline) 25 mg QID PO Last administered on 11/19/16 13:12; Admin Dose 25 MG; Start 11/17/16 at 09:00 Metoclopramide HCl (Reglan) 10 mg Q12 PRN PO NAUSEA AND/OR VOMITING; Start at 09:00 Minoxidil (Loniten) 10 mg BID PO Last administered on 11/19/16 08:30; Admin Dose 10 MG; Start 11/17/16 at 10:30 Nifedipine (Procardia Xl) 30 mg DAILY PO Last administered on 11/19/16 08:31; Admin Dose 30 MG; Start 11/17/16 at 10:00 Pantoprazole (Protonix Tab) 20 mg DAILY PO Last administered on 11/19/16 08:31 ; Admin Dose 20 MG; Start 11/17/16 at 09:00 Eye Lubricant (Artificial Tears Oph) 1 drop Q6 BOTH EYES Last administered on 12:15; Admin Dose 1 DROP; Start 11/17/16 at 12:00 Senna (Senokot) 1 tab Q12H PRN PO CONSTIPATION; Start 11/17/16 at 09:00 Zolpidem Tartrate (Ambien) 1 mg HS PO Last administered on 11/17/16 22:22; Admin Dose 1 MG; Start 11/17/16 at 21:00 Multivit/Ca Carb/ B Cmplx/FA/Prenat (Peyton-Ludwin) 1 tab DAILY PO Last administered on 11/19/16 08:31; Admin Dose 1 TAB; Start 11/17/16 at 09:00 Diagnostic Test (Pha) (Accu-Chek) 1 ea 02 XX Last administered on 11/19/16 02: 00; Admin Dose 1 EA; Start 11/18/16 at 02:00 Gabapentin (Neurontin) 100 mg TID PO Last administered on 11/19/16 13:12; Admin Dose 100 MG; Start 11/17/16 at 13:00 Miscellaneous Information 1 ea NOTE XX ; Start 11/17/16 at 10:00 Glucose (Glutose) 15 gm Q15M PRN PO DECREASED GLUCOSE; Start 11/17/16 at 10:00 Glucose (Glutose) 22.5 gm Q15M PRN PO DECREASED GLUCOSE; Start 11/17/16 at 10: 00 Dextrose (D50w Syringe) 25 ml Q15M PRN IV DECREASED GLUCOSE; Start 11/17/16 at 10:00 Dextrose (D50w Syringe) 50 ml Q15M PRN IV DECREASED GLUCOSE; Start 11/17/16 at 10:00 Glucagon (Glucagen) 1 mg Q15M PRN IM DECREASED GLUCOSE; Start 11/17/16 at 10:00 Glucose (Glutose) 15 gm Q15M PRN BUCCAL DECREASED GLUCOSE Last administered on 11/19/16 08:58; Admin Dose 15 GM; Start 11/17/16 at 10:00 Atorvastatin Calcium 10 mg 10 mg HS PO Last administered on 11/18/16 21:15; Admin Dose 10 MG; Start 11/17/16 at 21:00 Sodium Chloride 1,000 ml @ 30 mls/hr Q24H IV Last administered on 11/17/16 14 :11; Admin Dose 30 MLS/HR; Start 11/17/16 at 12:00 Azithromycin (Zithromax 500mg/ NS (Pmx)) 250 ml @ 250 mls/hr Q24H IVPB Last administered on 11/18/16 15:25; Admin Dose 250 MLS/HR; Start 11/17/16 at 15:00 Heparin Sodium (Porcine) (Heparin (5000 Units/0.5 ml)) 5,000 unit BID SC Last administered on 11/19/16 08:42; Admin Dose 5,000 UNIT; Start 11/17/16 at 13:00 Acyclovir (Zovirax) 800 mg BID PO Last administered on 11/19/16 08:31; Admin Dose 800 MG; Start 11/17/16 at 21:00 Acetaminophen/ Hydrocodone Bitart ([place] (5/325)) 1 tab Q6 PRN PO MODERATE PAIN LEVEL 4-6 Last administered on 11/17/16 18:39; Admin Dose 1 TAB; Start at 18:00 Morphine Sulfate (morphine) 2 mg Q4H PRN IV PAIN LEVEL 6-10 Last administered on 11/18/16 05:45; Admin Dose 2 MG; Start 11/17/16 at 17:30 Isosorbide Dinitrate (Isordil) 10 mg TID PO Last administered on 11/19/16 13:11 ; Admin Dose 10 MG; Start 11/17/16 at 21:00 Nitroglycerin 1 tab 1 tab Q5M PRN SL ANGINA; Start 11/17/16 at 18:30 Piperacillin Sod/ Tazobactam Sod (Zosyn 2.25gm/ 50ml (Pmx)) 50 ml @ 100 mls/hr Q12 IVPB Last administered on 11/19/16 08:26; Admin Dose 100 MLS/HR; Start at 21:00 Epoetin Luis (Epogen (Esrd)) 6,000 units MoWeFr@17 IV ; Start 11/18/16 at 17:00 Ferrous Sulfate (Ferrous Sulfate (Ec)) 325 mg BID PO Last administered on 08:29; Admin Dose 325 MG; Start 11/18/16 at 21:00 Docusate Sodium (Colace) 100 mg DAILY PRN PO CONSTIPATION; Start 11/18/16 at 10 :00 Linagliptin (Tradjenta) 5 mg DAILY PO Last administered on 11/18/16 15:26; Admin Dose 5 MG; Start 11/18/16 at 14:00 Insulin Detemir 10 unit 10 unit DAILY@20 SC Last administered on 11/18/16 22: 02; Admin Dose 10 UNIT; Start 11/18/16 at 20:00 Vancomycin HCl (Vancocin) 250 ml @ 125 mls/hr 12 IVPB Last administered on 11/19 11:56; Admin Dose 125 MLS/HR; Start 11/19/16 at 12:00; Stop 11/19/16 at 23: 00 PARRISH MARIN MD Nov 19, 2016 13:18
--- NOTE | 2016-11-19 13:29 | PN ---
Date/Time of Note Date/Time of Note DATE: 11/19/16 TIME: 13:28 Assessment/Plan VTE Prophylaxis VTE Prophylaxis Intervention: other Lines/Catheters IV C[facility]ter Type [facility]from [facility] [place] [facility] Assessment/Plan Chief Complaint/Hosp Course -Pneumonia with parapneumonic effusion, continue antibiotics. Dr. Leal is following from infectious disease standpoint. -Sepsis secondary to pneumonia. -End-stage renal disease hemodialysis dependent. Dr. Gorman is following in nephrology consultation -Posterior shoulder lesion, possible VZV infection. Continue acyclovir. -Chest pain on admission, rule out acute coronary syndrome. -CHF, continue to remove fluids with hemodialysis. -Hypertension. Dr. Magana is following in cardiology consultation. -Diabetes mellitus type 2. Dr. Freitas is following in endocrinology consultation. Continue Levemir and pre-meal NovoLog as well as NovoLog per mild algorithm sliding scale. Continue Tradjenta. -Hypothyroidism. Continue levothyroxine. -Anemia of chronic disease, continue Epogen. Problems: Subjective 24 Hr Interval Summary Free Text/Dictation Patient has no complaints Exam/Review of Systems Vital Signs Vitals Vital Signs Date Time Temp Pulse Resp B/P Pulse Ox O2 Delivery O2 Flow Rate FiO2 11/19/16 12:29 98.4 65 20 122/60 99 11/19/16 08:27 Nasal Cannula 2.0 Intake and Output 11/18/16 11/18/16 11/19/16 15:00 23:00 07:00 Intake Total 500 ml 200 ml Output Total 2000 ml Balance -1500 ml 200 ml Exam Constitutional: well developed Head: atraumatic, normocephalic Neck: supple Respiratory: clear to auscultation Cardiovascular: regular rate and rhythm Gastrointestinal: non-tender, soft Extremities: normal pulses Results Result Diagram: 11/19/16 0600 11/18/16 1735 Results 24 hrs Laboratory Tests Test 11/18/16 17:17 11/18/16 17:35 11/18/16 20:15 11/19/16 03:38 Bedside Glucose 275 H 216 108 Sodium Level 132 L Potassium Level 3.2 #L Chloride Level 91 L Carbon Dioxide Level 29 Anion Gap 15 Blood Urea Nitrogen 22 #H Creatinine 2.79 #H Glucose Level 291 #H Calcium Level 8.4 Test 11/19/16 06:00 11/19/16 07:45 11/19/16 08:09 11/19/16 08:47 White Blood Count 10.6 # Red Blood Count 3.24 L Hemoglobin 7.8 L Hematocrit 27.0 L Mean Corpuscular Volume 83.3 Mean Corpuscular Hemoglobin 24.1 L Mean Corpuscular Hemoglobin Concent 28.9 L Red Cell Distribution Width 16.1 H Platelet Count 393 Mean Platelet Volume 10.6 H Neutrophils % 76.1 Lymphocytes % 9.3 L Monocytes % 12.4 H Eosinophils % 1.6 Basophils % 0.3 Nucleated Red Blood Cells % 0.0 Neutrophils # 8.1 H Lymphocytes # 1.0 Monocytes # 1.3 H Eosinophils # 0.2 Basophils # 0.0 Nucleated Red Blood Cells # 0.0 Random Vancomycin Level 10.2 Bedside Glucose 57 L 56 L 69 L Test 11/19/16 09:38 11/19/16 11:53 Bedside Glucose 142 253 H Medications Medications Current Medications Acetaminophen (Tylenol Tab) 650 mg Q6H PRN PO PAIN AND OR ELEVATED TEMP Last administered on 11/19/16 13:10; Admin Dose 650 MG; Start 11/17/16 at 09:00 Bisacodyl (Dulcolax Supp) 10 mg DAILY PRN [place] CONSTIPATION; Start 11/17/16 at 09 :00 Clonidine (Catapres) 0.1 mg Q6H PRN PO ELEVATED BLOOD PRESSURE; Start 11/17/16 at 09:00 Clonidine (Catapres) 0.2 mg TID PO Last administered on 11/19/16 13:12; Admin Dose 0.2 MG; Start 11/17/16 at 09:00 Clonidine HCl (Catapres-Tts 3 Patch) 0.3 patch Q7D TRANSDERM Last administered on 11/17/16 11:36; Admin Dose 0.3 PATCH; Start 11/17/16 at 10:00 Glucose (Glutose) 38 gm PRN PO Last administered on 11/17/16 22:36; Admin Dose 38 GM; Start 11/17/16 at 09:00 Diphenhydramine HCl (Benadryl) 25 mg Q8 PRN PO ITCHING; Start 11/17/16 at 09:00 Docusate Sodium (Colace) 250 mg DAILY PRN PO CONSTIPATION; Start 11/17/16 at 09 :00 Duloxetine HCl (Cymbalta) 60 mg DAILY PO Last administered on 11/19/16 08:29; Admin Dose 60 MG; Start 11/17/16 at 09:00 Guaifenesin/ Dextromethorphan (Robitussin Dm Liquid Cup) 10 ml Q6H PRN PO COUGH ; Start 11/17/16 at 09:00 Hydralazine HCl (Apresoline) 25 mg QID PO Last administered on 11/19/16 13:12; Admin Dose 25 MG; Start 11/17/16 at 09:00 Metoclopramide HCl (Reglan) 10 mg Q12 PRN PO NAUSEA AND/OR VOMITING; Start at 09:00 Minoxidil (Loniten) 10 mg BID PO Last administered on 11/19/16 08:30; Admin Dose 10 MG; Start 11/17/16 at 10:30 Nifedipine (Procardia Xl) 30 mg DAILY PO Last administered on 11/19/16 08:31; Admin Dose 30 MG; Start 11/17/16 at 10:00 Pantoprazole (Protonix Tab) 20 mg DAILY PO Last administered on 11/19/16 08:31 ; Admin Dose 20 MG; Start 11/17/16 at 09:00 Eye Lubricant (Artificial Tears Oph) 1 drop Q6 BOTH EYES Last administered on 12:15; Admin Dose 1 DROP; Start 11/17/16 at 12:00 Senna (Senokot) 1 tab Q12H PRN PO CONSTIPATION; Start 11/17/16 at 09:00 Zolpidem Tartrate (Ambien) 1 mg HS PO Last administered on 11/17/16 22:22; Admin Dose 1 MG; Start 11/17/16 at 21:00 Multivit/Ca Carb/ B Cmplx/FA/Prenat (Peyton-Ludwin) 1 tab DAILY PO Last administered on 11/19/16 08:31; Admin Dose 1 TAB; Start 11/17/16 at 09:00 Diagnostic Test (Pha) (Accu-Chek) 1 ea 02 XX Last administered on 11/19/16 02: 00; Admin Dose 1 EA; Start 11/18/16 at 02:00 Gabapentin (Neurontin) 100 mg TID PO Last administered on 11/19/16 13:12; Admin Dose 100 MG; Start 11/17/16 at 13:00 Miscellaneous Information 1 ea NOTE XX ; Start 11/17/16 at 10:00 Glucose (Glutose) 15 gm Q15M PRN PO DECREASED GLUCOSE; Start 11/17/16 at 10:00 Glucose (Glutose) 22.5 gm Q15M PRN PO DECREASED GLUCOSE; Start 11/17/16 at 10: 00 Dextrose (D50w Syringe) 25 ml Q15M PRN IV DECREASED GLUCOSE; Start 11/17/16 at 10:00 Dextrose (D50w Syringe) 50 ml Q15M PRN IV DECREASED GLUCOSE; Start 11/17/16 at 10:00 Glucagon (Glucagen) 1 mg Q15M PRN IM DECREASED GLUCOSE; Start 11/17/16 at 10:00 Glucose (Glutose) 15 gm Q15M PRN BUCCAL DECREASED GLUCOSE Last administered on 11/19/16 08:58; Admin Dose 15 GM; Start 11/17/16 at 10:00 Atorvastatin Calcium 10 mg 10 mg HS PO Last administered on 11/18/16 21:15; Admin Dose 10 MG; Start 11/17/16 at 21:00 Sodium Chloride 1,000 ml @ 30 mls/hr Q24H IV Last administered on 11/17/16 14 :11; Admin Dose 30 MLS/HR; Start 11/17/16 at 12:00 Azithromycin (Zithromax 500mg/ NS (Pmx)) 250 ml @ 250 mls/hr Q24H IVPB Last administered on 11/18/16 15:25; Admin Dose 250 MLS/HR; Start 11/17/16 at 15:00 Heparin Sodium (Porcine) (Heparin (5000 Units/0.5 ml)) 5,000 unit BID SC Last administered on 11/19/16 08:42; Admin Dose 5,000 UNIT; Start 11/17/16 at 13:00 Acyclovir (Zovirax) 800 mg BID PO Last administered on 11/19/16 08:31; Admin Dose 800 MG; Start 11/17/16 at 21:00 Acetaminophen/ Hydrocodone Bitart ([place] (5/325)) 1 tab Q6 PRN PO MODERATE PAIN LEVEL 4-6 Last administered on 11/17/16 18:39; Admin Dose 1 TAB; Start at 18:00 Morphine Sulfate (morphine) 2 mg Q4H PRN IV PAIN LEVEL 6-10 Last administered on 11/18/16 05:45; Admin Dose 2 MG; Start 11/17/16 at 17:30 Isosorbide Dinitrate (Isordil) 10 mg TID PO Last administered on 11/19/16 13:11 ; Admin Dose 10 MG; Start 11/17/16 at 21:00 Nitroglycerin 1 tab 1 tab Q5M PRN SL ANGINA; Start 11/17/16 at 18:30 Piperacillin Sod/ Tazobactam Sod (Zosyn 2.25gm/ 50ml (Pmx)) 50 ml @ 100 mls/hr Q12 IVPB Last administered on 11/19/16 08:26; Admin Dose 100 MLS/HR; Start at 21:00 Epoetin Luis (Epogen (Esrd)) 6,000 units MoWeFr@17 IV ; Start 11/18/16 at 17:00 Ferrous Sulfate (Ferrous Sulfate (Ec)) 325 mg BID PO Last administered on 08:29; Admin Dose 325 MG; Start 11/18/16 at 21:00 Docusate Sodium (Colace) 100 mg DAILY PRN PO CONSTIPATION; Start 11/18/16 at 10 :00 Linagliptin 5 mg 5 mg DAILY PO Last administered on 11/18/16 15:26; Admin Dose 5 MG; Start 11/18/16 at 14:00 Vancomycin HCl (Vancocin) 250 ml @ 125 mls/hr 12 IVPB Last administered on 11/19 11:56; Admin Dose 125 MLS/HR; Start 11/19/16 at 12:00; Stop 11/19/16 at 23: 00 Insulin Detemir (Levemir) 9 unit DAILY@20 SC ; Start 11/19/16 at 20:00 SANDRA SELLERS Nov 19, 2016 13:29
--- NOTE | 2016-11-19 14:13 | CONS ---
Date/Time of Note Date/Time of Note DATE: 11/19/16 TIME: 14:08 Assessment/Plan Assessment/Plan Additional Assessment/Plan 71 Female with 1) B/L PNA 2) Pleural Effusion 3) ESRD on HD 4) Hypokalemia 5) Anemia, Chronic Disease 6) Mineral bone disease, ESRD 7) DM with Renal Complication 8) Chronic HTN S/p HD yesterday with approx 1.5L UF Cont ED with HD Cont Oral Iron, ordered bid Colace for constipation Dose Abx Rx to ESRD HD MWF schedule Consultation Date/Type/Reason Admit Date/Time Nov 17, 2016 at 01:09 Initial Consult Date 11/17/16 Type of Consultation: Renal Referring Provider: BING IZAGUIRRE MD 24 HR Interval Summary Free Text/Dictation S/p HD yesterday, UF 1.5L Exam/Review of Systems Vital Signs Vitals Vital Signs Date Time Temp Pulse Resp B/P Pulse Ox O2 Delivery O2 Flow Rate FiO2 11/19/16 12:29 98.4 65 20 122/60 99 11/19/16 08:27 Nasal Cannula 2.0 Intake and Output 11/18/16 11/18/16 11/19/16 15:00 23:00 07:00 Intake Total 500 ml 200 ml Output Total 2000 ml Balance -1500 ml 200 ml Results Result Diagram: 11/19/16 0600 11/18/16 1735 Results 24 hrs Laboratory Tests Test 11/18/16 17:17 11/18/16 17:35 11/18/16 20:15 11/19/16 03:38 Bedside Glucose 275 H 216 108 Sodium Level 132 L Potassium Level 3.2 #L Chloride Level 91 L Carbon Dioxide Level 29 Anion Gap 15 Blood Urea Nitrogen 22 #H Creatinine 2.79 #H Glucose Level 291 #H Calcium Level 8.4 Test 11/19/16 06:00 11/19/16 07:45 11/19/16 08:09 11/19/16 08:47 White Blood Count 10.6 # Red Blood Count 3.24 L Hemoglobin 7.8 L Hematocrit 27.0 L Mean Corpuscular Volume 83.3 Mean Corpuscular Hemoglobin 24.1 L Mean Corpuscular Hemoglobin Concent 28.9 L Red Cell Distribution Width 16.1 H Platelet Count 393 Mean Platelet Volume 10.6 H Neutrophils % 76.1 Lymphocytes % 9.3 L Monocytes % 12.4 H Eosinophils % 1.6 Basophils % 0.3 Nucleated Red Blood Cells % 0.0 Neutrophils # 8.1 H Lymphocytes # 1.0 Monocytes # 1.3 H Eosinophils # 0.2 Basophils # 0.0 Nucleated Red Blood Cells # 0.0 Random Vancomycin Level 10.2 Bedside Glucose 57 L 56 L 69 L Test 11/19/16 09:38 11/19/16 11:53 Bedside Glucose 142 253 H Medications Medications Current Medications Acetaminophen (Tylenol Tab) 650 mg Q6H PRN PO PAIN AND OR ELEVATED TEMP Last administered on 11/19/16 13:10; Admin Dose 650 MG; Start 11/17/16 at 09:00 Bisacodyl (Dulcolax Supp) 10 mg DAILY PRN [place] CONSTIPATION; Start 11/17/16 at 09 :00 Clonidine (Catapres) 0.1 mg Q6H PRN PO ELEVATED BLOOD PRESSURE; Start 11/17/16 at 09:00 Clonidine (Catapres) 0.2 mg TID PO Last administered on 11/19/16 13:12; Admin Dose 0.2 MG; Start 11/17/16 at 09:00 Clonidine HCl (Catap[place]-Tts 3 Patch) 0.3 patch Q7D TRANSDERM Last administered on 11/17/16 11:36; Admin Dose 0.3 PATCH; Start 11/17/16 at 10:00 Glucose (Glutose) 38 gm PRN PO Last administered on 11/17/16 22:36; Admin Dose 38 GM; Start 11/17/16 at 09:00 Diphenhydramine HCl (Benadryl) 25 mg Q8 PRN PO ITCHING; Start 11/17/16 at 09:00 Docusate Sodium (Colace) 250 mg DAILY PRN PO CONSTIPATION; Start 11/17/16 at 09 :00 Duloxetine HCl (Cymbalta) 60 mg DAILY PO Last administered on 11/19/16 08:29; Admin Dose 60 MG; Start 11/17/16 at 09:00 Guaifenesin/ Dextromethorphan (Robitussin Dm Liquid Cup) 10 ml Q6H PRN PO COUGH ; Start 11/17/16 at 09:00 Hydralazine HCl (Apresoline) 25 mg QID PO Last administered on 11/19/16 13:12; Admin Dose 25 MG; Start 11/17/16 at 09:00 Metoclopramide HCl (Reglan) 10 mg Q12 PRN PO NAUSEA AND/OR VOMITING; Start at 09:00 Minoxidil (Loniten) 10 mg BID PO Last administered on 11/19/16 08:30; Admin Dose 10 MG; Start 11/17/16 at 10:30 Nifedipine (Procardia Xl) 30 mg DAILY PO Last administered on 11/19/16 08:31; Admin Dose 30 MG; Start 11/17/16 at 10:00 Pantoprazole (Protonix Tab) 20 mg DAILY PO Last administered on 11/19/16 08:31 ; Admin Dose 20 MG; Start 11/17/16 at 09:00 Eye Lubricant (Artificial Tears Oph) 1 drop Q6 BOTH EYES Last administered on 12:15; Admin Dose 1 DROP; Start 11/17/16 at 12:00 Senna (Senokot) 1 tab Q12H PRN PO CONSTIPATION; Start 11/17/16 at 09:00 Zolpidem Tartrate (Ambien) 1 mg HS PO Last administered on 11/17/16 22:22; Admin Dose 1 MG; Start 11/17/16 at 21:00 Multivit/Ca Carb/ B Cmplx/FA/Prenat (Pey[place]-Ludwin) 1 tab DAILY PO Last administered on 11/19/16 08:31; Admin Dose 1 TAB; Start 11/17/16 at 09:00 Diagnostic Test (Pha) (Accu-Chek) 1 ea 02 XX Last administered on 11/19/16 02: 00; Admin Dose 1 EA; Start 11/18/16 at 02:00 Gabapentin (Neurontin) 100 mg TID PO Last administered on 11/19/16 13:12; Admin Dose 100 MG; Start 11/17/16 at 13:00 Miscellaneous Information 1 ea NOTE XX ; Start 11/17/16 at 10:00 Glucose (Glutose) 15 gm Q15M PRN PO DECREASED GLUCOSE; Start 11/17/16 at 10:00 Glucose (Glutose) 22.5 gm Q15M PRN PO DECREASED GLUCOSE; Start 11/17/16 at 10: 00 Dextrose (D50w Syringe) 25 ml Q15M PRN IV DECREASED GLUCOSE; Start 11/17/16 at 10:00 Dextrose (D50w Syringe) 50 ml Q15M PRN IV DECREASED GLUCOSE; Start 11/17/16 at 10:00 Glucagon (Glucagen) 1 mg Q15M PRN IM DECREASED GLUCOSE; Start 11/17/16 at 10:00 Glucose (Glutose) 15 gm Q15M PRN BUCCAL DECREASED GLUCOSE Last administered on 11/19/16 08:58; Admin Dose 15 GM; Start 11/17/16 at 10:00 Atorvastatin Calcium 10 mg 10 mg HS PO Last administered on 11/18/16 21:15; Admin Dose 10 MG; Start 11/17/16 at 21:00 Sodium Chloride 1,000 ml @ 30 mls/hr Q24H IV Last administered on 11/17/16 14 :11; Admin Dose 30 MLS/HR; Start 11/17/16 at 12:00 Azithromycin (Zithromax 500mg/ NS (Pmx)) 250 ml @ 250 mls/hr Q24H IVPB Last administered on 11/18/16 15:25; Admin Dose 250 MLS/HR; Start 11/17/16 at 15:00 Heparin Sodium (Porcine) (Heparin (5000 Units/0.5 ml)) 5,000 unit BID SC Last administered on 11/19/16 08:42; Admin Dose 5,000 UNIT; Start 11/17/16 at 13:00 Acyclovir (Zovirax) 800 mg BID PO Last administered on 11/19/16 08:31; Admin Dose 800 MG; Start 11/17/16 at 21:00 Acetaminophen/ Hydrocodone Bitart ([place] (5/325)) 1 tab Q6 PRN PO MODERATE PAIN LEVEL 4-6 Last administered on 11/17/16 18:39; Admin Dose 1 TAB; Start at 18:00 Morphine Sulfate (morphine) 2 mg Q4H PRN IV PAIN LEVEL 6-10 Last administered on 11/18/16 05:45; Admin Dose 2 MG; Start 11/17/16 at 17:30 Isosorbide Dinitrate (Isordil) 10 mg TID PO Last administered on 11/19/16 13:11 ; Admin Dose 10 MG; Start 11/17/16 at 21:00 Nitroglycerin 1 tab 1 tab Q5M PRN SL ANGINA; Start 11/17/16 at 18:30 Piperacillin Sod/ Tazobactam Sod (Zosyn 2.25gm/ 50ml (Pmx)) 50 ml @ 100 mls/hr Q12 IVPB Last administered on 11/19/16 08:26; Admin Dose 100 MLS/HR; Start at 21:00 Epoetin Luis (Epogen (Esrd)) 6,000 units MoWeFr@17 IV ; Start 11/18/16 at 17:00 Ferrous Sulfate (Ferrous Sulfate (Ec)) 325 mg BID PO Last administered on 08:29; Admin Dose 325 MG; Start 11/18/16 at 21:00 Docusate Sodium (Colace) 100 mg DAILY PRN PO CONSTIPATION; Start 11/18/16 at 10 :00 Linagliptin 5 mg 5 mg DAILY PO Last administered on 11/18/16 15:26; Admin Dose 5 MG; Start 11/18/16 at 14:00 Vancomycin HCl (Vancocin) 250 ml @ 125 mls/hr 12 IVPB Last administered on 11/19 11:56; Admin Dose 125 MLS/HR; Start 11/19/16 at 12:00; Stop 11/19/16 at 23: 00 Insulin Detemir (Levemir) 9 unit DAILY@20 SC ; Start 11/19/16 at 20:00 Procedures Procedures PROCEDURE: XR Chest. CLINICAL INDICATION: CHF TECHNIQUE: Single frontal chest x-ray. COMPARISON: 11/16/2016 FINDINGS: Bibasilar pulmonary opacities are again noted, mildly increased. There is no pneumothorax. Cardiomediastinal silhouette is grossly stable. Aortic atherosclerotic calcification is noted. The osseous structures are unremarkable. IMPRESSION: 1. Bibasilar pulmonary opacities are mildly increased, suggestive of worsening bibasilar atelectasis and/or moderate to large pleural effusions. 2. Cardiomediastinal silhouette is grossly stable. RPTAT: QQ .Davi Echavarria MD, MD Date Time Electronically viewed and signed by .Davi Echavarria MD, MD on 11/19/2016 11: 03 LYNN SEBASTIAN MD Nov 19, 2016 14:13
[2016-11-19] MEDS: AZITHROMYCIN 500MG/NS (PMX) 250 ML IVPB SCH (15:33)
[2016-11-19 16:46] LABS: TB-NIL <0.00 IU/mL
--- NOTE | 2016-11-19 16:49 | CONS ---
Date/Time of Note Date/Time of Note DATE: 11/19/16 TIME: 16:47 Consult Date/Type/Reason Admit Date/Time Nov 17, 2016 at 01:09 Initial Consult Date 11/17/16 Type of Consultation: Pulm Ordering Provider: BING IZAGUIRRE MD Subjective No events. Objective Vital Signs Date Time Temp Pulse Resp B/P Pulse Ox O2 Delivery O2 Flow Rate FiO2 11/19/16 16:34 2.0 11/19/16 16:28 98.3 65 20 103/51 98 11/19/16 15:37 Nasal Cannula Intake and Output 11/18/16 11/18/16 11/19/16 15:00 23:00 07:00 Intake Total 500 ml 200 ml Output Total 2000 ml Balance -1500 ml 200 ml Exam HEENT: Neck supple; no JVD; no LAD CVS: RRR, S1; loud P2 CHEST: Clear ABD: Soft, NT, + BS EXT: No c/c/ + edema Results/Medications Result Diagram: 11/19/16 0600 11/18/16 1735 Results 24 hrs Laboratory Tests Test 11/18/16 17:17 11/18/16 17:35 11/18/16 20:15 11/19/16 03:38 Bedside Glucose 275 H 216 108 Sodium Level 132 L Potassium Level 3.2 #L Chloride Level 91 L Carbon Dioxide Level 29 Anion Gap 15 Blood Urea Nitrogen 22 #H Creatinine 2.79 #H Glucose Level 291 #H Calcium Level 8.4 Test 11/19/16 06:00 11/19/16 07:45 11/19/16 08:09 11/19/16 08:47 White Blood Count 10.6 # Red Blood Count 3.24 L Hemoglobin 7.8 L Hematocrit 27.0 L Mean Corpuscular Volume 83.3 Mean Corpuscular Hemoglobin 24.1 L Mean Corpuscular Hemoglobin Concent 28.9 L Red Cell Distribution Width 16.1 H Platelet Count 393 Mean Platelet Volume 10.6 H Neutrophils % 76.1 Lymphocytes % 9.3 L Monocytes % 12.4 H Eosinophils % 1.6 Basophils % 0.3 Nucleated Red Blood Cells % 0.0 Neutrophils # 8.1 H Lymphocytes # 1.0 Monocytes # 1.3 H Eosinophils # 0.2 Basophils # 0.0 Nucleated Red Blood Cells # 0.0 Random Vancomycin Level 10.2 Bedside Glucose 57 L 56 L 69 L Test 11/19/16 09:38 11/19/16 11:53 Bedside Glucose 142 253 H Medications Current Medications Acetaminophen (Tylenol Tab) 650 mg Q6H PRN PO PAIN AND OR ELEVATED TEMP Last administered on 11/19/16 13:10; Admin Dose 650 MG; Start 11/17/16 at 09:00 Bisacodyl (Dulcolax Supp) 10 mg DAILY PRN [place] CONSTIPATION; Start 11/17/16 at 09 :00 Clonidine (Catapres) 0.1 mg Q6H PRN PO ELEVATED BLOOD PRESSURE; Start 11/17/16 at 09:00 Clonidine (Catapres) 0.2 mg TID PO Last administered on 11/19/16 13:12; Admin Dose 0.2 MG; Start 11/17/16 at 09:00 Clonidine HCl (Catapres-Tts 3 Patch) 0.3 patch Q7D TRANSDERM Last administered on 11/17/16 11:36; Admin Dose 0.3 PATCH; Start 11/17/16 at 10:00 Glucose (Glutose) 38 gm PRN PO Last administered on 11/17/16 22:36; Admin Dose 38 GM; Start 11/17/16 at 09:00 Diphenhydramine HCl (Benadryl) 25 mg Q8 PRN PO ITCHING; Start 11/17/16 at 09:00 Docusate Sodium (Colace) 250 mg DAILY PRN PO CONSTIPATION; Start 11/17/16 at 09 :00 Duloxetine HCl (Cymbalta) 60 mg DAILY PO Last administered on 11/19/16 08:29; Admin Dose 60 MG; Start 11/17/16 at 09:00 Guaifenesin/ Dextromethorphan (Robitussin Dm Liquid Cup) 10 ml Q6H PRN PO COUGH ; Start 11/17/16 at 09:00 Hydralazine HCl (Apresoline) 25 mg QID PO Last administered on 11/19/16 13:12; Admin Dose 25 MG; Start 11/17/16 at 09:00 Metoclopramide HCl (Reglan) 10 mg Q12 PRN PO NAUSEA AND/OR VOMITING; Start at 09:00 Minoxidil (Loniten) 10 mg BID PO Last administered on 11/19/16 08:30; Admin Dose 10 MG; Start 11/17/16 at 10:30 Nifedipine (Procardia Xl) 30 mg DAILY PO Last administered on 11/19/16 08:31; Admin Dose 30 MG; Start 11/17/16 at 10:00 Pantoprazole (Protonix Tab) 20 mg DAILY PO Last administered on 11/19/16 08:31 ; Admin Dose 20 MG; Start 11/17/16 at 09:00 Eye Lubricant (Artificial Tears Oph) 1 drop Q6 BOTH EYES Last administered on 12:15; Admin Dose 1 DROP; Start 11/17/16 at 12:00 Senna (Senokot) 1 tab Q12H PRN PO CONSTIPATION; Start 11/17/16 at 09:00 Zolpidem Tartrate (Ambien) 1 mg HS PO Last administered on 11/17/16 22:22; Admin Dose 1 MG; Start 11/17/16 at 21:00 Multivit/Ca Carb/ B Cmplx/FA/Prenat (Peyton-Ludwin) 1 tab DAILY PO Last administered on 11/19/16 08:31; Admin Dose 1 TAB; Start 11/17/16 at 09:00 Diagnostic Test (Pha) (Accu-Chek) 1 ea 02 XX Last administered on 11/19/16 02: 00; Admin Dose 1 EA; Start 11/18/16 at 02:00 Gabapentin (Neurontin) 100 mg TID PO Last administered on 11/19/16 13:12; Admin Dose 100 MG; Start 11/17/16 at 13:00 Miscellaneous Information 1 ea NOTE XX ; Start 11/17/16 at 10:00 Glucose (Glutose) 15 gm Q15M PRN PO DECREASED GLUCOSE; Start 11/17/16 at 10:00 Glucose (Glutose) 22.5 gm Q15M PRN PO DECREASED GLUCOSE; Start 11/17/16 at 10: 00 Dextrose (D50w Syringe) 25 ml Q15M PRN IV DECREASED GLUCOSE; Start 11/17/16 at 10:00 Dextrose (D50w Syringe) 50 ml Q15M PRN IV DECREASED GLUCOSE; Start 11/17/16 at 10:00 Glucagon (Glucagen) 1 mg Q15M PRN IM DECREASED GLUCOSE; Start 11/17/16 at 10:00 Glucose (Glutose) 15 gm Q15M PRN BUCCAL DECREASED GLUCOSE Last administered on 11/19/16 08:58; Admin Dose 15 GM; Start 11/17/16 at 10:00 Atorvastatin Calcium 10 mg 10 mg HS PO Last administered on 11/18/16 21:15; Admin Dose 10 MG; Start 11/17/16 at 21:00 Sodium Chloride 1,000 ml @ 30 mls/hr Q24H IV Last administered on 11/17/16 14 :11; Admin Dose 30 MLS/HR; Start 11/17/16 at 12:00 Azithromycin (Zithromax 500mg/ NS (Pmx)) 250 ml @ 250 mls/hr Q24H IVPB Last administered on 11/19/16 15:33; Admin Dose 250 MLS/HR; Start 11/17/16 at 15:00 Heparin Sodium (Porcine) (Heparin (5000 Units/0.5 ml)) 5,000 unit BID SC Last administered on 11/19/16 08:42; Admin Dose 5,000 UNIT; Start 11/17/16 at 13:00 Acyclovir (Zovirax) 800 mg BID PO Last administered on 11/19/16 08:31; Admin Dose 800 MG; Start 11/17/16 at 21:00 Acetaminophen/ Hydrocodone Bitart ([place] (5/325)) 1 tab Q6 PRN PO MODERATE PAIN LEVEL 4-6 Last administered on 11/17/16 18:39; Admin Dose 1 TAB; Start at 18:00 Morphine Sulfate (morphine) 2 mg Q4H PRN IV PAIN LEVEL 6-10 Last administered on 11/18/16 05:45; Admin Dose 2 MG; Start 11/17/16 at 17:30 Isosorbide Dinitrate (Isordil) 10 mg TID PO Last administered on 11/19/16 13:11 ; Admin Dose 10 MG; Start 11/17/16 at 21:00 Nitroglycerin 1 tab 1 tab Q5M PRN SL ANGINA; Start 11/17/16 at 18:30 Piperacillin Sod/ Tazobactam Sod (Zosyn 2.25gm/ 50ml (Pmx)) 50 ml @ 100 mls/hr Q12 IVPB Last administered on 11/19/16 08:26; Admin Dose 100 MLS/HR; Start at 21:00 Epoetin Luis (Epogen (Esrd)) 6,000 units MoWeFr@17 IV ; Start 11/18/16 at 17:00 Ferrous Sulfate (Ferrous Sulfate (Ec)) 325 mg BID PO Last administered on 08:29; Admin Dose 325 MG; Start 11/18/16 at 21:00 Docusate Sodium (Colace) 100 mg DAILY PRN PO CONSTIPATION; Start 11/18/16 at 10 :00 Linagliptin 5 mg 5 mg DAILY PO Last administered on 11/18/16 15:26; Admin Dose 5 MG; Start 11/18/16 at 14:00 Vancomycin HCl (Vancocin) 250 ml @ 125 mls/hr 12 IVPB Last administered on 11/19 11:56; Admin Dose 125 MLS/HR; Start 11/19/16 at 12:00; Stop 11/19/16 at 23: 00 Insulin Detemir (Levemir) 9 unit DAILY@20 SC ; Start 11/19/16 at 20:00 Assessment/Plan Additional Assessment/Plan IMP: 1. CHF 2. Pulm HTN 3. Resp Insufficiency 4. CKD 5. Anemia RECS: 1. Continue current Rx 2. No new recs MONTSE REED MD Nov 19, 2016 16:49
[2016-11-19] MEDS ORDERED: INSULIN DETEMIR [LEVEMIR] 3ML CART SC SCH (20:00)
--- NOTE | 2016-11-19 20:11 | CONS ---
JUAN MANUEL WALKER NP 11/19/16 2011: Date/Time of Note Date/Time of Note DATE: 11/19/16 TIME: 20:10 Assessment/Plan Assessment/Plan Chief Complaint/Hosp Course - sepsis due to pneumonia/bronchitis - pneumonia/bronchitis with possible parapneumonic effusion - pleuritic chest pain/myalgia of the chest - productive cough - moderate-large R sided pleural effusion - poor dentition - scaly rash, possible VZV infection - CHF - ESRD, on HD - DM with episode of hypoglycemia - Hgb A1c 7.6% - h/o CVA - s/p CCY - hypothyroidism recommendations - pending: procalcitonin, nasopharyngeal swab for influenza and respiratory virus PCR panel, (send out to [email or web address]), mycoplasma pneumoniae NAAT, legionella antibody, cocci serology, Q TB gold, skin swab for varicella zoster virus PCR - recommend diagnostic thoracentesis of R sided effusion - continue IV vancomycin, azithromycin, pip/tazo (11/17/2016-) - for skin lesions: Dr. Mello instructed Pt's RN to swab the skin lesion for varicella zoster virus PCR test yesterday. - continue empiric renally dosed acyclovir (11/17/2016-) until varicella is ruled out - airborne precautions until varicella is ruled out (test was performed on 2016), and droplet precautions until respiratory viruses are ruled out (tests were performed on 11/17/2016) - Mgmt d/w Pt's RN - Above d/w Dr. Mello Problems: Consultation Date/Type/Reason Admit Date/Time Nov 17, 2016 at 01:09 Initial Consult Date 11/17/16 Type of Consultation: Infectious Disease Referring Provider: BING IZAGUIRRE MD 24 HR Interval Summary Free Text/Dictation Pt was hypoglycemic earlier and insulin was adjusted; intermittently confused especially with per d/w pt's nurse. Unable to perform ROS d/t confusion and language barrier. Exam/Review of Systems Vital Signs Vitals Vital Signs Date Time Temp Pulse Resp B/P Pulse Ox O2 Delivery O2 Flow Rate FiO2 11/19/16 16:34 2.0 11/19/16 16:28 98.3 65 20 103/51 98 11/19/16 15:37 Nasal Cannula Intake and Output 11/18/16 11/18/16 11/19/16 15:00 23:00 07:00 Intake Total 500 ml 200 ml Output Total 2000 ml Balance -1500 ml 200 ml Exam Constitutional: alert, frail (thin), other ([place] speaking), well developed Psych: confusion Head: atraumatic, normocephalic Neck: supple Respiratory: diminished breath sounds Cardiovascular: nl pulses, regular rate and rhythm Gastrointestinal: soft, No non-tender Musculoskeletal: muscle weakness Extremities: No clubbing, No cyanosis, No edema Neurological: confused Skin: rash or lesions (left scapular with scabbing; limited examination as pt not cooperating with exam) Results Result Diagram: 11/19/16 0600 11/18/16 1735 Results 24 hrs Laboratory Tests Test 11/18/16 20:15 11/19/16 03:38 11/19/16 06:00 11/19/16 07:45 Bedside Glucose 216 108 57 L White Blood Count 10.6 # Red Blood Count 3.24 L Hemoglobin 7.8 L Hematocrit 27.0 L Mean Corpuscular Volume 83.3 Mean Corpuscular Hemoglobin 24.1 L Mean Corpuscular Hemoglobin Concent 28.9 L Red Cell Distribution Width 16.1 H Platelet Count 393 Mean Platelet Volume 10.6 H Neutrophils % 76.1 Lymphocytes % 9.3 L Monocytes % 12.4 H Eosinophils % 1.6 Basophils % 0.3 Nucleated Red Blood Cells % 0.0 Neutrophils # 8.1 H Lymphocytes # 1.0 Monocytes # 1.3 H Eosinophils # 0.2 Basophils # 0.0 Nucleated Red Blood Cells # 0.0 Random Vancomycin Level 10.2 Test 11/19/16 08:09 11/19/16 08:47 11/19/16 09:38 11/19/16 11:53 Bedside Glucose 56 L 69 L 142 253 H Test 11/19/16 17:17 11/19/16 20:06 Bedside Glucose 180 149 Medications Medications Current Medications Acetaminophen (Tylenol Tab) 650 mg Q6H PRN PO PAIN AND OR ELEVATED TEMP Last administered on 11/19/16t 13:10; Admin Dose 650 MG; Start 11/17/16 at 09:00 Bisacodyl (Dulcolax Supp) 10 mg DAILY PRN [place] CONSTIPATION; Start 11/17/16 at 09 :00 Clonidine (Catapres) 0.1 mg Q6H PRN PO ELEVATED BLOOD PRESSURE; Start 11/17/16 at 09:00 Clonidine (Catapres) 0.2 mg TID PO Last administered on 11/19/16 13:12; Admin Dose 0.2 MG; Start 11/17/16 at 09:00 Clonidine HCl (Catapres-Tts 3 Patch) 0.3 patch Q7D TRANSDERM Last administered on 11/17/16 11:36; Admin Dose 0.3 PATCH; Start 11/17/16 at 10:00 Glucose (Glutose) 38 gm PRN PO Last administered on 11/17/16 22:36; Admin Dose 38 GM; Start 11/17/16 at 09:00 Diphenhydramine HCl (Benadryl) 25 mg Q8 PRN PO ITCHING; Start 11/17/16 at 09:00 Docusate Sodium (Colace) 250 mg DAILY PRN PO CONSTIPATION; Start 11/17/16 at 09 :00 Duloxetine HCl (Cymbalta) 60 mg DAILY PO Last administered on 11/19/16 08:29; Admin Dose 60 MG; Start 11/17/16 at 09:00 Guaifenesin/ Dextromethorphan (Robitussin Dm Liquid Cup) 10 ml Q6H PRN PO COUGH ; Start 11/17/16 at 09:00 Hydralazine HCl (Apresoline) 25 mg QID PO Last administered on 11/19/16 17:19; Admin Dose 25 MG; Start 11/17/16 at 09:00 Metoclopramide HCl (Reglan) 10 mg Q12 PRN PO NAUSEA AND/OR VOMITING; Start at 09:00 Minoxidil (Loniten) 10 mg BID PO Last administered on 11/19/16 08:30; Admin Dose 10 MG; Start 11/17/16 at 10:30 Nifedipine (Procardia Xl) 30 mg DAILY PO Last administered on 11/19/16 08:31; Admin Dose 30 MG; Start 11/17/16 at 10:00 Pantoprazole (Protonix Tab) 20 mg DAILY PO Last administered on 11/19/16 08:31 ; Admin Dose 20 MG; Start 11/17/16 at 09:00 Eye Lubricant (Artificial Tears Oph) 1 drop Q6 BOTH EYES Last administered on 17:19; Admin Dose 1 DROP; Start 11/17/16 at 12:00 Senna (Senokot) 1 tab Q12H PRN PO CONSTIPATION; Start 11/17/16 at 09:00 Zolpidem Tartrate (Ambien) 1 mg HS PO Last administered on 11/17/16 22:22; Admin Dose 1 MG; Start 11/17/16 at 21:00 Multivit/Ca Carb/ B Cmplx/FA/Prenat (Peyton-Ludwin) 1 tab DAILY PO Last administered on 11/19/16 08:31; Admin Dose 1 TAB; Start 11/17/16 at 09:00 Diagnostic Test (Pha) (Accu-Chek) 1 ea 02 XX Last administered on 11/19/16 02: 00; Admin Dose 1 EA; Start 11/18/16 at 02:00 Gabapentin (Neurontin) 100 mg TID PO Last administered on 11/19/16 13:12; Admin Dose 100 MG; Start 11/17/16 at 13:00 Miscellaneous Information 1 ea NOTE XX ; Start 11/17/16 at 10:00 Glucose (Glutose) 15 gm Q15M PRN PO DECREASED GLUCOSE; Start 11/17/16 at 10:00 Glucose (Glutose) 22.5 gm Q15M PRN PO DECREASED GLUCOSE; Start 11/17/16 at 10: 00 Dextrose (D50w Syringe) 25 ml Q15M PRN IV DECREASED GLUCOSE; Start 11/17/16 at 10:00 Dextrose (D50w Syringe) 50 ml Q15M PRN IV DECREASED GLUCOSE; Start 11/17/16 at 10:00 Glucagon (Glucagen) 1 mg Q15M PRN IM DECREASED GLUCOSE; Start 11/17/16 at 10:00 Glucose (Glutose) 15 gm Q15M PRN BUCCAL DECREASED GLUCOSE Last administered on 11/19/16 08:58; Admin Dose 15 GM; Start 11/17/16 at 10:00 Atorvastatin Calcium 10 mg 10 mg HS PO Last administered on 11/18/16 21:15; Admin Dose 10 MG; Start 11/17/16 at 21:00 Sodium Chloride 1,000 ml @ 30 mls/hr Q24H IV Last administered on 11/17/16 14 :11; Admin Dose 30 MLS/HR; Start 11/17/16 at 12:00 Azithromycin (Zithromax 500mg/ NS (Pmx)) 250 ml @ 250 mls/hr Q24H IVPB Last administered on 11/19/16 15:33; Admin Dose 250 MLS/HR; Start 11/17/16 at 15:00 Heparin Sodium (Porcine) (Heparin (5000 Units/0.5 ml)) 5,000 unit BID SC Last administered on 11/19/16 08:42; Admin Dose 5,000 UNIT; Start 11/17/16 at 13:00 Acyclovir (Zovirax) 800 mg BID PO Last administered on 11/19/16 08:31; Admin Dose 800 MG; Start 11/17/16 at 21:00 Acetaminophen/ Hydrocodone Bitart ([place] (5/325)) 1 tab Q6 PRN PO MODERATE PAIN LEVEL 4-6 Last administered on 11/17/16 18:39; Admin Dose 1 TAB; Start at 18:00 Morphine Sulfate (morphine) 2 mg Q4H PRN IV PAIN LEVEL 6-10 Last administered on 11/18/16 05:45; Admin Dose 2 MG; Start 11/17/16 at 17:30 Isosorbide Dinitrate (Isordil) 10 mg TID PO Last administered on 11/19/16 13:11 ; Admin Dose 10 MG; Start 11/17/16 at 21:00 Nitroglycerin 1 tab 1 tab Q5M PRN SL ANGINA; Start 11/17/16 at 18:30 Piperacillin Sod/ Tazobactam Sod (Zosyn 2.25gm/ 50ml (Pmx)) 50 ml @ 100 mls/hr Q12 IVPB Last administered on 11/19/16 08:26; Admin Dose 100 MLS/HR; Start at 21:00 Epoetin Luis (Epogen (Esrd)) 6,000 units MoWeFr@17 IV ; Start 11/18/16 at 17:00 Ferrous Sulfate (Ferrous Sulfate (Ec)) 325 mg BID PO Last administered on 08:29; Admin Dose 325 MG; Start 11/18/16 at 21:00 Docusate Sodium (Colace) 100 mg DAILY PRN PO CONSTIPATION; Start 11/18/16 at 10 :00 Linagliptin 5 mg 5 mg DAILY PO Last administered on 11/18/16 15:26; Admin Dose 5 MG; Start 11/18/16 at 14:00 Vancomycin HCl (Vancocin) 250 ml @ 125 mls/hr 12 IVPB Last administered on 11/19 11:56; Admin Dose 125 MLS/HR; Start 11/19/16 at 12:00; Stop 11/19/16 at 23: 00 Insulin Detemir (Levemir) 9 unit DAILY@20 SC ; Start 11/19/16 at 20:00 Procedures Procedures CXR 11/19/16: 1. Bibasilar pulmonary opacities are mildly increased, suggestive of worsening bibasilar atelectasis and/or moderate to large pleural effusions. 2. Cardiomediastinal silhouette is grossly stable. VITALY MELLO M.D. 11/21/16 1905: Assessment/Plan Assessment/Plan Chief Complaint/Hosp Course Funmilayo attestation: I discussed the management with MARIJA Walker and agree with above. Problems: Exam/Review of Systems Results Result Diagram: 11/19/16 0600 11/18/16 1735 JUAN MANUEL WALKER NP Nov 19, 2016 20:11 VITAYL MELLO M.D. Nov 21, 2016 19:05
[2016-11-19] MEDS: ATORVASTATIN 10 MG TAB PO SCH (21:25)
[2016-11-19] MEDS: ZOLPIDEM 5 MG TAB PO SCH (21:34)
[2016-11-20] VITALS (12 sets, daily range): BP systolic 120–158; BP diastolic 60–70; PULSE 54–74; RESP 17–18
[2016-11-20] MEDS: ARTIFICIAL TEARS 15 ML OPH BOTH EYES SCH ×4 (00:19→17:27)
[2016-11-20] MEDS: ACCU-CHEK XX SCH (02:00)
[2016-11-20] MEDS: HYDROCODONE/APAP (5/325) TAB PO PRN (03:07)
[2016-11-20 07:44] LABS: ADD SCAN DIFF NO
[2016-11-20 07:49] LABS: BASOPHILS % 0.4 % (0.0-2.0); EOSINOPHILS # 0.2 10^3/ul (0.0-0.5); EOSINOPHILS % 2.1 % (0.0-7.0); HEMATOCRIT 27.2 % (37.0-47.0); HEMOGLOBIN 7.9 g/dl (12.0-16.0); LYMPHOCYTES # 0.9 10^3/ul (0.8-2.9); MEAN CORPUSCULAR HEMOGLOBIN 23.9 pg (29.0-33.0); MEAN CORPUSCULAR VOLUME 82.4 fl (82.0-101.0); MEAN PLATELET VOLUME 10.3 fl (7.4-10.4); MONOCYTE # 0.8 10^3/ul (0.3-0.9); MONOCYTES % 11.8 % (0.0-11.0); NEUTROPHIL # 5.2 10^3/ul (1.6-7.5); NEUTROPHILS % 73.4 % (39.0-77.0); PLATELET COUNT 376 10^3/UL (140-415); RED CELL DISTRIBUTION WIDTH 15.9 % (11.5-14.5); WHITE BLOOD COUNT 7.1 10^3/ul (4.8-10.8)
[2016-11-20 08:20] LABS: POTASSIUM 3.6 mmol/L (3.5-5.1)
[2016-11-20 08:23] LABS: CALCIUM 8.4 mg/dl (8.4-10.2); CREATININE 4.76 mg/dl (0.44-1.00)
[2016-11-20] MEDS: INSULIN ASPART [NOVOLOG] 3 ML PEN SC SCH ×7 (09:13→21:12)
[2016-11-20] MEDS: HEPARIN 5,000 UNIT/0.5 ML VIAL SC SCH ×2 (09:16→21:08)
[2016-11-20] MEDS: FERROUS SULFATE (EC) 325 MG TAB PO SCH ×2 (09:17→21:13)
[2016-11-20] MEDS: GABAPENTIN 100 MG CAP PO SCH ×3 (09:17→21:13)
[2016-11-20] MEDS: ACYCLOVIR 800 MG TAB PO SCH ×2 (09:17→21:13)
[2016-11-20] MEDS: DULOXETINE 30 MG CAP DR PO SCH (09:17)
[2016-11-20] MEDS: PIPER-TAZO 2.25 GM (PMX) 50 ML IVPB SCH ×2 (09:40→21:07)
[2016-11-20] MEDS: SUCRALFATE 1 GM TAB PO SCH ×2 (09:40→17:27)
[2016-11-20] MEDS: ISOSORBIDE DINITRATE 10 MG TAB PO SCH ×3 (09:41→21:14)
[2016-11-20] MEDS: PANTOPRAZOLE (EC) 40 MG TAB PO SCH (09:41)
[2016-11-20] MEDS: MINOXIDIL 10 MG TAB PO SCH ×2 (09:42→21:15)
[2016-11-20] MEDS: LINAGLIPTIN 5 MG TABLET PO SCH (09:42)
[2016-11-20] MEDS: MULTIVIT/CA CARB/B CMPLX/FA TAB PO SCH (09:53)
[2016-11-20] MEDS: NIFEdipine (XL) 30 MG TAB PO SCH (09:54)
[2016-11-20] MEDS: ACETAMINOPHEN 325 MG TAB PO PRN (10:58)
[2016-11-20] MEDS: SOD CHLORIDE 0.45% 1,000 ML IV SCH (12:00)
--- NOTE | 2016-11-20 12:22 | PN ---
Date/Time of Note Date/Time of Note DATE: 11/20/16 TIME: 12:22 Assessment/Plan VTE Prophylaxis VTE Prophylaxis Intervention: other Lines/Catheters IV Catheter Type (from [facility]): [facility] Urinary Cath still in place: No Assessment/Plan Chief Complaint/Hosp Course -Pneumonia with parapneumonic effusion, continue antibiotics. Dr. Leal is following from infectious disease standpoint. -Sepsis secondary to pneumonia. -End-stage renal disease hemodialysis dependent. Dr. Gorman is following in nephrology consultation -Posterior shoulder lesion, possible VZV infection. Continue acyclovir. -Chest pain on admission, rule out acute coronary syndrome. -CHF, continue to remove fluids with hemodialysis. -Hypertension. Dr. Magana is following in cardiology consultation. -Diabetes mellitus type 2. Dr. Freitas is following in endocrinology consultation. Continue Levemir and pre-meal NovoLog as well as NovoLog per mild algorithm sliding scale. Continue Tradjenta. -Hypothyroidism. Continue levothyroxine. -Anemia of chronic disease, continue Epogen. Problems: Subjective 24 Hr Interval Summary Free Text/Dictation Patient is confused Exam/Review of Systems Vital Signs Vitals Vital Signs Date Time Temp Pulse Resp B/P Pulse Ox O2 Delivery O2 Flow Rate FiO2 11/20/16 12:16 63 11/20/16 11:54 97.8 18 120/70 98 11/20/16 08:00 Nasal Cannula 2.0 Intake and Output 11/19/16 11/19/16 11/20/16 14:59 22:59 06:59 Intake Total 200 ml 720 ml Balance 200 ml 720 ml Exam Constitutional: well developed Head: atraumatic, normocephalic Neck: supple Respiratory: diminished breath sounds Cardiovascular: regular rate and rhythm Gastrointestinal: non-tender, soft Extremities: normal pulses Results Result Diagram: 11/20/1622 11/20/16 0622 Results 24 hrs Laboratory Tests Test 11/19/16 17:17 11/19/16 20:06 11/20/16 02:16 11/20/16 06:22 Bedside Glucose 180 149 157 White Blood Count 7.1 # Red Blood Count 3.30 L Hemoglobin 7.9 L Hematocrit 27.2 L Mean Corpuscular Volume 82.4 Mean Corpuscular Hemoglobin 23.9 L Mean Corpuscular Hemoglobin Concent 29.0 L Red Cell Distribution Width 15.9 H Platelet Count 376 Mean Platelet Volume 10.3 Neutrophils % 73.4 Lymphocytes % 12.0 L Monocytes % 11.8 H Eosinophils % 2.1 Basophils % 0.4 Nucleated Red Blood Cells % 0.0 Neutrophils # 5.2 Lymphocytes # 0.9 Monocytes # 0.8 Eosinophils # 0.2 Basophils # 0.0 Nucleated Red Blood Cells # 0.0 Sodium Level 130 L Potassium Level 3.6 Chloride Level 86 L Carbon Dioxide Level 24 Anion Gap 24 #H Blood Urea Nitrogen 41 #H Creatinine 4.76 #H Glucose Level 214 Calcium Level 8.4 Test 11/20/16 09:11 Bedside Glucose 224 H Medications Medications Current Medications Acetaminophen (Tylenol Tab) 650 mg Q6H PRN PO PAIN AND OR ELEVATED TEMP Last administered on 11/20/16 10:58; Admin Dose 650 MG; Start 11/17/16 at 09:00 Bisacodyl (Dulcolax Supp) 10 mg DAILY PRN [place] CONSTIPATION; Start 11/17/16 at 09 :00 Clonidine (Catapres) 0.1 mg Q6H PRN PO ELEVATED BLOOD PRESSURE; Start 11/17/16 at 09:00 Clonidine (Catapres) 0.2 mg TID PO Last administered on 11/20/16 09:43; Admin Dose 0.2 MG; Start 11/17/16 at 09:00 Clonidine HCl (Catapres-Tts 3 Patch) 0.3 patch Q7D TRANSDERM Last administered on 11/17/16 11:36; Admin Dose 0.3 PATCH; Start 11/17/16 at 10:00 Glucose (Glutose) 38 gm PRN PO Last administered on 11/17/16 22:36; Admin Dose 38 GM; Start 11/17/16 at 09:00 Diphenhydramine HCl (Benadryl) 25 mg Q8 PRN PO ITCHING; Start 11/17/16 at 09:00 Docusate Sodium (Colace) 250 mg DAILY PRN PO CONSTIPATION; Start 11/17/16 at 09 :00 Duloxetine HCl (Cymbalta) 60 mg DAILY PO Last administered on 11/20/16 09:17; Admin Dose 60 MG; Start 11/17/16 at 09:00 Guaifenesin/ Dextromethorphan (Robitussin Dm Liquid Cup) 10 ml Q6H PRN PO COUGH ; Start 11/17/16 at 09:00 Hydralazine HCl (Apresoline) 25 mg QID PO Last administered on 11/20/16 09:14; Admin Dose 25 MG; Start 11/17/16 at 09:00 Metoclopramide HCl (Reglan) 10 mg Q12 PRN PO NAUSEA AND/OR VOMITING; Start at 09:00 Minoxidil (Loniten) 10 mg BID PO Last administered on 11/20/16 09:42; Admin Dose 10 MG; Start 11/17/16 at 10:30 Nifedipine (Procardia Xl) 30 mg DAILY PO Last administered on 11/20/16 09:54; Admin Dose 30 MG; Start 11/17/16 at 10:00 Pantoprazole (Protonix Tab) 20 mg DAILY PO Last administered on 11/20/16 09:41 ; Admin Dose 20 MG; Start 11/17/16 at 09:00 Eye Lubricant (Artificial Tears Oph) 1 drop Q6 BOTH EYES Last administered on 05:23; Admin Dose 1 DROP; Start 11/17/16 at 12:00 Senna (Senokot) 1 tab Q12H PRN PO CONSTIPATION; Start 11/17/16 at 09:00 Zolpidem Tartrate (Ambien) 1 mg HS PO Last administered on 11/19/16 21:34; Admin Dose 1 MG; Start 11/17/16 at 21:00 Multivit/Ca Carb/ B Cmplx/FA/Prenat ([place]ey[place]-Ludwin) 1 tab DAILY PO Last administered on 11/20/16 09:53; Admin Dose 1 TAB; Start 11/17/16 at 09:00 Diagnostic Test (Pha) (Accu-Chek) 1 ea 02 XX Last administered on 11/19/16 02: 00; Admin Dose 1 EA; Start 11/18/16 at 02:00 Gabapentin (Neurontin) 100 mg TID PO Last administered on 11/20/16 09:17; Admin Dose 100 MG; Start 11/17/16 at 13:00 Miscellaneous Information 1 ea NOTE XX ; Start 11/17/16 at 10:00 Glucose (Glutose) 15 gm Q15M PRN PO DECREASED GLUCOSE; Start 11/17/16 at 10:00 Glucose (Glutose) 22.5 gm Q15M PRN PO DECREASED GLUCOSE; Start 11/17/16 at 10: 00 Dextrose (D50w Syringe) 25 ml Q15M PRN IV DECREASED GLUCOSE; Start 11/17/16 at 10:00 Dextrose (D50w Syringe) 50 ml Q15M PRN IV DECREASED GLUCOSE; Start 11/17/16 at 10:00 Glucagon (Glucagen) 1 mg Q15M PRN IM DECREASED GLUCOSE; Start 11/17/16 at 10:00 Glucose (Glutose) 15 gm Q15M PRN BUCCAL DECREASED GLUCOSE Last administered on 11/19/16 08:58; Admin Dose 15 GM; Start 11/17/16 at 10:00 Atorvastatin Calcium 10 mg 10 mg HS PO Last administered on 11/19/16 21:25; Admin Dose 10 MG; Start 11/17/16 at 21:00 Sodium Chloride 1,000 ml @ 30 mls/hr Q24H IV Last administered on 11/17/16 14 :11; Admin Dose 30 MLS/HR; Start 11/17/16 at 12:00 Azithromycin (Zithromax 500mg/ NS (Pmx)) 250 ml @ 250 mls/hr Q24H IVPB Last administered on 11/19/16 15:33; Admin Dose 250 MLS/HR; Start 11/17/16 at 15:00 Heparin Sodium (Porcine) (Heparin (5000 Units/0.5 ml)) 5,000 unit BID SC Last administered on 11/20/16 09:16; Admin Dose 5,000 UNIT; Start 11/17/16 at 13:00 Acyclovir (Zovirax) 800 mg BID PO Last administered on 11/20/16 09:17; Admin Dose 800 MG; Start 11/17/16 at 21:00 Acetaminophen/ Hydrocodone Bitart ([place] (5/325)) 1 tab Q6 PRN PO MODERATE PAIN LEVEL 4-6 Last administered on 11/20/16 03:07; Admin Dose 1 TAB; Start at 18:00 Morphine Sulfate (morphine) 2 mg Q4H PRN IV PAIN LEVEL 6-10 Last administered on 11/18/16 05:45; Admin Dose 2 MG; Start 11/17/16 at 17:30 Isosorbide Dinitrate (Isordil) 10 mg TID PO Last administered on 11/20/16 09:41 ; Admin Dose 10 MG; Start 11/17/16 at 21:00 Nitroglycerin 1 tab 1 tab Q5M PRN SL ANGINA; Start 11/17/16 at 18:30 Piperacillin Sod/ Tazobactam Sod (Zosyn 2.25gm/ 50ml (Pmx)) 50 ml @ 100 mls/hr Q12 IVPB Last administered on 11/20/16 09:40; Admin Dose 100 MLS/HR; Start at 21:00 Epoetin Luis (Epogen (Esrd)) 6,000 units MoWeFr@17 IV ; Start 11/18/16 at 17:00 Ferrous Sulfate (Ferrous Sulfate (Ec)) 325 mg BID PO Last administered on 09:17; Admin Dose 325 MG; Start 11/18/16 at 21:00 Docusate Sodium (Colace) 100 mg DAILY PRN PO CONSTIPATION; Start 11/18/16 at 10 :00 Linagliptin (Tradjenta) 5 mg DAILY PO Last administered on 11/20/16 09:42; Admin Dose 5 MG; Start 11/18/16 at 14:00 Insulin Detemir (Levemir) 9 unit DAILY@20 SC Last administered on 11/19/16 20: 38; Admin Dose 9 UNIT; Start 11/19/16 at 20:00 Meclizine HCl (Antivert) 25 mg Q6 PRN PO dizziness; Start 11/20/16 at 12:30 SANDRA SELLERS Nov 20, 2016 12:22
[2016-11-20] MEDS ORDERED: MECLIZINE 25 MG TAB PO PRN (12:30)
--- NOTE | 2016-11-20 13:33 | CONS ---
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 I will make some adjustments to the regimen to try and tighten this up. Please note infectious diseases recommended diagnostic and therapeutic thoracentesis on the right yesterday. I have gone ahead and entered those orders to try and assist the entire team. Qualifiers: Diabetes mellitus alf insulin use: with alf use Chronic kidney disease stage: stage 3 (moderate) Qualified Code: E11.22 - Type 2 diabetes mellitus with stage 3 chronic kidney disease, with long-term current use of insulin Consultation Date/Type/Reason Admit Date/Time Nov 17, 2016 at 01:09 Initial Consult Date 11/17/16 Type of Consultation: Endocrinology Reason for Consultation Diabetes mellitus type 1 Referring Provider: BING IZAGUIRRE MD 24 HR Interval Summary Constitutional: no complaints Exam/Review of Systems Vital Signs Vitals Vital Signs Date Time Temp Pulse Resp B/P Pulse Ox O2 Delivery O2 Flow Rate FiO2 11/20/16 12:16 63 11/20/16 11:54 97.8 18 120/70 98 11/20/16 08:00 Nasal Cannula 2.0 Intake and Output 11/19/16 11/19/16 11/20/16 15:00 23:00 07:00 Intake Total 200 ml 720 ml Balance 200 ml 720 ml Exam Constitutional: alert, oriented Results Result Diagram: 11/20/16 0622 11/20/16 0622 Results 24 hrs Laboratory Tests Test 11/19/16 17:17 11/19/16 20:06 11/20/16 02:16 11/20/16 06:22 Bedside Glucose 180 149 157 White Blood Count 7.1 # Red Blood Count 3.30 L Hemoglobin 7.9 L Hematocrit 27.2 L Mean Corpuscular Volume 82.4 Mean Corpuscular Hemoglobin 23.9 L Mean Corpuscular Hemoglobin Concent 29.0 L Red Cell Distribution Width 15.9 H Platelet Count 376 Mean Platelet Volume 10.3 Neutrophils % 73.4 Lymphocytes % 12.0 L Monocytes % 11.8 H Eosinophils % 2.1 Basophils % 0.4 Nucleated Red Blood Cells % 0.0 Neutrophils # 5.2 Lymphocytes # 0.9 Monocytes # 0.8 Eosinophils # 0.2 Basophils # 0.0 Nucleated Red Blood Cells # 0.0 Sodium Level 130 L Potassium Level 3.6 Chloride Level 86 L Carbon Dioxide Level 24 Anion Gap 24 #H Blood Urea Nitrogen 41 #H Creatinine 4.76 #H Glucose Level 214 Calcium Level 8.4 Test 11/20/16 09:11 11/20/16 12:37 Bedside Glucose 224 H 239 H Medications Medications Current Medications Acetaminophen (Tylenol Tab) 650 mg Q6H PRN PO PAIN AND OR ELEVATED TEMP Last administered on 11/20/16 10:58; Admin Dose 650 MG; Start 11/17/16 at 09:00 Bisacodyl (Dulcolax Supp) 10 mg DAILY PRN [place] CONSTIPATION; Start 11/17/16 at 09 :00 Clonidine (Catapres) 0.1 mg Q6H PRN PO ELEVATED BLOOD PRESSURE; Start 11/17/16 at 09:00 Clonidine (Catapres) 0.2 mg TID PO Last administered on 11/20/16 12:45; Admin Dose 0.2 MG; Start 11/17/16 at 09:00 Clonidine HCl (Catapres-Tts 3 Patch) 0.3 patch Q7D TRANSDERM Last administered on 11/17/16 11:36; Admin Dose 0.3 PATCH; Start 11/17/16 at 10:00 Glucose (Glutose) 38 gm PRN PO Last administered on 11/17/16 22:36; Admin Dose 38 GM; Start 11/17/16 at 09:00 Diphenhydramine HCl (Benadryl) 25 mg Q8 PRN PO ITCHING; Start 11/17/16 at 09:00 Docusate Sodium (Colace) 250 mg DAILY PRN PO CONSTIPATION; Start 11/17/16 at 09 :00 Duloxetine HCl (Cymbalta) 60 mg DAILY PO Last administered on 11/20/16 09:17; Admin Dose 60 MG; Start 11/17/16 at 09:00 Guaifenesin/ Dextromethorphan (Robitussin Dm Liquid Cup) 10 ml Q6H PRN PO COUGH ; Start 11/17/16 at 09:00 Hydralazine HCl (Apresoline) 25 mg QID PO Last administered on 11/20/16 12:46; Admin Dose 25 MG; Start 11/17/16 at 09:00 Metoclopramide HCl (Reglan) 10 mg Q12 PRN PO NAUSEA AND/OR VOMITING; Start at 09:00 Minoxidil (Loniten) 10 mg BID PO Last administered on 11/20/16 09:42; Admin Dose 10 MG; Start 11/17/16 at 10:30 Nifedipine (Procardia Xl) 30 mg DAILY PO Last administered on 11/20/16 09:54; Admin Dose 30 MG; Start 11/17/16 at 10:00 Pantoprazole (Protonix Tab) 20 mg DAILY PO Last administered on 11/20/16 09:41 ; Admin Dose 20 MG; Start 11/17/16 at 09:00 Eye Lubricant (Artificial Tears Oph) 1 drop Q6 BOTH EYES Last administered on 12:44; Admin Dose 1 DROP; Start 11/17/16 at 12:00 Senna (Senokot) 1 tab Q12H PRN PO CONSTIPATION; Start 11/17/16 at 09:00 Zolpidem Tartrate (Ambien) 1 mg HS PO Last administered on 11/19/16 21:34; Admin Dose 1 MG; Start 11/17/16 at 21:00 Multivit/Ca Carb/ B Cmplx/FA/Prenat (Peyton-Ludwin) 1 tab DAILY PO Last administered on 11/20/16 09:53; Admin Dose 1 TAB; Start 11/17/16 at 09:00 Diagnostic Test (Pha) (Accu-Chek) 1 ea 02 XX Last administered on 11/19/16 02: 00; Admin Dose 1 EA; Start 11/18/16 at 02:00 Gabapentin (Neurontin) 100 mg TID PO Last administered on 11/20/16 12:46; Admin Dose 100 MG; Start 11/17/16 at 13:00 Miscellaneous Information 1 ea NOTE XX ; Start 11/17/16 at 10:00 Glucose (Glutose) 15 gm Q15M PRN PO DECREASED GLUCOSE; Start 11/17/16 at 10:00 Glucose (Glutose) 22.5 gm Q15M PRN PO DECREASED GLUCOSE; Start 11/17/16 at 10: 00 Dextrose (D50w Syringe) 25 ml Q15M PRN IV DECREASED GLUCOSE; Start 11/17/16 at 10:00 Dextrose (D50w Syringe) 50 ml Q15M PRN IV DECREASED GLUCOSE; Start 11/17/16 at 10:00 Glucagon (Glucagen) 1 mg Q15M PRN IM DECREASED GLUCOSE; Start 11/17/16 at 10:00 Glucose (Glutose) 15 gm Q15M PRN BUCCAL DECREASED GLUCOSE Last administered on 11/19/16 08:58; Admin Dose 15 GM; Start 11/17/16 at 10:00 Atorvastatin Calcium 10 mg 10 mg HS PO Last administered on 11/19/16 21:25; Admin Dose 10 MG; Start 11/17/16 at 21:00 Sodium Chloride 1,000 ml @ 30 mls/hr Q24H IV Last administered on 11/17/16 14 :11; Admin Dose 30 MLS/HR; Start 11/17/16 at 12:00 Azithromycin (Zithromax 500mg/ NS (Pmx)) 250 ml @ 250 mls/hr Q24H IVPB Last administered on 11/19/16 15:33; Admin Dose 250 MLS/HR; Start 11/17/16 at 15:00 Heparin Sodium (Porcine) (Heparin (5000 Units/0.5 ml)) 5,000 unit BID SC Last administered on 11/20/16 09:16; Admin Dose 5,000 UNIT; Start 11/17/16 at 13:00 Acyclovir (Zovirax) 800 mg BID PO Last administered on 11/20/16 09:17; Admin Dose 800 MG; Start 11/17/16 at 21:00 Acetaminophen/ Hydrocodone Bitart ([place] (5/325)) 1 tab Q6 PRN PO MODERATE PAIN LEVEL 4-6 Last administered on 11/20/16 03:07; Admin Dose 1 TAB; Start at 18:00 Morphine Sulfate (morphine) 2 mg Q4H PRN IV PAIN LEVEL 6-10 Last administered on 11/18/16 05:45; Admin Dose 2 MG; Start 11/17/16 at 17:30 Isosorbide Dinitrate (Isordil) 10 mg TID PO Last administered on 11/20/16 12:46 ; Admin Dose 10 MG; Start 11/17/16 at 21:00 Nitroglycerin 1 tab 1 tab Q5M PRN SL ANGINA; Start 11/17/16 at 18:30 Piperacillin Sod/ Tazobactam Sod (Zosyn 2.25gm/ 50ml (Pmx)) 50 ml @ 100 mls/hr Q12 IVPB Last administered on 11/20/16 09:40; Admin Dose 100 MLS/HR; Start at 21:00 Epoetin Luis (Epogen (Esrd)) 6,000 units MoWeFr@17 IV ; Start 11/18/16 at 17:00 Ferrous Sulfate (Ferrous Sulfate (Ec)) 325 mg BID PO Last administered on 09:17; Admin Dose 325 MG; Start 11/18/16 at 21:00 Docusate Sodium (Colace) 100 mg DAILY PRN PO CONSTIPATION; Start 11/18/16 at 10 :00 Linagliptin (Tradjenta) 5 mg DAILY PO Last administered on 11/20/16 09:42; Admin Dose 5 MG; Start 11/18/16 at 14:00 Insulin Detemir (Levemir) 9 unit DAILY@20 SC Last administered on 11/19/16 20: 38; Admin Dose 9 UNIT; Start 11/19/16 at 20:00 Meclizine HCl (Antivert) 25 mg Q6 PRN PO dizziness Last administered on 12:44; Admin Dose 25 MG; Start 11/20/16 at 12:30 PARRISH MARIN MD Nov 20, 2016 13:33
[2016-11-20] MEDS ORDERED: POTASSIUM CHLORIDE (SR) 20 MEQ TAB PO STA (14:28)
--- NOTE | 2016-11-20 14:28 | CONS ---
Date/Time of Note Date/Time of Note DATE: 11/20/16 TIME: 14:26 Assessment/Plan Assessment/Plan Additional Assessment/Plan Atypical chest pain Acute exacerbation of congestive heart failure Pulmonary Hypertension Tricuspid Regurgitation Hypertension Diabetes Dyslipidemia. Pneumonia with parapneumonic effusion. Renal failure. Anemia. Zoster Patient has been ruled out for ACS with serial negative troponin's Heart failure is clinically compensated BP controlled Continue Nifedipine Continue Minoxidil Continue acyclovir Continue Insulin Continue Lipitor Continue antibiotics Replete Potassium HD as scheduled Consultation Date/Type/Reason Admit Date/Time Nov 17, 2016 at 01:09 Initial Consult Date 11/17/16 Type of Consultation: Endocrinology Referring Provider: BING IZAGUIRRE MD Exam/Review of Systems Vital Signs Vitals Vital Signs Date Time Temp Pulse Resp B/P Pulse Ox O2 Delivery O2 Flow Rate FiO2 11/20/16 12:16 63 11/20/16 11:54 97.8 18 120/70 98 11/20/16 08:00 Nasal Cannula 2.0 Intake and Output 11/19/16 11/19/16 11/20/16 15:00 23:00 07:00 Intake Total 200 ml 720 ml Balance 200 ml 720 ml Exam Constitutional: alert Head: atraumatic, normocephalic Neck: non-tender, supple Respiratory: clear to auscultation Cardiovascular: regular rate and rhythm Gastrointestinal: nl liver, spleen, non-tender, soft Extremities: normal pulses Results Result Diagram: 11/20/16 0622 11/20/16 0622 Results 24 hrs Laboratory Tests Test 11/19/16 17:17 11/19/16 20:06 11/20/16 02:16 11/20/16 06:22 Bedside Glucose 180 149 157 White Blood Count 7.1 # Red Blood Count 3.30 L Hemoglobin 7.9 L Hematocrit 27.2 L Mean Corpuscular Volume 82.4 Mean Corpuscular Hemoglobin 23.9 L Mean Corpuscular Hemoglobin Concent 29.0 L Red Cell Distribution Width 15.9 H Platelet Count 376 Mean Platelet Volume 10.3 Neutrophils % 73.4 Lymphocytes % 12.0 L Monocytes % 11.8 H Eosinophils % 2.1 Basophils % 0.4 Nucleated Red Blood Cells % 0.0 Neutrophils # 5.2 Lymphocytes # 0.9 Monocytes # 0.8 Eosinophils # 0.2 Basophils # 0.0 Nucleated Red Blood Cells # 0.0 Sodium Level 130 L Potassium Level 3.6 Chloride Level 86 L Carbon Dioxide Level 24 Anion Gap 24 #H Blood Urea Nitrogen 41 #H Creatinine 4.76 #H Glucose Level 214 Calcium Level 8.4 Test 11/20/16 09:11 11/20/16 12:37 Bedside Glucose 224 H 239 H Medications Medications Current Medications Acetaminophen (Tylenol Tab) 650 mg Q6H PRN PO PAIN AND OR ELEVATED TEMP Last administered on 11/20/16 10:58; Admin Dose 650 MG; Start 11/17/16 at 09:00 Bisacodyl (Dulcolax Supp) 10 mg DAILY PRN [place] CONSTIPATION; Start 11/17/16 at 09 :00 Clonidine (Catapres) 0.1 mg Q6H PRN PO ELEVATED BLOOD PRESSURE; Start 11/17/16 at 09:00 Clonidine (Catapres) 0.2 mg TID PO Last administered on 11/20/16 12:45; Admin Dose 0.2 MG; Start 11/17/16 at 09:00 Clonidine HCl (Catapres-Tts 3 Patch) 0.3 patch Q7D TRANSDERM Last administered on 11/17/16 11:36; Admin Dose 0.3 PATCH; Start 11/17/16 at 10:00 Glucose (Glutose) 38 gm PRN PO Last administered on 11/17/16 22:36; Admin Dose 38 GM; Start 11/17/16 at 09:00 Diphenhydramine HCl (Benadryl) 25 mg Q8 PRN PO ITCHING; Start 11/17/16 at 09:00 Docusate Sodium (Colace) 250 mg DAILY PRN PO CONSTIPATION; Start 11/17/16 at 09 :00 Duloxetine HCl (Cymbalta) 60 mg DAILY PO Last administered on 11/20/16 09:17; Admin Dose 60 MG; Start 11/17/16 at 09:00 Guaifenesin/ Dextromethorphan (Robitussin Dm Liquid Cup) 10 ml Q6H PRN PO COUGH ; Start 11/17/16 at 09:00 Hydralazine HCl (Apresoline) 25 mg QID PO Last administered on 11/20/16 12:46; Admin Dose 25 MG; Start 11/17/16 at 09:00 Metoclopramide HCl (Reglan) 10 mg Q12 PRN PO NAUSEA AND/OR VOMITING; Start at 09:00 Minoxidil (Loniten) 10 mg BID PO Last administered on 11/20/16 09:42; Admin Dose 10 MG; Start 11/17/16 at 10:30 Nifedipine (Procardia Xl) 30 mg DAILY PO Last administered on 11/20/16 09:54; Admin Dose 30 MG; Start 11/17/16 at 10:00 Pantoprazole (Protonix Tab) 20 mg DAILY PO Last administered on 11/20/16 09:41 ; Admin Dose 20 MG; Start 11/17/16 at 09:00 Eye Lubricant (Artificial Tears Oph) 1 drop Q6 BOTH EYES Last administered on 12:44; Admin Dose 1 DROP; Start 11/17/16 at 12:00 Senna (Senokot) 1 tab Q12H PRN PO CONSTIPATION; Start 11/17/16 at 09:00 Zolpidem Tartrate (Ambien) 1 mg HS PO Last administered on 11/19/16 21:34; Admin Dose 1 MG; Start 11/17/16 at 21:00 Multivit/Ca Carb/ B Cmplx/FA/Prenat (Pey[place]-Ludwin) 1 tab DAILY PO Last administered on 11/20/16 09:53; Admin Dose 1 TAB; Start 11/17/16 at 09:00 Diagnostic Test (Pha) (Accu-Chek) 1 ea 02 XX Last administered on 11/19/16 02: 00; Admin Dose 1 EA; Start 11/18/16 at 02:00 Gabapentin (Neurontin) 100 mg TID PO Last administered on 11/20/16 12:46; Admin Dose 100 MG; Start 11/17/16 at 13:00 Miscellaneous Information 1 ea NOTE XX ; Start 11/17/16 at 10:00 Glucose (Glutose) 15 gm Q15M PRN PO DECREASED GLUCOSE; Start 11/17/16 at 10:00 Glucose (Glutose) 22.5 gm Q15M PRN PO DECREASED GLUCOSE; Start 11/17/16 at 10: 00 Dextrose (D50w Syringe) 25 ml Q15M PRN IV DECREASED GLUCOSE; Start 11/17/16 at 10:00 Dextrose (D50w Syringe) 50 ml Q15M PRN IV DECREASED GLUCOSE; Start 11/17/16 at 10:00 Glucagon (Glucagen) 1 mg Q15M PRN IM DECREASED GLUCOSE; Start 11/17/16 at 10:00 Glucose (Glutose) 15 gm Q15M PRN BUCCAL DECREASED GLUCOSE Last administered on 11/19/16 08:58; Admin Dose 15 GM; Start 11/17/16 at 10:00 Atorvastatin Calcium 10 mg 10 mg HS PO Last administered on 11/19/16 21:25; Admin Dose 10 MG; Start 11/17/16 at 21:00 Sodium Chloride 1,000 ml @ 30 mls/hr Q24H IV Last administered on 11/17/16 14 :11; Admin Dose 30 MLS/HR; Start 11/17/16 at 12:00 Azithromycin (Zithromax 500mg/ NS (Pmx)) 250 ml @ 250 mls/hr Q24H IVPB Last administered on 11/19/16 15:33; Admin Dose 250 MLS/HR; Start 11/17/16 at 15:00 Heparin Sodium (Porcine) (Heparin (5000 Units/0.5 ml)) 5,000 unit BID SC Last administered on 11/20/16 09:16; Admin Dose 5,000 UNIT; Start 11/17/16 at 13:00 Acyclovir (Zovirax) 800 mg BID PO Last administered on 11/20/16 09:17; Admin Dose 800 MG; Start 11/17/16 at 21:00 Acetaminophen/ Hydrocodone Bitart ([place] (5/325)) 1 tab Q6 PRN PO MODERATE PAIN LEVEL 4-6 Last administered on 11/20/16 03:07; Admin Dose 1 TAB; Start at 18:00 Morphine Sulfate (morphine) 2 mg Q4H PRN IV PAIN LEVEL 6-10 Last administered on 11/18/16 05:45; Admin Dose 2 MG; Start 11/17/16 at 17:30 Isosorbide Dinitrate (Isordil) 10 mg TID PO Last administered on 11/20/16 12:46 ; Admin Dose 10 MG; Start 11/17/16 at 21:00 Nitroglycerin 1 tab 1 tab Q5M PRN SL ANGINA; Start 11/17/16 at 18:30 Piperacillin Sod/ Tazobactam Sod (Zosyn 2.25gm/ 50ml (Pmx)) 50 ml @ 100 mls/hr Q12 IVPB Last administered on 11/20/16 09:40; Admin Dose 100 MLS/HR; Start at 21:00 Epoetin Luis (Epogen (Esrd)) 6,000 units MoWeFr@17 IV ; Start 11/18/16 at 17:00 Ferrous Sulfate (Ferrous Sulfate (Ec)) 325 mg BID PO Last administered on 09:17; Admin Dose 325 MG; Start 11/18/16 at 21:00 Docusate Sodium (Colace) 100 mg DAILY PRN PO CONSTIPATION; Start 11/18/16 at 10 :00 Linagliptin (Tradjenta) 5 mg DAILY PO Last administered on 11/20/16 09:42; Admin Dose 5 MG; Start 11/18/16 at 14:00 Meclizine HCl (Antivert) 25 mg Q6 PRN PO dizziness Last administered on 12:44; Admin Dose 25 MG; Start 11/20/16 at 12:30 Insulin Detemir (Levemir) 11 unit DAILY@20 SC ; Start 11/20/16 at 20:00 HECTOR ROBLES M.D. Nov 20, 2016 14:28
[2016-11-20] MEDS: AZITHROMYCIN 500MG/NS (PMX) 250 ML IVPB SCH (15:23)
--- NOTE | 2016-11-20 15:31 | CONS ---
Date/Time of Note Date/Time of Note DATE: 11/20/16 TIME: 15:30 Consult Date/Type/Reason Admit Date/Time Nov 17, 2016 at 01:09 Initial Consult Date 11/17/16 Type of Consultation: Pulm Ordering Provider: BING IZAGUIRRE MD Subjective No events. Objective Vital Signs Date Time Temp Pulse Resp B/P Pulse Ox O2 Delivery O2 Flow Rate FiO2 11/20/16 12:16 63 11/20/16 11:54 97.8 18 120/70 98 11/20/16 08:00 Nasal Cannula 2.0 Intake and Output 11/19/16 11/19/16 11/20/16 15:00 23:00 07:00 Intake Total 200 ml 720 ml Balance 200 ml 720 ml Exam HEENT: Neck supple; no JVD; no LAD CVS: RRR, S1; loud P2 CHEST: Clear ABD: Soft, NT, + BS EXT: No c/c/ + edema Results/Medications Result Diagram: 11/20/1662111/20/1622 Results 24 hrs Laboratory Tests Test 11/19/16 17:17 11/19/16 20:06 11/20/16 02:16 11/20/16 06:22 Bedside Glucose 180 149 157 White Blood Count 7.1 # Red Blood Count 3.30 L Hemoglobin 7.9 L Hematocrit 27.2 L Mean Corpuscular Volume 82.4 Mean Corpuscular Hemoglobin 23.9 L Mean Corpuscular Hemoglobin Concent 29.0 L Red Cell Distribution Width 15.9 H Platelet Count 376 Mean Platelet Volume 10.3 Neutrophils % 73.4 Lymphocytes % 12.0 L Monocytes % 11.8 H Eosinophils % 2.1 Basophils % 0.4 Nucleated Red Blood Cells % 0.0 Neutrophils # 5.2 Lymphocytes # 0.9 Monocytes # 0.8 Eosinophils # 0.2 Basophils # 0.0 Nucleated Red Blood Cells # 0.0 Sodium Level 130 L Potassium Level 3.6 Chloride Level 86 L Carbon Dioxide Level 24 Anion Gap 24 #H Blood Urea Nitrogen 41 #H Creatinine 4.76 #H Glucose Level 214 Calcium Level 8.4 Test 11/20/16 09:11 11/20/16 12:37 Bedside Glucose 224 H 239 H Medications Current Medications Acetaminophen (Tylenol Tab) 650 mg Q6H PRN PO PAIN AND OR ELEVATED TEMP Last administered on 11/20/16 10:58; Admin Dose 650 MG; Start 11/17/16 at 09:00 Bisacodyl (Dulcolax Supp) 10 mg DAILY PRN [place] CONSTIPATION; Start 11/17/16 at 09 :00 Clonidine (Catapres) 0.1 mg Q6H PRN PO ELEVATED BLOOD PRESSURE; Start 11/17/16 at 09:00 Clonidine (Catapres) 0.2 mg TID PO Last administered on 11/20/16 12:45; Admin Dose 0.2 MG; Start 11/17/16 at 09:00 Clonidine HCl ([place]ap[place]-Tts 3 Patch) 0.3 patch Q7D TRANSDERM Last administered on 11/17/16 11:36; Admin Dose 0.3 PATCH; Start 11/17/16 at 10:00 Glucose (Glutose) 38 gm PRN PO Last administered on 11/17/16 22:36; Admin Dose 38 GM; Start 11/17/16 at 09:00 Diphenhydramine HCl (Benadryl) 25 mg Q8 PRN PO ITCHING; Start 11/17/16 at 09:00 Docusate Sodium (Colace) 250 mg DAILY PRN PO CONSTIPATION; Start 11/17/16 at 09 :00 Duloxetine HCl (Cymbalta) 60 mg DAILY PO Last administered on 11/20/16 09:17; Admin Dose 60 MG; Start 11/17/16 at 09:00 Guaifenesin/ Dextromethorphan (Robitussin Dm Liquid Cup) 10 ml Q6H PRN PO COUGH ; Start 11/17/16 at 09:00 Hydralazine HCl (Apresoline) 25 mg QID PO Last administered on 11/20/16 12:46; Admin Dose 25 MG; Start 11/17/16 at 09:00 Metoclopramide HCl (Reglan) 10 mg Q12 PRN PO NAUSEA AND/OR VOMITING; Start at 09:00 Minoxidil (Loniten) 10 mg BID PO Last administered on 11/20/16 09:42; Admin Dose 10 MG; Start 11/17/16 at 10:30 Nifedipine (Procardia Xl) 30 mg DAILY PO Last administered on 11/20/16 09:54; Admin Dose 30 MG; Start 11/17/16 at 10:00 Pantoprazole (Protonix Tab) 20 mg DAILY PO Last administered on 11/20/16 09:41 ; Admin Dose 20 MG; Start 11/17/16 at 09:00 Eye Lubricant (Artificial Tears Oph) 1 drop Q6 BOTH EYES Last administered on 12:44; Admin Dose 1 DROP; Start 11/17/16 at 12:00 Senna (Senokot) 1 tab Q12H PRN PO CONSTIPATION; Start 11/17/16 at 09:00 Zolpidem Tartrate (Ambien) 1 mg HS PO Last administered on 11/19/16 21:34; Admin Dose 1 MG; Start 11/17/16 at 21:00 Multivit/Ca Carb/ B Cmplx/FA/Prenat ([place]ey[place]-Ludwin) 1 tab DAILY PO Last administered on 11/20/16 09:53; Admin Dose 1 TAB; Start 11/17/16 at 09:00 Diagnostic Test (Pha) (Accu-Chek) 1 ea 02 XX Last administered on 11/19/16 02: 00; Admin Dose 1 EA; Start 11/18/16 at 02:00 Gabapentin (Neurontin) 100 mg TID PO Last administered on 11/20/16 12:46; Admin Dose 100 MG; Start 11/17/16 at 13:00 Miscellaneous Information 1 ea NOTE XX ; Start 11/17/16 at 10:00 Glucose (Glutose) 15 gm Q15M PRN PO DECREASED GLUCOSE; Start 11/17/16 at 10:00 Glucose (Glutose) 22.5 gm Q15M PRN PO DECREASED GLUCOSE; Start 11/17/16 at 10: 00 Dextrose (D50w Syringe) 25 ml Q15M PRN IV DECREASED GLUCOSE; Start 11/17/16 at 10:00 Dextrose (D50w Syringe) 50 ml Q15M PRN IV DECREASED GLUCOSE; Start 11/17/16 at 10:00 Glucagon (Glucagen) 1 mg Q15M PRN IM DECREASED GLUCOSE; Start 11/17/16 at 10:00 Glucose (Glutose) 15 gm Q15M PRN BUCCAL DECREASED GLUCOSE Last administered on 11/19/16 08:58; Admin Dose 15 GM; Start 11/17/16 at 10:00 Atorvastatin Calcium 10 mg 10 mg HS PO Last administered on 11/19/16 21:25; Admin Dose 10 MG; Start 11/17/16 at 21:00 Sodium Chloride 1,000 ml @ 30 mls/hr Q24H IV Last administered on 11/17/16 14 :11; Admin Dose 30 MLS/HR; Start 11/17/16 at 12:00 Azithromycin (Zithromax 500mg/ NS (Pmx)) 250 ml @ 250 mls/hr Q24H IVPB Last administered on 11/20/16 15:23; Admin Dose 250 MLS/HR; Start 11/17/16 at 15:00 Heparin Sodium (Porcine) (Heparin (5000 Units/0.5 ml)) 5,000 unit BID SC Last administered on 11/20/16 09:16; Admin Dose 5,000 UNIT; Start 11/17/16 at 13:00 Acyclovir (Zovirax) 800 mg BID PO Last administered on 11/20/16 09:17; Admin Dose 800 MG; Start 11/17/16 at 21:00 Acetaminophen/ Hydrocodone Bitart ([place] (5/325)) 1 tab Q6 PRN PO MODERATE PAIN LEVEL 4-6 Last administered on 11/20/16 03:07; Admin Dose 1 TAB; Start at 18:00 Morphine Sulfate (morphine) 2 mg Q4H PRN IV PAIN LEVEL 6-10 Last administered on 11/18/16 05:45; Admin Dose 2 MG; Start 11/17/16 at 17:30 Isosorbide Dinitrate (Isordil) 10 mg TID PO Last administered on 11/20/16 12:46 ; Admin Dose 10 MG; Start 11/17/16 at 21:00 Nitroglycerin 1 tab 1 tab Q5M PRN SL ANGINA; Start 11/17/16 at 18:30 Piperacillin Sod/ Tazobactam Sod (Zosyn 2.25gm/ 50ml (Pmx)) 50 ml @ 100 mls/hr Q12 IVPB Last administered on 11/20/16 09:40; Admin Dose 100 MLS/HR; Start at 21:00 Epoetin Luis (Epogen (Esrd)) 6,000 units MoWeFr@17 IV ; Start 11/18/16 at 17:00 Ferrous Sulfate (Ferrous Sulfate (Ec)) 325 mg BID PO Last administered on 09:17; Admin Dose 325 MG; Start 11/18/16 at 21:00 Docusate Sodium (Colace) 100 mg DAILY PRN PO CONSTIPATION; Start 11/18/16 at 10 :00 Linagliptin (Tradjenta) 5 mg DAILY PO Last administered on 11/20/16 09:42; Admin Dose 5 MG; Start 11/18/16 at 14:00 Meclizine HCl (Antivert) 25 mg Q6 PRN PO dizziness Last administered on 12:44; Admin Dose 25 MG; Start 11/20/16 at 12:30 Insulin Detemir (Levemir) 11 unit DAILY@20 SC ; Start 11/20/16 at 20:00 Assessment/Plan Additional Assessment/Plan IMP: 1. CHF 2. Pulm HTN 3. Resp Insufficiency 4. CKD 5. Anemia RECS: 1. Continue current Rx 2. Follow H/H 3. BP control per cards MONTSE REED MD Nov 20, 2016 15:31
--- NOTE | 2016-11-20 20:14 | CONS ---
JUAN MANUEL WALKER NP 11/20/16 2013: Date/Time of Note Date/Time of Note DATE: 11/20/16 TIME: 20:13 Assessment/Plan Assessment/Plan Chief Complaint/Hosp Course - sepsis due to pneumonia/bronchitis - pneumonia/bronchitis with possible parapneumonic effusion - pleuritic chest pain/myalgia of the chest - productive cough - moderate-large R sided pleural effusion - poor dentition - scaly rash, possible VZV infection - CHF - ESRD, on HD - DM with episode of hypoglycemia - Hgb A1c 7.6% - h/o CVA - s/p CCY - hypothyroidism recommendations - pending: procalcitonin, nasopharyngeal swab for influenza and respiratory virus PCR panel, (send out to [facility]), mycoplasma pneumoniae NAAT, legionella antibody, cocci serology, Q TB gold, skin swab for varicella zoster virus PCR - recommend diagnostic thoracentesis of R sided effusion - continue IV vancomycin, azithromycin, pip/tazo (11/17/2016-) - for skin lesions: Dr. Mello instructed Pt's RN to swab the skin lesion for varicella zoster virus PCR test on 11/18/16. - continue empiric renally dosed acyclovir (11/17/2016-) until varicella is ruled out - airborne precautions until varicella is ruled out (test was performed on 2016), and droplet precautions until respiratory viruses are ruled out (tests were performed on 11/17/2016) - Mgmt d/w Pt's RN - Above d/w Dr. Mello Problems: Consultation Date/Type/Reason Admit Date/Time Nov 17, 2016 at 01:09 Initial Consult Date 11/17/16 Type of Consultation: Infectious Disease Referring Provider: BING IZAGUIRRE MD 24 HR Interval Summary Free Text/Dictation Going for thoracentesis tomorrow per d/w RN Rama. Unable to perform ROS d/t AMS. Exam/Review of Systems Vital Signs Vitals Vital Signs Date Time Temp Pulse Resp B/P Pulse Ox O2 Delivery O2 Flow Rate FiO2 11/20/16 18:12 2.0 11/20/16 16:19 98.2 76 18 124/60 99 11/20/16 08:00 Nasal Cannula Intake and Output 11/19/16 11/19/16 11/20/16 15:00 23:00 07:00 Intake Total 200 ml 720 ml Balance 200 ml 720 ml Exam Constitutional: alert, frail, other (Irish speaking but not coherent; laying in bed, appears restless and pt gown is off and at side of bed), well developed Psych: confusion Head: atraumatic, normocephalic Neck: supple Respiratory: diminished breath sounds Cardiovascular: nl pulses, regular rate and rhythm Gastrointestinal: soft, No non-tender Musculoskeletal: muscle weakness Extremities: No clubbing, No cyanosis, No edema Neurological: confused Skin: rash or lesions (left scapular with scabbing; limited examination as pt not cooperating with exam) Results Result Diagram: 11/20/1662111/20/1622 Results 24 hrs Laboratory Tests Test 11/20/16 02:16 11/20/16 06:22 11/20/16 09:11 11/20/16 12:37 Bedside Glucose 157 224 H 239 H White Blood Count 7.1 # Red Blood Count 3.30 L Hemoglobin 7.9 L Hematocrit 27.2 L Mean Corpuscular Volume 82.4 Mean Corpuscular Hemoglobin 23.9 L Mean Corpuscular Hemoglobin Concent 29.0 L Red Cell Distribution Width 15.9 H Platelet Count 376 Mean Platelet Volume 10.3 Neutrophils % 73.4 Lymphocytes % 12.0 L Monocytes % 11.8 H Eosinophils % 2.1 Basophils % 0.4 Nucleated Red Blood Cells % 0.0 Neutrophils # 5.2 Lymphocytes # 0.9 Monocytes # 0.8 Eosinophils # 0.2 Basophils # 0.0 Nucleated Red Blood Cells # 0.0 Sodium Level 130 L Potassium Level 3.6 Chloride Level 86 L Carbon Dioxide Level 24 Anion Gap 24 #H Blood Urea Nitrogen 41 #H Creatinine 4.76 #H Glucose Level 214 Calcium Level 8.4 Test 11/20/16 17:24 Bedside Glucose 216 Medications Medications Current Medications Acetaminophen (Tylenol Tab) 650 mg Q6H PRN PO PAIN AND OR ELEVATED TEMP Last administered on 11/20/16t 10:58; Admin Dose 650 MG; Start 11/17/16 at 09:00 Bisacodyl (Dulcolax Supp) 10 mg DAILY PRN [place] CONSTIPATION; Start 11/17/16 at 09 :00 Clonidine (Catapres) 0.1 mg Q6H PRN PO ELEVATED BLOOD PRESSURE; Start 11/17/16 at 09:00 Clonidine (Catapres) 0.2 mg TID PO Last administered on 11/20/16 12:45; Admin Dose 0.2 MG; Start 11/17/16 at 09:00 Clonidine HCl (Catapres-Tts 3 Patch) 0.3 patch Q7D TRANSDERM Last administered on 11/17/16 11:36; Admin Dose 0.3 PATCH; Start 11/17/16 at 10:00 Glucose (Glutose) 38 gm PRN PO Last administered on 11/17/16 22:36; Admin Dose 38 GM; Start 11/17/16 at 09:00 Diphenhydramine HCl (Benadryl) 25 mg Q8 PRN PO ITCHING; Start 11/17/16 at 09:00 Docusate Sodium (Colace) 250 mg DAILY PRN PO CONSTIPATION; Start 11/17/16 at 09 :00 Duloxetine HCl (Cymbalta) 60 mg DAILY PO Last administered on 11/20/16 09:17; Admin Dose 60 MG; Start 11/17/16 at 09:00 Guaifenesin/ Dextromethorphan (Robitussin Dm Liquid Cup) 10 ml Q6H PRN PO COUGH ; Start 11/17/16 at 09:00 Hydralazine HCl (Apresoline) 25 mg QID PO Last administered on 11/20/16 17:30; Admin Dose 25 MG; Start 11/17/16 at 09:00 Metoclopramide HCl (Reglan) 10 mg Q12 PRN PO NAUSEA AND/OR VOMITING; Start at 09:00 Minoxidil (Loniten) 10 mg BID PO Last administered on 11/20/16 09:42; Admin Dose 10 MG; Start 11/17/16 at 10:30 Nifedipine (Procardia Xl) 30 mg DAILY PO Last administered on 11/20/16 09:54; Admin Dose 30 MG; Start 11/17/16 at 10:00 Pantoprazole (Protonix Tab) 20 mg DAILY PO Last administered on 11/20/16 09:41 ; Admin Dose 20 MG; Start 11/17/16 at 09:00 Eye Lubricant (Artificial Tears Oph) 1 drop Q6 BOTH EYES Last administered on 17:27; Admin Dose 1 DROP; Start 11/17/16 at 12:00 Senna (Senokot) 1 tab Q12H PRN PO CONSTIPATION; Start 11/17/16 at 09:00 Zolpidem Tartrate (Ambien) 1 mg HS PO Last administered on 11/19/16 21:34; Admin Dose 1 MG; Start 11/17/16 at 21:00 Multivit/Ca Carb/ B Cmplx/FA/Prenat (Peyton-Ludwin) 1 tab DAILY PO Last administered on 11/20/16 09:53; Admin Dose 1 TAB; Start 11/17/16 at 09:00 Diagnostic Test (Pha) (Accu-Chek) 1 ea 02 XX Last administered on 11/19/16 02: 00; Admin Dose 1 EA; Start 11/18/16 at 02:00 Gabapentin (Neurontin) 100 mg TID PO Last administered on 11/20/16 12:46; Admin Dose 100 MG; Start 11/17/16 at 13:00 Miscellaneous Information 1 ea NOTE XX ; Start 11/17/16 at 10:00 Glucose (Glutose) 15 gm Q15M PRN PO DECREASED GLUCOSE; Start 11/17/16 at 10:00 Glucose (Glutose) 22.5 gm Q15M PRN PO DECREASED GLUCOSE; Start 11/17/16 at 10: 00 Dextrose (D50w Syringe) 25 ml Q15M PRN IV DECREASED GLUCOSE; Start 11/17/16 at 10:00 Dextrose (D50w Syringe) 50 ml Q15M PRN IV DECREASED GLUCOSE; Start 11/17/16 at 10:00 Glucagon (Glucagen) 1 mg Q15M PRN IM DECREASED GLUCOSE; Start 11/17/16 at 10:00 Glucose (Glutose) 15 gm Q15M PRN BUCCAL DECREASED GLUCOSE Last administered on 11/19/16 08:58; Admin Dose 15 GM; Start 11/17/16 at 10:00 Atorvastatin Calcium 10 mg 10 mg HS PO Last administered on 11/19/16 21:25; Admin Dose 10 MG; Start 11/17/16 at 21:00 Sodium Chloride 1,000 ml @ 30 mls/hr Q24H IV Last administered on 11/17/16 14 :11; Admin Dose 30 MLS/HR; Start 11/17/16 at 12:00 Azithromycin (Zithromax 500mg/ NS (Pmx)) 250 ml @ 250 mls/hr Q24H IVPB Last administered on 11/20/16 15:23; Admin Dose 250 MLS/HR; Start 11/17/16 at 15:00 Heparin Sodium (Porcine) (Heparin (5000 Units/0.5 ml)) 5,000 unit BID SC Last administered on 11/20/16 09:16; Admin Dose 5,000 UNIT; Start 11/17/16 at 13:00 Acyclovir (Zovirax) 800 mg BID PO Last administered on 11/20/16 09:17; Admin Dose 800 MG; Start 11/17/16 at 21:00 Acetaminophen/ Hydrocodone Bitart ([place] (5/325)) 1 tab Q6 PRN PO MODERATE PAIN LEVEL 4-6 Last administered on 11/20/16 03:07; Admin Dose 1 TAB; Start at 18:00 Morphine Sulfate (morphine) 2 mg Q4H PRN IV PAIN LEVEL 6-10 Last administered on 11/18/16 05:45; Admin Dose 2 MG; Start 11/17/16 at 17:30 Isosorbide Dinitrate (Isordil) 10 mg TID PO Last administered on 11/20/16 12:46 ; Admin Dose 10 MG; Start 11/17/16 at 21:00 Nitroglycerin 1 tab 1 tab Q5M PRN SL ANGINA; Start 11/17/16 at 18:30 Piperacillin Sod/ Tazobactam Sod (Zosyn 2.25gm/ 50ml (Pmx)) 50 ml @ 100 mls/hr Q12 IVPB Last administered on 11/20/16 09:40; Admin Dose 100 MLS/HR; Start at 21:00 Epoetin Luis (Epogen (Esrd)) 6,000 units MoWeFr@17 IV ; Start 11/18/16 at 17:00 Ferrous Sulfate (Ferrous Sulfate (Ec)) 325 mg BID PO Last administered on 09:17; Admin Dose 325 MG; Start 11/18/16 at 21:00 Docusate Sodium (Colace) 100 mg DAILY PRN PO CONSTIPATION; Start 11/18/16 at 10 :00 Linagliptin (Tradjenta) 5 mg DAILY PO Last administered on 11/20/16 09:42; Admin Dose 5 MG; Start 11/18/16 at 14:00 Meclizine HCl (Antivert) 25 mg Q6 PRN PO dizziness Last administered on 12:44; Admin Dose 25 MG; Start 11/20/16 at 12:30 Insulin Detemir (Levemir) 11 unit DAILY@20 SC ; Start 11/20/16 at 20:00 VITALY MELLO M.D. 11/21/16 1906: Assessment/Plan Assessment/Plan Chief Complaint/Hosp Course Funmilayo attestation: I discussed the management with MARIJA Walker and agree with above. Problems: Exam/Review of Systems Results Result Diagram: 11/20/1662111/20/16621 JUAN MANUEL WALKER NP Nov 20, 2016 20:13 VITALY MELLO M.D. Nov 21, 2016 19:06
[2016-11-20] MEDS: INSULIN DETEMIR [LEVEMIR] 3ML CART SC SCH (21:09)
[2016-11-20] MEDS: ZOLPIDEM 5 MG TAB PO SCH (21:12)
[2016-11-20] MEDS: ATORVASTATIN 10 MG TAB PO SCH (21:13)
[2016-11-20] MEDS: morphine 2 MG INJ IV PRN (21:40)
[2016-11-21] VITALS (25 sets, daily range): BP systolic 90–195; BP diastolic 51–88; PULSE 69–111; RESP 16–22
[2016-11-21] MEDS: ARTIFICIAL TEARS 15 ML OPH BOTH EYES SCH ×5 (00:21→23:52)
[2016-11-21] MEDS: ACCU-CHEK XX SCH (02:00)
[2016-11-21] MEDS: ALBUTEROL/IPRATROPIUM (NEB) 3 ML AMP NEB PRN ×3 (05:33→14:14)
[2016-11-21 08:00] LABS: ADD SCAN DIFF NO
[2016-11-21 08:10] LABS: ABNORMAL IP MESSAGE 1; BASOPHILS % 0.3 % (0.0-2.0); EOSINOPHILS % 0.1 % (0.0-7.0); HEMOGLOBIN 8.6 g/dl (12.0-16.0); LYMPHOCYTES # 0.5 10^3/ul (0.8-2.9); LYMPHOCYTES % 5.2 % (15.0-51.0); MEAN CORPUSCULAR HEMOGLOBIN 23.8 pg (29.0-33.0); MEAN CORPUSCULAR HGB CONC 28.7 g/dl (32.0-37.0); MEAN CORPUSCULAR VOLUME 82.9 fl (82.0-101.0); MEAN PLATELET VOLUME 10.8 fl (7.4-10.4); MONOCYTE # 0.9 10^3/ul (0.3-0.9); MONOCYTES % 9.3 % (0.0-11.0); NEUTROPHIL # 7.9 10^3/ul (1.6-7.5); NEUTROPHILS % 84.6 % (39.0-77.0); NUCLEATED RED BLOOD CELLS% 0.3 /100WBC (0.0-0.0); PLATELET COUNT 371 10^3/UL (140-415); RED BLOOD COUNT 3.62 10^6/ul (4.20-5.40); RED CELL DISTRIBUTION WIDTH 15.9 % (11.5-14.5); WHITE BLOOD COUNT 9.3 10^3/ul (4.8-10.8)
[2016-11-21 08:21] LABS: POTASSIUM 4.4 mmol/L (3.5-5.1)
[2016-11-21 08:23] LABS: CREATININE 5.36 mg/dl (0.44-1.00)
[2016-11-21 08:24] LABS: CALCIUM 8.3 mg/dl (8.4-10.2)
[2016-11-21] MEDS: HEPARIN 5,000 UNIT/0.5 ML VIAL SC SCH ×2 (10:11→21:36)
[2016-11-21] MEDS: INSULIN ASPART [NOVOLOG] 3 ML PEN SC SCH ×7 (10:11→21:00)
[2016-11-21] MEDS: PIPER-TAZO 2.25 GM (PMX) 50 ML IVPB SCH ×2 (10:12→20:45)
[2016-11-21] MEDS: DULOXETINE 30 MG CAP DR PO SCH (10:13)
[2016-11-21] MEDS: SUCRALFATE 1 GM TAB PO SCH ×2 (10:13→16:38)
[2016-11-21] MEDS: MINOXIDIL 10 MG TAB PO SCH ×2 (10:13→20:59)
[2016-11-21] MEDS: ACYCLOVIR 800 MG TAB PO SCH ×2 (10:13→21:00)
[2016-11-21] MEDS: GABAPENTIN 100 MG CAP PO SCH ×4 (10:13→21:00)
[2016-11-21] MEDS: NIFEdipine (XL) 30 MG TAB PO SCH (10:13)
[2016-11-21] MEDS: FERROUS SULFATE (EC) 325 MG TAB PO SCH ×2 (10:14→20:59)
[2016-11-21] MEDS: ISOSORBIDE DINITRATE 10 MG TAB PO SCH ×4 (10:14→20:59)
[2016-11-21] MEDS: PANTOPRAZOLE (EC) 40 MG TAB PO SCH (10:14)
[2016-11-21] MEDS: LINAGLIPTIN 5 MG TABLET PO SCH (10:14)
[2016-11-21] MEDS: MULTIVIT/CA CARB/B CMPLX/FA TAB PO SCH (10:14)
--- NOTE | 2016-11-21 11:02 | CONS ---
Date/Time of Note Date/Time of Note DATE: 11/21/16 TIME: 11:02 Assessment/Plan Assessment/Plan Additional Assessment/Plan 71 Female with 1) B/L PNA 2) Pleural Effusion 3) ESRD on HD 4) Hypokalemia 5) Anemia, Chronic Disease 6) Mineral bone disease, ESRD 7) DM with Renal Complication 8) Chronic HTN HD today, UF as tolerated. Cont ED with HD Cont Oral Iron, ordered bid Colace for constipation Dose Abx Rx to ESRD HD MWF schedule Consultation Date/Type/Reason Admit Date/Time Nov 17, 2016 at 01:09 Initial Consult Date 11/17/16 Type of Consultation: Renal Referring Provider: BING IZAGUIRRE MD Exam/Review of Systems Vital Signs Vitals Vital Signs Date Time Temp Pulse Resp B/P Pulse Ox O2 Delivery O2 Flow Rate FiO2 11/21/16 08:15 79 11/21/16 07:54 97.2 18 129/87 97 11/21/16 05:41 2.0 11/21/16 05:30 Nasal Cannula Intake and Output 11/20/16 11/20/16 11/21/16 15:00 23:00 07:00 Intake Total 50 ml 800 ml 300 ml Balance 50 ml 800 ml 300 ml Results Result Diagram: 11/21/16 0738 11/21/16 0738 Results 24 hrs Laboratory Tests Test 11/20/16 12:37 11/20/16 17:24 11/20/16 21:00 11/21/16 02:15 Bedside Glucose 239 H 216 215 136 Test 11/21/16 07:38 11/21/16 08:09 White Blood Count 9.3 # Red Blood Count 3.62 L Hemoglobin 8.6 L Hematocrit 30.0 L Mean Corpuscular Volume 82.9 Mean Corpuscular Hemoglobin 23.8 L Mean Corpuscular Hemoglobin Concent 28.7 L Red Cell Distribution Width 15.9 H Platelet Count 371 Mean Platelet Volume 10.8 H Neutrophils % 84.6 H Lymphocytes % 5.2 L Monocytes % 9.3 Eosinophils % 0.1 Basophils % 0.3 Nucleated Red Blood Cells % 0.3 H Neutrophils # 7.9 H Lymphocytes # 0.5 L Monocytes # 0.9 Eosinophils # 0.0 Basophils # 0.0 Nucleated Red Blood Cells # 0.0 Sodium Level 126 L Potassium Level 4.4 Chloride Level 88 L Carbon Dioxide Level 20 L Anion Gap 22 H Blood Urea Nitrogen 52 H Creatinine 5.36 H Glucose Level 141 # Calcium Level 8.3 L Bedside Glucose 146 Medications Medications Current Medications Acetaminophen (Tylenol Tab) 650 mg Q6H PRN PO PAIN AND OR ELEVATED TEMP Last administered on 11/20/16 10:58; Admin Dose 650 MG; Start 11/17/16 at 09:00 Bisacodyl (Dulcolax Supp) 10 mg DAILY PRN [place] CONSTIPATION; Start 11/17/16 at 09 :00 Clonidine (Catapres) 0.1 mg Q6H PRN PO ELEVATED BLOOD PRESSURE; Start 11/17/16 at 09:00 Clonidine (Catapres) 0.2 mg TID PO Last administered on 11/21/16 10:15; Admin Dose 0.2 MG; Start 11/17/16 at 09:00 Clonidine HCl (Catapres-Tts 3 Patch) 0.3 patch Q7D TRANSDERM Last administered on 11/17/16 11:36; Admin Dose 0.3 PATCH; Start 11/17/16 at 10:00 Glucose (Glutose) 38 gm PRN PO Last administered on 11/17/16 22:36; Admin Dose 38 GM; Start 11/17/16 at 09:00 Diphenhydramine HCl (Benadryl) 25 mg Q8 PRN PO ITCHING; Start 11/17/16 at 09:00 Docusate Sodium (Colace) 250 mg DAILY PRN PO CONSTIPATION; Start 11/17/16 at 09 :00 Duloxetine HCl (Cymbalta) 60 mg DAILY PO Last administered on 11/21/16 10:13; Admin Dose 60 MG; Start 11/17/16 at 09:00 Guaifenesin/ Dextromethorphan (Robitussin Dm Liquid Cup) 10 ml Q6H PRN PO COUGH ; Start 11/17/16 at 09:00 Hydralazine HCl (Apresoline) 25 mg QID PO Last administered on 11/21/16 10:15; Admin Dose 25 MG; Start 11/17/16 at 09:00 Metoclopramide HCl (Reglan) 10 mg Q12 PRN PO NAUSEA AND/OR VOMITING; Start at 09:00 Minoxidil (Loniten) 10 mg BID PO Last administered on 11/21/16 10:13; Admin Dose 10 MG; Start 11/17/16 at 10:30 Nifedipine (Procardia Xl) 30 mg DAILY PO Last administered on 11/21/16 10:13; Admin Dose 30 MG; Start 11/17/16 at 10:00 Pantoprazole (Protonix Tab) 20 mg DAILY PO Last administered on 11/21/16 10:14 ; Admin Dose 20 MG; Start 11/17/16 at 09:00 Eye Lubricant (Artificial Tears Oph) 1 drop Q6 BOTH EYES Last administered on 05:25; Admin Dose 1 DROP; Start 11/17/16 at 12:00 Senna (Senokot) 1 tab Q12H PRN PO CONSTIPATION; Start 11/17/16 at 09:00 Zolpidem Tartrate (Ambien) 1 mg HS PO Last administered on 11/20/16 21:12; Admin Dose 1 MG; Start 11/17/16 at 21:00 Multivit/Ca Carb/ B Cmplx/FA/Prenat (Peyton-Ludwin) 1 tab DAILY PO Last administered on 11/21/16 10:14; Admin Dose 1 TAB; Start 11/17/16 at 09:00 Diagnostic Test (Pha) (Accu-Chek) 1 ea 02 XX Last administered on 11/19/16 02: 00; Admin Dose 1 EA; Start 11/18/16 at 02:00 Gabapentin (Neurontin) 100 mg TID PO Last administered on 11/21/16 10:13; Admin Dose 100 MG; Start 11/17/16 at 13:00 Miscellaneous Information 1 ea NOTE XX ; Start 11/17/16 at 10:00 Glucose (Glutose) 15 gm Q15M PRN PO DECREASED GLUCOSE; Start 11/17/16 at 10:00 Glucose (Glutose) 22.5 gm Q15M PRN PO DECREASED GLUCOSE; Start 11/17/16 at 10: 00 Dextrose (D50w Syringe) 25 ml Q15M PRN IV DECREASED GLUCOSE; Start 11/17/16 at 10:00 Dextrose (D50w Syringe) 50 ml Q15M PRN IV DECREASED GLUCOSE; Start 11/17/16 at 10:00 Glucagon (Glucagen) 1 mg Q15M PRN IM DECREASED GLUCOSE; Start 11/17/16 at 10:00 Glucose (Glutose) 15 gm Q15M PRN BUCCAL DECREASED GLUCOSE Last administered on 11/19/16 08:58; Admin Dose 15 GM; Start 11/17/16 at 10:00 Atorvastatin Calcium 10 mg 10 mg HS PO Last administered on 11/20/16 21:13; Admin Dose 10 MG; Start 11/17/16 at 21:00 Sodium Chloride 1,000 ml @ 30 mls/hr Q24H IV Last administered on 11/17/16 14 :11; Admin Dose 30 MLS/HR; Start 11/17/16 at 12:00 Azithromycin (Zithromax 500mg/ NS (Pmx)) 250 ml @ 250 mls/hr Q24H IVPB Last administered on 11/20/16 15:23; Admin Dose 250 MLS/HR; Start 11/17/16 at 15:00 Heparin Sodium (Porcine) (Heparin (5000 Units/0.5 ml)) 5,000 unit BID SC Last administered on 11/21/16 10:11; Admin Dose 5,000 UNIT; Start 11/17/16 at 13:00 Acyclovir (Zovirax) 800 mg BID PO Last administered on 11/21/16 10:13; Admin Dose 800 MG; Start 11/17/16 at 21:00 Acetaminophen/ Hydrocodone Bitart ([place] (5/325)) 1 tab Q6 PRN PO MODERATE PAIN LEVEL 4-6 Last administered on 11/20/16 03:07; Admin Dose 1 TAB; Start at 18:00 Morphine Sulfate (morphine) 2 mg Q4H PRN IV PAIN LEVEL 6-10 Last administered on 11/20/16 21:40; Admin Dose 2 MG; Start 11/17/16 at 17:30 Isosorbide Dinitrate (Isordil) 10 mg TID PO Last administered on 11/21/16 10:14 ; Admin Dose 10 MG; Start 11/17/16 at 21:00 Nitroglycerin 1 tab 1 tab Q5M PRN SL ANGINA; Start 11/17/16 at 18:30 Piperacillin Sod/ Tazobactam Sod (Zosyn 2.25gm/ 50ml (Pmx)) 50 ml @ 100 mls/hr Q12 IVPB Last administered on 11/21/16 10:12; Admin Dose 100 MLS/HR; Start at 21:00 Epoetin Luis (Epogen (Esrd)) 6,000 units MoWeFr@17 IV ; Start 11/18/16 at 17:00 Ferrous Sulfate (Ferrous Sulfate (Ec)) 325 mg BID PO Last administered on 10:14; Admin Dose 325 MG; Start 11/18/16 at 21:00 Docusate Sodium (Colace) 100 mg DAILY PRN PO CONSTIPATION; Start 11/18/16 at 10 :00 Linagliptin (Tradjenta) 5 mg DAILY PO Last administered on 11/21/16 10:14; Admin Dose 5 MG; Start 11/18/16 at 14:00 Meclizine HCl (Antivert) 25 mg Q6 PRN PO dizziness Last administered on 12:44; Admin Dose 25 MG; Start 11/20/16 at 12:30 Insulin Detemir (Levemir) 11 unit DAILY@20 SC Last administered on 11/20/16 21: 09; Admin Dose 11 UNIT; Start 11/20/16 at 20:00 LYNN SEBASTIAN MD Nov 21, 2016 11:02
[2016-11-21] MEDS: SOD CHLORIDE 0.45% 1,000 ML IV SCH (12:00)
--- NOTE | 2016-11-21 13:01 | CONS ---
Date/Time of Note Date/Time of Note DATE: 11/21/16 TIME: 12:59 Assessment/Plan Assessment/Plan Chief Complaint/Hosp Course - sepsis due to pneumonia/bronchitis - pneumonia/bronchitis with possible parapneumonic effusion - pleuritic chest pain/myalgia of the chest - productive cough - moderate-large R sided pleural effusion - poor dentition - scaly rash, possible VZV infection - CHF - ESRD, on HD - DM with episode of hypoglycemia - Hgb A1c 7.6% - h/o CVA - s/p CCY - hypothyroidism recommendations - pending: respiratory virus PCR panel, (send out to [email or web address]), mycoplasma pneumoniae NAAT, legionella antibody, cocci serology, skin swab for varicella zoster virus PCR - ordered: cultures (bacterial, anaerobe, fungal and AFB), protein, LDH, glu, cytology of pleural fluid from thoracentesis - continue IV vancomycin, azithromycin, pip/tazo (11/17/2016-) - continue empiric renally dosed acyclovir (11/17/2016-) until varicella is ruled out - airborne precautions until varicella is ruled out (test was performed on 2016), and droplet precautions until respiratory viruses are ruled out (tests were performed on 11/17/2016) management d/w Pt's RN Problems: Consultation Date/Type/Reason Admit Date/Time Nov 17, 2016 at 01:09 Initial Consult Date 11/17/16 Type of Consultation: ID Referring Provider: BING IZAGUIRRE MD 24 HR Interval Summary Subjective hx not possible: pt non-verbal Exam/Review of Systems Vital Signs Vitals Vital Signs Date Time Temp Pulse Resp B/P Pulse Ox O2 Delivery O2 Flow Rate FiO2 11/21/16 12:15 76 11/21/16 12:06 98.6 18 122/67 98 11/21/16 12:04 2.0 11/21/16 08:45 Nasal Cannula Intake and Output 11/20/16 11/20/16 11/21/16 15:00 23:00 07:00 Intake Total 50 ml 800 ml 300 ml Balance 50 ml 800 ml 300 ml Exam Constitutional: frail, non-verbal Psych: confusion Head: atraumatic, normocephalic Eyes: nl conjunctiva, nl lids ENMT: nl external ears & nose, nl nasal mucosa & septum Respiratory: diminished breath sounds Cardiovascular: nl pulses, regular rate and rhythm Gastrointestinal: non-tender, soft Extremities: normal pulses Results Result Diagram: 11/21/16 0738 11/21/16 0738 Results 24 hrs Laboratory Tests Test 11/20/16 17:24 11/20/16 21:00 11/21/16 02:15 11/21/16 07:38 Bedside Glucose 216 215 136 White Blood Count 9.3 # Red Blood Count 3.62 L Hemoglobin 8.6 L Hematocrit 30.0 L Mean Corpuscular Volume 82.9 Mean Corpuscular Hemoglobin 23.8 L Mean Corpuscular Hemoglobin Concent 28.7 L Red Cell Distribution Width 15.9 H Platelet Count 371 Mean Platelet Volume 10.8 H Neutrophils % 84.6 H Lymphocytes % 5.2 L Monocytes % 9.3 Eosinophils % 0.1 Basophils % 0.3 Nucleated Red Blood Cells % 0.3 H Neutrophils # 7.9 H Lymphocytes # 0.5 L Monocytes # 0.9 Eosinophils # 0.0 Basophils # 0.0 Nucleated Red Blood Cells # 0.0 Sodium Level 126 L Potassium Level 4.4 Chloride Level 88 L Carbon Dioxide Level 20 L Anion Gap 22 H Blood Urea Nitrogen 52 H Creatinine 5.36 H Glucose Level 141 # Calcium Level 8.3 L Test 11/21/16 08:09 11/21/16 11:15 Bedside Glucose 146 117 Medications Medications Current Medications Acetaminophen (Tylenol Tab) 650 mg Q6H PRN PO PAIN AND OR ELEVATED TEMP Last administered on 11/20/16 10:58; Admin Dose 650 MG; Start 11/17/16 at 09:00 Bisacodyl (Dulcolax Supp) 10 mg DAILY PRN [place] CONSTIPATION; Start 11/17/16 at 09 :00 Clonidine (Catapres) 0.1 mg Q6H PRN PO ELEVATED BLOOD PRESSURE; Start 11/17/16 at 09:00 Clonidine (Catapres) 0.2 mg TID PO Last administered on 11/21/16 10:15; Admin Dose 0.2 MG; Start 11/17/16 at 09:00 Clonidine HCl (Catapres-Tts 3 Patch) 0.3 patch Q7D TRANSDERM Last administered on 11/17/16 11:36; Admin Dose 0.3 PATCH; Start 11/17/16 at 10:00 Glucose (Glutose) 38 gm PRN PO Last administered on 11/17/16 22:36; Admin Dose 38 GM; Start 11/17/16 at 09:00 Diphenhydramine HCl (Benadryl) 25 mg Q8 PRN PO ITCHING; Start 11/17/16 at 09:00 Docusate Sodium (Colace) 250 mg DAILY PRN PO CONSTIPATION; Start 11/17/16 at 09 :00 Duloxetine HCl (Cymbalta) 60 mg DAILY PO Last administered on 11/21/16 10:13; Admin Dose 60 MG; Start 11/17/16 at 09:00 Guaifenesin/ Dextromethorphan (Robitussin Dm Liquid Cup) 10 ml Q6H PRN PO COUGH ; Start 11/17/16 at 09:00 Hydralazine HCl (Apresoline) 25 mg QID PO Last administered on 11/21/16 10:15; Admin Dose 25 MG; Start 11/17/16 at 09:00 Metoclopramide HCl (Reglan) 10 mg Q12 PRN PO NAUSEA AND/OR VOMITING; Start at 09:00 Minoxidil (Loniten) 10 mg BID PO Last administered on 11/21/16 10:13; Admin Dose 10 MG; Start 11/17/16 at 10:30 Nifedipine (Procardia Xl) 30 mg DAILY PO Last administered on 11/21/16 10:13; Admin Dose 30 MG; Start 11/17/16 at 10:00 Pantoprazole (Protonix Tab) 20 mg DAILY PO Last administered on 11/21/16 10:14 ; Admin Dose 20 MG; Start 11/17/16 at 09:00 Eye Lubricant (Artificial Tears Oph) 1 drop Q6 BOTH EYES Last administered on 05:25; Admin Dose 1 DROP; Start 11/17/16 at 12:00 Senna (Senokot) 1 tab Q12H PRN PO CONSTIPATION; Start 11/17/16 at 09:00 Zolpidem Tartrate (Ambien) 1 mg HS PO Last administered on 11/20/16 21:12; Admin Dose 1 MG; Start 11/17/16 at 21:00 Multivit/Ca Carb/ B Cmplx/FA/Prenat (Peyton-Ludwin) 1 tab DAILY PO Last administered on 11/21/16 10:14; Admin Dose 1 TAB; Start 11/17/16 at 09:00 Diagnostic Test (Pha) (Accu-Chek) 1 ea 02 XX Last administered on 11/19/16 02: 00; Admin Dose 1 EA; Start 11/18/16 at 02:00 Gabapentin (Neurontin) 100 mg TID PO Last administered on 11/21/16 10:13; Admin Dose 100 MG; Start 11/17/16 at 13:00 Miscellaneous Information 1 ea NOTE XX ; Start 11/17/16 at 10:00 Glucose (Glutose) 15 gm Q15M PRN PO DECREASED GLUCOSE; Start 11/17/16 at 10:00 Glucose (Glutose) 22.5 gm Q15M PRN PO DECREASED GLUCOSE; Start 11/17/16 at 10: 00 Dextrose (D50w Syringe) 25 ml Q15M PRN IV DECREASED GLUCOSE; Start 11/17/16 at 10:00 Dextrose (D50w Syringe) 50 ml Q15M PRN IV DECREASED GLUCOSE; Start 11/17/16 at 10:00 Glucagon (Glucagen) 1 mg Q15M PRN IM DECREASED GLUCOSE; Start 11/17/16 at 10:00 Glucose (Glutose) 15 gm Q15M PRN BUCCAL DECREASED GLUCOSE Last administered on 11/19/16 08:58; Admin Dose 15 GM; Start 11/17/16 at 10:00 Atorvastatin Calcium 10 mg 10 mg HS PO Last administered on 11/20/16 21:13; Admin Dose 10 MG; Start 11/17/16 at 21:00 Azithromycin (Zithromax 500mg/ NS (Pmx)) 250 ml @ 250 mls/hr Q24H IVPB Last administered on 11/20/16 15:23; Admin Dose 250 MLS/HR; Start 11/17/16 at 15:00 Heparin Sodium (Porcine) (Heparin (5000 Units/0.5 ml)) 5,000 unit BID SC Last administered on 11/21/16 10:11; Admin Dose 5,000 UNIT; Start 11/17/16 at 13:00 Acyclovir (Zovirax) 800 mg BID PO Last administered on 11/21/16 10:13; Admin Dose 800 MG; Start 11/17/16 at 21:00 Acetaminophen/ Hydrocodone Bitart ([place] (5/325)) 1 tab Q6 PRN PO MODERATE PAIN LEVEL 4-6 Last administered on 11/20/16 03:07; Admin Dose 1 TAB; Start at 18:00 Morphine Sulfate (morphine) 2 mg Q4H PRN IV PAIN LEVEL 6-10 Last administered on 11/20/16 21:40; Admin Dose 2 MG; Start 11/17/16 at 17:30 Isosorbide Dinitrate (Isordil) 10 mg TID PO Last administered on 11/21/16 10:14 ; Admin Dose 10 MG; Start 11/17/16 at 21:00 Nitroglycerin 1 tab 1 tab Q5M PRN SL ANGINA; Start 11/17/16 at 18:30 Piperacillin Sod/ Tazobactam Sod (Zosyn 2.25gm/ 50ml (Pmx)) 50 ml @ 100 mls/hr Q12 IVPB Last administered on 11/21/16 10:12; Admin Dose 100 MLS/HR; Start at 21:00 Epoetin Luis (Epogen (Esrd)) 6,000 units MoWeFr@17 IV ; Start 11/18/16 at 17:00 Ferrous Sulfate (Ferrous Sulfate (Ec)) 325 mg BID PO Last administered on 10:14; Admin Dose 325 MG; Start 11/18/16 at 21:00 Docusate Sodium (Colace) 100 mg DAILY PRN PO CONSTIPATION; Start 11/18/16 at 10 :00 Linagliptin (Tradjenta) 5 mg DAILY PO Last administered on 11/21/16 10:14; Admin Dose 5 MG; Start 11/18/16 at 14:00 Meclizine HCl (Antivert) 25 mg Q6 PRN PO dizziness Last administered on 12:44; Admin Dose 25 MG; Start 11/20/16 at 12:30 Insulin Detemir (Levemir) 11 unit DAILY@20 SC Last administered on 11/20/16 21: 09; Admin Dose 11 UNIT; Start 11/20/16 at 20:00 Miscellaneous Information (*Rx Drug Level Order Reminder*) RANDOM VANCOMYCIN LEVEL ... ONCE ONCE XX ; Start 11/22/16 at 05:00; Stop 11/22/16 at 05:01 VITALY WADDELL M.D. Nov 21, 2016 13:01
[2016-11-21 14:17] LABS: Allen Test ACCEPTAB; Arterial Base Excess -2.5 mmol/L (-3.0-3); Arterial COHb 1.2 % (0.0-3.0); Arterial Fraction of Oxyhgb 90.8 % (93.0-99.0); Arterial HCO3 23.9 mmol/L (22.0-26.0); Arterial MetHb 0.3 % (0.0-1.5); Arterial Total Hemglobin 9.6 g/dl (12.0-18.0); MODE NASAL CANNULA
--- NOTE | 2016-11-21 14:29 | CONS ---
Date/Time of Note Date/Time of Note DATE: 11/21/16 TIME: 14:23 Assessment/Plan Assessment/Plan Additional Assessment/Plan Assessment recommendations; next 1. Patient admitted with bilateral pneumonia. 2. Congestive heart failure. 3. Clinical decompensation. 4. Mild metabolic acidosis. Start the patient on BiPAP. Transfer to ICU. Will obtain a stat chest x-ray. Continue current treatment. Patient may need to be intubated if she does not improve on BiPAP. Consultation Date/Type/Reason Admit Date/Time Nov 17, 2016 at 01:09 Initial Consult Date 11/17/16 Type of Consultation: Pulmonary Referring Provider: BING IZAGUIRRE MD 24 HR Interval Summary Free Text/Dictation Patient condition is tenuous at best. Patient having episodes of increased agitation and shortness of breath. General exam; elderly woman, appears in distress. Exam/Review of Systems Vital Signs Vitals Vital Signs Date Time Temp Pulse Resp B/P Pulse Ox O2 Delivery O2 Flow Rate FiO2 11/21/16 12:15 76 11/21/16 12:06 98.6 18 122/67 98 11/21/16 12:04 2.0 11/21/16 08:45 Nasal Cannula Intake and Output 11/20/16 11/20/16 11/21/16 15:00 23:00 07:00 Intake Total 50 ml 800 ml 300 ml Balance 50 ml 800 ml 300 ml Exam HEENT exam is; supple neck, positive JVD. No lymphadenopathy. Midline trachea. No thyromegaly. Chest exam; diminished breath sounds throughout. S1-S2 audible, no murmurs. Regular rhythm. Abdomen examination; soft, nondistended. Bowel sounds audible. Extremity exam ; no peripheral edema. NATURAL RESOURCE SPECIALIST exam ; patient is awake alert and able to respond to some questions. Results Result Diagram: 11/21/16 0738 11/21/16 0738 Results 24 hrs Laboratory Tests Test 11/20/16 17:24 11/20/16 21:00 11/21/16 02:15 11/21/16 07:38 Bedside Glucose 216 215 136 White Blood Count 9.3 # Red Blood Count 3.62 L Hemoglobin 8.6 L Hematocrit 30.0 L Mean Corpuscular Volume 82.9 Mean Corpuscular Hemoglobin 23.8 L Mean Corpuscular Hemoglobin Concent 28.7 L Red Cell Distribution Width 15.9 H Platelet Count 371 Mean Platelet Volume 10.8 H Neutrophils % 84.6 H Lymphocytes % 5.2 L Monocytes % 9.3 Eosinophils % 0.1 Basophils % 0.3 Nucleated Red Blood Cells % 0.3 H Neutrophils # 7.9 H Lymphocytes # 0.5 L Monocytes # 0.9 Eosinophils # 0.0 Basophils # 0.0 Nucleated Red Blood Cells # 0.0 Sodium Level 126 L Potassium Level 4.4 Chloride Level 88 L Carbon Dioxide Level 20 L Anion Gap 22 H Blood Urea Nitrogen 52 H Creatinine 5.36 H Glucose Level 141 # Calcium Level 8.3 L Test 11/21/16 08:09 11/21/16 11:15 11/21/16 13:48 Bedside Glucose 146 117 Blood Gas Specimen Source Blood arterial Arterial Blood Date Drawn 11/21/2016 2:06:23 PM Arterial Blood pH (Temp corrected) 7.305 L Arterial Blood pCO2 (Temp correct) 49.1 H Arterial Blood pO2 (Temp corrected) 73.5 L Arterial Blood HCO3 23.9 Arterial Blood Base Excess -2.5 Arterial Blood Oxygen Saturation 92.2 L Óscar Test ACCEPTAB Arterial Blood Gas Puncture Site Left Radial Arterial Blood Carboxyhemoglobin 1.2 Arterial Blood Methemoglobin 0.3 Blood Gas A-a O2 Differential 61.0 H Oxyhemoglobin Percent 90.8 L Total Hemoglobin 9.6 L Blood Gas Temperature 37.0 Blood Gas Modality NASAL CANNULA FiO2 27.0 Blood Gas Notified Whom JLD Blood Gas Notified Time 11/21/2016 2:16:57 PM Medications Medications Current Medications Acetaminophen (Tylenol Tab) 650 mg Q6H PRN PO PAIN AND OR ELEVATED TEMP Last administered on 11/20/16 10:58; Admin Dose 650 MG; Start 11/17/16 at 09:00 Bisacodyl (Dulcolax Supp) 10 mg DAILY PRN [place] CONSTIPATION; Start 11/17/16 at 09 :00 Clonidine (Catapres) 0.1 mg Q6H PRN PO ELEVATED BLOOD PRESSURE; Start 11/17/16 at 09:00 Clonidine (Catapres) 0.2 mg TID PO Last administered on 11/21/16 13:17; Admin Dose 0.2 MG; Start 11/17/16 at 09:00 Clonidine HCl (Catapres-Tts 3 Patch) 0.3 patch Q7D TRANSDERM Last administered on 11/17/16 11:36; Admin Dose 0.3 PATCH; Start 11/17/16 at 10:00 Glucose (Glutose) 38 gm PRN PO Last administered on 11/17/16 22:36; Admin Dose 38 GM; Start 11/17/16 at 09:00 Diphenhydramine HCl (Benadryl) 25 mg Q8 PRN PO ITCHING; Start 11/17/16 at 09:00 Docusate Sodium (Colace) 250 mg DAILY PRN PO CONSTIPATION; Start 11/17/16 at 09 :00 Duloxetine HCl (Cymbalta) 60 mg DAILY PO Last administered on 11/21/16 10:13; Admin Dose 60 MG; Start 11/17/16 at 09:00 Guaifenesin/ Dextromethorphan (Robitussin Dm Liquid Cup) 10 ml Q6H PRN PO COUGH ; Start 11/17/16 at 09:00 Hydralazine HCl (Apresoline) 25 mg QID PO Last administered on 11/21/16 13:17; Admin Dose 25 MG; Start 11/17/16 at 09:00 Metoclopramide HCl (Reglan) 10 mg Q12 PRN PO NAUSEA AND/OR VOMITING; Start at 09:00 Minoxidil (Loniten) 10 mg BID PO Last administered on 11/21/16 10:13; Admin Dose 10 MG; Start 11/17/16 at 10:30 Nifedipine (Procardia Xl) 30 mg DAILY PO Last administered on 11/21/16 10:13; Admin Dose 30 MG; Start 11/17/16 at 10:00 Pantoprazole (Protonix Tab) 20 mg DAILY PO Last administered on 11/21/16 10:14 ; Admin Dose 20 MG; Start 11/17/16 at 09:00 Eye Lubricant (Artificial Tears Oph) 1 drop Q6 BOTH EYES Last administered on 13:16; Admin Dose 1 DROP; Start 11/17/16 at 12:00 Senna (Senokot) 1 tab Q12H PRN PO CONSTIPATION; Start 11/17/16 at 09:00 Zolpidem Tartrate (Ambien) 1 mg HS PO Last administered on 11/20/16 21:12; Admin Dose 1 MG; Start 11/17/16 at 21:00 Multivit/Ca Carb/ B Cmplx/FA/Prenat (Peyton-Ludwin) 1 tab DAILY PO Last administered on 11/21/16 10:14; Admin Dose 1 TAB; Start 11/17/16 at 09:00 Diagnostic Test (Pha) (Accu-Chek) 1 ea 02 XX Last administered on 11/19/16 02: 00; Admin Dose 1 EA; Start 11/18/16 at 02:00 Gabapentin (Neurontin) 100 mg TID PO Last administered on 11/21/16 13:16; Admin Dose 100 MG; Start 11/17/16 at 13:00 Miscellaneous Information 1 ea NOTE XX ; Start 11/17/16 at 10:00 Glucose (Glutose) 15 gm Q15M PRN PO DECREASED GLUCOSE; Start 11/17/16 at 10:00 Glucose (Glutose) 22.5 gm Q15M PRN PO DECREASED GLUCOSE; Start 11/17/16 at 10: 00 Dextrose (D50w Syringe) 25 ml Q15M PRN IV DECREASED GLUCOSE; Start 11/17/16 at 10:00 Dextrose (D50w Syringe) 50 ml Q15M PRN IV DECREASED GLUCOSE; Start 11/17/16 at 10:00 Glucagon (Glucagen) 1 mg Q15M PRN IM DECREASED GLUCOSE; Start 11/17/16 at 10:00 Glucose (Glutose) 15 gm Q15M PRN BUCCAL DECREASED GLUCOSE Last administered on 11/19/16 08:58; Admin Dose 15 GM; Start 11/17/16 at 10:00 Atorvastatin Calcium 10 mg 10 mg HS PO Last administered on 11/20/16 21:13; Admin Dose 10 MG; Start 11/17/16 at 21:00 Azithromycin (Zithromax 500mg/ NS (Pmx)) 250 ml @ 250 mls/hr Q24H IVPB Last administered on 11/20/16 15:23; Admin Dose 250 MLS/HR; Start 11/17/16 at 15:00 Heparin Sodium (Porcine) (Heparin (5000 Units/0.5 ml)) 5,000 unit BID SC Last administered on 11/21/16 10:11; Admin Dose 5,000 UNIT; Start 11/17/16 at 13:00 Acyclovir (Zovirax) 800 mg BID PO Last administered on 11/21/16 10:13; Admin Dose 800 MG; Start 11/17/16 at 21:00 Acetaminophen/ Hydrocodone Bitart ([place] (5/325)) 1 tab Q6 PRN PO MODERATE PAIN LEVEL 4-6 Last administered on 11/20/16 03:07; Admin Dose 1 TAB; Start at 18:00 Morphine Sulfate (morphine) 2 mg Q4H PRN IV PAIN LEVEL 6-10 Last administered on 11/20/16 21:40; Admin Dose 2 MG; Start 11/17/16 at 17:30 Isosorbide Dinitrate (Isordil) 10 mg TID PO Last administered on 11/21/16 13:16 ; Admin Dose 10 MG; Start 11/17/16 at 21:00 Nitroglycerin 1 tab 1 tab Q5M PRN SL ANGINA; Start 11/17/16 at 18:30 Piperacillin Sod/ Tazobactam Sod (Zosyn 2.25gm/ 50ml (Pmx)) 50 ml @ 100 mls/hr Q12 IVPB Last administered on 11/21/16 10:12; Admin Dose 100 MLS/HR; Start at 21:00 Epoetin Luis (Epogen (Esrd)) 6,000 units MoWeFr@17 IV ; Start 11/18/16 at 17:00 Ferrous Sulfate (Ferrous Sulfate (Ec)) 325 mg BID PO Last administered on 10:14; Admin Dose 325 MG; Start 11/18/16 at 21:00 Docusate Sodium (Colace) 100 mg DAILY PRN PO CONSTIPATION; Start 11/18/16 at 10 :00 Linagliptin (Tradjenta) 5 mg DAILY PO Last administered on 11/21/16 10:14; Admin Dose 5 MG; Start 11/18/16 at 14:00 Meclizine HCl (Antivert) 25 mg Q6 PRN PO dizziness Last administered on 12:44; Admin Dose 25 MG; Start 11/20/16 at 12:30 Insulin Detemir (Levemir) 11 unit DAILY@20 SC Last administered on 11/20/16 21: 09; Admin Dose 11 UNIT; Start 11/20/16 at 20:00 Miscellaneous Information (*Rx Drug Level Order Reminder*) RANDOM VANCOMYCIN LEVEL ... ONCE ONCE XX ; Start 11/22/16 at 05:00; Stop 11/22/16 at 05:01 URIEL CURIEL Nov 21, 2016 14:29
[2016-11-21] MEDS: AZITHROMYCIN 500MG/NS (PMX) 250 ML IVPB SCH ×2 (15:00→23:56)
--- NOTE | 2016-11-21 17:55 | CONS ---
Date/Time of Note Date/Time of Note DATE: 11/21/16 TIME: 17:52 Assessment/Plan Assessment/Plan Problems: (1) Type 2 diabetes mellitus with hyperglycemia Status: Acute Comment: Marked improvement in glycemic control today. Cont. levemir 11 qhs and Novolog 5 qac. Qualifiers: Diabetes mellitus manager long term care insulin use: with half-way use Qualified Code : E11.65 - Type 2 diabetes mellitus with hyperglycemia, with long-term current use of insulin Consultation Date/Type/Reason Admit Date/Time Nov 17, 2016 at 01:09 Initial Consult Date 11/17/16 Type of Consultation: Endocrinology Reason for Consultation T2DM management Referring Provider: BING IZAGUIRRE MD 24 HR Interval Summary Subjective hx not possible: pt non-verbal (moaning but non-directed) Exam/Review of Systems Vital Signs Vitals VS - Last 72 Hours, by Label Date Time Temp Pulse Resp B/P Pulse Ox O2 Delivery O2 Flow Rate FiO2 11/21/16 16:23 78 11/21/16 15:30 92 11/21/16 15:00 92 11/21/16 14:30 90 11/21/16 14:00 88 11/21/16 12:15 76 11/21/16 12:06 98.6 79 18 122/67 98 11/21/16 12:04 97 2.0 11/21/16 08:45 Nasal Cannula 2.0 11/21/16 08:15 79 11/21/16 07:54 97.2 77 18 129/87 97 11/21/16 05:41 99 2.0 11/21/16 05:30 77 22 99 Nasal Cannula 2.0 11/21/16 04:41 69 11/21/16 04:00 98.4 102 16 141/83 99 11/21/16 00:05 111 11/21/16 00:00 98.3 104 17 143/80 99 11/20/16 21:15 71 11/20/16 20:00 Nasal Cannula 2.0 11/20/16 20:00 98.6 17 158/65 97 11/20/16 18:12 2.0 11/20/16 16:19 98.2 76 18 124/60 99 11/20/16 16:09 69 11/20/16 12:16 63 11/20/16 11:54 97.8 74 18 120/70 98 11/20/16 09:34 74 11/20/16 08:13 54 11/20/16 08:00 Nasal Cannula 2.0 11/20/16 07:51 98.2 60 17 142/65 98 11/20/16 05:42 2.0 11/20/16 04:33 59 11/20/16 04:00 98.0 59 18 156/68 100 11/20/16 00:00 62 11/20/16 00:00 98.4 63 18 141/64 99 11/19/16 21:09 2.0 11/19/16 20:28 65 11/19/16 20:00 98.4 65 18 117/58 100 11/19/16 20:00 Nasal Cannula 2.0 11/19/16 16:34 2.0 11/19/16 16:28 98.3 65 20 103/51 98 11/19/16 16:08 64 11/19/16 15:37 Nasal Cannula 2.0 11/19/16 12:29 98.4 65 20 122/60 99 11/19/16 12:10 64 11/19/16 08:27 Nasal Cannula 2.0 11/19/16 08:04 66 11/19/16 07:57 98.5 67 16 118/58 100 11/19/16 04:48 99.1 65 18 103/53 100 11/19/16 04:23 65 11/19/16 01:57 2.0 11/19/16 00:12 66 11/19/16 00:10 99.1 61 19 163/65 96 11/18/16 20:30 Nasal Cannula 3.0 11/18/16 20:15 70 11/18/16 20:00 2.0 11/18/16 19:57 98.5 67 20 106/53 98 Vital Signs Date Time Temp Pulse Resp B/P Pulse Ox O2 Delivery O2 Flow Rate FiO2 11/21/16 16:23 78 11/21/16 12:06 98.6 18 122/67 98 11/21/16 12:04 2.0 11/21/16 08:45 Nasal Cannula Intake and Output 11/20/16 11/20/16 11/21/16 15:00 23:00 07:00 Intake Total 50 ml 800 ml 300 ml Balance 50 ml 800 ml 300 ml Exam Constitutional: frail, non-verbal Psych: anxiety Respiratory: crackles/rales Cardiovascular: murmurs/extra sounds, regular rate and rhythm, No edema, No rub Gastrointestinal: bowel sounds, nl liver, spleen, non-tender, soft, No mass, No rebound or guarding Musculoskeletal: nl extremities to inspection Extremities: No clubbing, No cyanosis, No edema Neurological: confused Additional Comments Bedside Glucose - 72 Hours Test 11/18/16 20:15 11/19/16 03:38 11/19/16 07:45 11/19/16 08:09 Bedside Glucose 216mg/dL (70-220) 108mg/dL (70-220) 57mg/dL (70-220) L 56mg/dL (70-220) L Test 11/19/16 08:47 11/19/16 09:38 11/19/16 11:53 11/19/16 17:17 Bedside Glucose 69mg/dL (70-220) L 142mg/dL (70-220) 253mg/dL (70-220) H 180mg/dL (70-220) Test 11/19/16 20:06 11/20/16 02:16 11/20/16 09:11 11/20/16 12:37 Bedside Glucose 149mg/dL (70-220) 157mg/dL (70-220) 224mg/dL (70-220) H 239mg/dL (70-220) H Test 11/20/16 17:24 11/20/16 21:00 11/21/16 02:15 11/21/16 08:09 Bedside Glucose 216mg/dL (70-220) 215mg/dL (70-220) 136mg/dL (70-220) 146mg/dL (70-220) Test 11/21/16 11:15 11/21/16 17:05 Bedside Glucose 117mg/dL (70-220) 142mg/dL (70-220) Results Result Diagram: 11/21/16 0738 11/21/16 0738 Results 24 hrs Laboratory Tests Test 11/20/16 21:00 11/21/16 02:15 11/21/16 07:38 11/21/16 08:09 Bedside Glucose 215 136 146 White Blood Count 9.3 # Red Blood Count 3.62 L Hemoglobin 8.6 L Hematocrit 30.0 L Mean Corpuscular Volume 82.9 Mean Corpuscular Hemoglobin 23.8 L Mean Corpuscular Hemoglobin Concent 28.7 L Red Cell Distribution Width 15.9 H Platelet Count 371 Mean Platelet Volume 10.8 H Neutrophils % 84.6 H Lymphocytes % 5.2 L Monocytes % 9.3 Eosinophils % 0.1 Basophils % 0.3 Nucleated Red Blood Cells % 0.3 H Neutrophils # 7.9 H Lymphocytes # 0.5 L Monocytes # 0.9 Eosinophils # 0.0 Basophils # 0.0 Nucleated Red Blood Cells # 0.0 Sodium Level 126 L Potassium Level 4.4 Chloride Level 88 L Carbon Dioxide Level 20 L Anion Gap 22 H Blood Urea Nitrogen 52 H Creatinine 5.36 H Glucose Level 141 # Calcium Level 8.3 L Test 11/21/16 11:15 11/21/16 13:48 11/21/16 17:05 Bedside Glucose 117 142 Blood Gas Specimen Source Blood arterial Arterial Blood Date Drawn 11/21/2016 2:06:23 PM Arterial Blood pH (Temp corrected) 7.305 L Arterial Blood pCO2 (Temp correct) 49.1 H Arterial Blood pO2 (Temp corrected) 73.5 L Arterial Blood HCO3 23.9 Arterial Blood Base Excess -2.5 Arterial Blood Oxygen Saturation 92.2 L Óscar Test ACCEPTAB Arterial Blood Gas Puncture Site Left Radial Arterial Blood Carboxyhemoglobin 1.2 Arterial Blood Methemoglobin 0.3 Blood Gas A-a O2 Differential 61.0 H Oxyhemoglobin Percent 90.8 L Total Hemoglobin 9.6 L Blood Gas Temperature 37.0 Blood Gas Modality NASAL CANNULA FiO2 27.0 Blood Gas Notified Whom JLD Blood Gas Notified Time 11/21/2016 2:16:57 PM Medications Medications Current Medications Acetaminophen (Tylenol Tab) 650 mg Q6H PRN PO PAIN AND OR ELEVATED TEMP Last administered on 11/20/16 10:58; Admin Dose 650 MG; Start 11/17/16 at 09:00 Bisacodyl (Dulcolax Supp) 10 mg DAILY PRN [place] CONSTIPATION; Start 11/17/16 at 09 :00 Clonidine (Catapres) 0.1 mg Q6H PRN PO ELEVATED BLOOD PRESSURE; Start 11/17/16 at 09:00 Clonidine (Catapres) 0.2 mg TID PO Last administered on 11/21/16 10:15; Admin Dose 0.2 MG; Start 11/17/16 at 09:00 Clonidine HCl (Catapres-Tts 3 Patch) 0.3 patch Q7D TRANSDERM Last administered on 11/17/16 11:36; Admin Dose 0.3 PATCH; Start 11/17/16 at 10:00 Glucose (Glutose) 38 gm PRN PO Last administered on 11/17/16 22:36; Admin Dose 38 GM; Start 11/17/16 at 09:00 Diphenhydramine HCl (Benadryl) 25 mg Q8 PRN PO ITCHING; Start 11/17/16 at 09:00 Docusate Sodium (Colace) 250 mg DAILY PRN PO CONSTIPATION; Start 11/17/16 at 09 :00 Duloxetine HCl (Cymbalta) 60 mg DAILY PO Last administered on 11/21/16 10:13; Admin Dose 60 MG; Start 11/17/16 at 09:00 Guaifenesin/ Dextromethorphan (Robitussin Dm Liquid Cup) 10 ml Q6H PRN PO COUGH ; Start 11/17/16 at 09:00 Hydralazine HCl (Apresoline) 25 mg QID PO Last administered on 11/21/16 10:15; Admin Dose 25 MG; Start 11/17/16 at 09:00 Metoclopramide HCl (Reglan) 10 mg Q12 PRN PO NAUSEA AND/OR VOMITING; Start at 09:00 Minoxidil (Loniten) 10 mg BID PO Last administered on 11/21/16 10:13; Admin Dose 10 MG; Start 11/17/16 at 10:30 Nifedipine (Procardia Xl) 30 mg DAILY PO Last administered on 11/21/16 10:13; Admin Dose 30 MG; Start 11/17/16 at 10:00 Pantoprazole (Protonix Tab) 20 mg DAILY PO Last administered on 11/21/16 10:14 ; Admin Dose 20 MG; Start 11/17/16 at 09:00 Eye Lubricant (Artificial Tears Oph) 1 drop Q6 BOTH EYES Last administered on 17:07; Admin Dose 1 DROP; Start 11/17/16 at 12:00 Senna (Senokot) 1 tab Q12H PRN PO CONSTIPATION; Start 11/17/16 at 09:00 Zolpidem Tartrate (Ambien) 1 mg HS PO Last administered on 11/20/16 21:12; Admin Dose 1 MG; Start 11/17/16 at 21:00 Multivit/Ca Carb/ B Cmplx/FA/Prenat (Pey[place]-Ludwin) 1 tab DAILY PO Last administered on 11/21/16 10:14; Admin Dose 1 TAB; Start 11/17/16 at 09:00 Diagnostic Test (Pha) (Accu-Chek) 1 ea 02 XX Last administered on 11/19/16 02: 00; Admin Dose 1 EA; Start 11/18/16 at 02:00 Gabapentin (Neurontin) 100 mg TID PO Last administered on 11/21/16 10:13; Admin Dose 100 MG; Start 11/17/16 at 13:00 Miscellaneous Information 1 ea NOTE XX ; Start 11/17/16 at 10:00 Glucose (Glutose) 15 gm Q15M PRN PO DECREASED GLUCOSE; Start 11/17/16 at 10:00 Glucose (Glutose) 22.5 gm Q15M PRN PO DECREASED GLUCOSE; Start 11/17/16 at 10: 00 Dextrose (D50w Syringe) 25 ml Q15M PRN IV DECREASED GLUCOSE; Start 11/17/16 at 10:00 Dextrose (D50w Syringe) 50 ml Q15M PRN IV DECREASED GLUCOSE; Start 11/17/16 at 10:00 Glucagon (Glucagen) 1 mg Q15M PRN IM DECREASED GLUCOSE; Start 11/17/16 at 10:00 Glucose (Glutose) 15 gm Q15M PRN BUCCAL DECREASED GLUCOSE Last administered on 11/19/16 08:58; Admin Dose 15 GM; Start 11/17/16 at 10:00 Atorvastatin Calcium 10 mg 10 mg HS PO Last administered on 11/20/16 21:13; Admin Dose 10 MG; Start 11/17/16 at 21:00 Azithromycin (Zithromax 500mg/ NS (Pmx)) 250 ml @ 250 mls/hr Q24H IVPB Last administered on 11/20/16 15:23; Admin Dose 250 MLS/HR; Start 11/17/16 at 15:00 Heparin Sodium (Porcine) (Heparin (5000 Units/0.5 ml)) 5,000 unit BID SC Last administered on 11/21/16 10:11; Admin Dose 5,000 UNIT; Start 11/17/16 at 13:00 Acyclovir (Zovirax) 800 mg BID PO Last administered on 11/21/16 10:13; Admin Dose 800 MG; Start 11/17/16 at 21:00 Acetaminophen/ Hydrocodone Bitart ([place] (5/325)) 1 tab Q6 PRN PO MODERATE PAIN LEVEL 4-6 Last administered on 11/20/16 03:07; Admin Dose 1 TAB; Start at 18:00 Morphine Sulfate (morphine) 2 mg Q4H PRN IV PAIN LEVEL 6-10 Last administered on 11/20/16 21:40; Admin Dose 2 MG; Start 11/17/16 at 17:30 Isosorbide Dinitrate (Isordil) 10 mg TID PO Last administered on 11/21/16 10:14 ; Admin Dose 10 MG; Start 11/17/16 at 21:00 Nitroglycerin 1 tab 1 tab Q5M PRN SL ANGINA; Start 11/17/16 at 18:30 Piperacillin Sod/ Tazobactam Sod (Zosyn 2.25gm/ 50ml (Pmx)) 50 ml @ 100 mls/hr Q12 IVPB Last administered on 11/21/16 10:12; Admin Dose 100 MLS/HR; Start at 21:00 Epoetin Luis (Epogen (Esrd)) 6,000 units MoWeFr@17 IV ; Start 11/18/16 at 17:00 Ferrous Sulfate (Ferrous Sulfate (Ec)) 325 mg BID PO Last administered on 10:14; Admin Dose 325 MG; Start 11/18/16 at 21:00 Docusate Sodium (Colace) 100 mg DAILY PRN PO CONSTIPATION; Start 11/18/16 at 10 :00 Linagliptin (Tradjenta) 5 mg DAILY PO Last administered on 11/21/16 10:14; Admin Dose 5 MG; Start 11/18/16 at 14:00 Meclizine HCl (Antivert) 25 mg Q6 PRN PO dizziness Last administered on 12:44; Admin Dose 25 MG; Start 11/20/16 at 12:30 Insulin Detemir (Levemir) 11 unit DAILY@20 SC Last administered on 11/20/16t 21: 09; Admin Dose 11 UNIT; Start 11/20/16 at 20:00 Miscellaneous Information (*Rx Drug Level Order Reminder*) RANDOM VANCOMYCIN LEVEL ... ONCE ONCE XX ; Start 11/22/16 at 05:00; Stop 11/22/16 at 05:01 SOL BOSCH MD Nov 21, 2016 17:54
--- NOTE | 2016-11-21 19:07 | PN ---
Date/Time of Note Date/Time of Note DATE: 11/21/16 TIME: 19:03 Assessment/Plan VTE Prophylaxis VTE Prophylaxis Intervention: SCD's Lines/Catheters IV Catheter Type (from [facility]): [facility] Urinary Cath still in place: No Assessment/Plan Chief Complaint/Hosp Course Assessment and plan: -Acute respiratory failure requiring BiPAP, transferred to ICU. is following in pulmonology consultation. -Pneumonia with parapneumonic effusion, continue antibiotics. Dr. Leal is following from infectious disease standpoint. -Sepsis secondary to pneumonia. -End-stage renal disease hemodialysis dependent. Dr. Gorman is following in nephrology consultation -Posterior shoulder lesion, possible VZV infection. Continue acyclovir. -Chest pain on admission, rule out acute coronary syndrome. -CHF, continue to remove fluids with hemodialysis. -Hypertension. Dr. Magana is following in cardiology consultation. -Diabetes mellitus type 2. Dr. Freitas is following in endocrinology consultation. Continue Levemir and pre-meal NovoLog as well as NovoLog per mild algorithm sliding scale. Continue Tradjenta. -Hypothyroidism. Continue levothyroxine. -Anemia of chronic disease, continue Epogen. Further recommendations based on clinical course. Plan of care discussed with Dr. Porter. Problems: Subjective 24 Hr Interval Summary Free Text/Dictation Patient develop acute respiratory distress requiring placing patient on BiPAP, patient is currently completing hemodialysis, continues on BiPAP. Exam/Review of Systems Vital Signs Vitals Vital Signs Date Time Temp Pulse Resp B/P Pulse Ox O2 Delivery O2 Flow Rate FiO2 11/21/16 18:22 84 100 50 11/21/16 14:14 24 Nasal Cannula 2.0 11/21/16 12:06 98.6 122/67 Intake and Output 11/20/16 11/20/16 11/21/16 15:00 23:00 07:00 Intake Total 50 ml 800 ml 300 ml Balance 50 ml 800 ml 300 ml Exam Constitutional: alert, well developed Psych: nl mood/affect, no complaints Head: atraumatic, normocephalic Eyes: nl conjunctiva ENMT: nl external ears & nose Neck: non-tender, supple Respiratory: Diminished at the bases with decreased air entry bilaterally Cardiovascular: nl pulses, regular rate and rhythm Gastrointestinal: non-tender, soft Genitourinary - Female: nl adnexae Musculoskeletal: nl extremities to inspection Extremities: normal pulses 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 Skin: other (Posterior shoulder rash) Results Result Diagram: 11/21/16 0738 11/21/16 0738 Results 24 hrs Laboratory Tests Test 11/20/16 21:00 11/21/16 02:15 11/21/16 07:38 11/21/16 08:09 Bedside Glucose 215 136 146 White Blood Count 9.3 # Red Blood Count 3.62 L Hemoglobin 8.6 L Hematocrit 30.0 L Mean Corpuscular Volume 82.9 Mean Corpuscular Hemoglobin 23.8 L Mean Corpuscular Hemoglobin Concent 28.7 L Red Cell Distribution Width 15.9 H Platelet Count 371 Mean Platelet Volume 10.8 H Neutrophils % 84.6 H Lymphocytes % 5.2 L Monocytes % 9.3 Eosinophils % 0.1 Basophils % 0.3 Nucleated Red Blood Cells % 0.3 H Neutrophils # 7.9 H Lymphocytes # 0.5 L Monocytes # 0.9 Eosinophils # 0.0 Basophils # 0.0 Nucleated Red Blood Cells # 0.0 Sodium Level 126 L Potassium Level 4.4 Chloride Level 88 L Carbon Dioxide Level 20 L Anion Gap 22 H Blood Urea Nitrogen 52 H Creatinine 5.36 H Glucose Level 141 # Calcium Level 8.3 L Test 11/21/16 11:15 11/21/16 13:48 11/21/16 17:05 Bedside Glucose 117 142 Blood Gas Specimen Source Blood arterial Arterial Blood Date Drawn 11/21/2016 2:06:23 PM Arterial Blood pH (Temp corrected) 7.305 L Arterial Blood pCO2 (Temp correct) 49.1 H Arterial Blood pO2 (Temp corrected) 73.5 L Arterial Blood HCO3 23.9 Arterial Blood Base Excess -2.5 Arterial Blood Oxygen Saturation 92.2 L Óscar Test ACCEPTAB Arterial Blood Gas Puncture Site Left Radial Arterial Blood Carboxyhemoglobin 1.2 Arterial Blood Methemoglobin 0.3 Blood Gas A-a O2 Differential 61.0 H Oxyhemoglobin Percent 90.8 L Total Hemoglobin 9.6 L Blood Gas Temperature 37.0 Blood Gas Modality NASAL CANNULA FiO2 27.0 Blood Gas Notified Whom JLD Blood Gas Notified Time 11/21/2016 2:16:57 PM Medications Medications Current Medications Acetaminophen (Tylenol Tab) 650 mg Q6H PRN PO PAIN AND OR ELEVATED TEMP Last administered on 11/20/16t 10:58; Admin Dose 650 MG; Start 11/17/16 at 09:00 Bisacodyl (Dulcolax Supp) 10 mg DAILY PRN [place] CONSTIPATION; Start 11/17/16 at 09 :00 Clonidine (Catapres) 0.1 mg Q6H PRN PO ELEVATED BLOOD PRESSURE; Start 11/17/16 at 09:00 Clonidine (Catapres) 0.2 mg TID PO Last administered on 11/21/16 10:15; Admin Dose 0.2 MG; Start 11/17/16 at 09:00 Clonidine HCl (Catapres-Tts 3 Patch) 0.3 patch Q7D TRANSDERM Last administered on 11/17/16 11:36; Admin Dose 0.3 PATCH; Start 11/17/16 at 10:00 Glucose (Glutose) 38 gm PRN PO Last administered on 11/17/16 22:36; Admin Dose 38 GM; Start 11/17/16 at 09:00 Diphenhydramine HCl (Benadryl) 25 mg Q8 PRN PO ITCHING; Start 11/17/16 at 09:00 Docusate Sodium (Colace) 250 mg DAILY PRN PO CONSTIPATION; Start 11/17/16 at 09 :00 Duloxetine HCl (Cymbalta) 60 mg DAILY PO Last administered on 11/21/16 10:13; Admin Dose 60 MG; Start 11/17/16 at 09:00 Guaifenesin/ Dextromethorphan (Robitussin Dm Liquid Cup) 10 ml Q6H PRN PO COUGH ; Start 11/17/16 at 09:00 Hydralazine HCl (Apresoline) 25 mg QID PO Last administered on 11/21/16 10:15; Admin Dose 25 MG; Start 11/17/16 at 09:00 Metoclopramide HCl (Reglan) 10 mg Q12 PRN PO NAUSEA AND/OR VOMITING; Start at 09:00 Minoxidil (Loniten) 10 mg BID PO Last administered on 11/21/16 10:13; Admin Dose 10 MG; Start 11/17/16 at 10:30 Nifedipine (Procardia Xl) 30 mg DAILY PO Last administered on 11/21/16 10:13; Admin Dose 30 MG; Start 11/17/16 at 10:00 Pantoprazole (Protonix Tab) 20 mg DAILY PO Last administered on 11/21/16 10:14 ; Admin Dose 20 MG; Start 11/17/16 at 09:00 Eye Lubricant (Artificial Tears Oph) 1 drop Q6 BOTH EYES Last administered on 17:07; Admin Dose 1 DROP; Start 11/17/16 at 12:00 Senna (Senokot) 1 tab Q12H PRN PO CONSTIPATION; Start 11/17/16 at 09:00 Zolpidem Tartrate (Ambien) 1 mg HS PO Last administered on 11/20/16 21:12; Admin Dose 1 MG; Start 11/17/16 at 21:00 Multivit/Ca Carb/ B Cmplx/FA/Prenat (Peyton-Ludwin) 1 tab DAILY PO Last administered on 11/21/16 10:14; Admin Dose 1 TAB; Start 11/17/16 at 09:00 Diagnostic Test (Pha) (Accu-Chek) 1 ea 02 XX Last administered on 11/19/16 02: 00; Admin Dose 1 EA; Start 11/18/16 at 02:00 Gabapentin (Neurontin) 100 mg TID PO Last administered on 11/21/16 10:13; Admin Dose 100 MG; Start 11/17/16 at 13:00 Miscellaneous Information 1 ea NOTE XX ; Start 11/17/16 at 10:00 Glucose (Glutose) 15 gm Q15M PRN PO DECREASED GLUCOSE; Start 11/17/16 at 10:00 Glucose (Glutose) 22.5 gm Q15M PRN PO DECREASED GLUCOSE; Start 11/17/16 at 10: 00 Dextrose (D50w Syringe) 25 ml Q15M PRN IV DECREASED GLUCOSE; Start 11/17/16 at 10:00 Dextrose (D50w Syringe) 50 ml Q15M PRN IV DECREASED GLUCOSE; Start 11/17/16 at 10:00 Glucagon (Glucagen) 1 mg Q15M PRN IM DECREASED GLUCOSE; Start 11/17/16 at 10:00 Glucose (Glutose) 15 gm Q15M PRN BUCCAL DECREASED GLUCOSE Last administered on 11/19/16 08:58; Admin Dose 15 GM; Start 11/17/16 at 10:00 Atorvastatin Calcium 10 mg 10 mg HS PO Last administered on 11/20/16 21:13; Admin Dose 10 MG; Start 11/17/16 at 21:00 Azithromycin (Zithromax 500mg/ NS (Pmx)) 250 ml @ 250 mls/hr Q24H IVPB Last administered on 11/20/16 15:23; Admin Dose 250 MLS/HR; Start 11/17/16 at 15:00 Heparin Sodium (Porcine) (Heparin (5000 Units/0.5 ml)) 5,000 unit BID SC Last administered on 11/21/16 10:11; Admin Dose 5,000 UNIT; Start 11/17/16 at 13:00 Acyclovir (Zovirax) 800 mg BID PO Last administered on 11/21/16 10:13; Admin Dose 800 MG; Start 11/17/16 at 21:00 Acetaminophen/ Hydrocodone Bitart ([place] (5/325)) 1 tab Q6 PRN PO MODERATE PAIN LEVEL 4-6 Last administered on 11/20/16 03:07; Admin Dose 1 TAB; Start at 18:00 Morphine Sulfate (morphine) 2 mg Q4H PRN IV PAIN LEVEL 6-10 Last administered on 11/20/16 21:40; Admin Dose 2 MG; Start 11/17/16 at 17:30 Isosorbide Dinitrate (Isordil) 10 mg TID PO Last administered on 11/21/16 10:14 ; Admin Dose 10 MG; Start 11/17/16 at 21:00 Nitroglycerin 1 tab 1 tab Q5M PRN SL ANGINA; Start 11/17/16 at 18:30 Piperacillin Sod/ Tazobactam Sod (Zosyn 2.25gm/ 50ml (Pmx)) 50 ml @ 100 mls/hr Q12 IVPB Last administered on 11/21/16 10:12; Admin Dose 100 MLS/HR; Start at 21:00 Epoetin Luis (Epogen (Esrd)) 6,000 units MoWeFr@17 IV ; Start 11/18/16 at 17:00 Ferrous Sulfate (Ferrous Sulfate (Ec)) 325 mg BID PO Last administered on 10:14; Admin Dose 325 MG; Start 11/18/16 at 21:00 Docusate Sodium (Colace) 100 mg DAILY PRN PO CONSTIPATION; Start 11/18/16 at 10 :00 Linagliptin (Tradjenta) 5 mg DAILY PO Last administered on 11/21/16 10:14; Admin Dose 5 MG; Start 11/18/16 at 14:00 Meclizine HCl (Antivert) 25 mg Q6 PRN PO dizziness Last administered on 12:44; Admin Dose 25 MG; Start 11/20/16 at 12:30 Insulin Detemir (Levemir) 11 unit DAILY@20 SC Last administered on 11/20/16 21: 09; Admin Dose 11 UNIT; Start 11/20/16 at 20:00 Miscellaneous Information (*Rx Drug Level Order Reminder*) RANDOM VANCOMYCIN LEVEL ... ONCE ONCE XX ; Start 11/22/16 at 05:00; Stop 11/22/16 at 05:01 LINDA SCHWARTZ Nov 21, 2016 19:07
--- NOTE | 2016-11-21 19:21 | CONS ---
Date/Time of Note Date/Time of Note DATE: 11/21/16 TIME: 19:17 Assessment/Plan Assessment/Plan Chief Complaint/Hosp Course IMPRESSION: 1. Chest pain, assess for acute coronary syndrome with negative troponins x3. EF 50% by echo this admit 2. Abnormal electrocardiogram with intraventricular conduction delay. Assess for acute coronary syndrome. 3. Hypertension-well controlled 4. Diabetes mellitus. 5. Possible zoster infection. 6. Dyslipidemia. 7. Pneumonia with parapneumonic effusion. 8. Renal failure. 9. Anemia. 10. Leukocytosis. 11.Resp failure on BIPAP 12.Encephalopathy Recc: -Tele -serial ecg's -Continue current anti-hypertensives minoxidil/isordil/conidine TTS/procardia -Continue acyclovir -Continue statin -Contineu BIPAP with possible transfer to ICU for higher level of care -HD aggresively for volume removal -Continue abx's and f/u cx data Problems: Consultation Date/Type/Reason Admit Date/Time Nov 17, 2016 at 01:09 Initial Consult Date 11/17/16 Type of Consultation: Cardiology Reason for Consultation CHF Referring Provider: BING IZAGUIRRE MD Exam/Review of Systems Vital Signs Vitals Vital Signs Date Time Temp Pulse Resp B/P Pulse Ox O2 Delivery O2 Flow Rate FiO2 11/21/16 18:22 84 100 50 11/21/16 14:14 24 Nasal Cannula 2.0 11/21/16 12:06 98.6 122/67 Intake and Output 11/20/16 11/20/16 11/21/16 15:00 23:00 07:00 Intake Total 50 ml 800 ml 300 ml Balance 50 ml 800 ml 300 ml Exam Review of Systems: CONSTITUTIONAL: No fevers, chills. PULMONARY: resp failure on bipap CARDIOVASCULAR: No chest pain/palpitations GASTROINTESTINAL: No nausea/vomiting. GENITOURINARY: No hematuria/dysuria. MUSCULOSKELETAL: No myagias/arthalgias. PSYCHIATRIC: The patient denies depression. NEUROLOGIC: No weakness Constitutional: alert Psych: no complaints Head: normocephalic ENMT: mucosa pink and moist Neck: jvd, supple Respiratory: diminished breath sounds (at bases/B) Cardiovascular: regular rate and rhythm Gastrointestinal: non-tender, soft Musculoskeletal: muscle tone (normal) Extremities: edema (none) Neurological: confused Results Result Diagram: 11/21/16 0738 11/21/16 0738 Results 24 hrs Laboratory Tests Test 11/20/16 21:00 11/21/16 02:15 11/21/16 07:38 11/21/16 08:09 Bedside Glucose 215 136 146 White Blood Count 9.3 # Red Blood Count 3.62 L Hemoglobin 8.6 L Hematocrit 30.0 L Mean Corpuscular Volume 82.9 Mean Corpuscular Hemoglobin 23.8 L Mean Corpuscular Hemoglobin Concent 28.7 L Red Cell Distribution Width 15.9 H Platelet Count 371 Mean Platelet Volume 10.8 H Neutrophils % 84.6 H Lymphocytes % 5.2 L Monocytes % 9.3 Eosinophils % 0.1 Basophils % 0.3 Nucleated Red Blood Cells % 0.3 H Neutrophils # 7.9 H Lymphocytes # 0.5 L Monocytes # 0.9 Eosinophils # 0.0 Basophils # 0.0 Nucleated Red Blood Cells # 0.0 Sodium Level 126 L Potassium Level 4.4 Chloride Level 88 L Carbon Dioxide Level 20 L Anion Gap 22 H Blood Urea Nitrogen 52 H Creatinine 5.36 H Glucose Level 141 # Calcium Level 8.3 L Test 11/21/16 11:15 11/21/16 13:48 11/21/16 17:05 Bedside Glucose 117 142 Blood Gas Specimen Source Blood arterial Arterial Blood Date Drawn 11/21/2016 2:06:23 PM Arterial Blood pH (Temp corrected) 7.305 L Arterial Blood pCO2 (Temp correct) 49.1 H Arterial Blood pO2 (Temp corrected) 73.5 L Arterial Blood HCO3 23.9 Arterial Blood Base Excess -2.5 Arterial Blood Oxygen Saturation 92.2 L Óscar Test ACCEPTAB Arterial Blood Gas Puncture Site Left Radial Arterial Blood Carboxyhemoglobin 1.2 Arterial Blood Methemoglobin 0.3 Blood Gas A-a O2 Differential 61.0 H Oxyhemoglobin Percent 90.8 L Total Hemoglobin 9.6 L Blood Gas Temperature 37.0 Blood Gas Modality NASAL CANNULA FiO2 27.0 Blood Gas Notified Whom JLD Blood Gas Notified Time 11/21/2016 2:16:57 PM Medications Medications Current Medications Acetaminophen (Tylenol Tab) 650 mg Q6H PRN PO PAIN AND OR ELEVATED TEMP Last administered on 11/20/16t 10:58; Admin Dose 650 MG; Start 11/17/16 at 09:00 Bisacodyl (Dulcolax Supp) 10 mg DAILY PRN [place] CONSTIPATION; Start 11/17/16 at 09 :00 Clonidine (Catapres) 0.1 mg Q6H PRN PO ELEVATED BLOOD PRESSURE; Start 11/17/16 at 09:00 Clonidine (Catapres) 0.2 mg TID PO Last administered on 11/21/16 10:15; Admin Dose 0.2 MG; Start 11/17/16 at 09:00 Clonidine HCl (Catapres-Tts 3 Patch) 0.3 patch Q7D TRANSDERM Last administered on 11/17/16 11:36; Admin Dose 0.3 PATCH; Start 11/17/16 at 10:00 Glucose (Glutose) 38 gm PRN PO Last administered on 11/17/16 22:36; Admin Dose 38 GM; Start 11/17/16 at 09:00 Diphenhydramine HCl (Benadryl) 25 mg Q8 PRN PO ITCHING; Start 11/17/16 at 09:00 Docusate Sodium (Colace) 250 mg DAILY PRN PO CONSTIPATION; Start 11/17/16 at 09 :00 Duloxetine HCl (Cymbalta) 60 mg DAILY PO Last administered on 11/21/16 10:13; Admin Dose 60 MG; Start 11/17/16 at 09:00 Guaifenesin/ Dextromethorphan (Robitussin Dm Liquid Cup) 10 ml Q6H PRN PO COUGH ; Start 11/17/16 at 09:00 Hydralazine HCl (Apresoline) 25 mg QID PO Last administered on 11/21/16 10:15; Admin Dose 25 MG; Start 11/17/16 at 09:00 Metoclopramide HCl (Reglan) 10 mg Q12 PRN PO NAUSEA AND/OR VOMITING; Start at 09:00 Minoxidil (Loniten) 10 mg BID PO Last administered on 11/21/16 10:13; Admin Dose 10 MG; Start 11/17/16 at 10:30 Nifedipine (Procardia Xl) 30 mg DAILY PO Last administered on 11/21/16 10:13; Admin Dose 30 MG; Start 11/17/16 at 10:00 Pantoprazole (Protonix Tab) 20 mg DAILY PO Last administered on 11/21/16 10:14 ; Admin Dose 20 MG; Start 11/17/16 at 09:00 Eye Lubricant (Artificial Tears Oph) 1 drop Q6 BOTH EYES Last administered on 17:07; Admin Dose 1 DROP; Start 11/17/16 at 12:00 Senna (Senokot) 1 tab Q12H PRN PO CONSTIPATION; Start 11/17/16 at 09:00 Zolpidem Tartrate (Ambien) 1 mg HS PO Last administered on 11/20/16 21:12; Admin Dose 1 MG; Start 11/17/16 at 21:00 Multivit/Ca Carb/ B Cmplx/FA/Prenat (Peyton-Ludwin) 1 tab DAILY PO Last administered on 11/21/16 10:14; Admin Dose 1 TAB; Start 11/17/16 at 09:00 Diagnostic Test (Pha) (Accu-Chek) 1 ea 02 XX Last administered on 11/19/16 02: 00; Admin Dose 1 EA; Start 11/18/16 at 02:00 Gabapentin (Neurontin) 100 mg TID PO Last administered on 11/21/16 10:13; Admin Dose 100 MG; Start 11/17/16 at 13:00 Miscellaneous Information 1 ea NOTE XX ; Start 11/17/16 at 10:00 Glucose (Glutose) 15 gm Q15M PRN PO DECREASED GLUCOSE; Start 11/17/16 at 10:00 Glucose (Glutose) 22.5 gm Q15M PRN PO DECREASED GLUCOSE; Start 11/17/16 at 10: 00 Dextrose (D50w Syringe) 25 ml Q15M PRN IV DECREASED GLUCOSE; Start 11/17/16 at 10:00 Dextrose (D50w Syringe) 50 ml Q15M PRN IV DECREASED GLUCOSE; Start 11/17/16 at 10:00 Glucagon (Glucagen) 1 mg Q15M PRN IM DECREASED GLUCOSE; Start 11/17/16 at 10:00 Glucose (Glutose) 15 gm Q15M PRN BUCCAL DECREASED GLUCOSE Last administered on 11/19/16 08:58; Admin Dose 15 GM; Start 11/17/16 at 10:00 Atorvastatin Calcium 10 mg 10 mg HS PO Last administered on 11/20/16 21:13; Admin Dose 10 MG; Start 11/17/16 at 21:00 Azithromycin (Zithromax 500mg/ NS (Pmx)) 250 ml @ 250 mls/hr Q24H IVPB Last administered on 11/20/16 15:23; Admin Dose 250 MLS/HR; Start 11/17/16 at 15:00 Heparin Sodium (Porcine) (Heparin (5000 Units/0.5 ml)) 5,000 unit BID SC Last administered on 11/21/16 10:11; Admin Dose 5,000 UNIT; Start 11/17/16 at 13:00 Acyclovir (Zovirax) 800 mg BID PO Last administered on 11/21/16 10:13; Admin Dose 800 MG; Start 11/17/16 at 21:00 Acetaminophen/ Hydrocodone Bitart ([place] (5/325)) 1 tab Q6 PRN PO MODERATE PAIN LEVEL 4-6 Last administered on 11/20/16 03:07; Admin Dose 1 TAB; Start at 18:00 Morphine Sulfate (morphine) 2 mg Q4H PRN IV PAIN LEVEL 6-10 Last administered on 11/20/16 21:40; Admin Dose 2 MG; Start 11/17/16 at 17:30 Isosorbide Dinitrate (Isordil) 10 mg TID PO Last administered on 11/21/16 10:14 ; Admin Dose 10 MG; Start 11/17/16 at 21:00 Nitroglycerin 1 tab 1 tab Q5M PRN SL ANGINA; Start 11/17/16 at 18:30 Piperacillin Sod/ Tazobactam Sod (Zosyn 2.25gm/ 50ml (Pmx)) 50 ml @ 100 mls/hr Q12 IVPB Last administered on 11/21/16 10:12; Admin Dose 100 MLS/HR; Start at 21:00 Epoetin Luis (Epogen (Esrd)) 6,000 units MoWeFr@17 IV ; Start 11/18/16 at 17:00 Ferrous Sulfate (Ferrous Sulfate (Ec)) 325 mg BID PO Last administered on 10:14; Admin Dose 325 MG; Start 11/18/16 at 21:00 Docusate Sodium (Colace) 100 mg DAILY PRN PO CONSTIPATION; Start 11/18/16 at 10 :00 Linagliptin (Tradjenta) 5 mg DAILY PO Last administered on 11/21/16 10:14; Admin Dose 5 MG; Start 11/18/16 at 14:00 Meclizine HCl (Antivert) 25 mg Q6 PRN PO dizziness Last administered on 12:44; Admin Dose 25 MG; Start 11/20/16 at 12:30 Insulin Detemir (Levemir) 11 unit DAILY@20 SC Last administered on 11/20/16 21: 09; Admin Dose 11 UNIT; Start 11/20/16 at 20:00 Miscellaneous Information (*Rx Drug Level Order Reminder*) RANDOM VANCOMYCIN LEVEL ... ONCE ONCE XX ; Start 11/22/16 at 05:00; Stop 11/22/16 at 05:01 MANUELA SHARMA Nov 21, 2016 19:20
[2016-11-21] MEDS: INSULIN DETEMIR [LEVEMIR] 3ML CART SC SCH (20:00)
--- NOTE | 2016-11-21 20:11 | RADRPT ---
PROCEDURE: XR Chest. CLINICAL INDICATION: CHF TECHNIQUE: Single frontal chest x-ray. COMPARISON: Chest x rays from 11/19/2016 and 10/10/2013. FINDINGS: Bibasilar pulmonary opacities are again noted, decreased. A rounded 4.4 cm density is now evident i n the right upper lobe. No density was seen in this region on the prior chest x-ray from September 222013. There is no pneumothorax. There is a persistent small to moderate right pleural effusion. Cardiomediastinal silhouette is grossly stable. Aortic atherosclerotic calcification is noted. The osseous structures are unremarkable. IMPRESSION: 1. Interval decreased vascular congestion and bilateral pleural effusions with persistent small rig ht pleural effusion with atelectasis. 2. 4.4 cm rounded density now evident in the right mid lung. This may represent a rounded pneumoni a, atelectasis, or mass. CT chest may be useful for further evaluation. 3. Cardiomegaly and aortic atherosclerosis . RPTAT: VV .Freddie Santoyo MD, MD Date Time Electronically viewed and signed by .Freddie Santoyo MD, on 11/21/2016 20:10 .A/
[2016-11-21 20:43] LABS: H1N1 2009 FLU A RNA NOT DETECTED; H1N1 2009 SOURCE NASOPHARYNGEAL
[2016-11-21] MEDS: ZOLPIDEM 5 MG TAB PO SCH (20:58)
[2016-11-21] MEDS: ATORVASTATIN 10 MG TAB PO SCH (20:59)
[2016-11-21] MEDS: EPOETIN 3000 UNITS/1 ML INJ (ESRD) IV SCH (21:05)
--- NOTE | 2016-11-21 22:10 | CONS ---
Date/Time of Note Date/Time of Note DATE: 11/21/16 TIME: 22:03 Assessment/Plan Assessment/Plan Chief Complaint/Hosp Course Pt already getting Resp therapy Condition improved after HD Problems: Consultation Date/Type/Reason Admit Date/Time Nov 17, 2016 at 01:09 Initial Consult Date 11/17/16 Type of Consultation: renal Referring Provider: BING IZAGUIRRE MD 24 HR Interval Summary Free Text/Dictation Pt was c/o sob when seen at 100 pm. Constitutional: requiring O2 Exam/Review of Systems Vital Signs Vitals Vital Signs Date Time Temp Pulse Resp B/P Pulse Ox O2 Delivery O2 Flow Rate FiO2 11/21/16 20:30 79 98 40 11/21/16 14:14 24 Nasal Cannula 2.0 11/21/16 12:06 98.6 122/67 Intake and Output 11/20/16 11/20/16 11/21/16 15:00 23:00 07:00 Intake Total 50 ml 800 ml 300 ml Balance 50 ml 800 ml 300 ml Exam Constitutional: alert, distress, well developed Psych: anxiety, confusion, nl mood/affect Head: atraumatic, normocephalic Eyes: EOMI, PERRL, nl conjunctiva, nl lids, nl sclera ENMT: nl external ears & nose, nl lips & teeth, nl nasal mucosa & septum Neck: jvd, non-tender, supple Respiratory: clear to auscultation, diminished breath sounds, labored breathing , normal air movement Cardiovascular: nl pulses, regular rate and rhythm Gastrointestinal: nl liver, spleen, non-tender, soft Musculoskeletal: muscle weakness, nl extremities to inspection, other (lt arm avf present) Extremities: normal pulses Neurological: [employer] II-XII intact, nl mental status, nl speech, nl strength Skin: nl turgor, other (ch changes), No rash or lesions Lymph: nl lymph nodes Results Pt is on epogen study, Hct stable at 30% Note low SNa 126, prob dilutional, should imrove with HD Result Diagram: 11/21/16 0738 11/21/16 0738 Results 24 hrs Laboratory Tests Test 11/21/16 02:15 11/21/16 07:38 11/21/16 08:09 11/21/16 11:15 Bedside Glucose 136 146 117 White Blood Count 9.3 # Red Blood Count 3.62 L Hemoglobin 8.6 L Hematocrit 30.0 L Mean Corpuscular Volume 82.9 Mean Corpuscular Hemoglobin 23.8 L Mean Corpuscular Hemoglobin Concent 28.7 L Red Cell Distribution Width 15.9 H Platelet Count 371 Mean Platelet Volume 10.8 H Neutrophils % 84.6 H Lymphocytes % 5.2 L Monocytes % 9.3 Eosinophils % 0.1 Basophils % 0.3 Nucleated Red Blood Cells % 0.3 H Neutrophils # 7.9 H Lymphocytes # 0.5 L Monocytes # 0.9 Eosinophils # 0.0 Basophils # 0.0 Nucleated Red Blood Cells # 0.0 Sodium Level 126 L Potassium Level 4.4 Chloride Level 88 L Carbon Dioxide Level 20 L Anion Gap 22 H Blood Urea Nitrogen 52 H Creatinine 5.36 H Glucose Level 141 # Calcium Level 8.3 L Test 11/21/16 13:48 11/21/16 17:05 11/21/16 20:31 11/21/16 20:35 Blood Gas Specimen Source Blood arterial Arterial Blood Date Drawn 11/21/2016 2:06:23 PM Arterial Blood pH (Temp corrected) 7.305 L Arterial Blood pCO2 (Temp correct) 49.1 H Arterial Blood pO2 (Temp corrected) 73.5 L Arterial Blood HCO3 23.9 Arterial Blood Base Excess -2.5 Arterial Blood Oxygen Saturation 92.2 L Óscar Test ACCEPTAB Arterial Blood Gas Puncture Site Left Radial Arterial Blood Carboxyhemoglobin 1.2 Arterial Blood Methemoglobin 0.3 Blood Gas A-a O2 Differential 61.0 H Oxyhemoglobin Percent 90.8 L Total Hemoglobin 9.6 L Blood Gas Temperature 37.0 Blood Gas Modality NASAL CANNULA FiO2 27.0 Blood Gas Notified Whom JLD Blood Gas Notified Time 11/21/2016 2:16:57 PM Bedside Glucose 142 65 L 64 L Test 11/21/16 21:03 11/21/16 21:20 Bedside Glucose 163 140 Medications Medications Current Medications Acetaminophen (Tylenol Tab) 650 mg Q6H PRN PO PAIN AND OR ELEVATED TEMP Last administered on 11/20/16t 10:58; Admin Dose 650 MG; Start 11/17/16 at 09:00 Bisacodyl (Dulcolax Supp) 10 mg DAILY PRN [place] CONSTIPATION; Start 11/17/16 at 09 :00 Clonidine (Catapres) 0.1 mg Q6H PRN PO ELEVATED BLOOD PRESSURE; Start 11/17/16 at 09:00 Clonidine (Catapres) 0.2 mg TID PO Last administered on 11/21/16 10:15; Admin Dose 0.2 MG; Start 11/17/16 at 09:00 Clonidine HCl (Catapres-Tts 3 Patch) 0.3 patch Q7D TRANSDERM Last administered on 11/17/16 11:36; Admin Dose 0.3 PATCH; Start 11/17/16 at 10:00 Glucose (Glutose) 38 gm PRN PO Last administered on 11/17/16 22:36; Admin Dose 38 GM; Start 11/17/16 at 09:00 Diphenhydramine HCl (Benadryl) 25 mg Q8 PRN PO ITCHING; Start 11/17/16 at 09:00 Docusate Sodium (Colace) 250 mg DAILY PRN PO CONSTIPATION; Start 11/17/16 at 09 :00 Duloxetine HCl (Cymbalta) 60 mg DAILY PO Last administered on 11/21/16 10:13; Admin Dose 60 MG; Start 11/17/16 at 09:00 Guaifenesin/ Dextromethorphan (Robitussin Dm Liquid Cup) 10 ml Q6H PRN PO COUGH ; Start 11/17/16 at 09:00 Hydralazine HCl (Apresoline) 25 mg QID PO Last administered on 11/21/16 10:15; Admin Dose 25 MG; Start 11/17/16 at 09:00 Metoclopramide HCl (Reglan) 10 mg Q12 PRN PO NAUSEA AND/OR VOMITING; Start at 09:00 Minoxidil (Loniten) 10 mg BID PO Last administered on 11/21/16 10:13; Admin Dose 10 MG; Start 11/17/16 at 10:30 Nifedipine (Procardia Xl) 30 mg DAILY PO Last administered on 11/21/16 10:13; Admin Dose 30 MG; Start 11/17/16 at 10:00 Pantoprazole (Protonix Tab) 20 mg DAILY PO Last administered on 11/21/16 10:14 ; Admin Dose 20 MG; Start 11/17/16 at 09:00 Eye Lubricant (Artificial Tears Oph) 1 drop Q6 BOTH EYES Last administered on 17:07; Admin Dose 1 DROP; Start 11/17/16 at 12:00 Senna (Senokot) 1 tab Q12H PRN PO CONSTIPATION; Start 11/17/16 at 09:00 Zolpidem Tartrate (Ambien) 1 mg HS PO Last administered on 11/20/16 21:12; Admin Dose 1 MG; Start 11/17/16 at 21:00 Multivit/Ca Carb/ B Cmplx/FA/Prenat ([place]ey[place]-Ludwin) 1 tab DAILY PO Last administered on 11/21/16 10:14; Admin Dose 1 TAB; Start 11/17/16 at 09:00 Diagnostic Test (Pha) (Accu-Chek) 1 ea 02 XX Last administered on 11/19/16 02: 00; Admin Dose 1 EA; Start 11/18/16 at 02:00 Gabapentin (Neurontin) 100 mg TID PO Last administered on 11/21/16 10:13; Admin Dose 100 MG; Start 11/17/16 at 13:00 Miscellaneous Information 1 ea NOTE XX ; Start 11/17/16 at 10:00 Glucose (Glutose) 15 gm Q15M PRN PO DECREASED GLUCOSE; Start 11/17/16 at 10:00 Glucose (Glutose) 22.5 gm Q15M PRN PO DECREASED GLUCOSE; Start 11/17/16 at 10: 00 Dextrose (D50w Syringe) 25 ml Q15M PRN IV DECREASED GLUCOSE Last administered on 11/21/16 20:44; Admin Dose 25 ML; Start 11/17/16 at 10:00 Dextrose (D50w Syringe) 50 ml Q15M PRN IV DECREASED GLUCOSE; Start 11/17/16 at 10:00 Glucagon (Glucagen) 1 mg Q15M PRN IM DECREASED GLUCOSE; Start 11/17/16 at 10:00 Glucose (Glutose) 15 gm Q15M PRN BUCCAL DECREASED GLUCOSE Last administered on 11/19/16 08:58; Admin Dose 15 GM; Start 11/17/16 at 10:00 Atorvastatin Calcium 10 mg 10 mg HS PO Last administered on 11/20/16 21:13; Admin Dose 10 MG; Start 11/17/16 at 21:00 Azithromycin (Zithromax 500mg/ NS (Pmx)) 250 ml @ 250 mls/hr Q24H IVPB Last administered on 11/20/16 15:23; Admin Dose 250 MLS/HR; Start 11/17/16 at 15:00 Heparin Sodium (Porcine) (Heparin (5000 Units/0.5 ml)) 5,000 unit BID SC Last administered on 11/21/16 21:36; Admin Dose 5,000 UNIT; Start 11/17/16 at 13:00 Acyclovir (Zovirax) 800 mg BID PO Last administered on 11/21/16 10:13; Admin Dose 800 MG; Start 11/17/16 at 21:00 Acetaminophen/ Hydrocodone Bitart ([place] (5/325)) 1 tab Q6 PRN PO MODERATE PAIN LEVEL 4-6 Last administered on 11/20/16 03:07; Admin Dose 1 TAB; Start at 18:00 Morphine Sulfate (morphine) 2 mg Q4H PRN IV PAIN LEVEL 6-10 Last administered on 11/20/16 21:40; Admin Dose 2 MG; Start 11/17/16 at 17:30 Isosorbide Dinitrate (Isordil) 10 mg TID PO Last administered on 11/21/16 10:14 ; Admin Dose 10 MG; Start 11/17/16 at 21:00 Nitroglycerin 1 tab 1 tab Q5M PRN SL ANGINA; Start 11/17/16 at 18:30 Piperacillin Sod/ Tazobactam Sod (Zosyn 2.25gm/ 50ml (Pmx)) 50 ml @ 100 mls/hr Q12 IVPB Last administered on 11/21/16 20:45; Admin Dose 100 MLS/HR; Start at 21:00 Epoetin Luis (Epogen (Esrd)) 6,000 units MoWeFr@17 IV Last administered on 21:05; Admin Dose 6,000 UNITS; Start 11/18/16 at 17:00 Ferrous Sulfate (Ferrous Sulfate (Ec)) 325 mg BID PO Last administered on 10:14; Admin Dose 325 MG; Start 11/18/16 at 21:00 Docusate Sodium (Colace) 100 mg DAILY PRN PO CONSTIPATION; Start 11/18/16 at 10 :00 Linagliptin (Tradjenta) 5 mg DAILY PO Last administered on 11/21/16 10:14; Admin Dose 5 MG; Start 11/18/16 at 14:00 Meclizine HCl (Antivert) 25 mg Q6 PRN PO dizziness Last administered on 12:44; Admin Dose 25 MG; Start 11/20/16 at 12:30 Insulin Detemir (Levemir) 11 unit DAILY@20 SC Last administered on 11/20/16 21: 09; Admin Dose 11 UNIT; Start 11/20/16 at 20:00 Miscellaneous Information (*Rx Drug Level Order Reminder*) RANDOM VANCOMYCIN LEVEL ... ONCE ONCE XX ; Start 11/22/16 at 05:00; Stop 11/22/16 at 05:01 BEVERLEY QUILES MD Nov 21, 2016 22:10
[2016-11-21] MEDS ORDERED: hydrALAzine 20 MG INJ IV PRN (23:30)
[2016-11-21] MEDS: NITROGLYCERIN 2% 1 GM OINT PKT TD SCH (23:48)
[2016-11-22] VITALS (78 sets, daily range): BP systolic 67–175; BP diastolic 38–84; PULSE 63–99; RESP 11–24
[2016-11-22] MEDS ORDERED: ETOMIDATE 20 MG INJ ONE
[2016-11-22] MEDS ORDERED: ROCURONIUM 50 MG INJ ONE
[2016-11-22] MEDS: ACCU-CHEK XX SCH (02:00)
[2016-11-22] MEDS: morphine 2 MG INJ IV PRN ×3 (02:13→13:25)
[2016-11-22] MEDS: HYDROCODONE/APAP (5/325) TAB PO PRN (05:08)
[2016-11-22] MEDS: ARTIFICIAL TEARS 15 ML OPH BOTH EYES SCH ×3 (05:09→18:09)
[2016-11-22] MEDS: NITROGLYCERIN 2% 1 GM OINT PKT TD SCH ×3 (05:15→17:38)
[2016-11-22 06:10] LABS: ADD SCAN DIFF NO
[2016-11-22 06:17] LABS: ABNORMAL IP MESSAGE 1; BASOPHILS % 0.3 % (0.0-2.0); EOSINOPHILS % 0.2 % (0.0-7.0); HEMATOCRIT 26.8 % (37.0-47.0); LYMPHOCYTES # 0.6 10^3/ul (0.8-2.9); LYMPHOCYTES % 6.4 % (15.0-51.0); MEAN CORPUSCULAR HEMOGLOBIN 24.4 pg (29.0-33.0); MEAN CORPUSCULAR HGB CONC 29.9 g/dl (32.0-37.0); MEAN CORPUSCULAR VOLUME 81.7 fl (82.0-101.0); MONOCYTE # 1.2 10^3/ul (0.3-0.9); MONOCYTES % 13.3 % (0.0-11.0); NEUTROPHIL # 7.2 10^3/ul (1.6-7.5); NEUTROPHILS % 79.5 % (39.0-77.0); NUCLEATED RED BLOOD CELLS% 0.2 /100WBC (0.0-0.0); PLATELET COUNT 377 10^3/UL (140-415); RED BLOOD COUNT 3.28 10^6/ul (4.20-5.40); RED CELL DISTRIBUTION WIDTH 15.6 % (11.5-14.5); WHITE BLOOD COUNT 9.1 10^3/ul (4.8-10.8)
[2016-11-22 06:45] LABS: POTASSIUM 3.5 mmol/L (3.5-5.1)
[2016-11-22 06:48] LABS: CREATININE 3.57 mg/dl (0.44-1.00)
[2016-11-22 06:49] LABS: CALCIUM 8.6 mg/dl (8.4-10.2)
[2016-11-22] MEDS: INSULIN ASPART [NOVOLOG] 3 ML PEN SC SCH ×6 (07:35→18:15)
[2016-11-22 07:45] LABS: AADO2 Arterial 90.3 mmHg (7.0-24.0); Allen Test ACCEPTAB; Arterial Base Excess -0.2 mmol/L (-3.0-3); Arterial COHb 1.6 % (0.0-3.0); Arterial Fraction of Oxyhgb 77.9 % (93.0-99.0); Arterial HCO3 25.5 mmol/L (22.0-26.0); Arterial MetHb 0.1 % (0.0-1.5); Arterial Total Hemglobin 9.5 g/dl (12.0-18.0); MODE NASAL CANNULA
[2016-11-22] MEDS: PIPER-TAZO 2.25 GM (PMX) 50 ML IVPB SCH ×2 (08:25→21:50)
[2016-11-22] MEDS: SUCRALFATE 1 GM TAB PO SCH ×2 (08:30→16:37)
[2016-11-22] MEDS: LINAGLIPTIN 5 MG TABLET PO SCH (08:30)
[2016-11-22] MEDS: MULTIVIT/CA CARB/B CMPLX/FA TAB PO SCH (08:30)
[2016-11-22] MEDS: ISOSORBIDE DINITRATE 10 MG TAB PO SCH ×3 (08:31→20:45)
[2016-11-22] MEDS: ACYCLOVIR 800 MG TAB PO SCH ×2 (08:32→21:50)
[2016-11-22] MEDS: MINOXIDIL 10 MG TAB PO SCH ×2 (08:32→20:45)
[2016-11-22] MEDS: DULOXETINE 30 MG CAP DR PO SCH (08:32)
[2016-11-22] MEDS: FERROUS SULFATE (EC) 325 MG TAB PO SCH ×2 (08:32→21:50)
[2016-11-22] MEDS: NIFEdipine (XL) 30 MG TAB PO SCH (08:33)
[2016-11-22] MEDS: PANTOPRAZOLE (EC) 40 MG TAB PO SCH (08:34)
[2016-11-22] MEDS: GABAPENTIN 100 MG CAP PO SCH ×2 (08:35→21:50)
--- NOTE | 2016-11-22 08:47 | CONS ---
Date/Time of Note Date/Time of Note DATE: 11/22/16 TIME: 08:44 Assessment/Plan Assessment/Plan Additional Assessment/Plan Chest x-ray was reviewed from yesterday afternoon which is showing improvement in bilateral pneumonia as well as pulmonary edema. ABG was reviewed from today which is showing significant hypoxemia. Assessment recommendations; 1. Patient admitted for severe bilateral pneumonia with radiological improvement. 2. Renal failure, requiring hemodialysis. 3. Likely underlying cardiomyopathy. 4. Poor mental status. Start the patient on high flow oxygen. Patient will need to be dialyzed again today. Continue current antibiotics and other supportive measures. Consultation Date/Type/Reason Admit Date/Time Nov 17, 2016 at 01:09 Initial Consult Date 11/17/16 Type of Consultation: Pulmonary/critical care Referring Provider: BING IZAGUIRRE MD 24 HR Interval Summary Free Text/Dictation Patient condition is tenuous at best. Had to be transferred to ICU for closer monitoring because of severe agitation. She underwent dialysis yesterday afternoon. General exam; elderly woman, awake and alert with occasional episodes of agitation. She appears quite improved compared to yesterday afternoon's examination. Exam/Review of Systems Vital Signs Vitals Vital Signs Date Time Temp Pulse Resp B/P Pulse Ox O2 Delivery O2 Flow Rate FiO2 11/22/16 08:12 100 15.0 50 11/22/16 07:00 86 21 130/55 Nasal Cannula 11/22/16 04:40 98.0 Intake and Output 11/21/16 11/21/16 11/22/16 15:00 23:00 07:00 Intake Total 550 ml 250 ml Output Total 4500 ml Balance -3950 ml 250 ml Exam H EENT examination; supple neck, positive JVD. No lymphadenopathy. Midline trachea. Patient multiple carious teeth. Pupils are midsize bilaterally. No neck masses. No thyromegaly. No neck bruits. Chest examination a micro diminished breath on lung bases bilaterally. Upper lobes are fairly clear. S1-S2 audible, no murmurs. Regular rhythm. Abdomen exam is; soft, nontender. No organomegaly. Bowel is audible. Extremity exam is; no peripheral edema. SOUS CHEF examination; no focal motor deficit. Results Result Diagram: 11/22/16 0540 11/22/16 0540 Results 24 hrs Laboratory Tests Test 11/21/16 11:15 11/21/16 13:48 11/21/16 17:05 11/21/16 20:31 Bedside Glucose 117 142 65 L Blood Gas Specimen Source Blood arterial Arterial Blood Date Drawn 11/21/2016 2:06:23 PM Arterial Blood pH (Temp corrected) 7.305 L Arterial Blood pCO2 (Temp correct) 49.1 H Arterial Blood pO2 (Temp corrected) 73.5 L Arterial Blood HCO3 23.9 Arterial Blood Base Excess -2.5 Arterial Blood Oxygen Saturation 92.2 L Óscar Test ACCEPTAB Arterial Blood Gas Puncture Site Left Radial Arterial Blood Carboxyhemoglobin 1.2 Arterial Blood Methemoglobin 0.3 Blood Gas A-a O2 Differential 61.0 H Oxyhemoglobin Percent 90.8 L Total Hemoglobin 9.6 L Blood Gas Temperature 37.0 Blood Gas Modality NASAL CANNULA FiO2 27.0 Blood Gas Notified Whom JLD Blood Gas Notified Time 11/21/2016 2:16:57 PM Test 11/21/16 20:35 11/21/16 21:03 11/21/16 21:20 11/21/16 22:58 Bedside Glucose 64 L 163 140 175 Test 11/22/16 02:18 11/22/16 05:08 11/22/16 05:40 11/22/16 06:56 Bedside Glucose 205 208 White Blood Count 9.1 Red Blood Count 3.28 L Hemoglobin 8.0 L Hematocrit 26.8 L Mean Corpuscular Volume 81.7 L Mean Corpuscular Hemoglobin 24.4 L Mean Corpuscular Hemoglobin Concent 29.9 L Red Cell Distribution Width 15.6 H Platelet Count 377 Mean Platelet Volume 10.0 Neutrophils % 79.5 H Lymphocytes % 6.4 L Monocytes % 13.3 H Eosinophils % 0.2 Basophils % 0.3 Nucleated Red Blood Cells % 0.2 H Neutrophils # 7.2 Lymphocytes # 0.6 L Monocytes # 1.2 H Eosinophils # 0.0 Basophils # 0.0 Nucleated Red Blood Cells # 0.0 Sodium Level 136 Potassium Level 3.5 Chloride Level 92 L Carbon Dioxide Level 25 Anion Gap 23 H Blood Urea Nitrogen 26 #H Creatinine 3.57 #H Glucose Level 226 H Calcium Level 8.6 Random Vancomycin Level 14.3 Blood Gas Specimen Source Blood arterial Arterial Blood Date Drawn 11/22/2016 7:10:54 AM Arterial Blood pH (Temp corrected) 7.352 Arterial Blood pCO2 (Temp correct) 47.1 H Arterial Blood pO2 (Temp corrected) 46.5 *L Arterial Blood HCO3 25.5 Arterial Blood Base Excess -0.2 Arterial Blood Oxygen Saturation 79.2 L Óscar Test ACCEPTAB Arterial Blood Gas Puncture Site Left Radial Arterial Blood Carboxyhemoglobin 1.6 Arterial Blood Methemoglobin 0.1 Blood Gas A-a O2 Differential 90.3 H Oxyhemoglobin Percent 77.9 L Total Hemoglobin 9.5 L Blood Gas Temperature 37.0 Blood Gas Modality NASAL CANNULA FiO2 27.0 Blood Gas Critical Value Read Back J ALISE RN Blood Gas Notified Whom JLD Blood Gas Notified Time 11/22/2016 7:45:39 AM Test 11/22/16 07:35 11/22/16 08:21 Lab Scanned Report REFERENCE LAB Bedside Glucose 222 H Medications Medications Current Medications Acetaminophen (Tylenol Tab) 650 mg Q6H PRN PO PAIN AND OR ELEVATED TEMP Last administered on 11/20/16 10:58; Admin Dose 650 MG; Start 11/17/16 at 09:00 Bisacodyl (Dulcolax Supp) 10 mg DAILY PRN [place] CONSTIPATION; Start 11/17/16 at 09 :00 Clonidine (Catapres) 0.1 mg Q6H PRN PO ELEVATED BLOOD PRESSURE; Start 11/17/16 at 09:00 Clonidine (Catapres) 0.2 mg TID PO Last administered on 11/21/16 10:15; Admin Dose 0.2 MG; Start 11/17/16 at 09:00 Clonidine HCl (Catapres-Tts 3 Patch) 0.3 patch Q7D TRANSDERM Last administered on 11/17/16 11:36; Admin Dose 0.3 PATCH; Start 11/17/16 at 10:00 Glucose (Glutose) 38 gm PRN PO Last administered on 11/17/16 22:36; Admin Dose 38 GM; Start 11/17/16 at 09:00 Diphenhydramine HCl (Benadryl) 25 mg Q8 PRN PO ITCHING; Start 11/17/16 at 09:00 Docusate Sodium (Colace) 250 mg DAILY PRN PO CONSTIPATION; Start 11/17/16 at 09 :00 Duloxetine HCl (Cymbalta) 60 mg DAILY PO Last administered on 11/21/16 10:13; Admin Dose 60 MG; Start 11/17/16 at 09:00 Guaifenesin/ Dextromethorphan (Robitussin Dm Liquid Cup) 10 ml Q6H PRN PO COUGH ; Start 11/17/16 at 09:00 Hydralazine HCl (Apresoline) 25 mg QID PO Last administered on 11/21/16 10:15; Admin Dose 25 MG; Start 11/17/16 at 09:00 Metoclopramide HCl (Reglan) 10 mg Q12 PRN PO NAUSEA AND/OR VOMITING; Start at 09:00 Minoxidil (Loniten) 10 mg BID PO Last administered on 11/21/16 10:13; Admin Dose 10 MG; Start 11/17/16 at 10:30 Nifedipine (Procardia Xl) 30 mg DAILY PO Last administered on 11/21/16 10:13; Admin Dose 30 MG; Start 11/17/16 at 10:00 Pantoprazole (Protonix Tab) 20 mg DAILY PO Last administered on 11/21/16 10:14 ; Admin Dose 20 MG; Start 11/17/16 at 09:00 Eye Lubricant (Artificial Tears Oph) 1 drop Q6 BOTH EYES Last administered on 05:09; Admin Dose 1 DROP; Start 11/17/16 at 12:00 Senna (Senokot) 1 tab Q12H PRN PO CONSTIPATION; Start 11/17/16 at 09:00 Zolpidem Tartrate (Ambien) 1 mg HS PO Last administered on 11/20/16 21:12; Admin Dose 1 MG; Start 11/17/16 at 21:00 Multivit/Ca Carb/ B Cmplx/FA/Prenat (Peyton-Ludwin) 1 tab DAILY PO Last administered on 11/21/16 10:14; Admin Dose 1 TAB; Start 11/17/16 at 09:00 Diagnostic Test (Pha) (Accu-Chek) 1 ea 02 XX Last administered on 11/19/16 02: 00; Admin Dose 1 EA; Start 11/18/16 at 02:00 Miscellaneous Information 1 ea NOTE XX ; Start 11/17/16 at 10:00 Glucose (Glutose) 15 gm Q15M PRN PO DECREASED GLUCOSE; Start 11/17/16 at 10:00 Glucose (Glutose) 22.5 gm Q15M PRN PO DECREASED GLUCOSE; Start 11/17/16 at 10: 00 Dextrose (D50w Syringe) 25 ml Q15M PRN IV DECREASED GLUCOSE Last administered on 11/21/16 20:44; Admin Dose 25 ML; Start 11/17/16 at 10:00 Dextrose (D50w Syringe) 50 ml Q15M PRN IV DECREASED GLUCOSE; Start 11/17/16 at 10:00 Glucagon (Glucagen) 1 mg Q15M PRN IM DECREASED GLUCOSE; Start 11/17/16 at 10:00 Glucose (Glutose) 15 gm Q15M PRN BUCCAL DECREASED GLUCOSE Last administered on 11/19/16 08:58; Admin Dose 15 GM; Start 11/17/16 at 10:00 Atorvastatin Calcium 10 mg 10 mg HS PO Last administered on 11/20/16 21:13; Admin Dose 10 MG; Start 11/17/16 at 21:00 Azithromycin (Zithromax 500mg/ NS (Pmx)) 250 ml @ 250 mls/hr Q24H IVPB Last administered on 11/21/16 23:56; Admin Dose 250 MLS/HR; Start 11/17/16 at 15:00 Heparin Sodium (Porcine) (Heparin (5000 Units/0.5 ml)) 5,000 unit BID SC Last administered on 11/21/16 21:36; Admin Dose 5,000 UNIT; Start 11/17/16 at 13:00 Acyclovir (Zovirax) 800 mg BID PO Last administered on 11/21/16 10:13; Admin Dose 800 MG; Start 11/17/16 at 21:00 Acetaminophen/ Hydrocodone Bitart ([place] (5/325)) 1 tab Q6 PRN PO MODERATE PAIN LEVEL 4-6 Last administered on 11/22/16 05:08; Admin Dose 1 TAB; Start at 18:00 Morphine Sulfate (morphine) 2 mg Q4H PRN IV PAIN LEVEL 6-10 Last administered on 11/22/16 02:13; Admin Dose 2 MG; Start 11/17/16 at 17:30 Isosorbide Dinitrate (Isordil) 10 mg TID PO Last administered on 11/21/16 10:14 ; Admin Dose 10 MG; Start 11/17/16 at 21:00 Nitroglycerin 1 tab 1 tab Q5M PRN SL ANGINA; Start 11/17/16 at 18:30 Piperacillin Sod/ Tazobactam Sod (Zosyn 2.25gm/ 50ml (Pmx)) 50 ml @ 100 mls/hr Q12 IVPB Last administered on 11/21/16 20:45; Admin Dose 100 MLS/HR; Start at 21:00 Ferrous Sulfate (Ferrous Sulfate (Ec)) 325 mg BID PO Last administered on 10:14; Admin Dose 325 MG; Start 11/18/16 at 21:00 Docusate Sodium (Colace) 100 mg DAILY PRN PO CONSTIPATION; Start 11/18/16 at 10 :00 Linagliptin (Tradjenta) 5 mg DAILY PO Last administered on 11/21/16 10:14; Admin Dose 5 MG; Start 11/18/16 at 14:00 Meclizine HCl (Antivert) 25 mg Q6 PRN PO dizziness Last administered on 12:44; Admin Dose 25 MG; Start 11/20/16 at 12:30 Epoetin Luis (Epogen (Esrd)) 3,000 units MoWeFr@17 SC ; Start 11/23/16 at 17:00 Gabapentin (Neurontin) 100 mg BID PO ; Start 11/22/16 at 09:00 Insulin Detemir (Levemir) 9 unit DAILY@20 SC ; Start 11/22/16 at 20:00 Hydralazine HCl (Apresoline) 20 mg Q4 PRN IV ELEVATED BLOOD PRESSURE Last administered on 11/21/16 23:47; Admin Dose 20 MG; Start 11/21/16 at 23:30 Nitroglycerin (Nitroglycerin 2% Oint) 1 inch Q6 TD Last administered on 05:15; Admin Dose 1 INCH; Start 11/22/16 at 00:00 URIEL CURIEL Nov 22, 2016 08:47
[2016-11-22] MEDS ORDERED: PROPOFOL 100 ML ONE (09:20)
[2016-11-22] MEDS: HEPARIN 5,000 UNIT/0.5 ML VIAL SC SCH ×2 (09:28→21:52)
[2016-11-22] MEDS: PROPOFOL 100 ML IV PRN ×2 (09:30→18:54)
--- NOTE | 2016-11-22 10:20 | EN ---
Date/Time of Note Date/Time of Note DATE: 11/22/16 TIME: :18 Event Note Medicine Medicine Event Note This is an oral intubation note. Diagnosis; respiratory failure. Patient was transferred to ICU last night however the patient continues to exhibit poor mental status as well as poor respiratory status. With severe tachypnea, hypoxemia and refusal to use any supplemental oxygen. it was decided to intubate the patient. She was medicated with 20 mg of etomidate followed by 10 mg of rocuronium intravenously. After which she was orally intubated with 7.5 endotracheal tube without difficulty. Direct visualization of vocal cords was achieved. Endotracheal tube placement was confirmed by end- tidal CO2 indicator as well as stat chest x-ray. URIEL CURIEL Nov 22, 2016 10:20
--- NOTE | 2016-11-22 10:25 | RADRPT ---
PROCEDURE: XR Chest AP portable CLINICAL INDICATION: Status post intubation TECHNIQUE: An AP portable radiograph of the chest was submitted. COMPARISON: 11/21/2016 FINDINGS: Support Hardware: Since the previous study, the patient has been intubated with the tube tip at the level of superior T4. An NG tube is in satisfactorily placed with the tip in the stomach. Cardiovascular: The heart remains mildly enlarged, the aorta appears atherosclerotic and the pulmona ry vasculature is upper normal. Lung Junior: A 4.4 cm rounded density again projects to the right mid lung zone. Alveolar infiltrat e is again seen to the right mid and lower lung zone. There is persistent left lower lobe atelectasi s with shift of the mediastinum leftward. Pleural Spaces: Bilateral pleural fluid accumulations are again noted considerably larger on the rig ht than the left, unchanged. Osseous Structures: Moderate diffuse degenerative spine changes are noted in the osseous elements ap pear osteoporotic. Soft Tissues: The soft tissues appear unremarkable. IMPRESSION: 1. Interval satisfactory intubation and placement of an NG tube. 2. Persistent mild cardiomegaly with atherosclerotic changes to the aorta and with the pulmonary va sculature upper normal. 3. A 4.4 cm round density again projects the right mid lung zone which could represent a round pneu monia or mass. 4. Infiltrate is again seen within the right mid and lower lung zone, slightly worse and an increas ing atelectasis and possibly infiltrate is seen through the heart in the left lower lobe with a grea ter shift of the mediastinum leftward. 5. Bilateral pleural fluid accumulations are again evident considerably larger on the right than th e left. No pneumothorax is identified. Physician Shon Date Time Electronically viewed and signed by Physician Shon on 11/22/2016 10:24 /
[2016-11-22 10:32] LABS: AADO2 Arterial 345.2 mmHg (7.0-24.0); Allen Test ACCEPTAB; Arterial Base Excess 0.1 mmol/L (-3.0-3); Arterial COHb 1.4 % (0.0-3.0); Arterial Fraction of Oxyhgb 98.1 % (93.0-99.0); Arterial HCO3 24.8 mmol/L (22.0-26.0); Arterial MetHb 0.4 % (0.0-1.5); MODE VENT - AC
[2016-11-22] MEDS ORDERED: VANCOMYCIN 750 MG in SOD CHLORIDE 0.9% 150 ML IVPB SCH (13:30)
--- NOTE | 2016-11-22 13:43 | PN ---
Date/Time of Note Date/Time of Note DATE: 11/22/16 TIME: 13:40 Assessment/Plan VTE Prophylaxis VTE Prophylaxis Intervention: SCD's Lines/Catheters IV C[facility]ter Type (from [facility] Urinary Cath still in place: No Assessment/Plan Chief Complaint/Hosp Course Assessment and plan: -Acute respiratory failure, continue ventilatory support. is following in pulmonology consultation. -Acute encephalopathy. -Pneumonia with parapneumonic effusion, continue antibiotics. Dr. Leal is following from infectious disease standpoint. -Sepsis secondary to pneumonia. -End-stage renal disease hemodialysis dependent. Dr. Gorman is following in nephrology consultation -Posterior shoulder lesion, possible VZV infection. Continue acyclovir. -Chest pain on admission, rule out acute coronary syndrome. -CHF, continue to remove fluids with hemodialysis. -Hypertension. Dr. Magana is following in cardiology consultation. -Diabetes mellitus type 2. Dr. Freitas is following in endocrinology consultation. Continue Levemir and pre-meal NovoLog as well as NovoLog per mild algorithm sliding scale. Continue Tradjenta. -Hypothyroidism. Continue levothyroxine. -Anemia of chronic disease, continue Epogen. Further recommendations based on clinical course. Plan of care discussed with Dr. Porter. Problems: Subjective 24 Hr Interval Summary Free Text/Dictation Patient was intubated in a.m., currently on vent support, sedated on propofol, however patient is still restless. Exam/Review of Systems Vital Signs Vitals Vital Signs Date Time Temp Pulse Resp B/P Pulse Ox O2 Delivery O2 Flow Rate FiO2 11/22/16 12:00 63 11/22/16 10:15 14 105/44 100 11/22/16 10:00 Mechanical Ventilator 11/22/16 09:09 15.0 11/22/16 08:12 50 11/22/16 08:00 98.2 Intake and Output 11/21/16 11/21/16 11/22/16 15:00 23:00 07:00 Intake Total 550 ml 250 ml Output Total 4500 ml Balance -3950 ml 250 ml Exam Constitutional: alert, well developed Psych: nl mood/affect, no complaints Head: atraumatic, normocephalic Eyes: nl conjunctiva ENMT: nl external ears & nose Neck: non-tender, supple Respiratory: Diminished at the bases with decreased air entry bilaterally Cardiovascular: nl pulses, regular rate and rhythm Gastrointestinal: non-tender, soft Genitourinary - Female: nl adnexae Musculoskeletal: nl extremities to inspection Extremities: normal pulses Neurological: [employer]AD II-XII intact Skin: other (Posterior shoulder rash) Results Result Diagram: 11/22/16 0540 11/22/16 0540 Results 24 hrs Laboratory Tests Test 11/21/16 13:48 11/21/16 17:05 11/21/16 20:31 11/21/16 20:35 Blood Gas Specimen Source Blood arterial Arterial Blood Date Drawn 11/21/2016 2:06:23 PM Arterial Blood pH (Temp corrected) 7.305 L Arterial Blood pCO2 (Temp correct) 49.1 H Arterial Blood pO2 (Temp corrected) 73.5 L Arterial Blood HCO3 23.9 Arterial Blood Base Excess -2.5 Arterial Blood Oxygen Saturation 92.2 L Óscar Test ACCEPTAB Arterial Blood Gas Puncture Site Left Radial Arterial Blood Carboxyhemoglobin 1.2 Arterial Blood Methemoglobin 0.3 Blood Gas A-a O2 Differential 61.0 H Oxyhemoglobin Percent 90.8 L Total Hemoglobin 9.6 L Blood Gas Temperature 37.0 Blood Gas Modality NASAL CANNULA FiO2 27.0 Blood Gas Notified Whom JLD Blood Gas Notified Time 11/21/2016 2:16:57 PM Bedside Glucose 142 65 L 64 L Test 11/21/16 21:03 11/21/16 21:20 11/21/16 22:58 11/22/16 02:18 Bedside Glucose 163 140 175 205 Test 11/22/16 05:08 11/22/16 05:40 11/22/16 06:56 11/22/16 07:35 Bedside Glucose 208 White Blood Count 9.1 Red Blood Count 3.28 L Hemoglobin 8.0 L Hematocrit 26.8 L Mean Corpuscular Volume 81.7 L Mean Corpuscular Hemoglobin 24.4 L Mean Corpuscular Hemoglobin Concent 29.9 L Red Cell Distribution Width 15.6 H Platelet Count 377 Mean Platelet Volume 10.0 Neutrophils % 79.5 H Lymphocytes % 6.4 L Monocytes % 13.3 H Eosinophils % 0.2 Basophils % 0.3 Nucleated Red Blood Cells % 0.2 H Neutrophils # 7.2 Lymphocytes # 0.6 L Monocytes # 1.2 H Eosinophils # 0.0 Basophils # 0.0 Nucleated Red Blood Cells # 0.0 Sodium Level 136 Potassium Level 3.5 Chloride Level 92 L Carbon Dioxide Level 25 Anion Gap 23 H Blood Urea Nitrogen 26 #H Creatinine 3.57 #H Glucose Level 226 H Calcium Level 8.6 Random Vancomycin Level 14.3 Blood Gas Specimen Source Blood arterial Arterial Blood Date Drawn 11/22/2016 7:10:54 AM Arterial Blood pH (Temp corrected) 7.352 Arterial Blood pCO2 (Temp correct) 47.1 H Arterial Blood pO2 (Temp corrected) 46.5 *L Arterial Blood HCO3 25.5 Arterial Blood Base Excess -0.2 Arterial Blood Oxygen Saturation 79.2 L Óscar Test ACCEPTAB Arterial Blood Gas Puncture Site Left Radial Arterial Blood Carboxyhemoglobin 1.6 Arterial Blood Methemoglobin 0.1 Blood Gas A-a O2 Differential 90.3 H Oxyhemoglobin Percent 77.9 L Total Hemoglobin 9.5 L Blood Gas Temperature 37.0 Blood Gas Modality NASAL CANNULA FiO2 27.0 Blood Gas Critical Value Read Back J ALISE RN Blood Gas Notified Whom JLD Blood Gas Notified Time 11/22/2016 7:45:39 AM Lab Scanned Report REFERENCE LAB Test 11/22/16 08:21 11/22/16 10:00 11/22/16 11:26 Bedside Glucose 222 H 217 Blood Gas Specimen Source Blood arterial Arterial Blood Date Drawn 11/22/2016 10:20:04 AM Arterial Blood pH (Temp corrected) 7.403 Arterial Blood pCO2 (Temp correct) 40.7 Arterial Blood pO2 (Temp corrected) 254.8 H Arterial Blood HCO3 24.8 Arterial Blood Base Excess 0.1 Arterial Blood Oxygen Saturation 99.9 H Óscar Test ACCEPTAB Arterial Blood Gas Puncture Site Left Radial Arterial Blood Carboxyhemoglobin 1.4 Arterial Blood Methemoglobin 0.4 Blood Gas A-a O2 Differential 345.2 H Oxyhemoglobin Percent 98.1 Total Hemoglobin 8.0 L Blood Gas Temperature 37.0 Blood Gas Respiration Rate 14.0 Blood Gas Actual Respiration Rate 14 Blood Gas Modality VENT - AC FiO2 90.0 Blood Gas Tidal Volume 450.0 Blood Gas Notified Whom JLD Blood Gas Notified Time 11/22/2016 10:32:47 AM Medications Medications Current Medications Acetaminophen (Tylenol Tab) 650 mg Q6H PRN PO PAIN AND OR ELEVATED TEMP Last administered on 11/20/16t 10:58; Admin Dose 650 MG; Start 11/17/16 at 09:00 Bisacodyl (Dulcolax Supp) [address] CONSTIPATION; Start 11/17/16 at 09 :00 Clonidine (Catapres) 0.1 mg Q6H PRN PO ELEVATED BLOOD PRESSURE; Start 11/17/16 at 09:00 Clonidine (Catapres) 0.2 mg TID PO Last administered on 11/22/16 08:33; Admin Dose 0.2 MG; Start 11/17/16 at 09:00 Clonidine HCl (Catapres-Tts 3 Patch) 0.3 patch Q7D TRANSDERM Last administered on 11/17/16 11:36; Admin Dose 0.3 PATCH; Start 11/17/16 at 10:00 Glucose (Glutose) 38 gm PRN PO Last administered on 11/17/16 22:36; Admin Dose 38 GM; Start 11/17/16 at 09:00 Diphenhydramine HCl (Benadryl) 25 mg Q8 PRN PO ITCHING; Start 11/17/16 at 09:00 Docusate Sodium (Colace) 250 mg DAILY PRN PO CONSTIPATION; Start 11/17/16 at 09 :00 Duloxetine HCl (Cymbalta) 60 mg DAILY PO Last administered on 11/22/16 08:32; Admin Dose 60 MG; Start 11/17/16 at 09:00 Guaifenesin/ Dextromethorphan (Robitussin Dm Liquid Cup) 10 ml Q6H PRN PO COUGH ; Start 11/17/16 at 09:00 Hydralazine HCl (Apresoline) 25 mg QID PO Last administered on 11/22/16 08:32; Admin Dose 25 MG; Start 11/17/16 at 09:00 Metoclopramide HCl (Reglan) 10 mg Q12 PRN PO NAUSEA AND/OR VOMITING; Start at 09:00 Minoxidil (Loniten) 10 mg BID PO Last administered on 11/22/16 08:32; Admin Dose 10 MG; Start 11/17/16 at 10:30 Nifedipine (Procardia Xl) 30 mg DAILY PO Last administered on 11/22/16 08:33; Admin Dose 30 MG; Start 11/17/16 at 10:00 Pantoprazole (Protonix Tab) 20 mg DAILY PO Last administered on 11/22/16 08:34 ; Admin Dose 20 MG; Start 11/17/16 at 09:00 Eye Lubricant (Artificial Tears Oph) 1 drop Q6 BOTH EYES Last administered on 12:58; Admin Dose 1 DROP; Start 11/17/16 at 12:00 Senna (Senokot) 1 tab Q12H PRN PO CONSTIPATION; Start 11/17/16 at 09:00 Zolpidem Tartrate (Ambien) 1 mg HS PO Last administered on 11/20/16 21:12; Admin Dose 1 MG; Start 11/17/16 at 21:00 Multivit/Ca Carb/ B Cmplx/FA/Prenat (Peyton-Ludwin) 1 tab DAILY PO Last administered on 11/22/16 08:30; Admin Dose 1 TAB; Start 11/17/16 at 09:00 Diagnostic Test (Pha) (Accu-Chek) 1 ea 02 XX Last administered on 11/19/16 02: 00; Admin Dose 1 EA; Start 11/18/16 at 02:00 Miscellaneous Information 1 ea NOTE XX ; Start 11/17/16 at 10:00 Glucose (Glutose) 15 gm Q15M PRN PO DECREASED GLUCOSE; Start 11/17/16 at 10:00 Glucose (Glutose) 22.5 gm Q15M PRN PO DECREASED GLUCOSE; Start 11/17/16 at 10: 00 Dextrose (D50w Syringe) 25 ml Q15M PRN IV DECREASED GLUCOSE Last administered on 11/21/16 20:44; Admin Dose 25 ML; Start 11/17/16 at 10:00 Dextrose (D50w Syringe) 50 ml Q15M PRN IV DECREASED GLUCOSE; Start 11/17/16 at 10:00 Glucagon (Glucagen) 1 mg Q15M PRN IM DECREASED GLUCOSE; Start 11/17/16 at 10:00 Glucose (Glutose) 15 gm Q15M PRN BUCCAL DECREASED GLUCOSE Last administered on 11/19/16 08:58; Admin Dose 15 GM; Start 11/17/16 at 10:00 Atorvastatin Calcium 10 mg 10 mg HS PO Last administered on 11/20/16 21:13; Admin Dose 10 MG; Start 11/17/16 at 21:00 Azithromycin (Zithromax 500mg/ NS (Pmx)) 250 ml @ 250 mls/hr Q24H IVPB Last administered on 11/21/16 23:56; Admin Dose 250 MLS/HR; Start 11/17/16 at 15:00 Heparin Sodium (Porcine) (Heparin (5000 Units/0.5 ml)) 5,000 unit BID SC Last administered on 11/22/16 09:28; Admin Dose 5,000 UNIT; Start 11/17/16 at 13:00 Acyclovir (Zovirax) 800 mg BID PO Last administered on 11/22/16 08:32; Admin Dose 800 MG; Start 11/17/16 at 21:00 Acetaminophen/ Hydrocodone Bitart ([place] (5/325)) 1 tab Q6 PRN PO MODERATE PAIN LEVEL 4-6 Last administered on 11/22/16 05:08; Admin Dose 1 TAB; Start at 18:00 Morphine Sulfate (morphine) 2 mg Q4H PRN IV PAIN LEVEL 6-10 Last administered on 11/22/16 08:25; Admin Dose 2 MG; Start 11/17/16 at 17:30 Isosorbide Dinitrate (Isordil) 10 mg TID PO Last administered on 11/22/16 08:31 ; Admin Dose 10 MG; Start 11/17/16 at 21:00 Nitroglycerin 1 tab 1 tab Q5M PRN SL ANGINA; Start 11/17/16 at 18:30 Piperacillin Sod/ Tazobactam Sod (Zosyn 2.25gm/ 50ml (Pmx)) 50 ml @ 100 mls/hr Q12 IVPB Last administered on 11/22/16 08:25; Admin Dose 100 MLS/HR; Start at 21:00 Ferrous Sulfate (Ferrous Sulfate (Ec)) 325 mg BID PO Last administered on 08:32; Admin Dose 325 MG; Start 11/18/16 at 21:00 Docusate Sodium (Colace) 100 mg DAILY PRN PO CONSTIPATION; Start 11/18/16 at 10 :00 Linagliptin (Tradjenta) 5 mg DAILY PO Last administered on 11/22/16 08:30; Admin Dose 5 MG; Start 11/18/16 at 14:00 Meclizine HCl (Antivert) 25 mg Q6 PRN PO dizziness Last administered on 12:44; Admin Dose 25 MG; Start 11/20/16 at 12:30 Epoetin Luis (Epogen (Esrd)) 3,000 units MoWeFr@17 SC ; Start 11/23/16 at 17:00 Gabapentin (Neurontin) 100 mg BID PO Last administered on 11/22/16 08:35; Admin Dose 100 MG; Start 11/22/16 at 09:00 Insulin Detemir (Levemir) 9 unit DAILY@20 SC ; Start 11/22/16 at 20:00 Hydralazine HCl (Apresoline) 20 mg Q4 PRN IV ELEVATED BLOOD PRESSURE Last administered on 11/21/16 23:47; Admin Dose 20 MG; Start 11/21/16 at 23:30 Nitroglycerin 1 inch 1 inch Q6 TD Last administered on 11/22/16 05:15; Admin Dose 1 INCH; Start 11/22/16 at 00:00 Propofol 100 ml @ 1.53 mls/hr Q12H PRN IV SEDATION Last administered on 09:30; Admin Dose 1.53 MLS/HR; Start 11/22/16 at 10:00 Vancomycin HCl/ Sodium Chloride (Vancocin/NS) 150 ml @ 75 mls/hr ONCE IVPB ; Start 11/22/16 at 13:30; Stop 11/22/16 at 20:00 LINDA SCHWARTZ Nov 22, 2016 13:43
[2016-11-22] MEDS: AZITHROMYCIN 500MG/NS (PMX) 250 ML IVPB SCH (15:51)
[2016-11-22] MEDS ORDERED: SOD CHLORIDE 0.9% 250 ML IV ONE (17:00)
--- NOTE | 2016-11-22 18:13 | CONS ---
Date/Time of Note Date/Time of Note DATE: 11/22/16 TIME: 17:58 Consult Date/Type/Reason Admit Date/Time Nov 17, 2016 at 01:09 Initial Consult Date 11/17/16 Type of Consultation: Endocrine Reason for Consultation Diabetes management Ordering Provider: BING IZAGUIRRE MD Subjective Patient agitated. Patient intubated. Objective Vital Signs Date Time Temp Pulse Resp B/P Pulse Ox O2 Delivery O2 Flow Rate FiO2 11/22/16 17:21 74 14 100 40 11/22/16 16:30 83/48 11/22/16 16:00 99.5 Mechanical Ventilator 11/22/16 09:09 15.0 Intake and Output 11/21/16 11/21/16 11/22/16 15:00 23:00 07:00 Intake Total 550 ml 250 ml Output Total 4500 ml Balance -3950 ml 250 ml Exam General Appearance: A 71 year-old woman who appears thin and currently agitated. HEENT: Head normocephalic, atraumatic. Pupils equal, round, reactive to light and accommodate. Sclerae are no jaundice. Nasal turbinates pink without erythema or nasal discharge. Endotracheal Tube in place. Mucous membranes dry without lesions. NECK: Supple. Trachea midline, No thyromegaly, No cervical lymphadenopathy. PULMONARY: Tachypnea. Decreased breath sounds left lung base with coarse breath sounds right lung. CARDIAC: Sinus Tachycardia GASTROINTESTINAL: Abdomen is soft, non-tender, Non Rigid, No distention, No hepatosplenomegaly. EXTREMITIES: Bilateral lower extremities without edema. NEUROLOGIC: The patient is awake and agitated Results/Medications Result Diagram: 11/22/16 0540 11/22/16 0540 Results 24 hrs Laboratory Tests Test 11/21/16 20:31 11/21/16 20:35 11/21/16 21:03 11/21/16 21:20 Bedside Glucose 65 L 64 L 163 140 Test 11/21/16 22:58 11/22/16 02:18 11/22/16 05:08 11/22/16 05:40 Bedside Glucose 175 205 208 White Blood Count 9.1 Red Blood Count 3.28 L Hemoglobin 8.0 L Hematocrit 26.8 L Mean Corpuscular Volume 81.7 L Mean Corpuscular Hemoglobin 24.4 L Mean Corpuscular Hemoglobin Concent 29.9 L Red Cell Distribution Width 15.6 H Platelet Count 377 Mean Platelet Volume 10.0 Neutrophils % 79.5 H Lymphocytes % 6.4 L Monocytes % 13.3 H Eosinophils % 0.2 Basophils % 0.3 Nucleated Red Blood Cells % 0.2 H Neutrophils # 7.2 Lymphocytes # 0.6 L Monocytes # 1.2 H Eosinophils # 0.0 Basophils # 0.0 Nucleated Red Blood Cells # 0.0 Sodium Level 136 Potassium Level 3.5 Chloride Level 92 L Carbon Dioxide Level 25 Anion Gap 23 H Blood Urea Nitrogen 26 #H Creatinine 3.57 #H Glucose Level 226 H Calcium Level 8.6 Random Vancomycin Level 14.3 Test 11/22/16 06:56 11/22/16 07:35 11/22/16 08:21 11/22/16 10:00 Blood Gas Specimen Source Blood arterial Blood arterial Arterial Blood Date Drawn 11/22/2016 7:10:54 AM 11/22/2016 10:20:04 AM Arterial Blood pH (Temp corrected) 7.352 7.403 Arterial Blood pCO2 (Temp correct) 47.1 H 40.7 Arterial Blood pO2 (Temp corrected) 46.5 *L 254.8 H Arterial Blood HCO3 25.5 24.8 Arterial Blood Base Excess -0.2 0.1 Arterial Blood Oxygen Saturation 79.2 L 99.9 H Óscar Test ACCEPTAB ACCEPTAB Arterial Blood Gas Puncture Site Left Radial Left Radial Arterial Blood Carboxyhemoglobin 1.6 1.4 Arterial Blood Methemoglobin 0.1 0.4 Blood Gas A-a O2 Differential 90.3 H 345.2 H Oxyhemoglobin Percent 77.9 L 98.1 Total Hemoglobin 9.5 L 8.0 L Blood Gas Temperature 37.0 37.0 Blood Gas Modality NASAL CANNULA VENT - AC FiO2 27.0 90.0 Blood Gas Critical Value Read Back J ALISE RN Blood Gas Notified Whom GUERO JACK Blood Gas Notified Time 11/22/2016 7:45:39 AM 11/22/2016 10:32:47 AM Lab Scanned Report REFERENCE LAB Bedside Glucose 222 H Blood Gas Respiration Rate 14.0 Blood Gas Actual Respiration Rate 14 Blood Gas Tidal Volume 450.0 Test 11/22/16 11:26 11/22/16 11:28 Bedside Glucose 217 Lactic Acid Level 1.3 Medications Current Medications Acetaminophen (Tylenol Tab) 650 mg Q6H PRN PO PAIN AND OR ELEVATED TEMP Last administered on 11/20/16 10:58; Admin Dose 650 MG; Start 11/17/16 at 09:00 Bisacodyl (Dulcolax Supp) 10 mg DAILY PRN [place] CONSTIPATION; Start 11/17/16 at 09 :00 Clonidine (Catapres) 0.1 mg Q6H PRN PO ELEVATED BLOOD PRESSURE; Start 11/17/16 at 09:00 Clonidine (Catapres) 0.2 mg TID PO Last administered on 11/22/16 08:33; Admin Dose 0.2 MG; Start 11/17/16 at 09:00 Clonidine HCl (Catapres-Tts 3 Patch) 0.3 patch Q7D TRANSDERM Last administered on 11/17/16 11:36; Admin Dose 0.3 PATCH; Start 11/17/16 at 10:00 Glucose (Glutose) 38 gm PRN PO Last administered on 11/17/16 22:36; Admin Dose 38 GM; Start 11/17/16 at 09:00 Diphenhydramine HCl (Benadryl) 25 mg Q8 PRN PO ITCHING; Start 11/17/16 at 09:00 Docusate Sodium (Colace) 250 mg DAILY PRN PO CONSTIPATION; Start 11/17/16 at 09 :00 Duloxetine HCl (Cymbalta) 60 mg DAILY PO Last administered on 11/22/16 08:32; Admin Dose 60 MG; Start 11/17/16 at 09:00 Guaifenesin/ Dextromethorphan (Robitussin Dm Liquid Cup) 10 ml Q6H PRN PO COUGH ; Start 11/17/16 at 09:00 Hydralazine HCl (Apresoline) 25 mg QID PO Last administered on 11/22/16 08:32; Admin Dose 25 MG; Start 11/17/16 at 09:00 Metoclopramide HCl (Reglan) 10 mg Q12 PRN PO NAUSEA AND/OR VOMITING; Start at 09:00 Minoxidil (Loniten) 10 mg BID PO Last administered on 11/22/16 08:32; Admin Dose 10 MG; Start 11/17/16 at 10:30 Nifedipine (Procardia Xl) 30 mg DAILY PO Last administered on 11/22/16 08:33; Admin Dose 30 MG; Start 11/17/16 at 10:00 Eye Lubricant (Artificial Tears Oph) 1 drop Q6 BOTH EYES Last administered on 12:58; Admin Dose 1 DROP; Start 11/17/16 at 12:00 Senna (Senokot) 1 tab Q12H PRN PO CONSTIPATION; Start 11/17/16 at 09:00 Zolpidem Tartrate (Ambien) 1 mg HS PO Last administered on 11/20/16 21:12; Admin Dose 1 MG; Start 11/17/16 at 21:00 Multivit/Ca Carb/ B Cmplx/FA/Prenat (Pey[place]-Ludwin) 1 tab DAILY PO Last administered on 11/22/16 08:30; Admin Dose 1 TAB; Start 11/17/16 at 09:00 Diagnostic Test (Pha) (Accu-Chek) 1 ea 02 XX Last administered on 11/19/16 02: 00; Admin Dose 1 EA; Start 11/18/16 at 02:00 Miscellaneous Information 1 ea NOTE XX ; Start 11/17/16 at 10:00 Glucose (Glutose) 15 gm Q15M PRN PO DECREASED GLUCOSE; Start 11/17/16 at 10:00 Glucose (Glutose) 22.5 gm Q15M PRN PO DECREASED GLUCOSE; Start 11/17/16 at 10: 00 Dextrose (D50w Syringe) 25 ml Q15M PRN IV DECREASED GLUCOSE Last administered on 11/21/16 20:44; Admin Dose 25 ML; Start 11/17/16 at 10:00 Dextrose (D50w Syringe) 50 ml Q15M PRN IV DECREASED GLUCOSE; Start 11/17/16 at 10:00 Glucagon (Glucagen) 1 mg Q15M PRN IM DECREASED GLUCOSE; Start 11/17/16 at 10:00 Glucose (Glutose) 15 gm Q15M PRN BUCCAL DECREASED GLUCOSE Last administered on 11/19/16 08:58; Admin Dose 15 GM; Start 11/17/16 at 10:00 Atorvastatin Calcium 10 mg 10 mg HS PO Last administered on 11/20/16 21:13; Admin Dose 10 MG; Start 11/17/16 at 21:00 Azithromycin (Zithromax 500mg/ NS (Pmx)) 250 ml @ 250 mls/hr Q24H IVPB Last administered on 11/22/16 15:51; Admin Dose 250 MLS/HR; Start 11/17/16 at 15:00 Heparin Sodium (Porcine) (Heparin (5000 Units/0.5 ml)) 5,000 unit BID SC Last administered on 11/22/16 09:28; Admin Dose 5,000 UNIT; Start 11/17/16 at 13:00 Acyclovir (Zovirax) 800 mg BID PO Last administered on 11/22/16 08:32; Admin Dose 800 MG; Start 11/17/16 at 21:00 Acetaminophen/ Hydrocodone Bitart ([place] (5/325)) 1 tab Q6 PRN PO MODERATE PAIN LEVEL 4-6 Last administered on 11/22/16 05:08; Admin Dose 1 TAB; Start at 18:00 Morphine Sulfate (morphine) 2 mg Q4H PRN IV PAIN LEVEL 6-10 Last administered on 11/22/16 13:25; Admin Dose 2 MG; Start 11/17/16 at 17:30 Isosorbide Dinitrate (Isordil) 10 mg TID PO Last administered on 11/22/16 08:31 ; Admin Dose 10 MG; Start 11/17/16 at 21:00 Nitroglycerin 1 tab 1 tab Q5M PRN SL ANGINA; Start 11/17/16 at 18:30 Piperacillin Sod/ Tazobactam Sod (Zosyn 2.25gm/ 50ml (Pmx)) 50 ml @ 100 mls/hr Q12 IVPB Last administered on 11/22/16 08:25; Admin Dose 100 MLS/HR; Start at 21:00 Ferrous Sulfate (Ferrous Sulfate (Ec)) 325 mg BID PO Last administered on 08:32; Admin Dose 325 MG; Start 11/18/16 at 21:00 Docusate Sodium (Colace) 100 mg DAILY PRN PO CONSTIPATION; Start 11/18/16 at 10 :00 Linagliptin (Tradjenta) 5 mg DAILY PO Last administered on 11/22/16 08:30; Admin Dose 5 MG; Start 11/18/16 at 14:00 Meclizine HCl (Antivert) 25 mg Q6 PRN PO dizziness Last administered on 12:44; Admin Dose 25 MG; Start 11/20/16 at 12:30 Epoetin Luis (Epogen (Esrd)) 3,000 units MoWeFr@17 SC ; Start 11/23/16 at 17:00 Gabapentin (Neurontin) 100 mg BID PO Last administered on 11/22/16 08:35; Admin Dose 100 MG; Start 11/22/16 at 09:00 Hydralazine HCl (Apresoline) 20 mg Q4 PRN IV ELEVATED BLOOD PRESSURE Last administered on 11/21/16 23:47; Admin Dose 20 MG; Start 11/21/16 at 23:30 Nitroglycerin 1 inch 1 inch Q6 TD Last administered on 11/22/16 05:15; Admin Dose 1 INCH; Start 11/22/16 at 00:00 Propofol 100 ml @ 1.53 mls/hr Q12H PRN IV SEDATION Last administered on 09:30; Admin Dose 1.53 MLS/HR; Start 11/22/16 at 10:00 Vancomycin HCl 750 mg/Sodium Chloride 150 ml @ 75 mls/hr ONCE IVPB Last administered on 11/22/16 13:34; Admin Dose 75 MLS/HR; Start 11/22/16 at 13:30; Stop 11/22/16 at 20:00 Sodium Chloride (NS) 250 ml @ 250 mls/hr Q1H ONCE IV Last administered on 17:34; Admin Dose 250 MLS/HR; Start 11/22/16 at 17:00; Stop 11/22/16 at 17:59 Insulin Aspart (Novolog Insulin Pen) NOVOLOG *MILD* ALGORI... 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 She was diagnosed with bilateral lobe pneumonia. During admission she was noted to have elevated blood glucose readings. Problems: (1) Type 2 diabetes mellitus with hyperglycemia (2) Type 2 diabetes mellitus with diabetic chronic kidney disease Additional Assessment/Plan Past 24 hours: Patient was noted to be disoriented and hypoxemic on blood gas. Patient was intubated. Blood glucose levels have been suboptimal. Basal insulin dose was decreased to 9 units yesterday evening after patient's blood glucose was in the 60's, but it appears that her basal requirements are higher . I will increase the basal insulin back up to 11 units and further adjust as needed. Patient will continue to receive correction insulin for elevated blood sugars. If patient to start tube feeds for nutrition will make adjustments in insulin type at that time. Cont'd Hospitalization Reason: Respiratory failure. PNA CAITLYN PÉREZ MD Nov 22, 2016 18:12
--- NOTE | 2016-11-22 19:07 | CONS ---
Date/Time of Note Date/Time of Note DATE: 11/22/16 TIME: 19:05 Assessment/Plan Assessment/Plan Additional Assessment/Plan 1. Chest pain, assess for acute coronary syndrome with negative troponins x3. EF 50% by echo this admit - euvolemic by exam 2. Abnormal electrocardiogram with intraventricular conduction delay. Assess for acute coronary syndrome. 3. Hypertension- labile - difficylt to Rx - con't ICU care. 4. Diabetes mellitus. 5. Possible zoster infection. 6. Dyslipidemia. 7. Pneumonia with parapneumonic effusion - on anti-bx 8. Renal failure. 9. Anemia. 10. Leukocytosis. 11.Resp failure - now intubated, pulm team follows. 12.Encephalopathy Consultation Date/Type/Reason Admit Date/Time Nov 17, 2016 at 01:09 Initial Consult Date 11/17/16 Type of Consultation: Endocrine Referring Provider: BING IZAGUIRRE MD 24 HR Interval Summary Free Text/Dictation Now intubated -labile BP - con't to adjust Rx and keep euvolemic in a setting of acute resp failure and renal failure. ROS: No fever, no chills, no nausea, no vomiting, no diarrhea/constipation No recent weight changes No chest pain, no PND, no orthopnea No dizziness, blurred vision No thirst, no heat or cold intolerance (per nurse) Exam/Review of Systems Vital Signs Vitals Vital Signs Date Time Temp Pulse Resp B/P Pulse Ox O2 Delivery O2 Flow Rate FiO2 11/22/16 18:00 96 17 166/68 100 Mechanical Ventilator 11/22/16 17:21 40 11/22/16 16:00 99.5 11/22/16 09:09 15.0 Intake and Output 11/21/16 11/21/16 11/22/16 15:00 23:00 07:00 Intake Total 550 ml 250 ml Output Total 4500 ml Balance -3950 ml 250 ml Exam General: WN/WD/NAD, AOx 0 HEENT: Unicetric/atraumatic/EOMI (does not follow commands) NECK: JVD elevated, no thyromegaly, intubated Lymph: no lymphadenopathy HEART: regular with no S3, II/ systolic murmur at apex LUNGS: Coarse sounds ABD: soft, NT, ND, +BS : Intact Neuro: non focal SKIN: chronic changes EXT: trace edema Results Result Diagram: 11/22/16 0540 11/22/16 0540 Results 24 hrs Laboratory Tests Test 11/21/16 20:31 11/21/16 20:35 11/21/16 21:03 11/21/16 21:20 Bedside Glucose 65 L 64 L 163 140 Test 11/21/16 22:58 11/22/16 02:18 11/22/16 05:08 11/22/16 05:40 Bedside Glucose 175 205 208 White Blood Count 9.1 Red Blood Count 3.28 L Hemoglobin 8.0 L Hematocrit 26.8 L Mean Corpuscular Volume 81.7 L Mean Corpuscular Hemoglobin 24.4 L Mean Corpuscular Hemoglobin Concent 29.9 L Red Cell Distribution Width 15.6 H Platelet Count 377 Mean Platelet Volume 10.0 Neutrophils % 79.5 H Lymphocytes % 6.4 L Monocytes % 13.3 H Eosinophils % 0.2 Basophils % 0.3 Nucleated Red Blood Cells % 0.2 H Neutrophils # 7.2 Lymphocytes # 0.6 L Monocytes # 1.2 H Eosinophils # 0.0 Basophils # 0.0 Nucleated Red Blood Cells # 0.0 Sodium Level 136 Potassium Level 3.5 Chloride Level 92 L Carbon Dioxide Level 25 Anion Gap 23 H Blood Urea Nitrogen 26 #H Creatinine 3.57 #H Glucose Level 226 H Calcium Level 8.6 Random Vancomycin Level 14.3 Test 11/22/16 06:56 11/22/16 07:35 11/22/16 08:21 11/22/16 10:00 Blood Gas Specimen Source Blood arterial Blood arterial Arterial Blood Date Drawn 11/22/2016 7:10:54 AM 11/22/2016 10:20:04 AM Arterial Blood pH (Temp corrected) 7.352 7.403 Arterial Blood pCO2 (Temp correct) 47.1 H 40.7 Arterial Blood pO2 (Temp corrected) 46.5 *L 254.8 H Arterial Blood HCO3 25.5 24.8 Arterial Blood Base Excess -0.2 0.1 Arterial Blood Oxygen Saturation 79.2 L 99.9 H Óscar Test ACCEPTAB ACCEPTAB Arterial Blood Gas Puncture Site Left Radial Left Radial Arterial Blood Carboxyhemoglobin 1.6 1.4 Arterial Blood Methemoglobin 0.1 0.4 Blood Gas A-a O2 Differential 90.3 H 345.2 H Oxyhemoglobin Percent 77.9 L 98.1 Total Hemoglobin 9.5 L 8.0 L Blood Gas Temperature 37.0 37.0 Blood Gas Modality NASAL CANNULA VENT - AC FiO2 27.0 90.0 Blood Gas Critical Value Read Back J ALISE RN Blood Gas Notified Whom GUERO JACK Blood Gas Notified Time 11/22/2016 7:45:39 AM 11/22/2016 10:32:47 AM Lab Scanned Report REFERENCE LAB Bedside Glucose 222 H Blood Gas Respiration Rate 14.0 Blood Gas Actual Respiration Rate 14 Blood Gas Tidal Volume 450.0 Test 11/22/16 11:26 11/22/16 11:28 11/22/16 18:05 Bedside Glucose 217 168 Lactic Acid Level 1.3 Medications Medications Current Medications Acetaminophen (Tylenol Tab) 650 mg Q6H PRN PO PAIN AND OR ELEVATED TEMP Last administered on 11/20/16 10:58; Admin Dose 650 MG; Start 11/17/16 at 09:00 Bisacodyl (Dulcolax Supp) 10 mg DAILY PRN [place] CONSTIPATION; Start 11/17/16 at 09 :00 Clonidine (Catapres) 0.1 mg Q6H PRN PO ELEVATED BLOOD PRESSURE; Start 11/17/16 at 09:00 Clonidine (Catapres) 0.2 mg TID PO Last administered on 11/22/16 08:33; Admin Dose 0.2 MG; Start 11/17/16 at 09:00 Clonidine HCl (Catapres-Tts 3 Patch) 0.3 patch Q7D TRANSDERM Last administered on 11/17/16 11:36; Admin Dose 0.3 PATCH; Start 11/17/16 at 10:00 Glucose (Glutose) 38 gm PRN PO Last administered on 11/17/16 22:36; Admin Dose 38 GM; Start 11/17/16 at 09:00 Diphenhydramine HCl (Benadryl) 25 mg Q8 PRN PO ITCHING; Start 11/17/16 at 09:00 Docusate Sodium (Colace) 250 mg DAILY PRN PO CONSTIPATION; Start 11/17/16 at 09 :00 Duloxetine HCl (Cymbalta) 60 mg DAILY PO Last administered on 11/22/16 08:32; Admin Dose 60 MG; Start 11/17/16 at 09:00 Guaifenesin/ Dextromethorphan (Robitussin Dm Liquid Cup) 10 ml Q6H PRN PO COUGH ; Start 11/17/16 at 09:00 Hydralazine HCl (Apresoline) 25 mg QID PO Last administered on 11/22/16 08:32; Admin Dose 25 MG; Start 11/17/16 at 09:00 Metoclopramide HCl (Reglan) 10 mg Q12 PRN PO NAUSEA AND/OR VOMITING; Start at 09:00 Minoxidil (Loniten) 10 mg BID PO Last administered on 11/22/16 08:32; Admin Dose 10 MG; Start 11/17/16 at 10:30 Nifedipine (Procardia Xl) 30 mg DAILY PO Last administered on 11/22/16 08:33; Admin Dose 30 MG; Start 11/17/16 at 10:00 Eye Lubricant (Artificial Tears Oph) 1 drop Q6 BOTH EYES Last administered on 18:09; Admin Dose 1 DROP; Start 11/17/16 at 12:00 Senna (Senokot) 1 tab Q12H PRN PO CONSTIPATION; Start 11/17/16 at 09:00 Zolpidem Tartrate (Ambien) 1 mg HS PO Last administered on 11/20/16 21:12; Admin Dose 1 MG; Start 11/17/16 at 21:00 Multivit/Ca Carb/ B Cmplx/FA/Prenat (Peyton-Ludwin) 1 tab DAILY PO Last administered on 11/22/16 08:30; Admin Dose 1 TAB; Start 11/17/16 at 09:00 Diagnostic Test (Pha) (Accu-Chek) 1 ea 02 XX Last administered on 11/19/16 02: 00; Admin Dose 1 EA; Start 11/18/16 at 02:00 Miscellaneous Information 1 ea NOTE XX ; Start 11/17/16 at 10:00 Glucose (Glutose) 15 gm Q15M PRN PO DECREASED GLUCOSE; Start 11/17/16 at 10:00 Glucose (Glutose) 22.5 gm Q15M PRN PO DECREASED GLUCOSE; Start 11/17/16 at 10: 00 Dextrose (D50w Syringe) 25 ml Q15M PRN IV DECREASED GLUCOSE Last administered on 11/21/16 20:44; Admin Dose 25 ML; Start 11/17/16 at 10:00 Dextrose (D50w Syringe) 50 ml Q15M PRN IV DECREASED GLUCOSE; Start 11/17/16 at 10:00 Glucagon (Glucagen) 1 mg Q15M PRN IM DECREASED GLUCOSE; Start 11/17/16 at 10:00 Glucose (Glutose) 15 gm Q15M PRN BUCCAL DECREASED GLUCOSE Last administered on 11/19/16 08:58; Admin Dose 15 GM; Start 11/17/16 at 10:00 Atorvastatin Calcium 10 mg 10 mg HS PO Last administered on 11/20/16 21:13; Admin Dose 10 MG; Start 11/17/16 at 21:00 Azithromycin (Zithromax 500mg/ NS (Pmx)) 250 ml @ 250 mls/hr Q24H IVPB Last administered on 11/22/16 15:51; Admin Dose 250 MLS/HR; Start 11/17/16 at 15:00 Heparin Sodium (Porcine) (Heparin (5000 Units/0.5 ml)) 5,000 unit BID SC Last administered on 11/22/16 09:28; Admin Dose 5,000 UNIT; Start 11/17/16 at 13:00 Acyclovir (Zovirax) 800 mg BID PO Last administered on 11/22/16 08:32; Admin Dose 800 MG; Start 11/17/16 at 21:00 Acetaminophen/ Hydrocodone Bitart ([place] (5/325)) 1 tab Q6 PRN PO MODERATE PAIN LEVEL 4-6 Last administered on 11/22/16 05:08; Admin Dose 1 TAB; Start at 18:00 Morphine Sulfate (morphine) 2 mg Q4H PRN IV PAIN LEVEL 6-10 Last administered on 11/22/16 13:25; Admin Dose 2 MG; Start 11/17/16 at 17:30 Isosorbide Dinitrate (Isordil) 10 mg TID PO Last administered on 11/22/16 08:31 ; Admin Dose 10 MG; Start 11/17/16 at 21:00 Nitroglycerin 1 tab 1 tab Q5M PRN SL ANGINA; Start 11/17/16 at 18:30 Piperacillin Sod/ Tazobactam Sod (Zosyn 2.25gm/ 50ml (Pmx)) 50 ml @ 100 mls/hr Q12 IVPB Last administered on 11/22/16 08:25; Admin Dose 100 MLS/HR; Start at 21:00 Ferrous Sulfate (Ferrous Sulfate (Ec)) 325 mg BID PO Last administered on 08:32; Admin Dose 325 MG; Start 11/18/16 at 21:00 Docusate Sodium (Colace) 100 mg DAILY PRN PO CONSTIPATION; Start 11/18/16 at 10 :00 Linagliptin (Tradjenta) 5 mg DAILY PO Last administered on 11/22/16 08:30; Admin Dose 5 MG; Start 11/18/16 at 14:00 Meclizine HCl (Antivert) 25 mg Q6 PRN PO dizziness Last administered on 12:44; Admin Dose 25 MG; Start 11/20/16 at 12:30 Epoetin Luis (Epogen (Esrd)) 3,000 units MoWeFr@17 SC ; Start 11/23/16 at 17:00 Gabapentin (Neurontin) 100 mg BID PO Last administered on 11/22/16 08:35; Admin Dose 100 MG; Start 11/22/16 at 09:00 Hydralazine HCl (Apresoline) 20 mg Q4 PRN IV ELEVATED BLOOD PRESSURE Last administered on 11/21/16 23:47; Admin Dose 20 MG; Start 11/21/16 at 23:30 Nitroglycerin 1 inch 1 inch Q6 TD Last administered on 11/22/16 05:15; Admin Dose 1 INCH; Start 11/22/16 at 00:00 Propofol 100 ml @ 1.53 mls/hr Q12H PRN IV SEDATION Last administered on 18:54; Admin Dose 3.672 MLS/HR; Start 11/22/16 at 10:00 Vancomycin HCl/ Sodium Chloride (Vancocin/NS) 150 ml @ 75 mls/hr ONCE IVPB Last administered on 11/22/16 13:34; Admin Dose 75 MLS/HR; Start 11/22/16 at 13: 30; Stop 11/22/16 at 20:00 Insulin Aspart (Novolog Insulin Pen) NOVOLOG *MILD* ALGORI... Q6 SC Last administered on 11/22/16 18:15; Admin Dose 1 UNIT; Start 11/22/16 at 18:00 Pantoprazole 40 mg 40 mg DAILY@06 PO ; Start 11/23/16 at 06:00 Norepinephrine (Levophed) 250 ml @ 1.875 mls/ hr TITRATE IV ; Start 11/22/16 at 17:00 Insulin Glargine (Lantus) 11 unit DAILY@20 SC ; Start 11/22/16 at 20:00 LESLI HAWLEY MD Nov 22, 2016 19:07
[2016-11-22] MEDS ORDERED: INSULIN DETEMIR [LEVEMIR] 3ML CART SC SCH (20:00)
[2016-11-22] MEDS: NORepinephrine 8MG/250 ML (PMX 250 ML IV SCH (20:35)
[2016-11-22] MEDS: INSULIN GLARGINE [LANtus] 3 ML PEN SC SCH (20:42)
[2016-11-22] MEDS: ZOLPIDEM 5 MG TAB PO SCH (20:46)
[2016-11-22] MEDS: ATORVASTATIN 10 MG TAB PO SCH (21:50)
--- NOTE | 2016-11-22 22:50 | CONS ---
Date/Time of Note Date/Time of Note DATE: 11/22/16 TIME: 22:44 Assessment/Plan Assessment/Plan Chief Complaint/Hosp Course Pt already getting Resp therapy Condition improved after HD Problems: Additional Assessment/Plan Pts' condition has deteriorated Being followed by ID, Pulm WIll dialyze in AM since BP has stabilized Cont'd Hospitalization Reason: Increase epo agai, modify bp meds Consultation Date/Type/Reason Admit Date/Time Nov 17, 2016 at 01:09 Initial Consult Date 11/17/16 Type of Consultation: renal Referring Provider: BING IZAGUIRRE MD 24 HR Interval Summary Free Text/Dictation sedated & on vent Subjective hx not possible: pt non-verbal, pt critical status Exam/Review of Systems Vital Signs Vitals Vital Signs Date Time Temp Pulse Resp B/P Pulse Ox O2 Delivery O2 Flow Rate FiO2 11/22/16 21:15 71 14 100 45 11/22/16 21:00 85/47 Mechanical Ventilator 11/22/16 20:00 99.0 11/22/16 09:09 15.0 Intake and Output 11/21/16 11/21/16 11/22/16 15:00 23:00 07:00 Intake Total 550 ml 250 ml Output Total 4500 ml Balance -3950 ml 250 ml Exam BP running low, started on pressors Constitutional: distress Psych: nl mood/affect, no complaints Head: atraumatic, normocephalic Eyes: EOMI, PERRL, nl conjunctiva, nl lids, nl sclera ENMT: intubated (on vent), nl external ears & nose, nl lips & teeth, nl nasal mucosa & septum Neck: non-tender, supple Respiratory: clear to auscultation, normal air movement Cardiovascular: nl pulses, regular rate and rhythm Gastrointestinal: nl liver, spleen, non-tender, soft Musculoskeletal: nl extremities to inspection, nl gait and stance Extremities: normal pulses, other (lt arm avf in place) Neurological: LABORER ORCHARD II-XII intact Skin: nl turgor, No rash or lesions Lymph: nl lymph nodes Results Result Diagram: 11/22/16 0540 11/22/16 0540 Results 24 hrs Laboratory Tests Test 11/21/16 22:58 11/22/16 02:18 11/22/16 05:08 11/22/16 05:40 Bedside Glucose 175 205 208 White Blood Count 9.1 Red Blood Count 3.28 L Hemoglobin 8.0 L Hematocrit 26.8 L Mean Corpuscular Volume 81.7 L Mean Corpuscular Hemoglobin 24.4 L Mean Corpuscular Hemoglobin Concent 29.9 L Red Cell Distribution Width 15.6 H Platelet Count 377 Mean Platelet Volume 10.0 Neutrophils % 79.5 H Lymphocytes % 6.4 L Monocytes % 13.3 H Eosinophils % 0.2 Basophils % 0.3 Nucleated Red Blood Cells % 0.2 H Neutrophils # 7.2 Lymphocytes # 0.6 L Monocytes # 1.2 H Eosinophils # 0.0 Basophils # 0.0 Nucleated Red Blood Cells # 0.0 Sodium Level 136 Potassium Level 3.5 Chloride Level 92 L Carbon Dioxide Level 25 Anion Gap 23 H Blood Urea Nitrogen 26 #H Creatinine 3.57 #H Glucose Level 226 H Calcium Level 8.6 Random Vancomycin Level 14.3 Test 11/22/16 06:56 11/22/16 07:35 11/22/16 08:21 11/22/16 10:00 Blood Gas Specimen Source Blood arterial Blood arterial Arterial Blood Date Drawn 11/22/2016 7:10:54 AM 11/22/2016 10:20:04 AM Arterial Blood pH (Temp corrected) 7.352 7.403 Arterial Blood pCO2 (Temp correct) 47.1 H 40.7 Arterial Blood pO2 (Temp corrected) 46.5 *L 254.8 H Arterial Blood HCO3 25.5 24.8 Arterial Blood Base Excess -0.2 0.1 Arterial Blood Oxygen Saturation 79.2 L 99.9 H Óscar Test ACCEPTAB ACCEPTAB Arterial Blood Gas Puncture Site Left Radial Left Radial Arterial Blood Carboxyhemoglobin 1.6 1.4 Arterial Blood Methemoglobin 0.1 0.4 Blood Gas A-a O2 Differential 90.3 H 345.2 H Oxyhemoglobin Percent 77.9 L 98.1 Total Hemoglobin 9.5 L 8.0 L Blood Gas Temperature 37.0 37.0 Blood Gas Modality NASAL CANNULA VENT - AC FiO2 27.0 90.0 Blood Gas Critical Value Read Back J ALISE RN Blood Gas Notified Whom GUERO JACK Blood Gas Notified Time 11/22/2016 7:45:39 AM 11/22/2016 10:32:47 AM Lab Scanned Report REFERENCE LAB Bedside Glucose 222 H Blood Gas Respiration Rate 14.0 Blood Gas Actual Respiration Rate 14 Blood Gas Tidal Volume 450.0 Test 11/22/16 11:26 11/22/16 11:28 11/22/16 18:05 11/22/16 20:39 Bedside Glucose 217 168 160 Lactic Acid Level 1.3 Medications Medications Current Medications Acetaminophen (Tylenol Tab) 650 mg Q6H PRN PO PAIN AND OR ELEVATED TEMP Last administered on 11/20/16 10:58; Admin Dose 650 MG; Start 11/17/16 at 09:00 Bisacodyl (Dulcolax Supp) 10 mg DAILY PRN [place] CONSTIPATION; Start 11/17/16 at 09 :00 Clonidine (Catapres) 0.1 mg Q6H PRN PO ELEVATED BLOOD PRESSURE; Start 11/17/16 at 09:00 Clonidine (Catapres) 0.2 mg TID PO Last administered on 11/22/16 08:33; Admin Dose 0.2 MG; Start 11/17/16 at 09:00 Clonidine HCl (Catapres-Tts 3 Patch) 0.3 patch Q7D TRANSDERM Last administered on 11/17/16 11:36; Admin Dose 0.3 PATCH; Start 11/17/16 at 10:00 Glucose (Glutose) 38 gm PRN PO Last administered on 11/17/16 22:36; Admin Dose 38 GM; Start 11/17/16 at 09:00 Diphenhydramine HCl (Benadryl) 25 mg Q8 PRN PO ITCHING; Start 11/17/16 at 09:00 Docusate Sodium (Colace) 250 mg DAILY PRN PO CONSTIPATION; Start 11/17/16 at 09 :00 Duloxetine HCl (Cymbalta) 60 mg DAILY PO Last administered on 11/22/16 08:32; Admin Dose 60 MG; Start 11/17/16 at 09:00 Guaifenesin/ Dextromethorphan (Robitussin Dm Liquid Cup) 10 ml Q6H PRN PO COUGH ; Start 11/17/16 at 09:00 Hydralazine HCl (Apresoline) 25 mg QID PO Last administered on 11/22/16 08:32; Admin Dose 25 MG; Start 11/17/16 at 09:00 Metoclopramide HCl (Reglan) 10 mg Q12 PRN PO NAUSEA AND/OR VOMITING; Start at 09:00 Minoxidil (Loniten) 10 mg BID PO Last administered on 11/22/16 08:32; Admin Dose 10 MG; Start 11/17/16 at 10:30 Nifedipine (Procardia Xl) 30 mg DAILY PO Last administered on 11/22/16 08:33; Admin Dose 30 MG; Start 11/17/16 at 10:00 Eye Lubricant (Artificial Tears Oph) 1 drop Q6 BOTH EYES Last administered on 18:09; Admin Dose 1 DROP; Start 11/17/16 at 12:00 Senna (Senokot) 1 tab Q12H PRN PO CONSTIPATION; Start 11/17/16 at 09:00 Zolpidem Tartrate (Ambien) 1 mg HS PO Last administered on 11/20/16 21:12; Admin Dose 1 MG; Start 11/17/16 at 21:00 Multivit/Ca Carb/ B Cmplx/FA/Prenat (Peyton-Ludwin) 1 tab DAILY PO Last administered on 11/22/16 08:30; Admin Dose 1 TAB; Start 11/17/16 at 09:00 Diagnostic Test (Pha) (Accu-Chek) 1 ea 02 XX Last administered on 11/19/16 02: 00; Admin Dose 1 EA; Start 11/18/16 at 02:00 Miscellaneous Information 1 ea NOTE XX ; Start 11/17/16 at 10:00 Glucose (Glutose) 15 gm Q15M PRN PO DECREASED GLUCOSE; Start 11/17/16 at 10:00 Glucose (Glutose) 22.5 gm Q15M PRN PO DECREASED GLUCOSE; Start 11/17/16 at 10: 00 Dextrose (D50w Syringe) 25 ml Q15M PRN IV DECREASED GLUCOSE Last administered on 11/21/16 20:44; Admin Dose 25 ML; Start 11/17/16 at 10:00 Dextrose (D50w Syringe) 50 ml Q15M PRN IV DECREASED GLUCOSE; Start 11/17/16 at 10:00 Glucagon (Glucagen) 1 mg Q15M PRN IM DECREASED GLUCOSE; Start 11/17/16 at 10:00 Glucose (Glutose) 15 gm Q15M PRN BUCCAL DECREASED GLUCOSE Last administered on 11/19/16 08:58; Admin Dose 15 GM; Start 11/17/16 at 10:00 Atorvastatin Calcium 10 mg 10 mg HS PO Last administered on 11/22/16 21:50; Admin Dose 10 MG; Start 11/17/16 at 21:00 Azithromycin (Zithromax 500mg/ NS (Pmx)) 250 ml @ 250 mls/hr Q24H IVPB Last administered on 11/22/16 15:51; Admin Dose 250 MLS/HR; Start 11/17/16 at 15:00 Heparin Sodium (Porcine) (Heparin (5000 Units/0.5 ml)) 5,000 unit BID SC Last administered on 11/22/16 21:52; Admin Dose 5,000 UNIT; Start 11/17/16 at 13:00 Acyclovir (Zovirax) 800 mg BID PO Last administered on 11/22/16 21:50; Admin Dose 800 MG; Start 11/17/16 at 21:00 Acetaminophen/ Hydrocodone Bitart ([place] (5/325)) 1 tab Q6 PRN PO MODERATE PAIN LEVEL 4-6 Last administered on 11/22/16 05:08; Admin Dose 1 TAB; Start at 18:00 Morphine Sulfate (morphine) 2 mg Q4H PRN IV PAIN LEVEL 6-10 Last administered on 11/22/16 13:25; Admin Dose 2 MG; Start 11/17/16 at 17:30 Isosorbide Dinitrate (Isordil) 10 mg TID PO Last administered on 11/22/16 08:31 ; Admin Dose 10 MG; Start 11/17/16 at 21:00 Nitroglycerin 1 tab 1 tab Q5M PRN SL ANGINA; Start 11/17/16 at 18:30 Piperacillin Sod/ Tazobactam Sod (Zosyn 2.25gm/ 50ml (Pmx)) 50 ml @ 100 mls/hr Q12 IVPB Last administered on 11/22/16 21:50; Admin Dose 100 MLS/HR; Start at 21:00 Ferrous Sulfate (Ferrous Sulfate (Ec)) 325 mg BID PO Last administered on 21:50; Admin Dose 325 MG; Start 11/18/16 at 21:00 Docusate Sodium (Colace) 100 mg DAILY PRN PO CONSTIPATION; Start 11/18/16 at 10 :00 Linagliptin (Tradjenta) 5 mg DAILY PO Last administered on 11/22/16 08:30; Admin Dose 5 MG; Start 11/18/16 at 14:00 Meclizine HCl (Antivert) 25 mg Q6 PRN PO dizziness Last administered on 12:44; Admin Dose 25 MG; Start 11/20/16 at 12:30 Epoetin Luis (Epogen (Esrd)) 3,000 units MoWeFr@17 SC ; Start 11/23/16 at 17:00 Gabapentin (Neurontin) 100 mg BID PO Last administered on 11/22/16 21:50; Admin Dose 100 MG; Start 11/22/16 at 09:00 Hydralazine HCl (Apresoline) 20 mg Q4 PRN IV ELEVATED BLOOD PRESSURE Last administered on 11/21/16 23:47; Admin Dose 20 MG; Start 11/21/16 at 23:30 Nitroglycerin 1 inch 1 inch Q6 TD Last administered on 11/22/16 05:15; Admin Dose 1 INCH; Start 11/22/16 at 00:00 Propofol (Diprivan) 100 ml @ 1.53 mls/hr Q12H PRN IV SEDATION Last administered on 11/22/16 18:54; Admin Dose 3.672 MLS/HR; Start 11/22/16 at 10:00 Insulin Aspart (Novolog Insulin Pen) NOVOLOG *MILD* ALGORI... Q6 SC Last administered on 11/22/16 18:15; Admin Dose 1 UNIT; Start 11/22/16 at 18:00 Pantoprazole 40 mg 40 mg DAILY@06 PO ; Start 11/23/16 at 06:00 Norepinephrine (Levophed) 250 ml @ 1.875 mls/ hr TITRATE IV Last administered on 11/22/16 20:35; Admin Dose 3.75 MLS/HR; Start 11/22/16 at 17:00 Insulin Glargine (Lantus) 11 unit DAILY@20 SC Last administered on 11/22/16 20: 42; Admin Dose 11 UNIT; Start 11/22/16 at 20:00 BEVERLEY QUILES MD Nov 22, 2016 22:50
[2016-11-23] VITALS (103 sets, daily range): BP systolic 56–184; BP diastolic 22–108; PULSE 49–149; RESP 12–30
[2016-11-23] MEDS: ARTIFICIAL TEARS 15 ML OPH BOTH EYES SCH ×5 (00:21→23:54)
[2016-11-23] MEDS: ACCU-CHEK XX SCH (02:00)
[2016-11-23 04:57] LABS: ADD SCAN DIFF NO
[2016-11-23 05:06] LABS: ABNORMAL IP MESSAGE 1; BASOPHIL # 0.1 10^3/ul (0.0-0.1); BASOPHILS % 0.7 % (0.0-2.0); EOSINOPHILS # 0.1 10^3/ul (0.0-0.5); EOSINOPHILS % 0.6 % (0.0-7.0); HEMATOCRIT 28.4 % (37.0-47.0); HEMOGLOBIN 8.4 g/dl (12.0-16.0); LYMPHOCYTES # 1.7 10^3/ul (0.8-2.9); LYMPHOCYTES % 13.4 % (15.0-51.0); MEAN CORPUSCULAR HEMOGLOBIN 24.2 pg (29.0-33.0); MEAN CORPUSCULAR HGB CONC 29.6 g/dl (32.0-37.0); MEAN CORPUSCULAR VOLUME 81.8 fl (82.0-101.0); MEAN PLATELET VOLUME 10.1 fl (7.4-10.4); MONOCYTES % 16.3 % (0.0-11.0); NEUTROPHIL # 8.6 10^3/ul (1.6-7.5); NEUTROPHILS % 68.7 % (39.0-77.0); NUCLEATED RED BLOOD CELLS # 0.1 10^3/ul (0.0-0.0); NUCLEATED RED BLOOD CELLS% 0.4 /100WBC (0.0-0.0); PLATELET COUNT 528 10^3/UL (140-415); RED BLOOD COUNT 3.47 10^6/ul (4.20-5.40); WHITE BLOOD COUNT 12.5 10^3/ul (4.8-10.8)
[2016-11-23 05:25] LABS: POTASSIUM 3.5 mmol/L (3.5-5.1)
[2016-11-23 05:27] LABS: CREATININE 4.52 mg/dl (0.44-1.00)
[2016-11-23 05:28] LABS: CALCIUM 8.3 mg/dl (8.4-10.2)
[2016-11-23] MEDS: NITROGLYCERIN 2% 1 GM OINT PKT TD SCH ×5 (05:53→23:55)
[2016-11-23] MEDS ORDERED: PANTOPRAZOLE (EC) 40 MG TAB PO SCH (06:00)
[2016-11-23] MEDS: INSULIN ASPART [NOVOLOG] 3 ML PEN SC SCH ×5 (06:00→23:53)
[2016-11-23] MEDS: PROPOFOL 100 ML IV PRN ×2 (07:53→17:47)
[2016-11-23] MEDS: NIFEdipine (XL) 30 MG TAB PO SCH (08:55)
[2016-11-23] MEDS: ISOSORBIDE DINITRATE 10 MG TAB PO SCH ×3 (08:55→21:00)
[2016-11-23] MEDS: LINAGLIPTIN 5 MG TABLET PO SCH (09:07)
[2016-11-23] MEDS: DULOXETINE 30 MG CAP DR PO SCH (09:07)
[2016-11-23] MEDS: PIPER-TAZO 2.25 GM (PMX) 50 ML IVPB SCH ×2 (09:07→21:49)
[2016-11-23] MEDS: ACYCLOVIR 800 MG TAB PO SCH (09:07)
[2016-11-23] MEDS: FERROUS SULFATE (EC) 325 MG TAB PO SCH ×2 (09:07→21:49)
[2016-11-23] MEDS: MULTIVIT/CA CARB/B CMPLX/FA TAB PO SCH (09:07)
[2016-11-23] MEDS: HEPARIN 5,000 UNIT/0.5 ML VIAL SC SCH ×2 (09:14→22:11)
--- NOTE | 2016-11-23 09:36 | CONS ---
Date/Time of Note Date/Time of Note DATE: 11/23/16 TIME: 09:32 Consult Date/Type/Reason Admit Date/Time Nov 17, 2016 at 01:09 Initial Consult Date 11/17/16 Type of Consultation: ID Ordering Provider: BING IZAGUIRRE MD Subjective Pt was transferred to ICU due to resp distress and was intubated on 11/22/2016 Objective Vital Signs Date Time Temp Pulse Resp B/P Pulse Ox O2 Delivery O2 Flow Rate FiO2 11/23/16 06:00 89 16 83/54 98 11/23/16 05:45 Mechanical Ventilator 11/23/16 04:50 30 11/23/16 04:00 99.4 11/22/16 09:09 15.0 Intake and Output 11/22/16 11/22/16 11/23/16 15:00 23:00 07:00 Intake Total 191 ml 843.58 ml 329.30 ml Balance 191 ml 843.58 ml 329.30 ml Exam NAD, intubated diminished breath sounds b/l RRR without murmurs abd soft NT ND Results/Medications Result Diagram: 11/23/16 0445 11/23/16 0445 Results 24 hrs Laboratory Tests Test 11/22/16 10:00 11/22/16 11:26 11/22/16 11:28 11/22/16 18:05 Blood Gas Specimen Source Blood arterial Arterial Blood Date Drawn 11/22/2016 10:20:04 AM Arterial Blood pH (Temp corrected) 7.403 Arterial Blood pCO2 (Temp correct) 40.7 Arterial Blood pO2 (Temp corrected) 254.8 H Arterial Blood HCO3 24.8 Arterial Blood Base Excess 0.1 Arterial Blood Oxygen Saturation 99.9 H Óscar Test ACCEPTAB Arterial Blood Gas Puncture Site Left Radial Arterial Blood Carboxyhemoglobin 1.4 Arterial Blood Methemoglobin 0.4 Blood Gas A-a O2 Differential 345.2 H Oxyhemoglobin Percent 98.1 Total Hemoglobin 8.0 L Blood Gas Temperature 37.0 Blood Gas Respiration Rate 14.0 Blood Gas Actual Respiration Rate 14 Blood Gas Modality VENT - AC FiO2 90.0 Blood Gas Tidal Volume 450.0 Blood Gas Notified Whom JLD Blood Gas Notified Time 11/22/2016 10:32:47 AM Bedside Glucose 217 168 Lactic Acid Level 1.3 Test 11/22/16 20:39 11/23/16 00:27 11/23/16 04:45 11/23/16 06:02 Bedside Glucose 160 130 89 White Blood Count 12.5 #H Red Blood Count 3.47 L Hemoglobin 8.4 L Hematocrit 28.4 L Mean Corpuscular Volume 81.8 L Mean Corpuscular Hemoglobin 24.2 L Mean Corpuscular Hemoglobin Concent 29.6 L Red Cell Distribution Width 16.0 H Platelet Count 528 #H Mean Platelet Volume 10.1 Neutrophils % 68.7 Lymphocytes % 13.4 L Monocytes % 16.3 H Eosinophils % 0.6 Basophils % 0.7 Nucleated Red Blood Cells % 0.4 H Neutrophils # 8.6 H Lymphocytes # 1.7 Monocytes # 2.0 H Eosinophils # 0.1 Basophils # 0.1 Nucleated Red Blood Cells # 0.1 H Sodium Level 134 L Potassium Level 3.5 Chloride Level 96 L Carbon Dioxide Level 25 Anion Gap 17 H Blood Urea Nitrogen 32 H Creatinine 4.52 H Glucose Level 90 # Calcium Level 8.3 L Medications Current Medications Acetaminophen (Tylenol Tab) 650 mg Q6H PRN PO PAIN AND OR ELEVATED TEMP Last administered on 11/20/16 10:58; Admin Dose 650 MG; Start 11/17/16 at 09:00 Bisacodyl (Dulcolax Supp) 10 mg DAILY PRN [place] CONSTIPATION; Start 11/17/16 at 09 :00 Clonidine (Catapres) 0.1 mg Q6H PRN PO ELEVATED BLOOD PRESSURE; Start 11/17/16 at 09:00 Clonidine (Catapres) 0.2 mg TID PO Last administered on 11/22/16 08:33; Admin Dose 0.2 MG; Start 11/17/16 at 09:00 Clonidine HCl (Catapres-Tts 3 Patch) 0.3 patch Q7D TRANSDERM Last administered on 11/17/16 11:36; Admin Dose 0.3 PATCH; Start 11/17/16 at 10:00 Glucose (Glutose) 38 gm PRN PO Last administered on 11/17/16 22:36; Admin Dose 38 GM; Start 11/17/16 at 09:00 Diphenhydramine HCl (Benadryl) 25 mg Q8 PRN PO ITCHING; Start 11/17/16 at 09:00 Docusate Sodium (Colace) 250 mg DAILY PRN PO CONSTIPATION; Start 11/17/16 at 09 :00 Duloxetine HCl (Cymbalta) 60 mg DAILY PO Last administered on 11/23/16 09:07; Admin Dose 60 MG; Start 11/17/16 at 09:00 Guaifenesin/ Dextromethorphan (Robitussin Dm Liquid Cup) 10 ml Q6H PRN PO COUGH ; Start 11/17/16 at 09:00 Hydralazine HCl (Apresoline) 25 mg QID PO Last administered on 11/22/16 08:32; Admin Dose 25 MG; Start 11/17/16 at 09:00 Metoclopramide HCl (Reglan) 10 mg Q12 PRN PO NAUSEA AND/OR VOMITING; Start at 09:00 Nifedipine (Procardia Xl) 30 mg DAILY PO Last administered on 11/22/16 08:33; Admin Dose 30 MG; Start 11/17/16 at 10:00 Eye Lubricant (Artificial Tears Oph) 1 drop Q6 BOTH EYES Last administered on 05:57; Admin Dose 1 DROP; Start 11/17/16 at 12:00 Senna (Senokot) 1 tab Q12H PRN PO CONSTIPATION; Start 11/17/16 at 09:00 Zolpidem Tartrate (Ambien) 1 mg HS PO Last administered on 11/20/16 21:12; Admin Dose 1 MG; Start 11/17/16 at 21:00 Multivit/Ca Carb/ B Cmplx/FA/Prenat (Pey[place]-Ludwin) 1 tab DAILY PO Last administered on 11/23/16 09:07; Admin Dose 1 TAB; Start 11/17/16 at 09:00 Diagnostic Test (Pha) (Accu-Chek) 1 ea 02 XX Last administered on 11/19/16 02: 00; Admin Dose 1 EA; Start 11/18/16 at 02:00 Miscellaneous Information 1 ea NOTE XX ; Start 11/17/16 at 10:00 Glucose (Glutose) 15 gm Q15M PRN PO DECREASED GLUCOSE; Start 11/17/16 at 10:00 Glucose (Glutose) 22.5 gm Q15M PRN PO DECREASED GLUCOSE; Start 11/17/16 at 10: 00 Dextrose (D50w Syringe) 25 ml Q15M PRN IV DECREASED GLUCOSE Last administered on 11/21/16 20:44; Admin Dose 25 ML; Start 11/17/16 at 10:00 Dextrose (D50w Syringe) 50 ml Q15M PRN IV DECREASED GLUCOSE; Start 11/17/16 at 10:00 Glucagon (Glucagen) 1 mg Q15M PRN IM DECREASED GLUCOSE; Start 11/17/16 at 10:00 Glucose (Glutose) 15 gm Q15M PRN BUCCAL DECREASED GLUCOSE Last administered on 11/19/16 08:58; Admin Dose 15 GM; Start 11/17/16 at 10:00 Atorvastatin Calcium 10 mg 10 mg HS PO Last administered on 11/22/16 21:50; Admin Dose 10 MG; Start 11/17/16 at 21:00 Azithromycin (Zithromax 500mg/ NS (Pmx)) 250 ml @ 250 mls/hr Q24H IVPB Last administered on 11/22/16 15:51; Admin Dose 250 MLS/HR; Start 11/17/16 at 15:00 Heparin Sodium (Porcine) (Heparin (5000 Units/0.5 ml)) 5,000 unit BID SC Last administered on 11/23/16 09:14; Admin Dose 5,000 UNIT; Start 11/17/16 at 13:00 Acyclovir (Zovirax) 800 mg BID PO Last administered on 11/23/16 09:07; Admin Dose 800 MG; Start 11/17/16 at 21:00 Acetaminophen/ Hydrocodone Bitart ([place] (5/325)) 1 tab Q6 PRN PO MODERATE PAIN LEVEL 4-6 Last administered on 11/22/16 05:08; Admin Dose 1 TAB; Start at 18:00 Morphine Sulfate (morphine) 2 mg Q4H PRN IV PAIN LEVEL 6-10 Last administered on 11/22/16 13:25; Admin Dose 2 MG; Start 11/17/16 at 17:30 Isosorbide Dinitrate (Isordil) 10 mg TID PO Last administered on 11/22/16 08:31 ; Admin Dose 10 MG; Start 11/17/16 at 21:00 Nitroglycerin 1 tab 1 tab Q5M PRN SL ANGINA; Start 11/17/16 at 18:30 Piperacillin Sod/ Tazobactam Sod (Zosyn 2.25gm/ 50ml (Pmx)) 50 ml @ 100 mls/hr Q12 IVPB Last administered on 11/23/16 09:07; Admin Dose 100 MLS/HR; Start at 21:00 Ferrous Sulfate (Ferrous Sulfate (Ec)) 325 mg BID PO Last administered on 09:07; Admin Dose 325 MG; Start 11/18/16 at 21:00 Docusate Sodium (Colace) 100 mg DAILY PRN PO CONSTIPATION; Start 11/18/16 at 10 :00 Linagliptin (Tradjenta) 5 mg DAILY PO Last administered on 11/23/16 09:07; Admin Dose 5 MG; Start 11/18/16 at 14:00 Hydralazine HCl (Apresoline) 20 mg Q4 PRN IV ELEVATED BLOOD PRESSURE Last administered on 11/21/16 23:47; Admin Dose 20 MG; Start 11/21/16 at 23:30 Nitroglycerin 1 inch 1 inch Q6 TD Last administered on 11/22/16 05:15; Admin Dose 1 INCH; Start 11/22/16 at 00:00 Propofol (Diprivan) 100 ml @ 1.53 mls/hr Q12H PRN IV SEDATION Last administered on 11/23/16 07:53; Admin Dose 7.65 MLS/HR; Start 11/22/16 at 10:00 Insulin Aspart (Novolog Insulin Pen) NOVOLOG *MILD* ALGORI... Q6 SC Last administered on 11/22/16 18:15; Admin Dose 1 UNIT; Start 11/22/16 at 18:00 Pantoprazole 40 mg 40 mg DAILY@06 PO Last administered on 11/23/16 05:57; Admin Dose 40 MG; Start 11/23/16 at 06:00 Norepinephrine (Levophed) 250 ml @ 1.875 mls/ hr TITRATE IV Last administered on 11/22/16 20:35; Admin Dose 3.75 MLS/HR; Start 11/22/16 at 17:00 Insulin Glargine (Lantus) 11 unit DAILY@20 SC Last administered on 11/22/16 20: 42; Admin Dose 11 UNIT; Start 11/22/16 at 20:00 Epoetin Luis (Epogen (Esrd)) 6,000 units MoWeFr@17 SC ; Start 11/23/16 at 17:00 Assessment/Plan Chief Complaint/Hosp Course - severe sepsis due to pneumonia/bronchitis - pneumonia/bronchitis with possible parapneumonic effusion - pleuritic chest pain/myalgia of the chest - VDRF - moderate-large R sided pleural effusion. Ordered for thoracentesis: cultures ( bacterial, anaerobe, fungal and AFB), protein, LDH, glu, cytology of pleural fluid from thoracentesis - poor dentition - scaly rash, possible VZV infection - CHF - ESRD, on HD - DM with episode of hypoglycemia - Hgb A1c 7.6% - h/o CVA - s/p CCY - hypothyroidism recommendations - ordered blood cultures x2, resp culture and lactic acid - pending: respiratory virus PCR panel, (send out to [facility]), mycoplasma pneumoniae NAAT, cocci serology, legionella antibody, skin swab for varicella zoster virus PCR - continue IV vancomycin, azithro, pip/tazo (11/17/2016-) - continue renally dosed acyclovir (11/17/2016-) until varicella is ruled out - airborne precautions until varicella is ruled out (test was performed on 2016), and droplet precautions until respiratory viruses are ruled out (tests were performed on 11/17/2016) management d/w Pt's RN the critical care time I took to care for this Pt was 40 min Note: this is a note for my DOS 11/22/2016. I could not document my note because [employer] was not functioning at the time of my service on 11/22/2016 Problems: VITALY WADDELL M.D. Nov 23, 2016 09:36
--- NOTE | 2016-11-23 09:38 | CONS ---
Date/Time of Note Date/Time of Note DATE: 11/23/16 TIME: 09:37 Assessment/Plan Assessment/Plan Chief Complaint/Hosp Course - severe sepsis due to pneumonia/bronchitis - pneumonia/bronchitis with possible parapneumonic effusion - pleuritic chest pain/myalgia of the chest - VDRF - moderate-large R sided pleural effusion. Ordered for thoracentesis: cultures ( bacterial, anaerobe, fungal and AFB), protein, LDH, glu, cytology of pleural fluid from thoracentesis - poor dentition - scaly rash, possible VZV infection - CHF - ESRD, on HD - DM with episode of hypoglycemia - Hgb A1c 7.6% - h/o CVA - s/p CCY - hypothyroidism - so far negative: legionella antibody, skin swab for varicella zoster virus PCR recommendations - results are pending for: respiratory virus PCR panel, (send out to [facility]), mycoplasma pneumoniae NAAT, cocci serology, blood cultures x2, resp culture from 11/22/2016 - continue IV vancomycin, pip/tazo (11/17/2016-). d/c azithromycin - d/c acyclovir (11/17/2016-) - Keep Pt on droplet precautions until respiratory viruses are ruled out (tests were performed on 11/17/2016) management d/w Pt's RN Problems: Consultation Date/Type/Reason Admit Date/Time Nov 17, 2016 at 01:09 Initial Consult Date 11/17/16 Type of Consultation: ID Referring Provider: BING IZAGUIRRE MD Exam/Review of Systems Vital Signs Vitals Vital Signs Date Time Temp Pulse Resp B/P Pulse Ox O2 Delivery O2 Flow Rate FiO2 11/23/16 06:00 89 16 83/54 98 11/23/16 05:45 Mechanical Ventilator 11/23/16 04:50 30 11/23/16 04:00 99.4 11/22/16 09:09 15.0 Intake and Output 11/22/16 11/22/16 11/23/16 15:00 23:00 07:00 Intake Total 191 ml 843.58 ml 329.30 ml Balance 191 ml 843.58 ml 329.30 ml Results Result Diagram: 11/23/16 0445 11/23/16 0445 Results 24 hrs Laboratory Tests Test 11/22/16 10:00 11/22/16 11:26 11/22/16 11:28 11/22/16 18:05 Blood Gas Specimen Source Blood arterial Arterial Blood Date Drawn 11/22/2016 10:20:04 AM Arterial Blood pH (Temp corrected) 7.403 Arterial Blood pCO2 (Temp correct) 40.7 Arterial Blood pO2 (Temp corrected) 254.8 H Arterial Blood HCO3 24.8 Arterial Blood Base Excess 0.1 Arterial Blood Oxygen Saturation 99.9 H Óscar Test ACCEPTAB Arterial Blood Gas Puncture Site Left Radial Arterial Blood Carboxyhemoglobin 1.4 Arterial Blood Methemoglobin 0.4 Blood Gas A-a O2 Differential 345.2 H Oxyhemoglobin Percent 98.1 Total Hemoglobin 8.0 L Blood Gas Temperature 37.0 Blood Gas Respiration Rate 14.0 Blood Gas Actual Respiration Rate 14 Blood Gas Modality VENT - AC FiO2 90.0 Blood Gas Tidal Volume 450.0 Blood Gas Notified Whom JLD Blood Gas Notified Time 11/22/2016 10:32:47 AM Bedside Glucose 217 168 Lactic Acid Level 1.3 Test 11/22/16 20:39 11/23/16 00:27 11/23/16 04:45 11/23/16 06:02 Bedside Glucose 160 130 89 White Blood Count 12.5 #H Red Blood Count 3.47 L Hemoglobin 8.4 L Hematocrit 28.4 L Mean Corpuscular Volume 81.8 L Mean Corpuscular Hemoglobin 24.2 L Mean Corpuscular Hemoglobin Concent 29.6 L Red Cell Distribution Width 16.0 H Platelet Count 528 #H Mean Platelet Volume 10.1 Neutrophils % 68.7 Lymphocytes % 13.4 L Monocytes % 16.3 H Eosinophils % 0.6 Basophils % 0.7 Nucleated Red Blood Cells % 0.4 H Neutrophils # 8.6 H Lymphocytes # 1.7 Monocytes # 2.0 H Eosinophils # 0.1 Basophils # 0.1 Nucleated Red Blood Cells # 0.1 H Sodium Level 134 L Potassium Level 3.5 Chloride Level 96 L Carbon Dioxide Level 25 Anion Gap 17 H Blood Urea Nitrogen 32 H Creatinine 4.52 H Glucose Level 90 # Calcium Level 8.3 L Medications Medications Current Medications Acetaminophen (Tylenol Tab) 650 mg Q6H PRN PO PAIN AND OR ELEVATED TEMP Last administered on 11/20/16t 10:58; Admin Dose 650 MG; Start 11/17/16 at 09:00 Bisacodyl (Dulcolax Supp) 10 mg DAILY PRN [place] CONSTIPATION; Start 11/17/16 at 09 :00 Clonidine (Catapres) 0.1 mg Q6H PRN PO ELEVATED BLOOD PRESSURE; Start 11/17/16 at 09:00 Clonidine (Catapres) 0.2 mg TID PO Last administered on 11/22/16 08:33; Admin Dose 0.2 MG; Start 11/17/16 at 09:00 Clonidine HCl (Catapres-Tts 3 Patch) 0.3 patch Q7D TRANSDERM Last administered on 11/17/16 11:36; Admin Dose 0.3 PATCH; Start 11/17/16 at 10:00 Glucose (Glutose) 38 gm PRN PO Last administered on 11/17/16 22:36; Admin Dose 38 GM; Start 11/17/16 at 09:00 Diphenhydramine HCl (Benadryl) 25 mg Q8 PRN PO ITCHING; Start 11/17/16 at 09:00 Docusate Sodium (Colace) 250 mg DAILY PRN PO CONSTIPATION; Start 11/17/16 at 09 :00 Duloxetine HCl (Cymbalta) 60 mg DAILY PO Last administered on 11/23/16 09:07; Admin Dose 60 MG; Start 11/17/16 at 09:00 Guaifenesin/ Dextromethorphan (Robitussin Dm Liquid Cup) 10 ml Q6H PRN PO COUGH ; Start 11/17/16 at 09:00 Hydralazine HCl (Apresoline) 25 mg QID PO Last administered on 11/22/16 08:32; Admin Dose 25 MG; Start 11/17/16 at 09:00 Metoclopramide HCl (Reglan) 10 mg Q12 PRN PO NAUSEA AND/OR VOMITING; Start at 09:00 Nifedipine (Procardia Xl) 30 mg DAILY PO Last administered on 11/22/16 08:33; Admin Dose 30 MG; Start 11/17/16 at 10:00 Eye Lubricant (Artificial Tears Oph) 1 drop Q6 BOTH EYES Last administered on 05:57; Admin Dose 1 DROP; Start 11/17/16 at 12:00 Senna (Senokot) 1 tab Q12H PRN PO CONSTIPATION; Start 11/17/16 at 09:00 Zolpidem Tartrate (Ambien) 1 mg HS PO Last administered on 11/20/16 21:12; Admin Dose 1 MG; Start 11/17/16 at 21:00 Multivit/Ca Carb/ B Cmplx/FA/Prenat (Pey[place]-Ludwin) 1 tab DAILY PO Last administered on 11/23/16 09:07; Admin Dose 1 TAB; Start 11/17/16 at 09:00 Diagnostic Test (Pha) (Accu-Chek) 1 ea 02 XX Last administered on 11/19/16 02: 00; Admin Dose 1 EA; Start 11/18/16 at 02:00 Miscellaneous Information 1 ea NOTE XX ; Start 11/17/16 at 10:00 Glucose (Glutose) 15 gm Q15M PRN PO DECREASED GLUCOSE; Start 11/17/16 at 10:00 Glucose (Glutose) 22.5 gm Q15M PRN PO DECREASED GLUCOSE; Start 11/17/16 at 10: 00 Dextrose (D50w Syringe) 25 ml Q15M PRN IV DECREASED GLUCOSE Last administered on 11/21/16 20:44; Admin Dose 25 ML; Start 11/17/16 at 10:00 Dextrose (D50w Syringe) 50 ml Q15M PRN IV DECREASED GLUCOSE; Start 11/17/16 at 10:00 Glucagon (Glucagen) 1 mg Q15M PRN IM DECREASED GLUCOSE; Start 11/17/16 at 10:00 Glucose (Glutose) 15 gm Q15M PRN BUCCAL DECREASED GLUCOSE Last administered on 11/19/16 08:58; Admin Dose 15 GM; Start 11/17/16 at 10:00 Atorvastatin Calcium 10 mg 10 mg HS PO Last administered on 11/22/16 21:50; Admin Dose 10 MG; Start 11/17/16 at 21:00 Azithromycin (Zithromax 500mg/ NS (Pmx)) 250 ml @ 250 mls/hr Q24H IVPB Last administered on 11/22/16 15:51; Admin Dose 250 MLS/HR; Start 11/17/16 at 15:00 Heparin Sodium (Porcine) (Heparin (5000 Units/0.5 ml)) 5,000 unit BID SC Last administered on 11/23/16 09:14; Admin Dose 5,000 UNIT; Start 11/17/16 at 13:00 Acyclovir (Zovirax) 800 mg BID PO Last administered on 11/23/16 09:07; Admin Dose 800 MG; Start 11/17/16 at 21:00 Acetaminophen/ Hydrocodone Bitart ([place] (5/325)) 1 tab Q6 PRN PO MODERATE PAIN LEVEL 4-6 Last administered on 11/22/16 05:08; Admin Dose 1 TAB; Start at 18:00 Morphine Sulfate (morphine) 2 mg Q4H PRN IV PAIN LEVEL 6-10 Last administered on 11/22/16 13:25; Admin Dose 2 MG; Start 11/17/16 at 17:30 Isosorbide Dinitrate (Isordil) 10 mg TID PO Last administered on 11/22/16 08:31 ; Admin Dose 10 MG; Start 11/17/16 at 21:00 Nitroglycerin 1 tab 1 tab Q5M PRN SL ANGINA; Start 11/17/16 at 18:30 Piperacillin Sod/ Tazobactam Sod (Zosyn 2.25gm/ 50ml (Pmx)) 50 ml @ 100 mls/hr Q12 IVPB Last administered on 11/23/16 09:07; Admin Dose 100 MLS/HR; Start at 21:00 Ferrous Sulfate (Ferrous Sulfate (Ec)) 325 mg BID PO Last administered on 09:07; Admin Dose 325 MG; Start 11/18/16 at 21:00 Docusate Sodium (Colace) 100 mg DAILY PRN PO CONSTIPATION; Start 11/18/16 at 10 :00 Linagliptin (Tradjenta) 5 mg DAILY PO Last administered on 11/23/16 09:07; Admin Dose 5 MG; Start 11/18/16 at 14:00 Hydralazine HCl (Apresoline) 20 mg Q4 PRN IV ELEVATED BLOOD PRESSURE Last administered on 11/21/16 23:47; Admin Dose 20 MG; Start 11/21/16 at 23:30 Nitroglycerin 1 inch 1 inch Q6 TD Last administered on 11/22/16 05:15; Admin Dose 1 INCH; Start 11/22/16 at 00:00 Propofol (Diprivan) 100 ml @ 1.53 mls/hr Q12H PRN IV SEDATION Last administered on 11/23/16 07:53; Admin Dose 7.65 MLS/HR; Start 11/22/16 at 10:00 Insulin Aspart (Novolog Insulin Pen) NOVOLOG *MILD* ALGORI... Q6 SC Last administered on 11/22/16 18:15; Admin Dose 1 UNIT; Start 11/22/16 at 18:00 Pantoprazole 40 mg 40 mg DAILY@06 PO Last administered on 11/23/16 05:57; Admin Dose 40 MG; Start 11/23/16 at 06:00 Norepinephrine (Levophed) 250 ml @ 1.875 mls/ hr TITRATE IV Last administered on 11/22/16 20:35; Admin Dose 3.75 MLS/HR; Start 11/22/16 at 17:00 Insulin Glargine (Lantus) 11 unit DAILY@20 SC Last administered on 11/22/16 20: 42; Admin Dose 11 UNIT; Start 11/22/16 at 20:00 Epoetin Luis (Epogen (Esrd)) 6,000 units MoWeFr@17 SC ; Start 11/23/16 at 17:00 VITALY WADDELL M.D. Nov 23, 2016 09:38
--- NOTE | 2016-11-23 10:37 | CONS ---
Date/Time of Note Date/Time of Note DATE: 11/23/16 TIME: 10:34 Consult Date/Type/Reason Admit Date/Time Nov 17, 2016 at 01:09 Initial Consult Date 11/17/16 Type of Consultation: pulmonary ICU Ordering Provider: BING IZAGUIRRE MD Subjective Patient intubated yesterday for respiratory distress Significant agitation off sedation Continues mechanical ventilation Continues vasopressor support Status post hemodialysis with 2 L of fluid removed this morning Objective Vital Signs Date Time Temp Pulse Resp B/P Pulse Ox O2 Delivery O2 Flow Rate FiO2 11/23/16 08:30 108 11/23/16 08:30 21 11/23/16 06:00 83/54 98 11/23/16 05:45 Mechanical Ventilator 11/23/16 04:50 30 11/23/16 04:00 99.4 11/22/16 09:09 15.0 Intake and Output 11/22/16 11/22/16 11/23/16 15:00 23:00 07:00 Intake Total 191 ml 843.58 ml 329.30 ml Balance 191 ml 843.58 ml 329.30 ml Exam PHYSICAL EXAMINATION GENERAL: Elderly lady intubated on mechanical ventilation VITAL SIGNS: see below. HEENT: Pupils equal, round, and reactive to light. Dry mucous membranes, tongue protruding CARDIAC: S1, S2, tachycardia. CHEST: Diminished air entry bilaterally. ABDOMEN: Mildly distended. Bowel sounds present no guarding or rebound EXTREMITIES: No cyanosis, clubbing or edema. NEUROLOGIC: No focal deficits. Moves all 4 limbs Results/Medications Result Diagram: 11/23/16 0445 11/23/16 0445 Results 24 hrs Laboratory Tests Test 11/22/16 11:26 11/22/16 11:28 11/22/16 18:05 11/22/16 20:39 Bedside Glucose 217 168 160 Lactic Acid Level 1.3 Test 11/23/16 00:27 11/23/16 04:45 11/23/16 06:02 Bedside Glucose 130 89 White Blood Count 12.5 #H Red Blood Count 3.47 L Hemoglobin 8.4 L Hematocrit 28.4 L Mean Corpuscular Volume 81.8 L Mean Corpuscular Hemoglobin 24.2 L Mean Corpuscular Hemoglobin Concent 29.6 L Red Cell Distribution Width 16.0 H Platelet Count 528 #H Mean Platelet Volume 10.1 Neutrophils % 68.7 Lymphocytes % 13.4 L Monocytes % 16.3 H Eosinophils % 0.6 Basophils % 0.7 Nucleated Red Blood Cells % 0.4 H Neutrophils # 8.6 H Lymphocytes # 1.7 Monocytes # 2.0 H Eosinophils # 0.1 Basophils # 0.1 Nucleated Red Blood Cells # 0.1 H Sodium Level 134 L Potassium Level 3.5 Chloride Level 96 L Carbon Dioxide Level 25 Anion Gap 17 H Blood Urea Nitrogen 32 H Creatinine 4.52 H Glucose Level 90 # Calcium Level 8.3 L Medications Current Medications Acetaminophen (Tylenol Tab) 650 mg Q6H PRN PO PAIN AND OR ELEVATED TEMP Last administered on 11/20/16 10:58; Admin Dose 650 MG; Start 11/17/16 at 09:00 Bisacodyl (Dulcolax Supp) 10 mg DAILY PRN [place] CONSTIPATION; Start 11/17/16 at 09 :00 Clonidine (Catapres) 0.1 mg Q6H PRN PO ELEVATED BLOOD PRESSURE; Start 11/17/16 at 09:00 Clonidine (Catapres) 0.2 mg TID PO Last administered on 11/22/16 08:33; Admin Dose 0.2 MG; Start 11/17/16 at 09:00 Clonidine HCl (Catapres-Tts 3 Patch) 0.3 patch Q7D TRANSDERM Last administered on 11/17/16 11:36; Admin Dose 0.3 PATCH; Start 11/17/16 at 10:00 Glucose (Glutose) 38 gm PRN PO Last administered on 11/17/16 22:36; Admin Dose 38 GM; Start 11/17/16 at 09:00 Diphenhydramine HCl (Benadryl) 25 mg Q8 PRN PO ITCHING; Start 11/17/16 at 09:00 Docusate Sodium (Colace) 250 mg DAILY PRN PO CONSTIPATION; Start 11/17/16 at 09 :00 Duloxetine HCl (Cymbalta) 60 mg DAILY PO Last administered on 11/23/16 09:07; Admin Dose 60 MG; Start 11/17/16 at 09:00 Guaifenesin/ Dextromethorphan (Robitussin Dm Liquid Cup) 10 ml Q6H PRN PO COUGH ; Start 11/17/16 at 09:00 Hydralazine HCl (Apresoline) 25 mg QID PO Last administered on 11/22/16 08:32; Admin Dose 25 MG; Start 11/17/16 at 09:00 Metoclopramide HCl (Reglan) 10 mg Q12 PRN PO NAUSEA AND/OR VOMITING; Start at 09:00 Nifedipine (Procardia Xl) 30 mg DAILY PO Last administered on 11/22/16 08:33; Admin Dose 30 MG; Start 11/17/16 at 10:00 Eye Lubricant (Artificial Tears Oph) 1 drop Q6 BOTH EYES Last administered on 05:57; Admin Dose 1 DROP; Start 11/17/16 at 12:00 Senna (Senokot) 1 tab Q12H PRN PO CONSTIPATION; Start 11/17/16 at 09:00 Zolpidem Tartrate (Ambien) 1 mg HS PO Last administered on 11/20/16 21:12; Admin Dose 1 MG; Start 11/17/16 at 21:00 Multivit/Ca Carb/ B Cmplx/FA/Prenat ([place]ey[place]-Ludwin) 1 tab DAILY PO Last administered on 11/23/16 09:07; Admin Dose 1 TAB; Start 11/17/16 at 09:00 Diagnostic Test (Pha) (Accu-Chek) 1 ea 02 XX Last administered on 11/19/16 02: 00; Admin Dose 1 EA; Start 11/18/16 at 02:00 Miscellaneous Information 1 ea NOTE XX ; Start 11/17/16 at 10:00 Glucose (Glutose) 15 gm Q15M PRN PO DECREASED GLUCOSE; Start 11/17/16 at 10:00 Glucose (Glutose) 22.5 gm Q15M PRN PO DECREASED GLUCOSE; Start 11/17/16 at 10: 00 Dextrose (D50w Syringe) 25 ml Q15M PRN IV DECREASED GLUCOSE Last administered on 11/21/16 20:44; Admin Dose 25 ML; Start 11/17/16 at 10:00 Dextrose (D50w Syringe) 50 ml Q15M PRN IV DECREASED GLUCOSE; Start 11/17/16 at 10:00 Glucagon (Glucagen) 1 mg Q15M PRN IM DECREASED GLUCOSE; Start 11/17/16 at 10:00 Glucose (Glutose) 15 gm Q15M PRN BUCCAL DECREASED GLUCOSE Last administered on 11/19/16 08:58; Admin Dose 15 GM; Start 11/17/16 at 10:00 Atorvastatin Calcium (Lipitor) 10 mg HS PO Last administered on 11/22/16 21:50 ; Admin Dose 10 MG; Start 11/17/16 at 21:00 Heparin Sodium (Porcine) (Heparin (5000 Units/0.5 ml)) 5,000 unit BID SC Last administered on 11/23/16 09:14; Admin Dose 5,000 UNIT; Start 11/17/16 at 13:00 Acetaminophen/ Hydrocodone Bitart ([place] (5/325)) 1 tab Q6 PRN PO MODERATE PAIN LEVEL 4-6 Last administered on 11/22/16 05:08; Admin Dose 1 TAB; Start at 18:00 Morphine Sulfate (morphine) 2 mg Q4H PRN IV PAIN LEVEL 6-10 Last administered on 11/22/16 13:25; Admin Dose 2 MG; Start 11/17/16 at 17:30 Isosorbide Dinitrate (Isordil) 10 mg TID PO Last administered on 11/22/16 08:31 ; Admin Dose 10 MG; Start 11/17/16 at 21:00 Nitroglycerin 1 tab 1 tab Q5M PRN SL ANGINA; Start 11/17/16 at 18:30 Piperacillin Sod/ Tazobactam Sod (Zosyn 2.25gm/ 50ml (Pmx)) 50 ml @ 100 mls/hr Q12 IVPB Last administered on 11/23/16 09:07; Admin Dose 100 MLS/HR; Start at 21:00 Ferrous Sulfate (Ferrous Sulfate (Ec)) 325 mg BID PO Last administered on 09:07; Admin Dose 325 MG; Start 11/18/16 at 21:00 Docusate Sodium (Colace) 100 mg DAILY PRN PO CONSTIPATION; Start 11/18/16 at 10 :00 Linagliptin (Tradjenta) 5 mg DAILY PO Last administered on 11/23/16 09:07; Admin Dose 5 MG; Start 11/18/16 at 14:00 Hydralazine HCl (Apresoline) 20 mg Q4 PRN IV ELEVATED BLOOD PRESSURE Last administered on 11/21/16 23:47; Admin Dose 20 MG; Start 11/21/16 at 23:30 Nitroglycerin 1 inch 1 inch Q6 TD Last administered on 11/22/16 05:15; Admin Dose 1 INCH; Start 11/22/16 at 00:00 Propofol (Diprivan) 100 ml @ 1.53 mls/hr Q12H PRN IV SEDATION Last administered on 11/23/16 07:53; Admin Dose 7.65 MLS/HR; Start 11/22/16 at 10:00 Insulin Aspart (Novolog Insulin Pen) NOVOLOG *MILD* ALGORI... Q6 SC Last administered on 11/22/16 18:15; Admin Dose 1 UNIT; Start 11/22/16 at 18:00 Pantoprazole 40 mg 40 mg DAILY@06 PO Last administered on 11/23/16 05:57; Admin Dose 40 MG; Start 11/23/16 at 06:00 Norepinephrine (Levophed) 250 ml @ 1.875 mls/ hr TITRATE IV Last administered on 11/22/16 20:35; Admin Dose 3.75 MLS/HR; Start 11/22/16 at 17:00 Insulin Glargine (Lantus) 11 unit DAILY@20 SC Last administered on 11/22/16 20: 42; Admin Dose 11 UNIT; Start 11/22/16 at 20:00 Epoetin Luis (Epogen (Esrd)) 6,000 units MoWeFr@17 SC ; Start 11/23/16 at 17:00 Assessment/Plan Chief Complaint/Hosp Course Assessment 1. Hypoxemic respiratory failure requiring intubation and mechanical ventilation 2. Bilateral pneumonia possible healthcare associated with septic shock 3. End-stage renal failure on hemodialysis 4. Encephalopathy likely toxic metabolic 5. Anemia likely of chronic disease 6. Questionable right upper lobe mass Plan 1. Continue mechanical ventilation 2. Continue broad-spectrum antibiotics 3. CT chest noncontrast to evaluate lung parenchyma 4. Volume resuscitation 5. Start tube feeding 6. Would limit volume removal during hemodialysis 7. DVT and GI prophylaxis Disposition Continue ICU monitoring Problems: SEVERIANO PRATHER [facility], [facility] Nov 23, 2016 10:37
--- NOTE | 2016-11-23 11:26 | CONS ---
Date/Time of Note Date/Time of Note DATE: 11/23/16 TIME: 11:15 Assessment/Plan Assessment/Plan Chief Complaint/Hosp Course IMPRESSION: 1. Chest pain, assess for acute coronary syndrome with negative troponins x3. EF 50% by echo this admit 2. Abnormal electrocardiogram with intraventricular conduction delay. Assess for acute coronary syndrome. 3. Hypotension-on levo at this time 4. Diabetes mellitus. 5. Possible zoster infection. 6. Dyslipidemia. 7. Pneumonia with parapneumonic effusion. 8. Renal failure. 9. Anemia. 10. Leukocytosis. 11.Resp failure on BIPAP 12.Encephalopathy Recc: -Tele -serial ecg's -Hold anti-hypertenives -Continue statin -HD for volume removal as tolerated -Continue abx's and f/u cx data Problems: Consultation Date/Type/Reason Admit Date/Time Nov 17, 2016 at 01:09 Initial Consult Date 11/17/16 Type of Consultation: Cardiology Reason for Consultation Hypotension/CP Referring Provider: BING IZAGUIRRE MD Exam/Review of Systems Vital Signs Vitals Vital Signs Date Time Temp Pulse Resp B/P Pulse Ox O2 Delivery O2 Flow Rate FiO2 11/23/16 08:30 108 11/23/16 08:30 21 11/23/16 06:00 83/54 98 11/23/16 05:45 Mechanical Ventilator 11/23/16 04:50 30 11/23/16 04:00 99.4 11/22/16 09:09 15.0 Intake and Output 11/22/16 11/22/16 11/23/16 15:00 23:00 07:00 Intake Total 191 ml 843.58 ml 329.30 ml Balance 191 ml 843.58 ml 329.30 ml Exam Review of Systems: CONSTITUTIONAL: No fevers, chills. PULMONARY: intubated CARDIOVASCULAR: No chest pain/palpitations GASTROINTESTINAL: No nausea/vomiting. GENITOURINARY: No hematuria/dysuria. MUSCULOSKELETAL: No myagias/arthalgias. PSYCHIATRIC: The patient denies depression. NEUROLOGIC: No weakness Constitutional: alert, oriented Psych: no complaints Head: normocephalic ENMT: mucosa pink and moist Respiratory: clear to auscultation Cardiovascular: regular rate and rhythm Gastrointestinal: non-tender, soft Musculoskeletal: muscle tone Extremities: normal pulses Neurological: confused Results Result Diagram: 11/23/16 0445 11/23/16 0445 Results 24 hrs Laboratory Tests Test 11/22/16 11:26 11/22/16 11:28 11/22/16 18:05 11/22/16 20:39 Bedside Glucose 217 168 160 Lactic Acid Level 1.3 Test 11/23/16 00:27 11/23/16 04:45 11/23/16 06:02 Bedside Glucose 130 89 White Blood Count 12.5 #H Red Blood Count 3.47 L Hemoglobin 8.4 L Hematocrit 28.4 L Mean Corpuscular Volume 81.8 L Mean Corpuscular Hemoglobin 24.2 L Mean Corpuscular Hemoglobin Concent 29.6 L Red Cell Distribution Width 16.0 H Platelet Count 528 #H Mean Platelet Volume 10.1 Neutrophils % 68.7 Lymphocytes % 13.4 L Monocytes % 16.3 H Eosinophils % 0.6 Basophils % 0.7 Nucleated Red Blood Cells % 0.4 H Neutrophils # 8.6 H Lymphocytes # 1.7 Monocytes # 2.0 H Eosinophils # 0.1 Basophils # 0.1 Nucleated Red Blood Cells # 0.1 H Sodium Level 134 L Potassium Level 3.5 Chloride Level 96 L Carbon Dioxide Level 25 Anion Gap 17 H Blood Urea Nitrogen 32 H Creatinine 4.52 H Glucose Level 90 # Calcium Level 8.3 L Medications Medications Current Medications Acetaminophen (Tylenol Tab) 650 mg Q6H PRN PO PAIN AND OR ELEVATED TEMP Last administered on 11/20/16 10:58; Admin Dose 650 MG; Start 11/17/16 at 09:00 Bisacodyl (Dulcolax Supp) 10 mg DAILY PRN [place] CONSTIPATION; Start 11/17/16 at 09 :00 Clonidine (Catapres) 0.1 mg Q6H PRN PO ELEVATED BLOOD PRESSURE; Start 11/17/16 at 09:00 Clonidine (Catapres) 0.2 mg TID PO Last administered on 11/22/16 08:33; Admin Dose 0.2 MG; Start 11/17/16 at 09:00 Clonidine HCl (Catapres-Tts 3 Patch) 0.3 patch Q7D TRANSDERM Last administered on 11/17/16 11:36; Admin Dose 0.3 PATCH; Start 11/17/16 at 10:00 Glucose (Glutose) 38 gm PRN PO Last administered on 11/17/16 22:36; Admin Dose 38 GM; Start 11/17/16 at 09:00 Diphenhydramine HCl (Benadryl) 25 mg Q8 PRN PO ITCHING; Start 11/17/16 at 09:00 Docusate Sodium (Colace) 250 mg DAILY PRN PO CONSTIPATION; Start 11/17/16 at 09 :00 Duloxetine HCl (Cymbalta) 60 mg DAILY PO Last administered on 11/23/16 09:07; Admin Dose 60 MG; Start 11/17/16 at 09:00 Guaifenesin/ Dextromethorphan (Robitussin Dm Liquid Cup) 10 ml Q6H PRN PO COUGH ; Start 11/17/16 at 09:00 Hydralazine HCl (Apresoline) 25 mg QID PO Last administered on 11/22/16 08:32; Admin Dose 25 MG; Start 11/17/16 at 09:00 Metoclopramide HCl (Reglan) 10 mg Q12 PRN PO NAUSEA AND/OR VOMITING; Start at 09:00 Nifedipine (Procardia Xl) 30 mg DAILY PO Last administered on 11/22/16 08:33; Admin Dose 30 MG; Start 11/17/16 at 10:00 Eye Lubricant (Artificial Tears Oph) 1 drop Q6 BOTH EYES Last administered on 05:57; Admin Dose 1 DROP; Start 11/17/16 at 12:00 Senna (Senokot) 1 tab Q12H PRN PO CONSTIPATION; Start 11/17/16 at 09:00 Zolpidem Tartrate (Ambien) 1 mg HS PO Last administered on 11/20/16 21:12; Admin Dose 1 MG; Start 11/17/16 at 21:00 Multivit/Ca Carb/ B Cmplx/FA/Prenat (Peyton-Ludwin) 1 tab DAILY PO Last administered on 11/23/16 09:07; Admin Dose 1 TAB; Start 11/17/16 at 09:00 Diagnostic Test (Pha) (Accu-Chek) 1 ea 02 XX Last administered on 11/19/16 02: 00; Admin Dose 1 EA; Start 11/18/16 at 02:00 Miscellaneous Information 1 ea NOTE XX ; Start 11/17/16 at 10:00 Glucose (Glutose) 15 gm Q15M PRN PO DECREASED GLUCOSE; Start 11/17/16 at 10:00 Glucose (Glutose) 22.5 gm Q15M PRN PO DECREASED GLUCOSE; Start 11/17/16 at 10: 00 Dextrose (D50w Syringe) 25 ml Q15M PRN IV DECREASED GLUCOSE Last administered on 11/21/16 20:44; Admin Dose 25 ML; Start 11/17/16 at 10:00 Dextrose (D50w Syringe) 50 ml Q15M PRN IV DECREASED GLUCOSE; Start 11/17/16 at 10:00 Glucagon (Glucagen) 1 mg Q15M PRN IM DECREASED GLUCOSE; Start 11/17/16 at 10:00 Glucose (Glutose) 15 gm Q15M PRN BUCCAL DECREASED GLUCOSE Last administered on 11/19/16 08:58; Admin Dose 15 GM; Start 11/17/16 at 10:00 Atorvastatin Calcium (Lipitor) 10 mg HS PO Last administered on 11/22/16 21:50 ; Admin Dose 10 MG; Start 11/17/16 at 21:00 Heparin Sodium (Porcine) (Heparin (5000 Units/0.5 ml)) 5,000 unit BID SC Last administered on 11/23/16 09:14; Admin Dose 5,000 UNIT; Start 11/17/16 at 13:00 Acetaminophen/ Hydrocodone Bitart ([place] (5/325)) 1 tab Q6 PRN PO MODERATE PAIN LEVEL 4-6 Last administered on 11/22/16 05:08; Admin Dose 1 TAB; Start at 18:00 Morphine Sulfate (morphine) 2 mg Q4H PRN IV PAIN LEVEL 6-10 Last administered on 11/22/16 13:25; Admin Dose 2 MG; Start 11/17/16 at 17:30 Isosorbide Dinitrate (Isordil) 10 mg TID PO Last administered on 11/22/16 08:31 ; Admin Dose 10 MG; Start 11/17/16 at 21:00 Nitroglycerin 1 tab 1 tab Q5M PRN SL ANGINA; Start 11/17/16 at 18:30 Piperacillin Sod/ Tazobactam Sod (Zosyn 2.25gm/ 50ml (Pmx)) 50 ml @ 100 mls/hr Q12 IVPB Last administered on 11/23/16 09:07; Admin Dose 100 MLS/HR; Start at 21:00 Ferrous Sulfate (Ferrous Sulfate (Ec)) 325 mg BID PO Last administered on 09:07; Admin Dose 325 MG; Start 11/18/16 at 21:00 Docusate Sodium (Colace) 100 mg DAILY PRN PO CONSTIPATION; Start 11/18/16 at 10 :00 Linagliptin (Tradjenta) 5 mg DAILY PO Last administered on 11/23/16 09:07; Admin Dose 5 MG; Start 11/18/16 at 14:00 Hydralazine HCl (Apresoline) 20 mg Q4 PRN IV ELEVATED BLOOD PRESSURE Last administered on 11/21/16 23:47; Admin Dose 20 MG; Start 11/21/16 at 23:30 Nitroglycerin 1 inch 1 inch Q6 TD Last administered on 11/22/16 05:15; Admin Dose 1 INCH; Start 11/22/16 at 00:00 Propofol (Diprivan) 100 ml @ 1.53 mls/hr Q12H PRN IV SEDATION Last administered on 11/23/16 07:53; Admin Dose 7.65 MLS/HR; Start 11/22/16 at 10:00 Insulin Aspart (Novolog Insulin Pen) NOVOLOG *MILD* ALGORI... Q6 SC Last administered on 11/22/16 18:15; Admin Dose 1 UNIT; Start 11/22/16 at 18:00 Pantoprazole 40 mg 40 mg DAILY@06 PO Last administered on 11/23/16 05:57; Admin Dose 40 MG; Start 11/23/16 at 06:00 Norepinephrine (Levophed) 250 ml @ 1.875 mls/ hr TITRATE IV Last administered on 11/22/16 20:35; Admin Dose 3.75 MLS/HR; Start 11/22/16 at 17:00 Insulin Glargine (Lantus) 11 unit DAILY@20 SC Last administered on 11/22/16 20: 42; Admin Dose 11 UNIT; Start 11/22/16 at 20:00 Epoetin Luis (Epogen (Esrd)) 6,000 units MoWeFr@17 SC ; Start 11/23/16 at 17:00 MANUELA SHARMA Nov 23, 2016 11:26
[2016-11-23] MEDS ORDERED: SOD CHLORIDE 0.9% 500 ML IV ONE (11:30)
[2016-11-23] MEDS ORDERED: PHENYLephrine 20MG IN 250 ML 250 ML IV SCH (11:30)
[2016-11-23 11:55] LABS: AADO2 Arterial 99.9 mmHg (7.0-24.0); Arterial Base Excess -1.5 mmol/L (-3.0-3); Arterial COHb 0.7 % (0.0-3.0); Arterial Fraction of Oxyhgb 92.5 % (93.0-99.0); Arterial HCO3 22.3 mmol/L (22.0-26.0); Arterial MetHb 0.3 % (0.0-1.5); Arterial Total Hemglobin 9.4 g/dl (12.0-18.0); MODE VENT - AC
[2016-11-23] MEDS: NORepinephrine 8MG/250 ML (PMX 250 ML IV SCH ×2 (15:45→22:57)
--- NOTE | 2016-11-23 15:56 | PN ---
Date/Time of Note Date/Time of Note DATE: 11/23/16 TIME: 15:55 Assessment/Plan VTE Prophylaxis VTE Prophylaxis Intervention: SCD's Lines/Catheters IV Catheter Type (from [facility]): Peripheral IV Urinary Cath still in place: No Assessment/Plan Chief Complaint/Hosp Course Assessment and plan: -Acute respiratory failure, continue ventilatory support. is following in pulmonology consultation. -Acute encephalopathy. -Pneumonia with parapneumonic effusion, continue antibiotics. Dr. Leal is following from infectious disease standpoint. -Sepsis secondary to pneumonia. -End-stage renal disease hemodialysis dependent. Dr. Gorman is following in nephrology consultation -Posterior shoulder lesion, possible VZV infection. Continue acyclovir. -Chest pain on admission, rule out acute coronary syndrome. -CHF, continue to remove fluids with hemodialysis. -Hypertension. Dr. Magana is following in cardiology consultation. -Diabetes mellitus type 2. Dr. Freitas is following in endocrinology consultation. Continue Levemir and pre-meal NovoLog as well as NovoLog per mild algorithm sliding scale. Continue Tradjenta. -Hypothyroidism. Continue levothyroxine. -Anemia of chronic disease, continue Epogen. Further recommendations based on clinical course. Plan of care discussed with Dr. Porter. Problems: Subjective 24 Hr Interval Summary Free Text/Dictation Patient's continues to be on ventilatory support, sedated on propofol, low dose of levo levo fed for blood pressure control. Exam/Review of Systems Vital Signs Vitals Vital Signs Date Time Temp Pulse Resp B/P Pulse Ox O2 Delivery O2 Flow Rate FiO2 11/23/16 13:00 143 14 98 30 11/23/16 06:00 83/54 11/23/16 05:45 Mechanical Ventilator 11/23/16 04:00 99.4 11/22/16 09:09 15.0 Intake and Output 11/22/16 11/22/16 11/23/16 15:00 23:00 07:00 Intake Total 191 ml 843.58 ml 351.95 ml Balance 191 ml 843.58 ml 351.95 ml Exam Constitutional: alert, well developed, orally intubated on vent support Psych: nl mood/affect, no complaints Head: atraumatic, normocephalic Eyes: nl conjunctiva ENMT: nl external ears & nose Neck: non-tender, supple Respiratory: Diminished at the bases with decreased air entry bilaterally Cardiovascular: nl pulses, regular rate and rhythm Gastrointestinal: non-tender, soft Genitourinary - Female: nl adnexae Musculoskeletal: nl extremities to inspection Extremities: normal pulses 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 Skin: other (Posterior shoulder rash) Results Result Diagram: 11/23/16 0445 11/23/16 0445 Results 24 hrs Laboratory Tests Test 11/22/16 18:05 11/22/16 20:39 11/23/16 00:27 11/23/16 04:45 Bedside Glucose 168 160 130 White Blood Count 12.5 #H Red Blood Count 3.47 L Hemoglobin 8.4 L Hematocrit 28.4 L Mean Corpuscular Volume 81.8 L Mean Corpuscular Hemoglobin 24.2 L Mean Corpuscular Hemoglobin Concent 29.6 L Red Cell Distribution Width 16.0 H Platelet Count 528 #H Mean Platelet Volume 10.1 Neutrophils % 68.7 Lymphocytes % 13.4 L Monocytes % 16.3 H Eosinophils % 0.6 Basophils % 0.7 Nucleated Red Blood Cells % 0.4 H Neutrophils # 8.6 H Lymphocytes # 1.7 Monocytes # 2.0 H Eosinophils # 0.1 Basophils # 0.1 Nucleated Red Blood Cells # 0.1 H Sodium Level 134 L Potassium Level 3.5 Chloride Level 96 L Carbon Dioxide Level 25 Anion Gap 17 H Blood Urea Nitrogen 32 H Creatinine 4.52 H Glucose Level 90 # Calcium Level 8.3 L Test 11/23/16 06:02 11/23/16 11:10 11/23/16 12:19 Bedside Glucose 89 124 Blood Gas Specimen Source Blood arterial Arterial Blood Date Drawn 11/23/2016 11:25:25 AM Arterial Blood pH (Temp corrected) 7.434 Arterial Blood pCO2 (Temp correct) 34.1 L Arterial Blood pO2 (Temp corrected) 73.9 L Arterial Blood HCO3 22.3 Arterial Blood Base Excess -1.5 Arterial Blood Oxygen Saturation 93.4 L Óscar Test N/A Arterial Blood Gas Puncture Site Right Brachial Arterial Blood Carboxyhemoglobin 0.7 Arterial Blood Methemoglobin 0.3 Blood Gas A-a O2 Differential 99.9 H Oxyhemoglobin Percent 92.5 L Total Hemoglobin 9.4 L Blood Gas Temperature 37.0 Blood Gas Respiration Rate 14.0 Blood Gas Actual Respiration Rate 14 Blood Gas Modality VENT - AC FiO2 30.0 Blood Gas Tidal Volume 450.0 Blood Gas Low PEEP Setting 5.0 Blood Gas Notified Whom JLD Blood Gas Notified Time 11/23/2016 11:55:24 AM Medications Medications Current Medications Acetaminophen (Tylenol Tab) 650 mg Q6H PRN PO PAIN AND OR ELEVATED TEMP Last administered on 11/20/16 10:58; Admin Dose 650 MG; Start 11/17/16 at 09:00 Bisacodyl (Dulcolax Supp) 10 mg DAILY PRN DE CONSTIPATION; Start 11/17/16 at 09 :00 Clonidine (Catapres) 0.1 mg Q6H PRN PO ELEVATED BLOOD PRESSURE; Start 11/17/16 at 09:00 Clonidine (Catapres) 0.2 mg TID PO Last administered on 11/22/16 08:33; Admin Dose 0.2 MG; Start 11/17/16 at 09:00 Clonidine HCl (Catapres-Tts 3 Patch) 0.3 patch Q7D TRANSDERM Last administered on 11/17/16 11:36; Admin Dose 0.3 PATCH; Start 11/17/16 at 10:00 Glucose (Glutose) 38 gm PRN PO Last administered on 11/17/16 22:36; Admin Dose 38 GM; Start 11/17/16 at 09:00 Diphenhydramine HCl (Benadryl) 25 mg Q8 PRN PO ITCHING; Start 11/17/16 at 09:00 Docusate Sodium (Colace) 250 mg DAILY PRN PO CONSTIPATION; Start 11/17/16 at 09 :00 Duloxetine HCl (Cymbalta) 60 mg DAILY PO Last administered on 11/23/16 09:07; Admin Dose 60 MG; Start 11/17/16 at 09:00 Guaifenesin/ Dextromethorphan (Robitussin Dm Liquid Cup) 10 ml Q6H PRN PO COUGH ; Start 11/17/16 at 09:00 Hydralazine HCl (Apresoline) 25 mg QID PO Last administered on 11/22/16 08:32; Admin Dose 25 MG; Start 11/17/16 at 09:00 Metoclopramide HCl (Reglan) 10 mg Q12 PRN PO NAUSEA AND/OR VOMITING; Start at 09:00 Nifedipine (Procardia Xl) 30 mg DAILY PO Last administered on 11/22/16 08:33; Admin Dose 30 MG; Start 11/17/16 at 10:00 Eye Lubricant (Artificial Tears Oph) 1 drop Q6 BOTH EYES Last administered on 12:18; Admin Dose 1 DROP; Start 11/17/16 at 12:00 Senna (Senokot) 1 tab Q12H PRN PO CONSTIPATION; Start 11/17/16 at 09:00 Zolpidem Tartrate (Ambien) 1 mg HS PO Last administered on 11/20/16 21:12; Admin Dose 1 MG; Start 11/17/16 at 21:00 Multivit/Ca Carb/ B Cmplx/FA/Prenat (Peyton-Ludwin) 1 tab DAILY PO Last administered on 11/23/16 09:07; Admin Dose 1 TAB; Start 11/17/16 at 09:00 Diagnostic Test (Pha) (Accu-Chek) 1 ea 02 XX Last administered on 11/19/16 02: 00; Admin Dose 1 EA; Start 11/18/16 at 02:00 Miscellaneous Information 1 ea NOTE XX ; Start 11/17/16 at 10:00 Glucose (Glutose) 15 gm Q15M PRN PO DECREASED GLUCOSE; Start 11/17/16 at 10:00 Glucose (Glutose) 22.5 gm Q15M PRN PO DECREASED GLUCOSE; Start 11/17/16 at 10: 00 Dextrose (D50w Syringe) 25 ml Q15M PRN IV DECREASED GLUCOSE Last administered on 11/21/16 20:44; Admin Dose 25 ML; Start 11/17/16 at 10:00 Dextrose (D50w Syringe) 50 ml Q15M PRN IV DECREASED GLUCOSE; Start 11/17/16 at 10:00 Glucagon (Glucagen) 1 mg Q15M PRN IM DECREASED GLUCOSE; Start 11/17/16 at 10:00 Glucose (Glutose) 15 gm Q15M PRN BUCCAL DECREASED GLUCOSE Last administered on 11/19/16 08:58; Admin Dose 15 GM; Start 11/17/16 at 10:00 Atorvastatin Calcium (Lipitor) 10 mg HS PO Last administered on 11/22/16 21:50 ; Admin Dose 10 MG; Start 11/17/16 at 21:00 Heparin Sodium (Porcine) (Heparin (5000 Units/0.5 ml)) 5,000 unit BID SC Last administered on 11/23/16 09:14; Admin Dose 5,000 UNIT; Start 11/17/16 at 13:00 Acetaminophen/ Hydrocodone Bitart ([place] (5/325)) 1 tab Q6 PRN PO MODERATE PAIN LEVEL 4-6 Last administered on 11/22/16 05:08; Admin Dose 1 TAB; Start at 18:00 Morphine Sulfate (morphine) 2 mg Q4H PRN IV PAIN LEVEL 6-10 Last administered on 11/22/16 13:25; Admin Dose 2 MG; Start 11/17/16 at 17:30 Isosorbide Dinitrate (Isordil) 10 mg TID PO Last administered on 11/22/16 08:31 ; Admin Dose 10 MG; Start 11/17/16 at 21:00 Nitroglycerin 1 tab 1 tab Q5M PRN SL ANGINA; Start 11/17/16 at 18:30 Piperacillin Sod/ Tazobactam Sod (Zosyn 2.25gm/ 50ml (Pmx)) 50 ml @ 100 mls/hr Q12 IVPB Last administered on 11/23/16 09:07; Admin Dose 100 MLS/HR; Start at 21:00 Ferrous Sulfate (Ferrous Sulfate (Ec)) 325 mg BID PO Last administered on 09:07; Admin Dose 325 MG; Start 11/18/16 at 21:00 Docusate Sodium (Colace) 100 mg DAILY PRN PO CONSTIPATION; Start 11/18/16 at 10 :00 Linagliptin (Tradjenta) 5 mg DAILY PO Last administered on 11/23/16 09:07; Admin Dose 5 MG; Start 11/18/16 at 14:00 Hydralazine HCl (Apresoline) 20 mg Q4 PRN IV ELEVATED BLOOD PRESSURE Last administered on 11/21/16 23:47; Admin Dose 20 MG; Start 11/21/16 at 23:30 Nitroglycerin 1 inch 1 inch Q6 TD Last administered on 11/22/16 05:15; Admin Dose 1 INCH; Start 11/22/16 at 00:00 Propofol (Diprivan) 100 ml @ 1.53 mls/hr Q12H PRN IV SEDATION Last administered on 11/23/16 07:53; Admin Dose 7.65 MLS/HR; Start 11/22/16 at 10:00 Insulin Aspart (Novolog Insulin Pen) NOVOLOG *MILD* ALGORI... Q6 SC Last administered on 11/22/16 18:15; Admin Dose 1 UNIT; Start 11/22/16 at 18:00 Pantoprazole 40 mg 40 mg DAILY@06 PO Last administered on 11/23/16 05:57; Admin Dose 40 MG; Start 11/23/16 at 06:00 Norepinephrine (Levophed) 250 ml @ 1.875 mls/ hr TITRATE IV Last administered on 11/23/16 15:45; Admin Dose 28.125 MLS/HR; Start 11/22/16 at 17:00 Insulin Glargine (Lantus) 11 unit DAILY@20 SC Last administered on 11/22/16 20: 42; Admin Dose 11 UNIT; Start 11/22/16 at 20:00 Epoetin Luis 6000 units 6,000 units MoWeFr@17 SC ; Start 11/23/16 at 17:00 Phenylephrine HCl 40 mg/Dextrose 500 ml @ 75 mls/hr TITRATE IV ; Start 11/23/16 at 18:00 Phenylephrine HCl (Haile-Syneph) 250 ml @ 0 mls/hr TITRATE IV ; Start 11/23/16 at 11:30; Stop 11/23/16 at 18:00 Aspirin (Ecotrin) 325 mg DAILY PO ; Start 11/24/16 at 09:00 LINDA SCHWARTZ Nov 23, 2016 15:56
[2016-11-23] MEDS ORDERED: EPOETIN 3000 UNITS/1 ML INJ (ESRD) SC SCH ×2 (17:00)
--- NOTE | 2016-11-23 17:09 | CONS ---
Date/Time of Note Date/Time of Note DATE: 11/23/16 TIME: 17:07 Assessment/Plan Assessment/Plan Chief Complaint/Hosp Course 71 year old Vietnamese speaking woman bib paramedics form SN[facility] with chief complaint of chest, shoulder and back pain. She was diagnosed with bilateral lobe pneumonia. During admission she was noted to have elevated blood glucose readings. 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 Continue current regimen. Cont'd Hospitalization Reason: Respiratory Failure. Consultation Date/Type/Reason Admit Date/Time Nov 17, 2016 at 01:09 Initial Consult Date 11/17/16 Type of Consultation: Endocrine Reason for Consultation DM management Referring Provider: BING IZAGUIRRE MD 24 HR Interval Summary Subjective hx not possible: pt non-verbal, other (intubated) Exam/Review of Systems Vital Signs Vitals Vital Signs Date Time Temp Pulse Resp B/P Pulse Ox O2 Delivery O2 Flow Rate FiO2 11/23/16 16:00 61 11/23/16 15:00 14 92 30 11/23/16 06:00 83/54 11/23/16 05:45 Mechanical Ventilator 11/23/16 04:00 99.4 11/22/16 09:09 15.0 Intake and Output 11/22/16 11/22/16 11/23/16 15:00 23:00 07:00 Intake Total 191 ml 843.58 ml 351.95 ml Balance 191 ml 843.58 ml 351.95 ml Exam Patient remains intubated Results POC glucose reviewed Result Diagram: 11/23/16 0445 11/23/16 0445 Results 24 hrs Laboratory Tests Test 11/22/16 18:05 11/22/16 20:39 11/23/16 00:27 11/23/16 04:45 Bedside Glucose 168 160 130 White Blood Count 12.5 #H Red Blood Count 3.47 L Hemoglobin 8.4 L Hematocrit 28.4 L Mean Corpuscular Volume 81.8 L Mean Corpuscular Hemoglobin 24.2 L Mean Corpuscular Hemoglobin Concent 29.6 L Red Cell Distribution Width 16.0 H Platelet Count 528 #H Mean Platelet Volume 10.1 Neutrophils % 68.7 Lymphocytes % 13.4 L Monocytes % 16.3 H Eosinophils % 0.6 Basophils % 0.7 Nucleated Red Blood Cells % 0.4 H Neutrophils # 8.6 H Lymphocytes # 1.7 Monocytes # 2.0 H Eosinophils # 0.1 Basophils # 0.1 Nucleated Red Blood Cells # 0.1 H Sodium Level 134 L Potassium Level 3.5 Chloride Level 96 L Carbon Dioxide Level 25 Anion Gap 17 H Blood Urea Nitrogen 32 H Creatinine 4.52 H Glucose Level 90 # Calcium Level 8.3 L Test 11/23/16 06:02 11/23/16 11:10 11/23/16 12:19 Bedside Glucose 89 124 Blood Gas Specimen Source Blood arterial Arterial Blood Date Drawn 11/23/2016 11:25:25 AM Arterial Blood pH (Temp corrected) 7.434 Arterial Blood pCO2 (Temp correct) 34.1 L Arterial Blood pO2 (Temp corrected) 73.9 L Arterial Blood HCO3 22.3 Arterial Blood Base Excess -1.5 Arterial Blood Oxygen Saturation 93.4 L Óscar Test N/A Arterial Blood Gas Puncture Site Right Brachial Arterial Blood Carboxyhemoglobin 0.7 Arterial Blood Methemoglobin 0.3 Blood Gas A-a O2 Differential 99.9 H Oxyhemoglobin Percent 92.5 L Total Hemoglobin 9.4 L Blood Gas Temperature 37.0 Blood Gas Respiration Rate 14.0 Blood Gas Actual Respiration Rate 14 Blood Gas Modality VENT - AC FiO2 30.0 Blood Gas Tidal Volume 450.0 Blood Gas Low PEEP Setting 5.0 Blood Gas Notified Whom JLD Blood Gas Notified Time 11/23/2016 11:55:24 AM Medications Medications Current Medications Acetaminophen (Tylenol Tab) 650 mg Q6H PRN PO PAIN AND OR ELEVATED TEMP Last administered on 11/20/16t 10:58; Admin Dose 650 MG; Start 11/17/16 at 09:00 Bisacodyl (Dulcolax Supp) 10 mg DAILY PRN [place] CONSTIPATION; Start 11/17/16 at 09 :00 Clonidine (Catapres) 0.1 mg Q6H PRN PO ELEVATED BLOOD PRESSURE; Start 11/17/16 at 09:00 Clonidine (Catapres) 0.2 mg TID PO Last administered on 11/22/16 08:33; Admin Dose 0.2 MG; Start 11/17/16 at 09:00 Clonidine HCl (Catapres-Tts 3 Patch) 0.3 patch Q7D TRANSDERM Last administered on 11/17/16 11:36; Admin Dose 0.3 PATCH; Start 11/17/16 at 10:00 Glucose (Glutose) 38 gm PRN PO Last administered on 11/17/16 22:36; Admin Dose 38 GM; Start 11/17/16 at 09:00 Diphenhydramine HCl (Benadryl) 25 mg Q8 PRN PO ITCHING; Start 11/17/16 at 09:00 Docusate Sodium (Colace) 250 mg DAILY PRN PO CONSTIPATION; Start 11/17/16 at 09 :00 Duloxetine HCl (Cymbalta) 60 mg DAILY PO Last administered on 11/23/16 09:07; Admin Dose 60 MG; Start 11/17/16 at 09:00 Guaifenesin/ Dextromethorphan (Robitussin Dm Liquid Cup) 10 ml Q6H PRN PO COUGH ; Start 11/17/16 at 09:00 Hydralazine HCl (Apresoline) 25 mg QID PO Last administered on 11/22/16 08:32; Admin Dose 25 MG; Start 11/17/16 at 09:00 Metoclopramide HCl (Reglan) 10 mg Q12 PRN PO NAUSEA AND/OR VOMITING; Start at 09:00 Nifedipine (Procardia Xl) 30 mg DAILY PO Last administered on 11/22/16 08:33; Admin Dose 30 MG; Start 11/17/16 at 10:00 Eye Lubricant (Artificial Tears Oph) 1 drop Q6 BOTH EYES Last administered on 12:18; Admin Dose 1 DROP; Start 11/17/16 at 12:00 Senna (Senokot) 1 tab Q12H PRN PO CONSTIPATION; Start 11/17/16 at 09:00 Zolpidem Tartrate (Ambien) 1 mg HS PO Last administered on 11/20/16 21:12; Admin Dose 1 MG; Start 11/17/16 at 21:00 Multivit/Ca Carb/ B Cmplx/FA/Prenat (Peyton-Ludwin) 1 tab DAILY PO Last administered on 11/23/16 09:07; Admin Dose 1 TAB; Start 11/17/16 at 09:00 Diagnostic Test (Pha) (Accu-Chek) 1 ea 02 XX Last administered on 11/19/16 02: 00; Admin Dose 1 EA; Start 11/18/16 at 02:00 Miscellaneous Information 1 ea NOTE XX ; Start 11/17/16 at 10:00 Glucose (Glutose) 15 gm Q15M PRN PO DECREASED GLUCOSE; Start 11/17/16 at 10:00 Glucose (Glutose) 22.5 gm Q15M PRN PO DECREASED GLUCOSE; Start 11/17/16 at 10: 00 Dextrose (D50w Syringe) 25 ml Q15M PRN IV DECREASED GLUCOSE Last administered on 11/21/16 20:44; Admin Dose 25 ML; Start 11/17/16 at 10:00 Dextrose (D50w Syringe) 50 ml Q15M PRN IV DECREASED GLUCOSE; Start 11/17/16 at 10:00 Glucagon (Glucagen) 1 mg Q15M PRN IM DECREASED GLUCOSE; Start 11/17/16 at 10:00 Glucose (Glutose) 15 gm Q15M PRN BUCCAL DECREASED GLUCOSE Last administered on 11/19/16 08:58; Admin Dose 15 GM; Start 11/17/16 at 10:00 Atorvastatin Calcium (Lipitor) 10 mg HS PO Last administered on 11/22/16 21:50 ; Admin Dose 10 MG; Start 11/17/16 at 21:00 Heparin Sodium (Porcine) (Heparin (5000 Units/0.5 ml)) 5,000 unit BID SC Last administered on 11/23/16 09:14; Admin Dose 5,000 UNIT; Start 11/17/16 at 13:00 Acetaminophen/ Hydrocodone Bitart ([place] (5/325)) 1 tab Q6 PRN PO MODERATE PAIN LEVEL 4-6 Last administered on 11/22/16 05:08; Admin Dose 1 TAB; Start at 18:00 Morphine Sulfate (morphine) 2 mg Q4H PRN IV PAIN LEVEL 6-10 Last administered on 11/22/16 13:25; Admin Dose 2 MG; Start 11/17/16 at 17:30 Isosorbide Dinitrate (Isordil) 10 mg TID PO Last administered on 11/22/16 08:31 ; Admin Dose 10 MG; Start 11/17/16 at 21:00 Nitroglycerin 1 tab 1 tab Q5M PRN SL ANGINA; Start 11/17/16 at 18:30 Piperacillin Sod/ Tazobactam Sod (Zosyn 2.25gm/ 50ml (Pmx)) 50 ml @ 100 mls/hr Q12 IVPB Last administered on 11/23/16 09:07; Admin Dose 100 MLS/HR; Start at 21:00 Ferrous Sulfate (Ferrous Sulfate (Ec)) 325 mg BID PO Last administered on 09:07; Admin Dose 325 MG; Start 11/18/16 at 21:00 Docusate Sodium (Colace) 100 mg DAILY PRN PO CONSTIPATION; Start 11/18/16 at 10 :00 Linagliptin (Tradjenta) 5 mg DAILY PO Last administered on 11/23/16 09:07; Admin Dose 5 MG; Start 11/18/16 at 14:00 Hydralazine HCl (Apresoline) 20 mg Q4 PRN IV ELEVATED BLOOD PRESSURE Last administered on 11/21/16 23:47; Admin Dose 20 MG; Start 11/21/16 at 23:30 Nitroglycerin 1 inch 1 inch Q6 TD Last administered on 11/22/16 05:15; Admin Dose 1 INCH; Start 11/22/16 at 00:00 Propofol (Diprivan) 100 ml @ 1.53 mls/hr Q12H PRN IV SEDATION Last administered on 11/23/16 07:53; Admin Dose 7.65 MLS/HR; Start 11/22/16 at 10:00 Insulin Aspart (Novolog Insulin Pen) NOVOLOG *MILD* ALGORI... Q6 SC Last administered on 11/22/16 18:15; Admin Dose 1 UNIT; Start 11/22/16 at 18:00 Pantoprazole 40 mg 40 mg DAILY@06 PO Last administered on 11/23/16 05:57; Admin Dose 40 MG; Start 11/23/16 at 06:00 Norepinephrine (Levophed) 250 ml @ 1.875 mls/ hr TITRATE IV Last administered on 11/23/16 15:45; Admin Dose 28.125 MLS/HR; Start 11/22/16 at 17:00 Insulin Glargine (Lantus) 11 unit DAILY@20 SC Last administered on 11/22/16 20: 42; Admin Dose 11 UNIT; Start 11/22/16 at 20:00 Epoetin Luis 6000 units 6,000 units MoWeFr@17 SC Last administered on 11/23/16 16:14; Admin Dose 6,000 UNITS; Start 11/23/16 at 17:00 Phenylephrine HCl 40 mg/Dextrose 500 ml @ 75 mls/hr TITRATE IV ; Start 11/23/16 at 18:00 Phenylephrine HCl (Haile-Syneph) 250 ml @ 0 mls/hr TITRATE IV ; Start 11/23/16 at 11:30; Stop 11/23/16 at 18:00 Aspirin (Ecotrin) 325 mg DAILY PO ; Start 11/24/16 at 09:00 CAITLYN PÉREZ MD Nov 23, 2016 17:09
[2016-11-23] MEDS: DEXTROSE 50% 50 ML SYRINGE IV PRN ×2 (18:00→23:11)
[2016-11-23] MEDS ORDERED: PHENYLephrine 40 MG in DEXTROSE 5% 496 ML IV SCH (18:00)
--- NOTE | 2016-11-23 20:31 | CONS ---
Date/Time of Note Date/Time of Note DATE: 11/23/16 TIME: 20:30 Consultation Date/Type/Reason Admit Date/Time Nov 17, 2016 at 01:09 Initial Consult Date 11/17/16 Type of Consultation: Renal Referring Provider: BING IZAGUIRRE MD Exam/Review of Systems Vital Signs Vitals Vital Signs Date Time Temp Pulse Resp B/P Pulse Ox O2 Delivery O2 Flow Rate FiO2 11/23/16 20:15 86 14 90/53 100 Mechanical Ventilator 11/23/16 20:00 98.0 11/23/16 19:10 30 11/22/16 09:09 15.0 Intake and Output 11/22/16 11/22/16 11/23/16 15:00 23:00 07:00 Intake Total 191 ml 843.58 ml 371.95 ml Balance 191 ml 843.58 ml 371.95 ml Results Result Diagram: 11/23/16 0445 11/23/16 0445 Results 24 hrs Laboratory Tests Test 11/22/16 20:39 11/23/16 00:27 11/23/16 04:45 11/23/16 06:02 Bedside Glucose 160 130 89 White Blood Count 12.5 #H Red Blood Count 3.47 L Hemoglobin 8.4 L Hematocrit 28.4 L Mean Corpuscular Volume 81.8 L Mean Corpuscular Hemoglobin 24.2 L Mean Corpuscular Hemoglobin Concent 29.6 L Red Cell Distribution Width 16.0 H Platelet Count 528 #H Mean Platelet Volume 10.1 Neutrophils % 68.7 Lymphocytes % 13.4 L Monocytes % 16.3 H Eosinophils % 0.6 Basophils % 0.7 Nucleated Red Blood Cells % 0.4 H Neutrophils # 8.6 H Lymphocytes # 1.7 Monocytes # 2.0 H Eosinophils # 0.1 Basophils # 0.1 Nucleated Red Blood Cells # 0.1 H Sodium Level 134 L Potassium Level 3.5 Chloride Level 96 L Carbon Dioxide Level 25 Anion Gap 17 H Blood Urea Nitrogen 32 H Creatinine 4.52 H Glucose Level 90 # Calcium Level 8.3 L Test 11/23/16 11:10 11/23/16 12:19 11/23/16 17:57 11/23/16 18:17 Blood Gas Specimen Source Blood arterial Arterial Blood Date Drawn 11/23/2016 11:25:25 AM Arterial Blood pH (Temp corrected) 7.434 Arterial Blood pCO2 (Temp correct) 34.1 L Arterial Blood pO2 (Temp corrected) 73.9 L Arterial Blood HCO3 22.3 Arterial Blood Base Excess -1.5 Arterial Blood Oxygen Saturation 93.4 L Óscar Test N/A Arterial Blood Gas Puncture Site Right Brachial Arterial Blood Carboxyhemoglobin 0.7 Arterial Blood Methemoglobin 0.3 Blood Gas A-a O2 Differential 99.9 H Oxyhemoglobin Percent 92.5 L Total Hemoglobin 9.4 L Blood Gas Temperature 37.0 Blood Gas Respiration Rate 14.0 Blood Gas Actual Respiration Rate 14 Blood Gas Modality VENT - AC FiO2 30.0 Blood Gas Tidal Volume 450.0 Blood Gas Low PEEP Setting 5.0 Blood Gas Notified Whom JLD Blood Gas Notified Time 11/23/2016 11:55:24 AM Bedside Glucose 124 37 *L 85 Test 11/23/16 18:32 Bedside Glucose 89 Medications Medications Current Medications Acetaminophen (Tylenol Tab) 650 mg Q6H PRN PO PAIN AND OR ELEVATED TEMP Last administered on 11/20/16 10:58; Admin Dose 650 MG; Start 11/17/16 at 09:00 Bisacodyl (Dulcolax Supp) 10 mg DAILY PRN [place] CONSTIPATION; Start 11/17/16 at 09 :00 Clonidine (Catapres) 0.1 mg Q6H PRN PO ELEVATED BLOOD PRESSURE; Start 11/17/16 at 09:00 Clonidine (Catapres) 0.2 mg TID PO Last administered on 11/22/16 08:33; Admin Dose 0.2 MG; Start 11/17/16 at 09:00 Clonidine HCl (Catapres-Tts 3 Patch) 0.3 patch Q7D TRANSDERM Last administered on 11/17/16 11:36; Admin Dose 0.3 PATCH; Start 11/17/16 at 10:00 Glucose (Glutose) 38 gm PRN PO Last administered on 11/17/16 22:36; Admin Dose 38 GM; Start 11/17/16 at 09:00 Diphenhydramine HCl (Benadryl) 25 mg Q8 PRN PO ITCHING; Start 11/17/16 at 09:00 Docusate Sodium (Colace) 250 mg DAILY PRN PO CONSTIPATION; Start 11/17/16 at 09 :00 Duloxetine HCl (Cymbalta) 60 mg DAILY PO Last administered on 11/23/16 09:07; Admin Dose 60 MG; Start 11/17/16 at 09:00 Guaifenesin/ Dextromethorphan (Robitussin Dm Liquid Cup) 10 ml Q6H PRN PO COUGH ; Start 11/17/16 at 09:00 Hydralazine HCl (Apresoline) 25 mg QID PO Last administered on 11/22/16 08:32; Admin Dose 25 MG; Start 11/17/16 at 09:00 Metoclopramide HCl (Reglan) 10 mg Q12 PRN PO NAUSEA AND/OR VOMITING; Start at 09:00 Nifedipine (Procardia Xl) 30 mg DAILY PO Last administered on 11/22/16 08:33; Admin Dose 30 MG; Start 11/17/16 at 10:00 Eye Lubricant (Artificial Tears Oph) 1 drop Q6 BOTH EYES Last administered on 17:46; Admin Dose 1 DROP; Start 11/17/16 at 12:00 Senna (Senokot) 1 tab Q12H PRN PO CONSTIPATION; Start 11/17/16 at 09:00 Zolpidem Tartrate (Ambien) 1 mg HS PO Last administered on 11/20/16 21:12; Admin Dose 1 MG; Start 11/17/16 at 21:00 Multivit/Ca Carb/ B Cmplx/FA/Prenat ([place]) 1 tab DAILY PO Last administered on 11/23/16 09:07; Admin Dose 1 TAB; Start 11/17/16 at 09:00 Diagnostic Test (Pha) (Accu-Chek) 1 ea 02 XX Last administered on 11/19/16 02: 00; Admin Dose 1 EA; Start 11/18/16 at 02:00 Miscellaneous Information 1 ea NOTE XX ; Start 11/17/16 at 10:00 Glucose (Glutose) 15 gm Q15M PRN PO DECREASED GLUCOSE; Start 11/17/16 at 10:00 Glucose (Glutose) 22.5 gm Q15M PRN PO DECREASED GLUCOSE; Start 11/17/16 at 10: 00 Dextrose (D50w Syringe) 25 ml Q15M PRN IV DECREASED GLUCOSE Last administered on 11/21/16 20:44; Admin Dose 25 ML; Start 11/17/16 at 10:00 Dextrose (D50w Syringe) 50 ml Q15M PRN IV DECREASED GLUCOSE Last administered on 11/23/16 18:00; Admin Dose 50 ML; Start 11/17/16 at 10:00 Glucagon (Glucagen) 1 mg Q15M PRN IM DECREASED GLUCOSE; Start 11/17/16 at 10:00 Glucose (Glutose) 15 gm Q15M PRN BUCCAL DECREASED GLUCOSE Last administered on 11/19/16 08:58; Admin Dose 15 GM; Start 11/17/16 at 10:00 Atorvastatin Calcium (Lipitor) 10 mg HS PO Last administered on 11/22/16 21:50 ; Admin Dose 10 MG; Start 11/17/16 at 21:00 Heparin Sodium (Porcine) (Heparin (5000 Units/0.5 ml)) 5,000 unit BID SC Last administered on 11/23/16 09:14; Admin Dose 5,000 UNIT; Start 11/17/16 at 13:00 Acetaminophen/ Hydrocodone Bitart ([place] (5/325)) 1 tab Q6 PRN PO MODERATE PAIN LEVEL 4-6 Last administered on 11/22/16 05:08; Admin Dose 1 TAB; Start at 18:00 Morphine Sulfate (morphine) 2 mg Q4H PRN IV PAIN LEVEL 6-10 Last administered on 11/22/16 13:25; Admin Dose 2 MG; Start 11/17/16 at 17:30 Isosorbide Dinitrate (Isordil) 10 mg TID PO Last administered on 11/22/16 08:31 ; Admin Dose 10 MG; Start 11/17/16 at 21:00 Nitroglycerin 1 tab 1 tab Q5M PRN SL ANGINA; Start 11/17/16 at 18:30 Piperacillin Sod/ Tazobactam Sod (Zosyn 2.25gm/ 50ml (Pmx)) 50 ml @ 100 mls/hr Q12 IVPB Last administered on 11/23/16 09:07; Admin Dose 100 MLS/HR; Start at 21:00 Ferrous Sulfate (Ferrous Sulfate (Ec)) 325 mg BID PO Last administered on 09:07; Admin Dose 325 MG; Start 11/18/16 at 21:00 Docusate Sodium (Colace) 100 mg DAILY PRN PO CONSTIPATION; Start 11/18/16 at 10 :00 Linagliptin (Tradjenta) 5 mg DAILY PO Last administered on 11/23/16 09:07; Admin Dose 5 MG; Start 11/18/16 at 14:00 Hydralazine HCl (Apresoline) 20 mg Q4 PRN IV ELEVATED BLOOD PRESSURE Last administered on 11/21/16 23:47; Admin Dose 20 MG; Start 11/21/16 at 23:30 Nitroglycerin 1 inch 1 inch Q6 TD Last administered on 11/22/16 05:15; Admin Dose 1 INCH; Start 11/22/16 at 00:00 Propofol (Diprivan) 100 ml @ 1.53 mls/hr Q12H PRN IV SEDATION Last administered on 11/23/16 17:47; Admin Dose 7.65 MLS/HR; Start 11/22/16 at 10:00 Insulin Aspart (Novolog Insulin Pen) NOVOLOG *MILD* ALGORI... Q6 SC Last administered on 11/22/16 18:15; Admin Dose 1 UNIT; Start 11/22/16 at 18:00 Pantoprazole 40 mg 40 mg DAILY@06 PO Last administered on 11/23/16 05:57; Admin Dose 40 MG; Start 11/23/16 at 06:00 Norepinephrine (Levophed) 250 ml @ 1.875 mls/ hr TITRATE IV Last administered on 11/23/16 15:45; Admin Dose 28.125 MLS/HR; Start 11/22/16 at 17:00 Insulin Glargine (Lantus) 11 unit DAILY@20 SC Last administered on 11/22/16 20: 42; Admin Dose 11 UNIT; Start 11/22/16 at 20:00 Epoetin Luis 6000 units 6,000 units MoWeFr@17 SC Last administered on 11/23/16 16:14; Admin Dose 6,000 UNITS; Start 11/23/16 at 17:00 Phenylephrine HCl/ Dextrose (Haile-Syneph/D5W) 500 ml @ 75 mls/hr TITRATE IV ; Start 11/23/16 at 18:00 Aspirin (Ecotrin) 325 mg DAILY PO ; Start 11/24/16 at 09:00 Mupirocin (Bactroban) 1 applic BID TOP ; Start 11/23/16 at 21:00 Procedures Procedures PROCEDURE: XR Chest AP portable CLINICAL INDICATION: Status post intubation TECHNIQUE: An AP portable radiograph of the chest was submitted. COMPARISON: 11/21/2016 FINDINGS: Support Hardware: Since the previous study, the patient has been intubated with the tube tip at the level of superior T4. An NG tube is in satisfactorily placed with the tip in the stomach. Cardiovascular: The heart remains mildly enlarged, the aorta appears atherosclerotic and the pulmonary vasculature is upper normal. Lung Junior: A 4.4 cm rounded density again projects to the right mid lung zone. Alveolar infiltrate is again seen to the right mid and lower lung zone. There is persistent left lower lobe atelectasis with shift of the mediastinum leftward. Pleural Spaces: Bilateral pleural fluid accumulations are again noted considerably larger on the right than the left, unchanged. Osseous Structures: Moderate diffuse degenerative spine changes are noted in the osseous elements appear osteoporotic. Soft Tissues: The soft tissues appear unremarkable. IMPRESSION: 1. Interval satisfactory intubation and placement of an NG tube. 2. Persistent mild cardiomegaly with atherosclerotic changes to the aorta and with the pulmonary vasculature upper normal. 3. A 4.4 cm round density again projects the right mid lung zone which could represent a round pneumonia or mass. 4. Infiltrate is again seen within the right mid and lower lung zone, slightly worse and an increasing atelectasis and possibly infiltrate is seen through the heart in the left lower lobe with a greater shift of the mediastinum leftward. 5. Bilateral pleural fluid accumulations are again evident considerably larger on the right than the left. No pneumothorax is identified. Physician Shon Date Time Electronically viewed and signed by Physician Shon on 11/22/2016 10:24 LYNN SEBASTIAN MD Nov 23, 2016 20:31
[2016-11-23] MEDS: ZOLPIDEM 5 MG TAB PO SCH (21:00)
[2016-11-23] MEDS ORDERED: MUPIROCIN 2% 22 GM OINT TOP SCH (21:00)
[2016-11-23] MEDS: INSULIN GLARGINE [LANtus] 3 ML PEN SC SCH (21:08)
[2016-11-23] MEDS: ATORVASTATIN 10 MG TAB PO SCH (21:49)
[2016-11-23 23:28] LABS: AADO2 Arterial 425.6 mmHg (7.0-24.0); Allen Test ACCEPTAB; Arterial Base Excess -29.3 mmol/L (-3.0-3); Arterial COHb 0.5 % (0.0-3.0); Arterial Fraction of Oxyhgb 98.4 % (93.0-99.0); Arterial HCO3 4.3 mmol/L (22.0-26.0); Arterial MetHb 0.2 % (0.0-1.5); Arterial Total Hemglobin 9.6 g/dl (12.0-18.0); MODE VENT - AC
[2016-11-23] MEDS ORDERED: NA BICARBONATE 8.4% 50 ML SYG IV ONE (23:35)
[2016-11-24] VITALS (7 sets, daily range): BP systolic 64; BP diastolic 25; PULSE 0–73; RESP 0–14
[2016-11-24] MEDS ORDERED: DOPamine-D5W 1.6 MG/ML 250 ML IV SCH
[2016-11-24] MEDS ORDERED: NA BICARBONATE 8.4% 50 ML SYG ONE
[2016-11-24] MEDS ORDERED: DEXTROSE 50% 50 ML SYRINGE ONE
[2016-11-24] MEDS ORDERED: DEXTROSE 5% 1,000 ML IV SCH (00:30)
[2016-11-24] MEDS ORDERED: EPINEPHrine 0.1 MG/ML SYG ONE ×2 (00:30)
[2016-11-24] MEDS ORDERED: CA CHLORIDE 10% 10 ML SYRINGE ONE ×2 (00:33)
--- NOTE | 2016-11-24 06:09 | EN ---
Date/Time of Note Date/Time of Note DATE: 11/24/16 TIME: 06:06 ER Progress Note The patient is a 71-year-old female, in ICU, went to asystole. Upon arrival to the bedside, she was Ambu bag by the respiratory therapist. She remains in asystole, was treated for hypoglycemia, metabolic acidosis. She has been on maximum dose of Levophed, dopamine, Haile-Synephrine drip The code started at 12:17 AM and ended at 12:45 AM. Please see the CODE BLUE documentation form for detailed information Diagnostic impression: #1 status post asystole #2 acute hypoglycemia, treated Cardiopulmonary Resuscitation by me: See code documentation for specific details. ACLS and BLS were performed with high quality chest compressions and minimal interruptions. Reversible causes were assessed and treated. Critical Care: Time: 35 minutes excluding all billable procedures. Treatments/Evaluations: Close monitoring and treatment of unstable vital signs, cardiorespiratory, and neurologic status, while maintaining tight balance of fluid, respiratory, and cardiac interventions. The son was present at the bedside and wanted to stop the resuscitation. SOL ADRIAN MD Nov 24, 2016 06:09
[2016-11-24] MEDS ORDERED: ASPIRIN (EC) 325 MG TAB PO SCH (09:00)
[2016-11-24] MEDS ORDERED: INSULIN GLARGINE [LANtus] 3 ML PEN SC SCH (09:00)
--- NOTE | 2016-11-25 15:33 | RADRPT ---
Vent Rate: 91 bpm RR Interval: 0 msec LA Interval: 0 msec QRS Duration: 138 msec QT Interval: 402 msec QTC Interval: 494 msec P-R-T [place]: 0 - 0 - 83 degrees ? Sinus Bradycardia with intermittent Atrial fibrillation Right superior axis deviation Nonspecific intraventricular block Cannot rule out Anterior infarct , age undetermined Abnormal ECG Electronically Signed By: Terrence Palacios [id number]
== END 2016-11-24 00:45 | disposition expired | DRG 871 ==
LOC: E/R 21:21 → MS4 11-17 01:09 → ICU 11-22 04:26
PROVIDERS: ADMIT Internal Medicine; ATTEND Internal Medicine
PROC: 5A1D60Z (ICD-10-PCS; 2016-11-18)
PROC: 0BH17EZ Insertion of Endotracheal Airway into Trachea, Via Natural or Artificial Opening (ICD-10-PCS; principal; 2016-11-22)
PROC: 5A1945Z Respiratory Ventilation, 24-96 Consecutive Hours (ICD-10-PCS; 2016-11-22)
DX: A41.9 Sepsis, unspecified organism (principal); J18.9 Pneumonia, unspecified organism; J96.00 Acute respiratory failure, unspecified whether with hypoxia or hypercapnia; G92 Toxic encephalopathy; I13.2 Hypertensive heart and chronic kidney disease with heart failure and with stage 5 chronic kidney disease, or end stage renal disease; E11.21 Type 2 diabetes mellitus with diabetic nephropathy; D63.1 Anemia in chronic kidney disease; I50.9 Heart failure, unspecified; N18.6 End stage renal disease; B02.29 Other postherpetic nervous system involvement; E78.00 Pure hypercholesterolemia, unspecified; E03.9 Hypothyroidism, unspecified; Z86.73 Personal history of transient ischemic attack (TIA), and cerebral infarction without residual deficits; G89.29 Other chronic pain; R07.9 Chest pain, unspecified; J40 Bronchitis, not specified as acute or chronic; I46.9 Cardiac arrest, cause unspecified; E16.2 Hypoglycemia, unspecified; Z99.2 Dependence on renal dialysis
CPT/HCPCS: 36415; 36600; 71010; 76604; 80048; 80053; 80061; 80202; 82550; 82553; 82803; 82947; 82962; 83036; 83605; 83735; 83880; 84100; 84145; 84439; 84443; 84484; 85025; 85610; 85730; 86480; 86635; 86713; 87040; 87070; 87081; 87400; 87502; 89220; 90935; 92950; 93005; 93306; 94002; 94003; 94640; 94660; 94664; 94770; 96374; 96375; 96376; J0171; J0360; J0456; J0696; J0886; J1265; J1644; J1815; J1940; J2270; J2405; J2543; J3370; J7040; J7050; J7060; J7070